=== PATIENT | male | born 1960 | race Caucasian/White ===

== ENCOUNTER 2020-09-11 14:03 | Outpatient (CLI) | payer OTHER, SELFPAY ==
--- NOTE | ~2020-09-11 | XR_ITS ---
EXAMINATION: XR wrist LT min 3V DATE: 09/11/2020 14:19 INDICATION: Osteoarthritis. TECHNIQUE: 4 views of left wrist were obtained. COMPARISON: None. FINDINGS: Bone alignment is normal. No fracture. Triquetrum is absent. There is moderate osteoarthrit is of radioscaphoid joint and scaphoid-trapezoid joint. IMPRESSION: 1. Polyarticular osteoarthritis. Reviewed, dictated and finalized at location A.
== END 2020-09-11 14:04 | disposition home or self-care (01) ==
LOC: ANHIMG 14:09
PROVIDERS: PCP Family Medicine; Visit Provider Plastic Surgery
DX: M19.032 Primary osteoarthritis, left wrist (principal)
CPT/HCPCS: 73110

== ENCOUNTER 2020-10-10 12:55 | Outpatient (CLI) | payer OTHER, SELFPAY ==
--- NOTE | ~2020-10-10 | XR_ITS ---
EXAMINATION: XR joint inject/asp add, XR joint inject/asp w image DATE: 10/10/2020 14:26 ) INDICATION: Osteoarthritis at the left carpus TECHNIQUE: A time-out was performed to verify the patient's name, date of , and procedure to cristina mora performed. The procedure including the risks, benefits, and alternatives was discussed with the kory ieyany. Risks discussed included bleeding and infection. The patient understood the risks and agreed to proceed. The skin overlying the bursal aspect of the left wrist and carpus joint was prepped and dr aped in usual sterile fashion. Anesthetic was administered with 1% lidocaine subcutaneously over both the radiocarpal and infiltrative facet articulations. Attention was first turned to the radiocarpal joint. A 22 G needle was advanced under fluoroscopic guidance into the radioscaphoid articulation of the left wrist joint. Injection of 0.2 mL of Omnipaque 240 confirmed intra-articular position of the needle. Subsequently, injectate consisting of 0.7 mm of a 40 mg/mL mixture of Kenalog for a total d ose of 28 mg Kenalog was injected. Washout of contrast was seen confirming intra-articular administra tion. Attention was then turned to the scaphoid trapezoid articulation. The trapezium has been previo usly resected. A 20 2G needle was advanced under fluoroscopic guidance into the joint space. Injectio n of 0.2 mm of Omnipaque 240 confirmed intra-articular position of the needle. An injectate consistin g of 0.7 mm of a 40 mg/mL mixture of Kenalog for a total dose of 28 mg Kenalog was injected. Washout of contrast was seen confirming intra-articular administration. The entry sites were cleaned and jennifer ssed. There were no immediate complications. Fluoroscopy exposure time was 0.2 minutes. The total nu mber of images was 4. FINDINGS: Fluoroscopic images demonstrate prior first carpal metacarpal suspension arthroplasty with resection of the trapezium. Subsequent images demonstrate a needle and contrast in the left wrist joint. Subseq uent images demonstrate needle and contrast in the scaphoid trapezoid articulation. There is communic ation of the joint space with the midcarpal joint with additional contrast accumulating at the ulnar side of the carpus at the triquetral hamate articulation. Patient's pain prior to procedure:5/10. Ramirez arguello's pain following the procedure: 0/10. IMPRESSION: 1. Successful injections of steroid with decrease in the patient's presenting pain into both the left wrist and scaphoid trapezoid articulations, the latter with communication with the midcarpal joint. Reviewed, dictated and finalized at location A. ERY DEPARTMENT MANAGER IMPRESSION: 1. Successful injections of steroid with decrease in the patient's presenting p ain into both the left wrist and scaphoid trapezoid articulations, the latter w ith communication with the midcarpal joint.
== END 2020-10-10 12:56 | disposition home or self-care (01) ==
LOC: ANHIMG 13:07
PROVIDERS: PCP Family Medicine; Visit Provider Plastic Surgery
DX: M19.032 Primary osteoarthritis, left wrist (principal)
CPT/HCPCS: 20605; 77002; J3301; Q9966

== ENCOUNTER 2023-10-13 08:57 | Outpatient (CLI) | payer OTHER, SELFPAY ==
[2023-10-13 17:40] LABS: Basophils Percent Auto 0.8 % (0.2-1.2); Eosinophils Percent Auto 0.6 % (0-4.4); Hematocrit 49.1 % (42.0-52.0); Hemoglobin 15.9 g/dL (14.0-18.0); Immature Granulocyte Absolute 0.02 K/mm3 (0.00-0.031); Immature Granulocyte Percent A 0.4 % (0-0.5); Lymphocytes Absolute Auto 0.91 K/mm3 (0.9-3.2); Lymphocytes Percent Auto 19.1 % (18.3-44.2); Mean Corpuscular HGB Conc 32.4 g/dl (32-36); Mean Corpuscular Hemoglobin 31.2 pg (26-34); Mean Corpuscular Volume 96.3 fl (80-100); Mean Platelet Volume 9.4 fl (7.4-10.4); Monocytes Absolute Auto 0.4 K/mm3 (0.1-0.6); Monocytes Percent Auto 7.6 % (2.6-8.5); Neutrophils Absolute Auto 3.4 K/mm3 (1.3-6.7); Neutrophils Percent Auto 71.5 % (45.5-73.1); Platelet Count Result 227 k/mm3 (150-375); Red Cell Distribution Width 12.2 % (11.5-14.5); White Blood Count 4.8 K/mm3 (4.5-10.0)
== END 2023-10-13 08:58 | disposition home or self-care (01) ==
LOC: ANHGOSHLAB 08:58
PROVIDERS: PCP Family Medicine; Visit Provider Nurse Practitioner Family
DX: R59.0 Localized enlarged lymph nodes (principal)
CPT/HCPCS: 36415; 85025

== ENCOUNTER → 2023-11-12 12:49 | Outpatient (CLI) | payer OTHER, SELFPAY ==
--- NOTE | ~2023-11-12 | US_ITS ---
EXAMINATION: US soft tissue head and neck DATE: 11/12/2023 13:03 INDICATION: Localized enlarged lymph nodes. TECHNIQUE: Multiple grayscale and Doppler ultrasound images of the head and neck were obtained. COMPARISON: None FINDINGS: In left neck, there is a 4.0 x 4.4 x 3.4 cm thick-walled cystic mass inferior to left parot id gland. IMPRESSION: 1. 4.4 cm thick-walled cystic mass in left neck. The differential diagnosis includes a joe metastas is from squamous cell carcinoma and benign and malignant parotid masses. Neck CT with contrast is rec ommended prior to ultrasound-guided core needle biopsy. Reviewed, dictated and finalized at location A. E SALES CONSULTANT IMPRESSION: 1. 4.4 cm thick-walled cystic mass in left neck. The differential diagnosis inc ludes a joe metastasis from squamous cell carcinoma and benign and malignant parotid masses. Neck CT with contrast is recommended prior to ultrasound-guided core needle biopsy.
== END ==
PROVIDERS: PCP Family Medicine; Visit Provider Nurse Practitioner Family
DX: R59.0 Localized enlarged lymph nodes (principal)
CPT/HCPCS: 76536

== ENCOUNTER → 2023-11-18 09:14 | Outpatient (CLI) | payer OTHER, SELFPAY ==
--- NOTE | ~2023-11-18 | CT_ITS ---
CT scan of the Neck Technique: 2.5 mm axial scans were obtained through the neck after intravenous administration of 75 c c Omnipaque 350. Coronal and sagittal reconstructions of the neck were obtained. Dose reduction techn ique was used on this scan by utilizing automated exposure control and iterative reconstruction techn ique. The dose-length product (DLP) was 498.47 mGy-cm. Clinical History: Lymphadenopathy Findings: There is a 3.7 x 3.6 cm predominantly cystic mass along the anteromedial margin of the left sternocla vicular mastoid muscle, with a thin internal septation and eccentric wall thickening along the medial aspect (axial image 51 for example). No other lymphadenopathy or abnormal mass lesion identified in the neck. Parapharyngeal spaces appear normal bilaterally. The parotid and submandibular glands appea r normal. The pharyngeal mucosal spaces appear normal. No soft tissue masses are seen in the neck. The thyroid gland appears normal. Images of the lung apices reveal no abnormalities. Impression: 3.7 x 3.6 cm complex cystic mass along the anteromedial margin of the left sternocleidal mastoid musc le, as detailed above. This is suspicious for necrotic or cystic neoplasm, though other cystic lesion s are not excluded. Surgical consultation advised. Reviewed, dictated and finalized at location M. OTION PRODUCER Impression: 3.7 x 3.6 cm complex cystic mass along the anteromedial margin of the left ster nocleidal mastoid muscle, as detailed above. This is suspicious for necrotic or cystic neoplasm, though other cystic lesions are not excluded. Surgical consul tation advised.
[2023-11-18 09:43] LABS: Estimated Glomerular Filt Rate > 60
== END ==
PROVIDERS: PCP Family Medicine; Visit Provider Family Medicine
DX: R59.0 Localized enlarged lymph nodes (principal)
CPT/HCPCS: 70491; Q9967

== ENCOUNTER 2023-12-02 09:25 | Outpatient (CLI) | payer OTHER, SELFPAY ==
--- NOTE | ~2023-12-02 | US_ITS ---
EXAMINATION: US biopsy lymph node DATE: 12/02/2023 10:34 INDICATION: Localized enlarged left cervical lymph node/mass. TECHNIQUE: The procedure including the risks and benefits was discussed with the patient. Risks discu ssed included bleeding and infection. The patient understood the risks and agreed to proceed. The sk in overlying the left neck was prepped and draped in usual sterile fashion. Anesthetic was administe red with 1% lidocaine subcutaneously. An 18 gauge core biopsy needle was advanced under continuous u ltrasound observation to the lesion of interest. 4 core biopsy specimens were obtained. The needle was removed and the entry site was cleaned and dressed. Post procedure ultrasound demonstrated no he morrhage. FINDINGS: Ultrasound images demonstrate a 3.2 x 2.5 x 1.8 cm hypoechoic mass at the region of concern . The mass currently appears more solid with on prior ultrasound dated 11/16/2023 to the lesion appea red predominantly anechoic and cystic. There is a small focus of vascular flow on color Doppler withi n the mass which was specifically targeted for the biopsy. IMPRESSION: 1. Successful Ultrasound-guided biopsy of a 3.2 x 2.5 x 1.8 cm left neck mass. Reviewed, dictated and finalized at location A. GER SIX SIGMA
== END 2023-12-02 09:26 | disposition home or self-care (01) ==
PROVIDERS: PCP Family Medicine; Visit Provider Family Medicine
DX: R59.0 Localized enlarged lymph nodes (principal)
CPT/HCPCS: 38505; 76942; 88305; 88342

== ENCOUNTER 2024-12-22 10:05 | Outpatient (CLI) | payer OTHER, SELFPAY ==
--- NOTE | 2024-12-22 12:00 | NEURO_ITS ---
Impression: # Complains of numbness of hands. Non-Diabetic. ? # Bilateral moderate Carpal Tunnel Syndrome. ? # Bilateral ulnar neuropathy across the elbows. ? # Abnormal needle/EMG exam. Nerve Conduction Studies Anti Sensory Summary Table ?Stim Site NR Peak (ms) P-T Amp (?V) Site1 Site2 Delta-P (ms) Dist (cm) Mata (m/s) Left Median Anti Sensory Run #2 (2-3nd Digit) Wrist ? 4.7 7.2 Wrist 2-3nd Digit 4.7 14.0 30 Wrist ? 5.8 32.5 Wrist 2-3nd Digit 4.7 14.0 30 Right Median Anti Sensory (2-3nd Digit) Wrist ? 8.1 12.7 Wrist 2-3nd Digit 8.1 14.0 17 Wrist ? 7.2 17.5 Wrist 2-3nd Digit 8.1 14.0 17 Left Radial Anti Sensory (Base 1st Digit) Wrist ? 2.6 12.8 Wrist Base 1st Digit 2.6 0.0 Right Radial Anti Sensory (Base 1st Digit) Wrist ? 2.1 5.8 Wrist Base 1st Digit 2.1 0.0 Left Ulnar Anti Sensory (5th Digit) Wrist ? 3.4 18.1 Wrist 5th Digit 3.4 14.0 41 Right Ulnar Anti Sensory (5th Digit) Wrist ? 3.3 14.0 Wrist 5th Digit 3.3 14.0 42 Motor Summary Table ?Stim Site NR Onset (ms) O-P Amp (mV) Site1 Site2 Delta-0 (ms) Dist (cm) Mata (m/s) Left Median Motor (Abd Poll Brev) Wrist ? 5.3 1.1 Elbow Wrist 6.6 33.0 50 Elbow ? 11.9 3.6 Right Median Motor (Abd Poll Brev) Wrist ? 4.8 2.5 Elbow Wrist 7.0 32.0 46 Elbow ? 11.8 4.9 Left Ulnar Motor (Abd Dig Minimi) Wrist ? 2.9 7.4 A Elbow Wrist 7.0 34.0 49 A Elbow ? 9.9 6.1 B Elbow Wrist 4.5 24.0 53 B Elbow ? 7.4 6.4 Right Ulnar Motor (Abd Dig Minimi) Wrist ? 2.4 5.6 A Elbow Wrist 7.4 32.0 43 A Elbow ? 9.8 4.1 B Elbow Wrist 5.2 24.0 46 B Elbow ? 7.6 4.3 F Wave Studies ?NR F-Lat (ms) L-R F-Lat (ms) Left Median (Mrkrs) (Abd Poll Brev) ? 29.71 1.17 Right Median (Mrkrs) (Abd Poll Brev) ? 28.54 1.17 Left Ulnar (Mrkrs) (Abd Dig Min) ? 29.78 1.73 Right Ulnar (Mrkrs) (Abd Dig Min) ? 28.05 1.73 EMG ?Side Muscle Nerve Root Ins Act Fibs Amp Dur Recrt Comment Right 1stDorInt Ulnar C8-T1 Nml Nml Decr >12ms +1 Right Ext Indicis Radial (Post Int) C7-8 Nml Nml Nml Nml Nml Right Ext Digitorum Radial (Post Int) C7-8 Nml Nml Nml Nml Nml Right BrachioRad Radial C5-6 Nml Nml Nml Nml Nml Right PronatorTeres Median C6-7 Nml Nml Nml Nml Nml Right Abd Poll Brev Median C8-T1 Nml Nml Decr >12ms +1 Right ABD Dig Min Ulnar C8-T1 Nml Nml Decr >12ms +1 Left 1stDorInt Ulnar C8-T1 Nml Nml Decr >12ms +1 Left Ext Indicis Radial (Post Int) C7-8 Nml Nml Nml Nml Nml Left Ext Digitorum Radial (Post Int) C7-8 Nml Nml Nml Nml Nml Left BrachioRad Radial C5-6 Nml Nml Nml Nml Nml Left PronatorTeres Median C6-7 Nml Nml Nml Nml Nml Left Abd Poll Brev Median C8-T1 Nml Nml Decr >12ms +1 Left ABD Dig Min Ulnar C8-T1 Nml Nml Decr >12ms +1 MTDD
--- OUTSIDE RECORDS SUMMARY | 2024-12-23 23:04 | XMS_ITS | Clinical Summary ---
Author Organization [facility] [employer] Address [address] [place] [address] Care Team Providers Care Field Auto Appraiser Name Role Phone Cesar Allan MD Primary Care Provider [phone] Source Comments [facility],non-owned Affiliates and Associated Physician Practices is amultiple site organization consisting of ambulatory clinics and hospital sitesin [place], [place], [place] and [place]. This disclosure is being madepursuant to the Care Everywhere program and may not contain all information available regarding this patient. Last updated 18.[facility] [employer] Allergies Active Allergy Reactions Criticality Noted Date Comments Midazolam Other Low 01/04/2016 Mental status changes, violence, thrashing Active Problems Problem Noted Date Diagnosed Date Primary osteoarthritis of right hand 02/06/2016 Primary osteoarthritis of left hand 02/06/2016 Personal history of other malignant neoplasm of skin 01/04/2016 Rash and other nonspecific skin eruption 016 Ulcerative colitis without complications 016 Essential (primary) hypertension 01/04/2016 Family History Medical History Relation Name Comments Arthritis - Osteo Mother Asthma Mother Hypertension Mother Relation Name Status Comments Mother Social History Tobacco Use Types Packs/Day Years Used Date Smoking Tobacco: Former Alcohol Use Standard Drinks/Week Comments No 0 (1 standard drink = 0.6 oz pur e alcohol) Sex and Gender Information Value Date Recorded Sex Assigned at Not on file Gender Identity Not on file Sexual Orientation Not on file Last Filed Vital Signs Vital Sign Reading Time Taken Comments Blood Pressure 130/80 02/05/2016 2:14 PM MEMORIAL MARKER DESIGNER Pulse 77 02/05/2016 2:14 PM MEMORIAL MARKER DESIGNER Temperature 36.2 ??C (97.2 ??F) 02/05/2016 2:14 PM CS T Respiratory Rate 18 02/05/2016 2:14 PM MEMORIAL MARKER DESIGNER Oxygen Saturation - - Inhaled Oxygen Concentration - - Weight 101.2 kg (223 lb) 02/05/2016 2:14 PM MEMORIAL MARKER DESIGNER Height 187.3 cm (6' 1.75 ) 01/04/2016 9:42 AM CS T Body Mass Index 28.83 01/04/2016 9:42 AM MEMORIAL MARKER DESIGNER Plan of Treatment Health Maintenance Due Date Last Done Comments COLOGUARD (AGES 45-75) - COL ON CA SCREENING 1959 COLON MONITORING 1959 COLONOSCOPY - COLON CA SCREENING 1959 CT COLONOGRAPHY - COLON CA SCREENING 1959 Colorectal Cancer Screening 1959 FIT - COLON CA SCREENING 1959 FLEX SIG - COLON CA SCREENING 1959 LIPID TESTING 1959 COVID-19 VACCINE (#1) 1964 HIV SCREENING 1974 DTAP/TDAP/TD VACCINES (1 - Tdap) 1978 PNEUMOCOCCAL VACCINE 50+ (1 of 2 - PCV) 1978 ZOSTER VACCINE (1 of 2) 1978 Respiratory Syncytial Virus (RSV) Vaccine Pt: or over 60 yrs (1 - Risk 60-74 years 1-dose series) 2019 AAA SCREENING 2024 INFLUENZA VACCINE (#1) 2024 DEPRESSION SCREENING 12/01/2024 HEPATITIS C SCREENING Completed 01/22/2016 HEPATITIS B VACCINE Aged Out No longe r eligible based on patient's age to complete this topic HIB VACCINE Aged Out No longer eligi ble based on patient's age to complete this topic HPV VACCINE Aged Out No longer eligi ble based on patient's age to complete this topic MENINGOCOCCAL (Group B) VACCINE Aged Out No longer eligible based on patient's age to complete this topic MENINGOCOCCAL VACCINE Aged Out No christina monique eligible based on patient's age to complete this topic Procedures Procedure Name Priority Date/Time Associated Diagnosis Comments HEPATITIS C ANTIBODY Routine 01/22/2016 8:15 AM MEMORIAL MARKER DESIGNER from Last 3 Months or Most Recently Relevant to Health Maintenance Results * HEPATITIS C ANTIBODY (01/22/2016 8:15 AM MEMORIAL MARKER DESIGNER) Hepatitis C Virus Antibody <0.1 0.0 - 0.9 s/co ratio [facility] ([place]) Comment: ?Negative: ? < 0.8 ? Indeterminate: 0.8 - 0.9 ?Positive: ? > 0.9 The CDC recommends that a positive HCV antibody result be followed up with a HCV Nucleic Acid Amplification test (218152). Blood specimen (specimen) BLOOD SPECIMEN / Unknown 01/22/2016 8:15 AM MEMORIAL MARKER DESIGNER 01/22/2016 12:45 PM MEMORIAL MARKER DESIGNER Narrative [facility] ([place]) - 01/25/2016 1:18 PM MEMORIAL MARKER DESIGNER Performed at: ??02 - [facility] [address] ??[id number] Hay Chopper: Tomazs Garland PhD, Phone: ??[phone] John Seaman MD LAB - CHEMISTRY RODRIGO KEYES [facility] LATESHA MORROW) from Last 3 Months or Most Recently Relevant to Health Maintenance Care Teams Field Auto Appraiser Relationship Specialty Start Date End Date Cesar Allan MD [address] [place] [address] PCP - General 02/05/16
--- OUTSIDE RECORDS SUMMARY | 2024-12-23 23:04 | XMS_ITS ---
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 Past Plans No past plan information found. Radiation Treatments * No radiation treatments are documented for this patient in [facility]. Treatments may have been administered in another system. Lifetime Dose Tracking * Chemical Lifetime Dose Automatic Entry Manual Entr y Fluoro Time 1.8 minutes 1.8 minutes 0 minutes Air kerma at the reference point (Ka,r) 19.6 mGy 1 9.6 mGy 0 mGy DLP 420 mGycm 420 mGycm 0 mGycm Resolved Problems Problem Noted Date Diagnosed Date Resolved Date Cancer with unknown primary site (CMS/HCC) 12/10/2023 01/06/2024
--- OUTSIDE RECORDS SUMMARY | 2024-12-23 23:04 | XMS_ITS | Referral Summary ---
Author Organization [facility] Main [facility] s Address [address] [place] [address] Care Team Providers Care Fork Truck Driver Name Role Phone Sergio Schrader MD Unavailable [phone] Satinder Romano MD Unavailable Deshawn Mandujano MD Unavailable Cesar Allan MD Primary Care Provider [phone] Encounters Date Type Department Care Team Description 11/03/2024 10:40 AM CUSTODIAN MANAGER Office Visit [facility] Department of Otolaryngology Head-Neck Division [address] [place] [address] Deshawn Mandujano MD Cancer of tonsil, palatine (HCC) (Primary Dx) 10/12/2024 Telephone [facility] - [facility] E[facility] [address] [place] [address] [place] [id number] Jody Lazcano MS from Last 3 Months Allergies Active Allergy Reactions Criticality Noted Date Comments Midazolam Other (See comments) Low Reaction: Violent Behavior, Morphine Unknown 12/10/2023 Medications oxyCODONE (ROXICODONE) 5 mg immediate release tabletIndicatio ns:Pain Take 1 tablet (5 mg total) by mouth every 4 (four) hours as needed for pain 16 tablet 4 Active ascorbic acid (vitamin C) 1,000 mg tablet Administer per tube 1 tablet (1,000 mg total) every morning 4 Active aspirin 81 mg chewable tabletIndicatio ns:prevention of thrombosis Administer per tube 1 tablet (81 mg total) every morning 4 Active folic acid 20 mg capsule Administer per tube 1 tablet every morning 4 Active potassium gluconate 595 mg (99 mg) tabletIndicatio ns:hypokalemia prevention Administer per tube 1 tablet (595 mg total) every morning 4 Active psyllium (METAMUCIL) powder Administer per tube 1 packet nightly 4 Active pyridoxine (VITAMIN B-6) 100 mg tablet Administer per tube 1 tablet (100 mg total) every morning 4 Active tadalafiL (CIALIS) 20 mg tablet Administer per tube 1 tablet (20 mg total) daily as needed for erectile dysfunction 4 Active traZODone (DESYREL) 100 mg tabletIndicatio ns:insomnia associated with depression Administer per tube 1 tablet (100 mg total) nightly 4 Active acetaminophen 500 mg capsule Administer per tube 1 capsule (500 mg total) as needed (pain) 4 Active cyclobenzaprine (FLEXERIL) 10 mg tablet Administer per tube 1 tablet (10 mg total) 3 (three) times a day as needed for muscle spasms 4 Active nebivoloL (BYSTOLIC) 10 mg tabletIndicatio ns:hypertension Administer per tube 1 tablet (10 mg total) nightly 4 Active sulfaSALAzine (AZULFIDINE) 500 mg tablet Administer per tube 0.5 tablets (250 mg total) 2 (two) times a day for 14 days 14 tablet 1 4 Active ibuprofen (ADVIL,MOTRIN) 400 mg tablet Administer per tube 1 tablet (400 mg total) every 6 (six) hours 4 Active chlorhexidine (PERIDEX) 0.12 % solution RINSE WITH 1/2 OZ AFTER BREAKFAST AND AT BEDTIME, DO NOT EAT/DRINK FOR 30 MINS AFTER, SPIT OUT [address] (NexIUM) 40 mg capsule Take by mouth daily 4 Active Active Problems Problem Noted Date Diagnosed Date 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, 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 Overview (01/14/2024): DIAGNOSIS: Left inferior tonsil cancer PROCEDURE PERFORMED: ([facility] 12/30/23) Transoral robotic assisted left radical tonsillectomy Left neck dissection Left neck major vessel ligation external carotid system: Lingual and facial arteries Pain of finger 07/25/2016 Resolved Problems Problem Noted Date Diagnosed Date Resolved Date Cancer with unknown primary site ([facility]) 12/10/2023 01/06/2024 Immunizations Name Administration Dates Next Due Influenza, Quadrivalent, Xuan l Culture-based MDCK, Preservative Free, Antibiotic Free, Intramuscular 09/24/2022 Influenza, Quadrivalent, Spl it, Intramuscular 09/23/2019 Influenza, Quadrivalent, Spl it, Preservative Free, Intramuscular 01/01/2024,08/09/2020,08/24/2018 Influenza, Trivalent, IM (MDV) 08/09/2021 Tdap 08/17/2023 ZOSTER Recombinant 08/28/2020,06/30/2020 Social History Tobacco Use Types Packs/Day Years Used Date Smoking Tobacco: Former Cigarettes Q uit: 1988 Passive Smoke Exposure: Past Smokeless Tobacco: Former Chew AUDIT-C Answer Date Recorded Q1: How often do you have a drink containing alc ohol? Never 12/30/2023 Q2: How many drinks containi ng alcohol do you have on a typical day when you are drinking? 1 or 2 12/30/2023 Q3: How often do you have six or more drinks on one occasion? Never 12/30/2023 Personal Safety Answer Date Recorded Have you ever been in or are you currently in a harmful physical or emotional relationship or is someone making you feel afraid or unsafe? Denies 12/30/2023 Sex and Gender Information Value Date Recorded Sex Assigned at Not on file Legal Sex Male 11:52 AM CUSTODIAN MANAGER Gender Identity Not on file Sexual Orientation Not on file Last Filed Vital Signs Vital Sign Reading Time Taken Comments Blood Pressure 144/77 01/01/2024 3:41 PM CUSTODIAN MANAGER Pulse 83 01/01/2024 3:41 PM CUSTODIAN MANAGER Temperature 36.6 ??C (97.9 ??F) 01/01/2024 3:41 PM CS T Respiratory Rate 17 01/01/2024 3:41 PM CUSTODIAN MANAGER Oxygen Saturation 99% 01/01/2024 3:41 PM CUSTODIAN MANAGER Inhaled Oxygen Concentration - - Weight 90.7 kg (200 lb) 11/03/2024 10:54 AM CUSTODIAN MANAGER Height 188 cm (6' 2 ) 04/14/2024 10:33 AM CDT Body Mass Index 25.68 04/14/2024 10:33 AM CDT Plan of Treatment Not on file Insurance Advance Directives For more information, please contact: [phone] * Full Code (Latest Code Status on File) Date Activated Date Inactivated Comments 12/30/2023 2:42 PM 01/01/2024 10:34 PM Care Teams Fork Truck Driver Relationship Specialty Start Date End Date Cesar Allan MD [address] [place] [address] [address] [place] [address] PCP - General Family Medicine 04/02/24 Sergio Schrader MD [address] [facility] [address] [facility], [facility] [address] [place] [address] Medical Oncologist/Insole And Outsole Splitter Medical Oncology 12/12/23 Satinder Romano MD [address] [facility] [facility] [address] [facility], [facility] [address] [place] [address] Radiation Oncologist Radiation Oncology 12/12/23 Deshawn Mandujano MD [address] OT[facility], [facility] [address] [place] [address] Consulting Physician Otolaryngology 12/12/23
--- OUTSIDE RECORDS SUMMARY | 2024-12-23 23:04 | XMS_ITS | Encounter Summary ---
Author Organization [facility] Address [address] [place] [address] Phone Care Team Providers Care Strap Machine Operator Name Role Phone Cate Loving NP Primary Care Provider [phone] Sergio Schrader MD Unavailable Satinder Romano MD Unavailable [phone] Deshawn Mandujano MD Unavailable [phone] Cesar Allan MD Primary Care Provider [phone] Encounter Details Date Type Department Care Team (Latest Contact Info) Description 12/22/2023 Orders Only [facility] Scanning, Provider Social History Tobacco Use Types Packs/Day Years Used Date Smoking Tobacco: Former Passive Smoke Exposure: Past Smokeless Tobacco: Former Chew AUDIT-C Answer Date Recorded Q1: How often do you have a drink containing alc ohol? Monthly or less 12/26/2023 Q2: How many drinks containi ng alcohol do you have on a typical day when you are drinking? 1 or 2 12/26/2023 Q3: How often do you have si x or more drinks on one occasion? Never 12/26/2023 Personal Safety Answer Date Recorded Getting School Help Needed Denies 12/26 Sex and Gender Information Value Date Recorded Sex Assigned at Not on file Legal Sex Male 11:52 AM [employer] Gender Identity Not on file Sexual Orientation Not on file documented as of this encounter Plan of Treatment Not on file documented as of this encounter Procedures Procedure Name Priority Date/Time Associated Diagnosis Comments SCAN - PATHOLOGY 12/22/2023 documented in this encounter Results * SCAN - PATHOLOGY (12/22/2023) us Provider Scanning Final Result documented in this encounter Visit Diagnoses Not on filedocumented in this encounter Care Teams Strap Machine Operator Relationship Specialty Start Date End Date Cate Loving, DATA MANAGEMENT CONSULTANT PCP - General Family Medicine 12/05/23 04/01/24 Cesar Allan MD [address] [place] [address] [id number] PCP - General Family Medicine 04/02/24 Sergio Schrader MD [address] [facility] [address] MEDICAL ONCOLOGY, [facility] [address] [place] [address] Medical Oncologist/Barrel Driller Medical Oncology 12/12/23 Satinder Romano MD [address] [facility] [address] MEDICAL ONCOLOGY, [facility] [address] [place] [address] Radiation Oncologist Radiation Oncology 12/12/23 Deshawn Mandujano MD [address] [facility] DEPT OTOLARYNGOLOGY, [address] [address] Consulting Physician Otolaryngology 12/12/23 documented as of this encounter
--- OUTSIDE RECORDS SUMMARY | 2024-12-23 23:04 | XMS_ITS | Patient Health Summary ---
Author Organization [facility] Address [address] [place] [address] Care Team Providers Care Integrated Circuits Inspector Name Role Phone Cesar Allan MD Primary Care Provider [phone] Note from [facility],non-owned Affiliates and Associated Physician Practices is amultiple site organization consisting of ambulatory clinics and hospital sitesin [place], [place], [place] and [place]. This disclosure is being madepursuant to the Care Everywhere program and may not contain all information available regarding this patient. Last updated 18.[facility] [employer] Allergies * Midazolam(Other) -Low Criticality Active Problems Problem Noted Date Diagnosed Date Primary osteoarthritis of right hand 02/06/2016 Primary osteoarthritis of left hand 02/06/2016 Personal history of other malignant neoplasm of skin 01/04/2016 Rash and other nonspecific skin eruption 016 Ulcerative colitis without complications 016 Essential (primary) hypertension 01/04/2016 Social History Tobacco Use Types Packs/Day Years [...] Comments Blood Pressure 130/80 02/05/2016 2:14 PM CINDER CRUSHER OPERATOR Pulse 77 02/05/2016 2:14 PM CINDER CRUSHER OPERATOR Temperature 36.2 ??C (97.2 ??F) 02/05/2016 2:14 PM CS T Respiratory Rate 18 02/05/2016 2:14 PM CINDER CRUSHER OPERATOR Oxygen Saturation - - Inhaled Oxygen Concentration - - Weight 101.2 kg (223 lb) 02/05/2016 2:14 PM CINDER CRUSHER OPERATOR Height 187.3 cm (6' 1.75 ) 01/04/2016 9:42 AM CS T Body Mass Index 28.83 01/04/2016 9:42 AM CINDER CRUSHER OPERATOR Procedures * URINALYSIS MICROSCOPIC ONLY REFLEXED(Performed 01/22/2016) * HLA TYPING B27(Performed 01/22/2016) * RHEUMATOID FACTOR BLOOD QUANTITATIVE(Performed 01/22/2016) * LUPUS ERYTHEMATOSUS PANEL(Performed 01/22/2016) * CYCLIC CITRULLINATED PEPTIDE(CCP) AB IGG(Performed 01/22/2016) * VITAMIN D 25-HYDROXY(Performed 01/22/2016) * URINALYSIS W/MICROSCOPIC REFLEX TO CULTURE(Performed 01/22/2016) * URIC ACID BLOOD(Performed 01/22/2016) * TSH HI LOW REFLEX FREE T4(Performed 01/22/2016) * ERYTHROCYTE SEDIMENTATION RATE(Performed 01/22/2016) * HEPATITIS C ANTIBODY(Performed 01/22/2016) * HEPATITIS B SURFACE ANTIGEN W RFLX CONFIRMATION(Performed 01/22/2016) * CK BLOOD(Performed 01/22/2016) * C-REACTIVE PROTEIN(Performed 01/22/2016) * COMPREHENSIVE METABOLIC PANEL(Performed 01/22/2016) * CBC W AUTO DIFFERENTIAL(Performed 01/22/2016) * BETA-2 GLYCOPROTEIN 1 ANTIBODY IGG/IGM/IGA PANEL(Performed 01/22/2016) * LUPUS ANTICOAGULANT PANEL(Performed 01/22/2016) * CARDIOLIPIN ANTIBODY IGM(Performed 01/22/2016) * CARDIOLIPIN ANTIBODY IGG(Performed 01/22/2016) * CARDIOLIPIN ANTIBODY IGA(Performed 01/22/2016) * CHROMATIN ANTIBODY(Performed 01/22/2016) * XR HAND LEFT 3VW OR MORE(Performed 01/04/2016) * XR HAND RIGHT 3VW OR MORE(Performed 01/04/2016) * XR ANKLE RIGHT 3VW OR MORE(Performed 01/04/2016) * XR ANKLE LEFT 3VW OR MORE(Performed 01/04/2016) * XR FOOT LEFT 3VW OR MORE(Performed 01/04/2016) * XR FOOT RIGHT 3VW OR MORE(Performed 01/04/2016) Results * URINALYSIS MICROSCOPIC ONLY REFLEXED (01/22/2016 8:15 AM CINDER CRUSHER OPERATOR) WBC, UA 0-5 0 - 5 /hpf [facility] (BEAKER) RBC UA 0-2 0 - 2 /hpf [facility] (BEAKER) Epithelial Cells (non renal) None seen 0 - 10 /hpf [facility] (BEAKER) Mucus UA Present Not Estab. [facility] (BEAKER) Bacteria UA None seen None seen/Few [facility] (BEAKER) 01/22/2016 8:15 AM CINDER CRUSHER OPERATOR 01/22/2016 12:45 PM CINDER CRUSHER OPERATOR Narrative [facility] (BEAKER) - 01/25/2016 1:18 PM CINDER CRUSHER OPERATOR Performed at: ??02 - [facility] [address] ??[id number] [place] Farmer: Tomasz Garland PhD, Phone: ??[phone] John Seaman MD LAB - URINALYSIS ORD ERABLES [facility] (BEAKER) * URINALYSIS W/MICROSCOPIC REFLEX TO CULTURE (01/22/2016 8:15 AM CINDER CRUSHER OPERATOR) Specific Reedley 1.023 1.005 - 1.030 [facility] (BEAKER) pH Urine 5.5 5.0 - 7.5 [facility] (BEAKER) Color UA Yellow Yellow [facility] (BEAKER) Appearance Clear Clear [facility] (BEAKER) Leukocyte Esterase Negative Negative [facility] (BEAKER) Protein UA Negative Negative/Tra ce [facility] (BEAKER) Glucose UA Negative Negative [facility] (BEAKER) Ketone UA Negative Negative [facility] (BEAKER) Occult Blood Negative Negative [facility] (BEAKER) Bilirubin Negative Negative [facility] (BEAKER) Urobilinogen Semi-Qn 0.2 0.2 - 1.0 mg/dL [facility] (BEAKER) Nitrite UA Negative Negative [facility] (BEAKER) Microscopic Examination [facility] (BEAKER) Comment:Microscopic follows if indicated. Microscopic Examination See below: [facility] (BEAKER) Comment:Microscopic was kee cated and was performed. Urinalysis Reflex [facility] (BEAKER) Comment:This specimen will n ot reflex to a Urine Culture. Urine specimen (specimen) 01/22/2016 8:15 AM CINDER CRUSHER OPERATOR 01/22/2016 12:45 PM CINDER CRUSHER OPERATOR Narrative [facility] (BEAKER) - 01/25/2016 1:18 PM CINDER CRUSHER OPERATOR Specimen Type->Urine Performed at: ??02 - [facility] [address] ??[id number] [place] Farmer: Tomasz Garland PhD, Phone: ??[phone] John Seaman MD LAB - URINALYSIS ORD ERABLES Performing Organization Address [facility] Co de Phone Number [facility] ([place]) * LUPUS ERYTHEMATOSUS PANEL (01/22/2016 8:15 AM CINDER CRUSHER OPERATOR) BEER RUNNER Antibody <0.2 0.0 - 0.9 AI [facility] (BEAKER) Gaines Antibody <0.2 0.0 - 0.9 AI [facility] (BEAKER) dsDNA Antibody <1 0 - 9 IU/mL [facility] (BEAKER) Comment: ? Negative ?<5 ? Equivocal ??5 - 9 ? Positive ?>9 NANNETTE Direct Negative Negative [facility] (BEAKER) 01/22/2016 8:15 AM CINDER CRUSHER OPERATOR 01/22/2016 12:45 PM CINDER CRUSHER OPERATOR Narrative [facility] (BEAKER) - 01/25/2016 1:18 PM CINDER CRUSHER OPERATOR Performed at: ??02 - [facility] [address] ??[id number] [place] Farmer: Tomasz Garland PhD, Phone: ??[phone] John Seaman MD LAB - SEROLOGY ORDER LADAN [facility] ([facility]) * LUPUS ANTICOAGULANT PANEL (01/22/2016 8:15 AM CINDER CRUSHER OPERATOR) Dilute Prothrombin Time (DPT) 37.1 0.0 - 55.0 sec [facility] dPT Confirm Ratio 0.97 0.00 - 1.20 Ratio [facility] ([facility]) Comment: Effective February 26, 2016 the reference interval ??for dPT Confirm Ratio will be changing to: ? 0.00 - 1.40 Thrombin Time 15.5 0.0 - 20.0 sec [facility] (BEAKER) PTT Lupus Anticoagulant 37.2 0.0 - 50.0 sec [facility] ([facility]) dRVVT Baseline 30.6 0.0 - 55.1 sec [facility] ([facility]) Interpretation Comment: [facility] Hilary [facility] ([facility]) Comment:No lupus anticoagula nt was detected. Blood specimen (specimen) BLOOD SPECIMEN / Unknown 01/22/2016 8:15 AM CINDER CRUSHER OPERATOR 01/22/2016 12:45 PM CINDER CRUSHER OPERATOR Narrative [facility] ([place]) - 01/25/2016 1:18 PM CINDER CRUSHER OPERATOR Performed at: ??01 - [facility] ??[id number] [place] Farmer: Kentrell Machuca MD, Phone: ??[phone] John Seaman MD LAB - HEMATOLOGY ORD ERABLES [facility] ([facility]) * TSH HI LOW REFLEX FREE T4 (01/22/2016 8:15 AM CINDER CRUSHER OPERATOR) TSH 1.740 0.450 - 4.500 uIU/mL [facility] ([facility]) 01/22/2016 8:15 AM CINDER CRUSHER OPERATOR 01/22/2016 12:45 PM CINDER CRUSHER OPERATOR Narrative [facility] ([place]) - 01/25/2016 1:18 PM CINDER CRUSHER OPERATOR Performed at: ??02 - [facility] ??[id number] [place] Farmer: Tomasz Garland PhD, Phone: ??[phone] John Seaman MD LAB - CHEMISTRY RODRIGO KEYES Performing Organization Address [facility] de Phone Number [facility] SAMMIE ([place]) * URIC ACID BLOOD (01/22/2016 8:15 AM CINDER CRUSHER OPERATOR) Pathologist [facility] Uric acid 5.0 3.7 - 8.6 mg/dL [facility] Comment:Therapeutic target f or gout patients: <6.0 Blood specimen (specimen) BLOOD SPECIMEN / Unknown 01/22/2016 8:15 AM CINDER CRUSHER OPERATOR 01/22/2016 12:45 PM CINDER CRUSHER OPERATOR Narrative [facility] ([place] - 01/25/2016 1:18 PM CINDER CRUSHER OPERATOR Performed at: ??02 - [facility] ??[id number] [place] Farmer: Tomasz Garland PhD, Phone: ??[phone] John Seaman MD LAB - CHEMISTRY RODRIGO KEYES Performing Organization Address [facility] de Phone Number [facility] LATESHA MORROW) * CARDIOLIPIN ANTIBODY IGA (01/22/2016 8:15 AM CINDER CRUSHER OPERATOR) Pathologist [facility] Anticardiolipin Antibody IgA Quantitative <9 0 - 11 APL U/mL [facility] ([place]) Comment: ?Negative: ?<12 ?Indeterminate: ? 12 - 20 ?Low-Med Positive: >20 - 80 ?High Positive: ? >80 Blood specimen (specimen) BLOOD SPECIMEN / Unknown 01/22/2016 8:15 AM CINDER CRUSHER OPERATOR 01/22/2016 12:45 PM CINDER CRUSHER OPERATOR Narrative Brien MORROW) - 01/25/2016 1:18 PM CINDER CRUSHER OPERATOR Performed at: ??02 - [facility] ??[id number] [place] Farmer: Tomasz Garland PhD, Phone: ??[phone] John Seaman MD LAB - SEROLOGY ORDER LADAN [facility] LATESHA MORROW) * CARDIOLIPIN ANTIBODY IGM (01/22/2016 8:15 AM CINDER CRUSHER OPERATOR) Anticardiolipin Antibody IgM Quantitative <9 0 - 12 MPL U/mL [facility] LATESHA MORROW) Comment: ?Negative: ?<13 ?Indeterminate: ? 13 - 20 ?Low-Med Positive: >20 - 80 ?High Positive: ? >80 Blood specimen (specimen) BLOOD SPECIMEN / Unknown 01/22/2016 8:15 AM CINDER CRUSHER OPERATOR 01/22/2016 12:45 PM CINDER CRUSHER OPERATOR Narrative Brien MORROW) - 01/25/2016 1:18 PM CINDER CRUSHER OPERATOR Performed at: ??02 - [facility] ??[id number] [place] Farmer: Tomasz Garland PhD, Phone: ??[phone] John Seaman MD LAB - SEROLOGY ORDER LADAN Performing Organization Address [facility] de Phone Number [facility] ([facility]) * CARDIOLIPIN ANTIBODY IGG (01/22/2016 8:15 AM CINDER CRUSHER OPERATOR) Anticardiolipin Antibody IgG Quantitative <9 0 - 14 GPL U/mL [facility] ([facility]) Comment: ?Negative: ?<15 ?Indeterminate: ? 15 - 20 ?Low-Med Positive: >20 - 80 ?High Positive: ? >80 Blood specimen (specimen) BLOOD SPECIMEN / Unknown 01/22/2016 8:15 AM CINDER CRUSHER OPERATOR 01/22/2016 12:45 PM CINDER CRUSHER OPERATOR Narrative [facility]) - 01/25/2016 1:18 PM CINDER CRUSHER OPERATOR Performed at: ??02 - [facility] ??[id number] [place] Farmer: Tomasz Garland PhD, Phone: ??[phone] John Seaman MD LAB - SEROLOGY ORDER LADAN Performing Organization Address [facility] de Phone Number [facility] * BETA-2 GLYCOPROTEIN 1 ANTIBODY IGG/IGM/IGA PANEL (01/22/2016 8:15 AM CINDER CRUSHER OPERATOR) Pathologist [facility] Beta-2 Glycoprotein 1 Antibody 1 IgG <9 0 - 20 GPI IgG units [facility] Comment: The reference interval reflects a 3SD or 99th percentile interval, which is thought to represent a potentially clinically significant result in accordance with the International Consensus Statement on the classification criteria for definitive antiphospholipid syndrome (APS). J Thromb Haem 2006;4:295-306. Beta-2 Glycoprotein 1 Antibody IgA <9 0 - 25 GPI IgA units [facility] ([facility]) Comment: The reference interval reflects a 3SD or 99th percentile interval, which is thought to represent a potentially clinically significant result in accordance with the International Consensus Statement on the classification criteria for definitive antiphospholipid syndrome (APS). J Thromb Haem 2006;4:295-306. Beta-2 Glycoprotein 1 Antibody IgM <9 0 - 32 GPI IgM units [facility] ([facility]) Comment: The reference interval reflects a 3SD or 99th percentile interval, which is thought to represent a potentially clinically significant result in accordance with the International Consensus Statement on the classification criteria for definitive antiphospholipid syndrome (APS). J Thromb Haem 2006;4:295-306. Serum 01/22/2016 8:15 AM CINDER CRUSHER OPERATOR 01/22/2016 12:45 PM CINDER CRUSHER OPERATOR Narrative [facility] ([facility]) - 01/25/2016 1:18 PM CINDER CRUSHER OPERATOR Performed at: ??01 - [facility] [address] ??[id number] [place] Farmer: Kentrell Machuca MD, Phone: ??[phone] John Seaman MD LAB - SEROLOGY ORDER LADAN Performing Organization Address [facility] Phone Number [facility] * RHEUMATOID FACTOR BLOOD QUANTITATIVE (01/22/2016 8:15 AM CINDER CRUSHER OPERATOR) RA latex Turbidimetry 9.8 0.0 - 13.9 IU/mL [facility] ([facility]) Blood specimen (specimen) BLOOD SPECIMEN / Unknown 01/22/2016 8:15 AM CINDER CRUSHER OPERATOR 01/22/2016 12:45 PM CINDER CRUSHER OPERATOR Narrative [facility] ([facility]) - 01/25/2016 1:18 PM CINDER CRUSHER OPERATOR Performed at: ??02 - [facility] [address] ??[id number] [place] Farmer: Tomasz Garland PhD, Phone: ??[phone] John Seaman MD LAB - CHEMISTRY RODRIGO KEYES [facility] * C-REACTIVE PROTEIN (01/22/2016 8:15 AM CINDER CRUSHER OPERATOR) C-Reactive Protein 0.4 0.0 - 4.9 mg/L [facility] ([facility] Blood specimen (specimen) BLOOD SPECIMEN / Unknown 01/22/2016 8:15 AM CINDER CRUSHER OPERATOR 01/22/2016 12:45 PM CINDER CRUSHER OPERATOR Narrative [facility] ([place]) - 01/25/2016 1:18 PM CINDER CRUSHER OPERATOR Performed at: ??02 - [facility] [address] ??[id number] [place] Farmer: Tomasz Garland PhD, Phone: ??[phone] John Seaman MD LAB - CHEMISTRY RODRIGO JIANKRISTINA Performing Organization Address [facility]/ZIP Co de Phone Number [facility]) * HLA TYPING B27 (01/22/2016 8:15 AM CINDER CRUSHER OPERATOR) HLA-B27 Negative [facility] ([facility]) Comment: HLA-B*27 Negative HLA allele interpretation for all loci based on IMGT/HLA database version 3.21 HLA Lab CLIA ID Number [id number] This test was performed using PCR (Polymerase Chain Reaction)/SSOP (Sequence Specific Oligonucleotide Probes) technique. ??SBT (Sequence Based Typing) and/or SSP (Sequence Specific Primers) may be used as supplemental methods when necessary. ??Please contact HLA Customer Service at if you have any questions. Director of HLA Laboratory Dr Bebeto Palacio, PhD Blood specimen (specimen) BLOOD SPECIMEN / Unknown 01/22/2016 8:15 AM CINDER CRUSHER OPERATOR 01/22/2016 12:45 PM CINDER CRUSHER OPERATOR Narrative [facility] ([place]) - 01/25/2016 1:18 PM CINDER CRUSHER OPERATOR Performed at: ??03 - [facility] [place] ??[address] [place], [place] ??[id number] [place] Farmer: Bebeto Palacio PhD, Phone: ??[phone] John Seaman MD LAB - CHEMISTRY RODRIGO KEYES Performing Organization Address [facility] Co de Phone Number [facility]) * VITAMIN D 25-HYDROXY (01/22/2016 8:15 AM CINDER CRUSHER OPERATOR) Vitamin D, 25 Hydroxy 41.5 30.0 - 100.0 ng/mL [facility] Comment: Vitamin D deficiency has been defined by the [employer] and an Endocrine Society practice guideline as a level of serum 25-OH vitamin D less than 20 ng/mL (1,2). The Endocrine Society went on to further define vitamin D insufficiency as a level between 21 and 29 ng/mL (2). 1. IOM ([employer]). 2010. Dietary reference ?? intakes for calcium and D. [place]: The ?? [employer]. 2. Bro MF, Sophia MCKEON, Mendoza MARTEL, et al. ?? Evaluation, treatment, and prevention of vitamin D ?? deficiency: an Endocrine Society clinical practice ?? guideline. JCEM. 2011 May; 96(7):1911-30. Blood specimen (specimen) BLOOD SPECIMEN / Unknown 01/22/2016 8:15 AM CINDER CRUSHER OPERATOR 01/22/2016 12:45 PM CINDER CRUSHER OPERATOR Narrative [facility] ([place]) - 01/25/2016 1:18 PM CINDER CRUSHER OPERATOR Performed at: ??02 - [facility], [place], [place] ??[id number] [place] Farmer: Tomasz Garland PhD, Phone: ??[phone] John Seaman MD LAB - CHEMISTRY RODRIGO KEYES Performing Organization Address [facility] Co de Phone Number [facility] * CYCLIC CITRUL PEPTIDE AB IGG (CCP) (01/22/2016 8:15 AM CINDER CRUSHER OPERATOR) Cyclic Citrullinated Peptide Antibody 6 0 - 19 units [facility] Comment: ?Negative ? <20 ?Weak positive ?20 - 39 ?Moderate positive ??40 - 59 ?Strong positive ?>59 Blood specimen (specimen) BLOOD SPECIMEN / Unknown 01/22/2016 8:15 AM CINDER CRUSHER OPERATOR 01/22/2016 12:45 PM CINDER CRUSHER OPERATOR Narrative [facility] ([place]) - 01/25/2016 1:18 PM CINDER CRUSHER OPERATOR Performed at: ??01 - [facility] ??[id number] [place] Farmer: Kentrell Machuca MD, Phone: ??[phone] John Seaman MD LAB - CHEMISTRY RODRIGO KEYES Performing Organization Address [facility] Co de Phone Number [facility] ([place]) * ERYTHROCYTE SEDIMENTATION RATE (01/22/2016 8:15 AM CINDER CRUSHER OPERATOR) Pathologist [facility] Erythrocyte Sedimentation Rate Westergren 2 0 - 30 mm/hr [facility] ([place]) Blood specimen (specimen) BLOOD SPECIMEN / Unknown 01/22/2016 8:15 AM CINDER CRUSHER OPERATOR 01/22/2016 12:45 PM CINDER CRUSHER OPERATOR Narrative [facility] ([place]) - 01/25/2016 1:18 PM CINDER CRUSHER OPERATOR Performed at: ??02 - [facility] ??[id number] [place] Farmer: Tomasz Garland PhD, Phone: ??[phone] Jonh Seaman MD LAB - HEMATOLOGY SHAHAB SOARES Performing Organization Address City/[facility]/ZIP Co de Phone Number [facility] ([place]) * CBC W AUTO DIFFERENTIAL (01/22/2016 8:15 AM CINDER CRUSHER OPERATOR) WBC 7.2 3.4 - 10.8 x10E3/uL [facility] (BEAKER) RBC 5.30 4.14 - 5.80 x10E6/uL [facility] (BEAKER) Hemoglobin 16.0 12.6 - 17.7 g/dL [facility] (BEAKER) Hematocrit 46.7 37.5 - 51.0 % [facility] (BEAKER) MCV 88 79 - 97 fL [facility] (BEAKER) MCH 30.2 26.6 - 33.0 pg [facility] (BEAKER) MCHC 34.3 31.5 - 35.7 g/dL [facility] (BEAKER) RDW-CV 13.4 12.3 - 15.4 % [facility] (BEAKER) Platelet 253 150 - 379 x10E3/uL [facility] (BEAKER) Neutrophils % 84 % [facility] ([facility]AK[facility]) Lymphocytes % 11 % [facility] (BEAK[facility]) Monocytes % 4 % [facility] ([facility]AK[facility]) Eosinophils % 1 % [facility] (BEAKER) Basophil % 0 % [facility] (BEAKER) Neutrophils Absolute 6.0 1.4 - 7.0 x10E3/uL [facility] (BEAKER) Lymphocyte Absolute Manual 0.8 0.7 - 3.1 x10E3/uL [facility] (BEAKER) Monocytes Absolute 0.3 0.1 - 0.9 x10E3/uL [facility] (BEAKER) Eosinophils Absolute Manual 0.0 0.0 - 0.4 x10E3/uL [facility] (BEAKER) Basophil Absolute Manual 0.0 0.0 - 0.2 x10E3/uL [facility] (BEAKER) Immature Granulocytes % 0 % [facility] (BEAKER) Immature Granulocytes absolute 0.0 0.0 - 0.1 x10E3/uL [facility] (BEAKER) Blood specimen (specimen) BLOOD SPECIMEN / Unknown 01/22/2016 8:15 AM CINDER CRUSHER OPERATOR 01/22/2016 12:45 PM CINDER CRUSHER OPERATOR Narrative [facility] (BEAK[place]) - 01/25/2016 1:18 PM CINDER CRUSHER OPERATOR Performed at: ??02 - [facility] [address] ??[id number] [place] Farmer: Tomasz Garland PhD, Phone: ??[phone] John Seaman MD LAB - HEMATOLOGY ORD [facility] Organization Address City/State/ZIP Co de Phone Number [facility] ([place]) * COMPREHENSIVE METABOLIC PANEL (01/22/2016 8:15 AM CINDER CRUSHER OPERATOR) Glucose 88 65 - 99 mg/dL [facility] (BEAKER) BUN 18 6 - 24 mg/dL [facility] (BEAKER) Creatinine 1.07 0.76 - 1.27 mg/dL [facility] (BEAKER) eGFR non- 77 >59 mL/min/1.7 3 [facility] (BEAKER) eGFR 89 >59 mL/min/1.7 3 [facility] (BEAKER) BUN/Creatinine Ratio 17 9 - 20 [facility] (BEAKER) Sodium 141 134 - 144 mmol/L [facility] (BEAKER) Potassium 4.7 3.5 - 5.2 mmol/L [facility] (BEAKER) Chloride 101 97 - 108 mmol/L [facility] (BEAKER) CO2 26 18 - 29 mmol/L [facility] (BEAKER) Calcium 9.9 8.7 - 10.2 mg/dL [facility] (BEAKER) Protein Total 6.6 6.0 - 8.5 g/dL [facility] (BEAKER) Albumin 4.6 3.5 - 5.5 g/dL [facility] (BEAKER) Globulin Total 2.0 1.5 - 4.5 g/dL [facility] (BEAKER) Albumin/Globulin Ratio 2.3 1.1 - 2.5 [facility] (BEAKER) Bilirubin Total 0.4 0.0 - 1.2 mg/dL [facility] ([facility]) Alkaline Phosphatase 91 39 - 117 IU/L [facility] ([facility]) AST 20 0 - 40 IU/L [facility] ([facility]) ALT 26 0 - 44 IU/L [facility] ([facility]) Blood specimen (specimen) BLOOD SPECIMEN / Unknown 01/22/2016 8:15 AM CINDER CRUSHER OPERATOR 01/22/2016 12:45 PM CINDER CRUSHER OPERATOR Narrative [facility] ([place]) - 01/25/2016 1:18 PM CINDER CRUSHER OPERATOR Performed at: ??02 - [facility] ??[id number] [place]: Tomasz Garland PhD, Phone: ??[phone] John Seaman MD LAB - CHEMISTRY RODRIGO KEYES [facility] ([place]) * HEPATITIS B SURFACE ANTIGEN W RFLX CONFIRMATION (01/22/2016 8:15 AM CINDER CRUSHER OPERATOR) Hepatitis B Virus Surface Antigen Screen Negative Negative [facility] Blood specimen (specimen) BLOOD SPECIMEN / Unknown 01/22/2016 8:15 AM CINDER CRUSHER OPERATOR 01/22/2016 12:45 PM CINDER CRUSHER OPERATOR Narrative [facility] ([place]) - 01/25/2016 1:18 PM CINDER CRUSHER OPERATOR Performed at: ??02 - [address] ??[id number] [place]: Tomasz Garland PhD, Phone: ??[phone] John Seaman MD LAB - CHEMISTRY RODRIGO KEYES Performing Organization Address City/[facility]/ZIP Co de Phone Number [facility] ([place]) * CK BLOOD (01/22/2016 8:15 AM CINDER CRUSHER OPERATOR) CK Total 76 24 - 204 U/L [facility] Blood specimen (specimen) BLOOD SPECIMEN / Unknown 01/22/2016 8:15 AM CINDER CRUSHER OPERATOR 01/22/2016 12:45 PM CINDER CRUSHER OPERATOR Narrative [facility] ([place]) - 01/25/2016 1:18 PM CINDER CRUSHER OPERATOR Performed at: ??02 - [address] ??[id number] [place]: Tomasz Garland PhD, Phone: ??[phone] John Seaman MD LAB - CHEMISTRY RODRIGO KEYES Performing Organization Address [facility] Co de Phone Number [facility] ([place]) * HEPATITIS C ANTIBODY (01/22/2016 8:15 AM CINDER CRUSHER OPERATOR) Hepatitis C Virus Antibody <0.1 0.0 - 0.9 s/co ratio [facility] ([place]) Comment: ?Negative: ? < 0.8 ? Indeterminate: 0.8 - 0.9 ?Positive: ? > 0.9 The CDC recommends that a positive HCV antibody result be followed up with a HCV Nucleic Acid Amplification test (400163). Blood specimen (specimen) BLOOD SPECIMEN / Unknown 01/22/2016 8:15 AM CINDER CRUSHER OPERATOR 01/22/2016 12:45 PM CINDER CRUSHER OPERATOR Narrative [facility] ([place] - 01/25/2016 1:18 PM CINDER CRUSHER OPERATOR Performed at: ??02 - [facility] [address] ??[id number] [place]: Tomasz Garland PhD, Phone: ??[phone] John Seaman MD LAB - CHEMISTRY RODRIGO KEYES [facility] ([place]) * CHROMATIN ANTIBODY (01/22/2016 8:14 AM CINDER CRUSHER OPERATOR) Antichromatin Antibody IgG <0.2 0.0 - 0.9 AI [facility] ([place]) Blood specimen (specimen) BLOOD SPECIMEN / Unknown 01/22/2016 8:14 AM CINDER CRUSHER OPERATOR 01/22/2016 12:45 PM CINDER CRUSHER OPERATOR Narrative [facility] ([place]) - 01/23/2016 1:22 PM CINDER CRUSHER OPERATOR Performed at: ??01 - [facility] [address], [place], [place] ??[id number] [place]: Tomasz Garland PhD, Phone: ??[phone] John Seaman MD LAB - SEROLOGY ORDER LADAN [facility]) * XR FOOT RIGHT 3VW OR MORE (01/04/2016 11:59 AM CINDER CRUSHER OPERATOR) Anatomical Region Laterality Modality Ankle / Foot Other Impressions 01/04/2016 12:42 PM CINDER CRUSHER OPERATOR Impression: 1. Right hand demonstrates mild to moderate osteoarthritis. There is surgical change at the third distal interphalangeal joint, which is flexed on all the images, most likely due to prior extensor tendon injury and repair. 2. The left hand is splinted. Mild to moderate osteoarthritis is present. The patient is status post left trapeziectomy, with associated proximal migration of the first metacarpal. 3. Right ankle radiographs demonstrate posttraumatic and probable postsurgical changes of the distal tibia and fibula, with bony fusion of the distal tibiofibular syndesmosis. A plantar calcaneal spur is present. There is otherwise no significant arthritis. 4. Left ankle radiographs demonstrate chronic posttraumatic changes, with a 5 mm cystic appearing osteochondral lesion in the lateral aspect of the talar dome. Calcaneal spurring is noted. The joint spaces are normal. 5. Right foot radiographs demonstrate mild first metatarsophalangeal osteoarthritis. 6. Left foot radiographs demonstrate minimal first metatarsophalangeal degenerative change. This report was electronically signed by JAIME GARCIA MD ??on 01/04/2016 12:42 PM . Narrative 01/04/2016 12:42 PM CINDER CRUSHER OPERATOR Exam: 1. XR HAND LEFT 3+ VW, 2. XR HAND RIGHT 3+ VW, 3. XR ANKLE RIGHT 3+ VW, 4. XR ANKLE LEFT 3+ VW, 5. XR FOOT RIGHT 3+ VW, 6. XR FOOT LEFT 3+ VW History: ??Please evaluate for Joint pains. Comparison: None available. Findings: Right hand: No acute fracture or dislocation is seen. There is deformity of the third distal interphalangeal joint, which is flexed on all the images. A surgical suture anchor is present in this region along the dorsal aspect of the base of the third distal phalanx, likely reflecting prior extensor tendon injury and repair. Mild arthritis is present at this joint. 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 Subchondral cysts are seen at the fifth distal interphalangeal joint. Osteophytes are noted at the first interphalangeal joint. There is mild nonspecific degenerative change in the wrist, which may represent early osteoarthritis. Otherwise, the joint spaces are maintained. No erosions are seen. Bone density is normal. The soft tissues are unremarkable. Left hand: A splint is present obscuring bone detail. No acute fracture or dislocation is seen. There is mild to moderate osteoarthritis, greatest at the second and third distal interphalangeal joints, and to a lesser extent at the first interphalangeal joint. The trapezium is absent. As a result, the first metacarpal base has migrated proximally. No erosions are seen. Bone density is normal. Mild soft tissue swelling is present in the fingers. A small carpal boss is noted. Right ankle: There is posttraumatic change of the distal tibia and fibula, with bony fusion between the distal tibia and fibula. There are linear areas of sclerosis in the distal fibula which probably represent prior surgical hardware which has been removed. The ankle mortise is intact. There is mild spurring of the medial and lateral malleoli. A moderate plantar calcaneal spur is present. The joint spaces are normal. No erosions are seen. Bone density is normal. The soft tissues are unremarkable. Left ankle: No acute fracture or dislocation is seen. There is a 1 cm lucency within the distal fibula. There is bony irregularity of the fibular tip. There is spurring along the anterior aspect of the distal tibia, the distal tibial shaft is mildly bowed with a 1 cm area of sclerosis. These findings probably reflect prior trauma. A 5 mm lucency in the lateral aspect of the talar dome is consistent with a cystic osteochondral lesion. The ankle mortise is intact. The joint spaces are normal. There is a moderate plantar calcaneal spur. A 6 mm chronic ossicle is present along the posterior calcaneus in the region of the distal Achilles tendon. Bone density is normal. No erosions are seen. The soft tissues are unremarkable. Right foot: No acute fracture or dislocation is seen. Mild osteoarthritis is noted at the first metatarsophalangeal joint. Otherwise the joint spaces are normal. No erosions are seen. Bone density is normal. Small spur is present at the fifth metatarsal head. The soft tissues are unremarkable. Left foot: No acute fracture or dislocation is seen. There is minimal degenerative change at the first metatarsophalangeal joint. No erosions are seen. The joint spaces are otherwise normal. Bone density is normal. The soft tissues are unremarkable. Procedure Note Jaime Garcia MD - 02/28/2018 Exam: 1. XR HAND LEFT 3+ VW, 2. XR HAND RIGHT 3+ VW, 3. XR ANKLE RIGHT 3+ VW, 4. XR ANKLE LEFT 3+ VW, 5. XR FOOT RIGHT 3+ VW, 6. XR FOOT LEFT 3+ VW History: Please evaluate for Joint pains. Comparison: None available. Findings: Right hand: No acute fracture or dislocation is seen. There is deformity of the thirddistal interphalangeal joint, which is flexed on all the images. Asurgical suture anchor is present in this region along the dorsal aspectof the base of the third distal phalanx, likely reflecting prior extensor tendon injury and repair. Mild arthritisis present at this joint. There is also mild osteoarthritis at the secondand fourth distal interphalangeal joints. Subchondral cysts are seen atthe fifth distal interphalangeal joint. Osteophytes are noted at the first interphalangeal joint. There ismild nonspecific degenerative change in the wrist, which may representearly osteoarthritis. Otherwise, the joint spaces are maintained. Noerosions are seen. Bone density is normal. The soft tissues are unremarkable. Left hand: A splint is present obscuring bone detail. No acute fracture ordislocation is seen. There is mild to moderate osteoarthritis, greatest atthe second and third distal interphalangeal joints, and to a lesser extentat the first interphalangeal joint. The trapezium is absent. As a result, the first metacarpal base has migratedproximally. No erosions are seen. Bone density is normal. Mild soft tissueswelling is present in the fingers. A small carpal boss is noted. Right ankle: There is posttraumatic change of the distal tibia and fibula, with bonyfusion between the distal tibia and fibula. There are linear areas ofsclerosis in the distal fibula which probably represent prior surgicalhardware which has been removed. The ankle mortise is intact. There is mild spurring of the medial and lateralmalleoli. A moderate plantar calcaneal spur is present. The joint spacesare normal. No erosions are seen. Bone density is normal. The soft tissuesare unremarkable. Left ankle: No acute fracture or dislocation is seen. There is a 1 cm lucency withinthe distal fibula. There is bony irregularity of the fibular tip. There isspurring along the anterior aspect of the distal tibia, the distal tibialshaft is mildly bowed with a 1 cm area of sclerosis. These findings probably reflect prior trauma. A 5 mmlucency in the lateral aspect of the talar dome is consistent with acystic osteochondral lesion. The ankle mortise is intact. The joint spacesare normal. There is a moderate plantar calcaneal spur. A 6 mm chronic ossicle is present along theposterior calcaneus in the region of the distal Achilles tendon. Bonedensity is normal. No erosions are seen. The soft tissues areunremarkable. Right foot: No acute fracture or dislocation is seen. Mild osteoarthritis is noted atthe first metatarsophalangeal joint. Otherwise the joint spaces arenormal. No erosions are seen. Bone density is normal. Small spur ispresent at the fifth metatarsal head. The soft tissues are unremarkable. Left foot: No acute fracture or dislocation is seen. There is minimal degenerativechange at the first metatarsophalangeal joint. No erosions are seen. Thejoint spaces are otherwise normal. Bone density is normal. The softtissues are unremarkable. IMPRESSION Impression: 1. Right hand demonstrates mild to moderate osteoarthritis. There issurgical change at the third distal interphalangeal joint, which is flexedon all the images, most likely due to prior extensor tendon injury andrepair. 2. The left hand is splinted. Mild to moderate osteoarthritis is present.The patient is status post left trapeziectomy, with associated proximalmigration of the first metacarpal. 3. Right ankle radiographs demonstrate posttraumatic and probablepostsurgical changes of the distal tibia and fibula, with bony fusion ofthe distal tibiofibular syndesmosis. A plantar calcaneal spur is present.There is otherwise no significant arthritis. 4. Left ankle radiographs demonstrate chronic posttraumatic changes, witha 5 mm cystic appearing osteochondral lesion in the lateral aspect of thetalar dome. Calcaneal spurring is noted. The joint spaces are normal. 5. Right foot radiographs demonstrate mild first metatarsophalangealosteoarthritis. 6. Left foot radiographs demonstrate minimal first metatarsophalangealdegenerative change. This report was electronically signed by JAIME GARCIA MD on 01/04/201612:42 PM . John Seaman MD DIAGNOSTIC IMAGING O RDERABLES * XR FOOT LEFT 3VW OR MORE (01/04/2016 11:59 AM CINDER CRUSHER OPERATOR) Anatomical Region Laterality Modality Ankle / Foot Other Impressions 01/04/2016 12:42 PM CINDER CRUSHER OPERATOR Impression: 1. Right hand demonstrates mild to moderate osteoarthritis. There is surgical change at the third distal interphalangeal joint, which is flexed on all the images, most likely due to prior extensor tendon injury and repair. 2. The left hand is splinted. Mild to moderate osteoarthritis is present. The patient is status post left trapeziectomy, with associated proximal migration of the first metacarpal. 3. Right ankle radiographs demonstrate posttraumatic and probable postsurgical changes of the distal tibia and fibula, with bony fusion of the distal tibiofibular syndesmosis. A plantar calcaneal spur is present. There is otherwise no significant arthritis. 4. Left ankle radiographs demonstrate chronic posttraumatic changes, with a 5 mm cystic appearing osteochondral lesion in the lateral aspect of the talar dome. Calcaneal spurring is noted. The joint spaces are normal. 5. Right foot radiographs demonstrate mild first metatarsophalangeal osteoarthritis. 6. Left foot radiographs demonstrate minimal first metatarsophalangeal degenerative change. This report was electronically signed by JAIME GARCIA MD ??on 01/04/2016 12:42 PM . Narrative 01/04/2016 12:42 PM CINDER CRUSHER OPERATOR Exam: 1. XR HAND LEFT 3+ VW, 2. XR HAND RIGHT 3+ VW, 3. XR ANKLE RIGHT 3+ VW, 4. XR ANKLE LEFT 3+ VW, 5. XR FOOT RIGHT 3+ VW, 6. XR FOOT LEFT 3+ VW History: ??Please evaluate for Joint pains. Comparison: None available. Findings: Right hand: No acute fracture or dislocation is seen. There is deformity of the third distal interphalangeal joint, which is flexed on all the images. A surgical suture anchor is present in this region along the dorsal aspect of the base of the third distal phalanx, likely reflecting prior extensor tendon injury and repair. Mild arthritis is present at this joint. 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 Subchondral cysts are seen at the fifth distal interphalangeal joint. Osteophytes are noted at the first interphalangeal joint. There is mild nonspecific degenerative change in the wrist, which may represent early osteoarthritis. Otherwise, the joint spaces are maintained. No erosions are seen. Bone density is normal. The soft tissues are unremarkable. Left hand: A splint is present obscuring bone detail. No acute fracture or dislocation is seen. There is mild to moderate osteoarthritis, greatest at the second and third distal interphalangeal joints, and to a lesser extent at the first interphalangeal joint. The trapezium is absent. As a result, the first metacarpal base has migrated proximally. No erosions are seen. Bone density is normal. Mild soft tissue swelling is present in the fingers. A small carpal boss is noted. Right ankle: There is posttraumatic change of the distal tibia and fibula, with bony fusion between the distal tibia and fibula. There are linear areas of sclerosis in the distal fibula which probably represent prior surgical hardware which has been removed. The ankle mortise is intact. There is mild spurring of the medial and lateral malleoli. A moderate plantar calcaneal spur is present. The joint spaces are normal. No erosions are seen. Bone density is normal. The soft tissues are unremarkable. Left ankle: No acute fracture or dislocation is seen. There is a 1 cm lucency within the distal fibula. There is bony irregularity of the fibular tip. There is spurring along the anterior aspect of the distal tibia, the distal tibial shaft is mildly bowed with a 1 cm area of sclerosis. These findings probably reflect prior trauma. A 5 mm lucency in the lateral aspect of the talar dome is consistent with a cystic osteochondral lesion. The ankle mortise is intact. The joint spaces are normal. There is a moderate plantar calcaneal spur. A 6 mm chronic ossicle is present along the posterior calcaneus in the region of the distal Achilles tendon. Bone density is normal. No erosions are seen. The soft tissues are unremarkable. Right foot: No acute fracture or dislocation is seen. Mild osteoarthritis is noted at the first metatarsophalangeal joint. Otherwise the joint spaces are normal. No erosions are seen. Bone density is normal. Small spur is present at the fifth metatarsal head. The soft tissues are unremarkable. Left foot: No acute fracture or dislocation is seen. There is minimal degenerative change at the first metatarsophalangeal joint. No erosions are seen. The joint spaces are otherwise normal. Bone density is normal. The soft tissues are unremarkable. Procedure Note Jaime Garcia MD - 02/28/2018 Exam: 1. XR HAND LEFT 3+ VW, 2. XR HAND RIGHT 3+ VW, 3. XR ANKLE RIGHT 3+ VW, 4. XR ANKLE LEFT 3+ VW, 5. XR FOOT RIGHT 3+ VW, 6. XR FOOT LEFT 3+ VW History: Please evaluate for Joint pains. Comparison: None available. Findings: Right hand: No acute fracture or dislocation is seen. There is deformity of the thirddistal interphalangeal joint, which is flexed on all the images. Asurgical suture anchor is present in this region along the dorsal aspectof the base of the third distal phalanx, likely reflecting prior extensor tendon injury and repair. Mild arthritisis present at this joint. There is also mild osteoarthritis at the secondand fourth distal interphalangeal joints. Subchondral cysts are seen atthe fifth distal interphalangeal joint. Osteophytes are noted at the first interphalangeal joint. There ismild nonspecific degenerative change in the wrist, which may representearly osteoarthritis. Otherwise, the joint spaces are maintained. Noerosions are seen. Bone density is normal. The soft tissues are unremarkable. Left hand: A splint is present obscuring bone detail. No acute fracture ordislocation is seen. There is mild to moderate osteoarthritis, greatest atthe second and third distal interphalangeal joints, and to a lesser extentat the first interphalangeal joint. The trapezium is absent. As a result, the first metacarpal base has migratedproximally. No erosions are seen. Bone density is normal. Mild soft tissueswelling is present in the fingers. A small carpal boss is noted. Right ankle: There is posttraumatic change of the distal tibia and fibula, with bonyfusion between the distal tibia and fibula. There are linear areas ofsclerosis in the distal fibula which probably represent prior surgicalhardware which has been removed. The ankle mortise is intact. There is mild spurring of the medial and lateralmalleoli. A moderate plantar calcaneal spur is present. The joint spacesare normal. No erosions are seen. Bone density is normal. The soft tissuesare unremarkable. Left ankle: No acute fracture or dislocation is seen. There is a 1 cm lucency withinthe distal fibula. There is bony irregularity of the fibular tip. There isspurring along the anterior aspect of the distal tibia, the distal tibialshaft is mildly bowed with a 1 cm area of sclerosis. These findings probably reflect prior trauma. A 5 mmlucency in the lateral aspect of the talar dome is consistent with acystic osteochondral lesion. The ankle mortise is intact. The joint spacesare normal. There is a moderate plantar calcaneal spur. A 6 mm chronic ossicle is present along theposterior calcaneus in the region of the distal Achilles tendon. Bonedensity is normal. No erosions are seen. The soft tissues areunremarkable. Right foot: No acute fracture or dislocation is seen. Mild osteoarthritis is noted atthe first metatarsophalangeal joint. Otherwise the joint spaces arenormal. No erosions are seen. Bone density is normal. Small spur ispresent at the fifth metatarsal head. The soft tissues are unremarkable. Left foot: No acute fracture or dislocation is seen. There is minimal degenerativechange at the first metatarsophalangeal joint. No erosions are seen. Thejoint spaces are otherwise normal. Bone density is normal. The softtissues are unremarkable. IMPRESSION Impression: 1. Right hand demonstrates mild to moderate osteoarthritis. There issurgical change at the third distal interphalangeal joint, which is flexedon all the images, most likely due to prior extensor tendon injury andrepair. 2. The left hand is splinted. Mild to moderate osteoarthritis is present.The patient is status post left trapeziectomy, with associated proximalmigration of the first metacarpal. 3. Right ankle radiographs demonstrate posttraumatic and probablepostsurgical changes of the distal tibia and fibula, with bony fusion ofthe distal tibiofibular syndesmosis. A plantar calcaneal spur is present.There is otherwise no significant arthritis. 4. Left ankle radiographs demonstrate chronic posttraumatic changes, witha 5 mm cystic appearing osteochondral lesion in the lateral aspect of thetalar dome. Calcaneal spurring is noted. The joint spaces are normal. 5. Right foot radiographs demonstrate mild first metatarsophalangealosteoarthritis. 6. Left foot radiographs demonstrate minimal first metatarsophalangealdegenerative change. This report was electronically signed by JAIME GARCIA MD on 01/04/201612:42 PM . John Seaman MD DIAGNOSTIC IMAGING O RDERABLES * XR ANKLE RIGHT 3VW OR MORE (01/04/2016 11:59 AM CINDER CRUSHER OPERATOR) Anatomical Region Laterality Modality Lower Extremity Other Impressions 01/04/2016 12:42 PM CINDER CRUSHER OPERATOR Impression: 1. Right hand demonstrates mild to moderate osteoarthritis. There is surgical change at the third distal interphalangeal joint, which is flexed on all the images, most likely due to prior extensor tendon injury and repair. 2. The left hand is splinted. Mild to moderate osteoarthritis is present. The patient is status post left trapeziectomy, with associated proximal migration of the first metacarpal. 3. Right ankle radiographs demonstrate posttraumatic and probable postsurgical changes of the distal tibia and fibula, with bony fusion of the distal tibiofibular syndesmosis. A plantar calcaneal spur is present. There is otherwise no significant arthritis. 4. Left ankle radiographs demonstrate chronic posttraumatic changes, with a 5 mm cystic appearing osteochondral lesion in the lateral aspect of the talar dome. Calcaneal spurring is noted. The joint spaces are normal. 5. Right foot radiographs demonstrate mild first metatarsophalangeal osteoarthritis. 6. Left foot radiographs demonstrate minimal first metatarsophalangeal degenerative change. This report was electronically signed by JAIME GARCIA MD ??on 01/04/2016 12:42 PM . Narrative 01/04/2016 12:42 PM CINDER CRUSHER OPERATOR Exam: 1. XR HAND LEFT 3+ VW, 2. XR HAND RIGHT 3+ VW, 3. XR ANKLE RIGHT 3+ VW, 4. XR ANKLE LEFT 3+ VW, 5. XR FOOT RIGHT 3+ VW, 6. XR FOOT LEFT 3+ VW History: ??Please evaluate for Joint pains. Comparison: None available. Findings: Right hand: No acute fracture or dislocation is seen. There is deformity of the third distal interphalangeal joint, which is flexed on all the images. A surgical suture anchor is present in this region along the dorsal aspect of the base of the third distal phalanx, likely reflecting prior extensor tendon injury and repair. Mild arthritis is present at this joint. 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 Subchondral cysts are seen at the fifth distal interphalangeal joint. Osteophytes are noted at the first interphalangeal joint. There is mild nonspecific degenerative change in the wrist, which may represent early osteoarthritis. Otherwise, the joint spaces are maintained. No erosions are seen. Bone density is normal. The soft tissues are unremarkable. Left hand: A splint is present obscuring bone detail. No acute fracture or dislocation is seen. There is mild to moderate osteoarthritis, greatest at the second and third distal interphalangeal joints, and to a lesser extent at the first interphalangeal joint. The trapezium is absent. As a result, the first metacarpal base has migrated proximally. No erosions are seen. Bone density is normal. Mild soft tissue swelling is present in the fingers. A small carpal boss is noted. Right ankle: There is posttraumatic change of the distal tibia and fibula, with bony fusion between the distal tibia and fibula. There are linear areas of sclerosis in the distal fibula which probably represent prior surgical hardware which has been removed. The ankle mortise is intact. There is mild spurring of the medial and lateral malleoli. A moderate plantar calcaneal spur is present. The joint spaces are normal. No erosions are seen. Bone density is normal. The soft tissues are unremarkable. Left ankle: No acute fracture or dislocation is seen. There is a 1 cm lucency within the distal fibula. There is bony irregularity of the fibular tip. There is spurring along the anterior aspect of the distal tibia, the distal tibial shaft is mildly bowed with a 1 cm area of sclerosis. These findings probably reflect prior trauma. A 5 mm lucency in the lateral aspect of the talar dome is consistent with a cystic osteochondral lesion. The ankle mortise is intact. The joint spaces are normal. There is a moderate plantar calcaneal spur. A 6 mm chronic ossicle is present along the posterior calcaneus in the region of the distal Achilles tendon. Bone density is normal. No erosions are seen. The soft tissues are unremarkable. Right foot: No acute fracture or dislocation is seen. Mild osteoarthritis is noted at the first metatarsophalangeal joint. Otherwise the joint spaces are normal. No erosions are seen. Bone density is normal. Small spur is present at the fifth metatarsal head. The soft tissues are unremarkable. Left foot: No acute fracture or dislocation is seen. There is minimal degenerative change at the first metatarsophalangeal joint. No erosions are seen. The joint spaces are otherwise normal. Bone density is normal. The soft tissues are unremarkable. Procedure Note Jaime Garcia MD - 02/28/2018 Exam: 1. XR HAND LEFT 3+ VW, 2. XR HAND RIGHT 3+ VW, 3. XR ANKLE RIGHT 3+ VW, 4. XR ANKLE LEFT 3+ VW, 5. XR FOOT RIGHT 3+ VW, 6. XR FOOT LEFT 3+ VW History: Please evaluate for Joint pains. Comparison: None available. Findings: Right hand: No acute fracture or dislocation is seen. There is deformity of the thirddistal interphalangeal joint, which is flexed on all the images. Asurgical suture anchor is present in this region along the dorsal aspectof the base of the third distal phalanx, likely reflecting prior extensor tendon injury and repair. Mild arthritisis present at this joint. There is also mild osteoarthritis at the secondand fourth distal interphalangeal joints. Subchondral cysts are seen atthe fifth distal interphalangeal joint. Osteophytes are noted at the first interphalangeal joint. There ismild nonspecific degenerative change in the wrist, which may representearly osteoarthritis. Otherwise, the joint spaces are maintained. Noerosions are seen. Bone density is normal. The soft tissues are unremarkable. Left hand: A splint is present obscuring bone detail. No acute fracture ordislocation is seen. There is mild to moderate osteoarthritis, greatest atthe second and third distal interphalangeal joints, and to a lesser extentat the first interphalangeal joint. The trapezium is absent. As a result, the first metacarpal base has migratedproximally. No erosions are seen. Bone density is normal. Mild soft tissueswelling is present in the fingers. A small carpal boss is noted. Right ankle: There is posttraumatic change of the distal tibia and fibula, with bonyfusion between the distal tibia and fibula. There are linear areas ofsclerosis in the distal fibula which probably represent prior surgicalhardware which has been removed. The ankle mortise is intact. There is mild spurring of the medial and lateralmalleoli. A moderate plantar calcaneal spur is present. The joint spacesare normal. No erosions are seen. Bone density is normal. The soft tissuesare unremarkable. Left ankle: No acute fracture or dislocation is seen. There is a 1 cm lucency withinthe distal fibula. There is bony irregularity of the fibular tip. There isspurring along the anterior aspect of the distal tibia, the distal tibialshaft is mildly bowed with a 1 cm area of sclerosis. These findings probably reflect prior trauma. A 5 mmlucency in the lateral aspect of the talar dome is consistent with acystic osteochondral lesion. The ankle mortise is intact. The joint spacesare normal. There is a moderate plantar calcaneal spur. A 6 mm chronic ossicle is present along theposterior calcaneus in the region of the distal Achilles tendon. Bonedensity is normal. No erosions are seen. The soft tissues areunremarkable. Right foot: No acute fracture or dislocation is seen. Mild osteoarthritis is noted atthe first metatarsophalangeal joint. Otherwise the joint spaces arenormal. No erosions are seen. Bone density is normal. Small spur ispresent at the fifth metatarsal head. The soft tissues are unremarkable. Left foot: No acute fracture or dislocation is seen. There is minimal degenerativechange at the first metatarsophalangeal joint. No erosions are seen. Thejoint spaces are otherwise normal. Bone density is normal. The softtissues are unremarkable. IMPRESSION Impression: 1. Right hand demonstrates mild to moderate osteoarthritis. There issurgical change at the third distal interphalangeal joint, which is flexedon all the images, most likely due to prior extensor tendon injury andrepair. 2. The left hand is splinted. Mild to moderate osteoarthritis is present.The patient is status post left trapeziectomy, with associated proximalmigration of the first metacarpal. 3. Right ankle radiographs demonstrate posttraumatic and probablepostsurgical changes of the distal tibia and fibula, with bony fusion ofthe distal tibiofibular syndesmosis. A plantar calcaneal spur is present.There is otherwise no significant arthritis. 4. Left ankle radiographs demonstrate chronic posttraumatic changes, witha 5 mm cystic appearing osteochondral lesion in the lateral aspect of thetalar dome. Calcaneal spurring is noted. The joint spaces are normal. 5. Right foot radiographs demonstrate mild first metatarsophalangealosteoarthritis. 6. Left foot radiographs demonstrate minimal first metatarsophalangealdegenerative change. This report was electronically signed by JAIME GARCIA MD on 01/04/201612:42 PM . John Seaman MD DIAGNOSTIC IMAGING O RDERABLES * XR ANKLE LEFT 3VW OR MORE (01/04/2016 11:59 AM CINDER CRUSHER OPERATOR) Anatomical Region Laterality Modality Lower Extremity Other Impressions 01/04/2016 12:42 PM CINDER CRUSHER OPERATOR Impression: 1. Right hand demonstrates mild to moderate osteoarthritis. There is surgical change at the third distal interphalangeal joint, which is flexed on all the images, most likely due to prior extensor tendon injury and repair. 2. The left hand is splinted. Mild to moderate osteoarthritis is present. The patient is status post left trapeziectomy, with associated proximal migration of the first metacarpal. 3. Right ankle radiographs demonstrate posttraumatic and probable postsurgical changes of the distal tibia and fibula, with bony fusion of the distal tibiofibular syndesmosis. A plantar calcaneal spur is present. There is otherwise no significant arthritis. 4. Left ankle radiographs demonstrate chronic posttraumatic changes, with a 5 mm cystic appearing osteochondral lesion in the lateral aspect of the talar dome. Calcaneal spurring is noted. The joint spaces are normal. 5. Right foot radiographs demonstrate mild first metatarsophalangeal osteoarthritis. 6. Left foot radiographs demonstrate minimal first metatarsophalangeal degenerative change. This report was electronically signed by JAIME GARCIA MD ??on 01/04/2016 12:42 PM . Narrative 01/04/2016 12:42 PM CINDER CRUSHER OPERATOR Exam: 1. XR HAND LEFT 3+ VW, 2. XR HAND RIGHT 3+ VW, 3. XR ANKLE RIGHT 3+ VW, 4. XR ANKLE LEFT 3+ VW, 5. XR FOOT RIGHT 3+ VW, 6. XR FOOT LEFT 3+ VW History: ??Please evaluate for Joint pains. Comparison: None available. Findings: Right hand: No acute fracture or dislocation is seen. There is deformity of the third distal interphalangeal joint, which is flexed on all the images. A surgical suture anchor is present in this region along the dorsal aspect of the base of the third distal phalanx, likely reflecting prior extensor tendon injury and repair. Mild arthritis is present at this joint. 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 Subchondral cysts are seen at the fifth distal interphalangeal joint. Osteophytes are noted at the first interphalangeal joint. There is mild nonspecific degenerative change in the wrist, which may represent early osteoarthritis. Otherwise, the joint spaces are maintained. No erosions are seen. Bone density is normal. The soft tissues are unremarkable. Left hand: A splint is present obscuring bone detail. No acute fracture or dislocation is seen. There is mild to moderate osteoarthritis, greatest at the second and third distal interphalangeal joints, and to a lesser extent at the first interphalangeal joint. The trapezium is absent. As a result, the first metacarpal base has migrated proximally. No erosions are seen. Bone density is normal. Mild soft tissue swelling is present in the fingers. A small carpal boss is noted. Right ankle: There is posttraumatic change of the distal tibia and fibula, with bony fusion between the distal tibia and fibula. There are linear areas of sclerosis in the distal fibula which probably represent prior surgical hardware which has been removed. The ankle mortise is intact. There is mild spurring of the medial and lateral malleoli. A moderate plantar calcaneal spur is present. The joint spaces are normal. No erosions are seen. Bone density is normal. The soft tissues are unremarkable. Left ankle: No acute fracture or dislocation is seen. There is a 1 cm lucency within the distal fibula. There is bony irregularity of the fibular tip. There is spurring along the anterior aspect of the distal tibia, the distal tibial shaft is mildly bowed with a 1 cm area of sclerosis. These findings probably reflect prior trauma. A 5 mm lucency in the lateral aspect of the talar dome is consistent with a cystic osteochondral lesion. The ankle mortise is intact. The joint spaces are normal. There is a moderate plantar calcaneal spur. A 6 mm chronic ossicle is present along the posterior calcaneus in the region of the distal Achilles tendon. Bone density is normal. No erosions are seen. The soft tissues are unremarkable. Right foot: No acute fracture or dislocation is seen. Mild osteoarthritis is noted at the first metatarsophalangeal joint. Otherwise the joint spaces are normal. No erosions are seen. Bone density is normal. Small spur is present at the fifth metatarsal head. The soft tissues are unremarkable. Left foot: No acute fracture or dislocation is seen. There is minimal degenerative change at the first metatarsophalangeal joint. No erosions are seen. The joint spaces are otherwise normal. Bone density is normal. The soft tissues are unremarkable. Procedure Note Jaime Garcia MD - 02/28/2018 Exam: 1. XR HAND LEFT 3+ VW, 2. XR HAND RIGHT 3+ VW, 3. XR ANKLE RIGHT 3+ VW, 4. XR ANKLE LEFT 3+ VW, 5. XR FOOT RIGHT 3+ VW, 6. XR FOOT LEFT 3+ VW History: Please evaluate for Joint pains. Comparison: None available. Findings: Right hand: No acute fracture or dislocation is seen. There is deformity of the thirddistal interphalangeal joint, which is flexed on all the images. Asurgical suture anchor is present in this region along the dorsal aspectof the base of the third distal phalanx, likely reflecting prior extensor tendon injury and repair. Mild arthritisis present at this joint. There is also mild osteoarthritis at the secondand fourth distal interphalangeal joints. Subchondral cysts are seen atthe fifth distal interphalangeal joint. Osteophytes are noted at the first interphalangeal joint. There ismild nonspecific degenerative change in the wrist, which may representearly osteoarthritis. Otherwise, the joint spaces are maintained. Noerosions are seen. Bone density is normal. The soft tissues are unremarkable. Left hand: A splint is present obscuring bone detail. No acute fracture ordislocation is seen. There is mild to moderate osteoarthritis, greatest atthe second and third distal interphalangeal joints, and to a lesser extentat the first interphalangeal joint. The trapezium is absent. As a result, the first metacarpal base has migratedproximally. No erosions are seen. Bone density is normal. Mild soft tissueswelling is present in the fingers. A small carpal boss is noted. Right ankle: There is posttraumatic change of the distal tibia and fibula, with bonyfusion between the distal tibia and fibula. There are linear areas ofsclerosis in the distal fibula which probably represent prior surgicalhardware which has been removed. The ankle mortise is intact. There is mild spurring of the medial and lateralmalleoli. A moderate plantar calcaneal spur is present. The joint spacesare normal. No erosions are seen. Bone density is normal. The soft tissuesare unremarkable. Left ankle: No acute fracture or dislocation is seen. There is a 1 cm lucency withinthe distal fibula. There is bony irregularity of the fibular tip. There isspurring along the anterior aspect of the distal tibia, the distal tibialshaft is mildly bowed with a 1 cm area of sclerosis. These findings probably reflect prior trauma. A 5 mmlucency in the lateral aspect of the talar dome is consistent with acystic osteochondral lesion. The ankle mortise is intact. The joint spacesare normal. There is a moderate plantar calcaneal spur. A 6 mm chronic ossicle is present along theposterior calcaneus in the region of the distal Achilles tendon. Bonedensity is normal. No erosions are seen. The soft tissues areunremarkable. Right foot: No acute fracture or dislocation is seen. Mild osteoarthritis is noted atthe first metatarsophalangeal joint. Otherwise the joint spaces arenormal. No erosions are seen. Bone density is normal. Small spur ispresent at the fifth metatarsal head. The soft tissues are unremarkable. Left foot: No acute fracture or dislocation is seen. There is minimal degenerativechange at the first metatarsophalangeal joint. No erosions are seen. Thejoint spaces are otherwise normal. Bone density is normal. The softtissues are unremarkable. IMPRESSION Impression: 1. Right hand demonstrates mild to moderate osteoarthritis. There issurgical change at the third distal interphalangeal joint, which is flexedon all the images, most likely due to prior extensor tendon injury andrepair. 2. The left hand is splinted. Mild to moderate osteoarthritis is present.The patient is status post left trapeziectomy, with associated proximalmigration of the first metacarpal. 3. Right ankle radiographs demonstrate posttraumatic and probablepostsurgical changes of the distal tibia and fibula, with bony fusion ofthe distal tibiofibular syndesmosis. A plantar calcaneal spur is present.There is otherwise no significant arthritis. 4. Left ankle radiographs demonstrate chronic posttraumatic changes, witha 5 mm cystic appearing osteochondral lesion in the lateral aspect of thetalar dome. Calcaneal spurring is noted. The joint spaces are normal. 5. Right foot radiographs demonstrate mild first metatarsophalangealosteoarthritis. 6. Left foot radiographs demonstrate minimal first metatarsophalangealdegenerative change. This report was electronically signed by JAIME GARCIA MD on 01/04/201612:42 PM . John Seaman MD DIAGNOSTIC IMAGING O RDERABLES * XR HAND RIGHT 3VW OR MORE (01/04/2016 11:59 AM CINDER CRUSHER OPERATOR) Anatomical Region Laterality Modality Wrist / Hand Other Impressions 01/04/2016 12:42 PM CINDER CRUSHER OPERATOR Impression: 1. Right hand demonstrates mild to moderate osteoarthritis. There is surgical change at the third distal interphalangeal joint, which is flexed on all the images, most likely due to prior extensor tendon injury and repair. 2. The left hand is splinted. Mild to moderate osteoarthritis is present. The patient is status post left trapeziectomy, with associated proximal migration of the first metacarpal. 3. Right ankle radiographs demonstrate posttraumatic and probable postsurgical changes of the distal tibia and fibula, with bony fusion of the distal tibiofibular syndesmosis. A plantar calcaneal spur is present. There is otherwise no significant arthritis. 4. Left ankle radiographs demonstrate chronic posttraumatic changes, with a 5 mm cystic appearing osteochondral lesion in the lateral aspect of the talar dome. Calcaneal spurring is noted. The joint spaces are normal. 5. Right foot radiographs demonstrate mild first metatarsophalangeal osteoarthritis. 6. Left foot radiographs demonstrate minimal first metatarsophalangeal degenerative change. This report was electronically signed by JAIME GARCIA MD ??on 01/04/2016 12:42 PM . Narrative 01/04/2016 12:42 PM CINDER CRUSHER OPERATOR Exam: 1. XR HAND LEFT 3+ VW, 2. XR HAND RIGHT 3+ VW, 3. XR ANKLE RIGHT 3+ VW, 4. XR ANKLE LEFT 3+ VW, 5. XR FOOT RIGHT 3+ VW, 6. XR FOOT LEFT 3+ VW History: ??Please evaluate for Joint pains. Comparison: None available. Findings: Right hand: No acute fracture or dislocation is seen. There is deformity of the third distal interphalangeal joint, which is flexed on all the images. A surgical suture anchor is present in this region along the dorsal aspect of the base of the third distal phalanx, likely reflecting prior extensor tendon injury and repair. Mild arthritis is present at this joint. 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 Subchondral cysts are seen at the fifth distal interphalangeal joint. Osteophytes are noted at the first interphalangeal joint. There is mild nonspecific degenerative change in the wrist, which may represent early osteoarthritis. Otherwise, the joint spaces are maintained. No erosions are seen. Bone density is normal. The soft tissues are unremarkable. Left hand: A splint is present obscuring bone detail. No acute fracture or dislocation is seen. There is mild to moderate osteoarthritis, greatest at the second and third distal interphalangeal joints, and to a lesser extent at the first interphalangeal joint. The trapezium is absent. As a result, the first metacarpal base has migrated proximally. No erosions are seen. Bone density is normal. Mild soft tissue swelling is present in the fingers. A small carpal boss is noted. Right ankle: There is posttraumatic change of the distal tibia and fibula, with bony fusion between the distal tibia and fibula. There are linear areas of sclerosis in the distal fibula which probably represent prior surgical hardware which has been removed. The ankle mortise is intact. There is mild spurring of the medial and lateral malleoli. A moderate plantar calcaneal spur is present. The joint spaces are normal. No erosions are seen. Bone density is normal. The soft tissues are unremarkable. Left ankle: No acute fracture or dislocation is seen. There is a 1 cm lucency within the distal fibula. There is bony irregularity of the fibular tip. There is spurring along the anterior aspect of the distal tibia, the distal tibial shaft is mildly bowed with a 1 cm area of sclerosis. These findings probably reflect prior trauma. A 5 mm lucency in the lateral aspect of the talar dome is consistent with a cystic osteochondral lesion. The ankle mortise is intact. The joint spaces are normal. There is a moderate plantar calcaneal spur. A 6 mm chronic ossicle is present along the posterior calcaneus in the region of the distal Achilles tendon. Bone density is normal. No erosions are seen. The soft tissues are unremarkable. Right foot: No acute fracture or dislocation is seen. Mild osteoarthritis is noted at the first metatarsophalangeal joint. Otherwise the joint spaces are normal. No erosions are seen. Bone density is normal. Small spur is present at the fifth metatarsal head. The soft tissues are unremarkable. Left foot: No acute fracture or dislocation is seen. There is minimal degenerative change at the first metatarsophalangeal joint. No erosions are seen. The joint spaces are otherwise normal. Bone density is normal. The soft tissues are unremarkable. Procedure Note Jaime Garcia MD - 02/28/2018 Exam: 1. XR HAND LEFT 3+ VW, 2. XR HAND RIGHT 3+ VW, 3. XR ANKLE RIGHT 3+ VW, 4. XR ANKLE LEFT 3+ VW, 5. XR FOOT RIGHT 3+ VW, 6. XR FOOT LEFT 3+ VW History: Please evaluate for Joint pains. Comparison: None available. Findings: Right hand: No acute fracture or dislocation is seen. There is deformity of the thirddistal interphalangeal joint, which is flexed on all the images. Asurgical suture anchor is present in this region along the dorsal aspectof the base of the third distal phalanx, likely reflecting prior extensor tendon injury and repair. Mild arthritisis present at this joint. There is also mild osteoarthritis at the secondand fourth distal interphalangeal joints. Subchondral cysts are seen atthe fifth distal interphalangeal joint. Osteophytes are noted at the first interphalangeal joint. There ismild nonspecific degenerative change in the wrist, which may representearly osteoarthritis. Otherwise, the joint spaces are maintained. Noerosions are seen. Bone density is normal. The soft tissues are unremarkable. Left hand: A splint is present obscuring bone detail. No acute fracture ordislocation is seen. There is mild to moderate osteoarthritis, greatest atthe second and third distal interphalangeal joints, and to a lesser extentat the first interphalangeal joint. The trapezium is absent. As a result, the first metacarpal base has migratedproximally. No erosions are seen. Bone density is normal. Mild soft tissueswelling is present in the fingers. A small carpal boss is noted. Right ankle: There is posttraumatic change of the distal tibia and fibula, with bonyfusion between the distal tibia and fibula. There are linear areas ofsclerosis in the distal fibula which probably represent prior surgicalhardware which has been removed. The ankle mortise is intact. There is mild spurring of the medial and lateralmalleoli. A moderate plantar calcaneal spur is present. The joint spacesare normal. No erosions are seen. Bone density is normal. The soft tissuesare unremarkable. Left ankle: No acute fracture or dislocation is seen. There is a 1 cm lucency withinthe distal fibula. There is bony irregularity of the fibular tip. There isspurring along the anterior aspect of the distal tibia, the distal tibialshaft is mildly bowed with a 1 cm area of sclerosis. These findings probably reflect prior trauma. A 5 mmlucency in the lateral aspect of the talar dome is consistent with acystic osteochondral lesion. The ankle mortise is intact. The joint spacesare normal. There is a moderate plantar calcaneal spur. A 6 mm chronic ossicle is present along theposterior calcaneus in the region of the distal Achilles tendon. Bonedensity is normal. No erosions are seen. The soft tissues areunremarkable. Right foot: No acute fracture or dislocation is seen. Mild osteoarthritis is noted atthe first metatarsophalangeal joint. Otherwise the joint spaces arenormal. No erosions are seen. Bone density is normal. Small spur ispresent at the fifth metatarsal head. The soft tissues are unremarkable. Left foot: No acute fracture or dislocation is seen. There is minimal degenerativechange at the first metatarsophalangeal joint. No erosions are seen. Thejoint spaces are otherwise normal. Bone density is normal. The softtissues are unremarkable. IMPRESSION Impression: 1. Right hand demonstrates mild to moderate osteoarthritis. There issurgical change at the third distal interphalangeal joint, which is flexedon all the images, most likely due to prior extensor tendon injury andrepair. 2. The left hand is splinted. Mild to moderate osteoarthritis is present.The patient is status post left trapeziectomy, with associated proximalmigration of the first metacarpal. 3. Right ankle radiographs demonstrate posttraumatic and probablepostsurgical changes of the distal tibia and fibula, with bony fusion ofthe distal tibiofibular syndesmosis. A plantar calcaneal spur is present.There is otherwise no significant arthritis. 4. Left ankle radiographs demonstrate chronic posttraumatic changes, witha 5 mm cystic appearing osteochondral lesion in the lateral aspect of thetalar dome. Calcaneal spurring is noted. The joint spaces are normal. 5. Right foot radiographs demonstrate mild first metatarsophalangealosteoarthritis. 6. Left foot radiographs demonstrate minimal first metatarsophalangealdegenerative change. This report was electronically signed by JAIME GARCIA MD on 01/04/201612:42 PM . John Seaman MD DIAGNOSTIC IMAGING O RDERABLES * XR HAND LEFT 3VW OR MORE (01/04/2016 11:59 AM CINDER CRUSHER OPERATOR) Anatomical Region Laterality Modality Wrist / Hand Other Impressions 01/04/2016 12:42 PM CINDER CRUSHER OPERATOR Impression: 1. Right hand demonstrates mild to moderate osteoarthritis. There is surgical change at the third distal interphalangeal joint, which is flexed on all the images, most likely due to prior extensor tendon injury and repair. 2. The left hand is splinted. Mild to moderate osteoarthritis is present. The patient is status post left trapeziectomy, with associated proximal migration of the first metacarpal. 3. Right ankle radiographs demonstrate posttraumatic and probable postsurgical changes of the distal tibia and fibula, with bony fusion of the distal tibiofibular syndesmosis. A plantar calcaneal spur is present. There is otherwise no significant arthritis. 4. Left ankle radiographs demonstrate chronic posttraumatic changes, with a 5 mm cystic appearing osteochondral lesion in the lateral aspect of the talar dome. Calcaneal spurring is noted. The joint spaces are normal. 5. Right foot radiographs demonstrate mild first metatarsophalangeal osteoarthritis. 6. Left foot radiographs demonstrate minimal first metatarsophalangeal degenerative change. This report was electronically signed by JAIME GARCIA MD ??on 01/04/2016 12:42 PM . Narrative 01/04/2016 12:42 PM CINDER CRUSHER OPERATOR Exam: 1. XR HAND LEFT 3+ VW, 2. XR HAND RIGHT 3+ VW, 3. XR ANKLE RIGHT 3+ VW, 4. XR ANKLE LEFT 3+ VW, 5. XR FOOT RIGHT 3+ VW, 6. XR FOOT LEFT 3+ VW History: ??Please evaluate for Joint pains. Comparison: None available. Findings: Right hand: No acute fracture or dislocation is seen. There is deformity of the third distal interphalangeal joint, which is flexed on all the images. A surgical suture anchor is present in this region along the dorsal aspect of the base of the third distal phalanx, likely reflecting prior extensor tendon injury and repair. Mild arthritis is present at this joint. 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 Subchondral cysts are seen at the fifth distal interphalangeal joint. Osteophytes are noted at the first interphalangeal joint. There is mild nonspecific degenerative change in the wrist, which may represent early osteoarthritis. Otherwise, the joint spaces are maintained. No erosions are seen. Bone density is normal. The soft tissues are unremarkable. Left hand: A splint is present obscuring bone detail. No acute fracture or dislocation is seen. There is mild to moderate osteoarthritis, greatest at the second and third distal interphalangeal joints, and to a lesser extent at the first interphalangeal joint. The trapezium is absent. As a result, the first metacarpal base has migrated proximally. No erosions are seen. Bone density is normal. Mild soft tissue swelling is present in the fingers. A small carpal boss is noted. Right ankle: There is posttraumatic change of the distal tibia and fibula, with bony fusion between the distal tibia and fibula. There are linear areas of sclerosis in the distal fibula which probably represent prior surgical hardware which has been removed. The ankle mortise is intact. There is mild spurring of the medial and lateral malleoli. A moderate plantar calcaneal spur is present. The joint spaces are normal. No erosions are seen. Bone density is normal. The soft tissues are unremarkable. Left ankle: No acute fracture or dislocation is seen. There is a 1 cm lucency within the distal fibula. There is bony irregularity of the fibular tip. There is spurring along the anterior aspect of the distal tibia, the distal tibial shaft is mildly bowed with a 1 cm area of sclerosis. These findings probably reflect prior trauma. A 5 mm lucency in the lateral aspect of the talar dome is consistent with a cystic osteochondral lesion. The ankle mortise is intact. The joint spaces are normal. There is a moderate plantar calcaneal spur. A 6 mm chronic ossicle is present along the posterior calcaneus in the region of the distal Achilles tendon. Bone density is normal. No erosions are seen. The soft tissues are unremarkable. Right foot: No acute fracture or dislocation is seen. Mild osteoarthritis is noted at the first metatarsophalangeal joint. Otherwise the joint spaces are normal. No erosions are seen. Bone density is normal. Small spur is present at the fifth metatarsal head. The soft tissues are unremarkable. Left foot: No acute fracture or dislocation is seen. There is minimal degenerative change at the first metatarsophalangeal joint. No erosions are seen. The joint spaces are otherwise normal. Bone density is normal. The soft tissues are unremarkable. Procedure Note Jaime Garcia MD - 02/28/2018 Exam: 1. XR HAND LEFT 3+ VW, 2. XR HAND RIGHT 3+ VW, 3. XR ANKLE RIGHT 3+ VW, 4. XR ANKLE LEFT 3+ VW, 5. XR FOOT RIGHT 3+ VW, 6. XR FOOT LEFT 3+ VW History: Please evaluate for Joint pains. Comparison: None available. Findings: Right hand: No acute fracture or dislocation is seen. There is deformity of the thirddistal interphalangeal joint, which is flexed on all the images. Asurgical suture anchor is present in this region along the dorsal aspectof the base of the third distal phalanx, likely reflecting prior extensor tendon injury and repair. Mild arthritisis present at this joint. There is also mild osteoarthritis at the secondand fourth distal interphalangeal joints. Subchondral cysts are seen atthe fifth distal interphalangeal joint. Osteophytes are noted at the first interphalangeal joint. There ismild nonspecific degenerative change in the wrist, which may representearly osteoarthritis. Otherwise, the joint spaces are maintained. Noerosions are seen. Bone density is normal. The soft tissues are unremarkable. Left hand: A splint is present obscuring bone detail. No acute fracture ordislocation is seen. There is mild to moderate osteoarthritis, greatest atthe second and third distal interphalangeal joints, and to a lesser extentat the first interphalangeal joint. The trapezium is absent. As a result, the first metacarpal base has migratedproximally. No erosions are seen. Bone density is normal. Mild soft tissueswelling is present in the fingers. A small carpal boss is noted. Right ankle: There is posttraumatic change of the distal tibia and fibula, with bonyfusion between the distal tibia and fibula. There are linear areas ofsclerosis in the distal fibula which probably represent prior surgicalhardware which has been removed. The ankle mortise is intact. There is mild spurring of the medial and lateralmalleoli. A moderate plantar calcaneal spur is present. The joint spacesare normal. No erosions are seen. Bone density is normal. The soft tissuesare unremarkable. Left ankle: No acute fracture or dislocation is seen. There is a 1 cm lucency withinthe distal fibula. There is bony irregularity of the fibular tip. There isspurring along the anterior aspect of the distal tibia, the distal tibialshaft is mildly bowed with a 1 cm area of sclerosis. These findings probably reflect prior trauma. A 5 mmlucency in the lateral aspect of the talar dome is consistent with acystic osteochondral lesion. The ankle mortise is intact. The joint spacesare normal. There is a moderate plantar calcaneal spur. A 6 mm chronic ossicle is present along theposterior calcaneus in the region of the distal Achilles tendon. Bonedensity is normal. No erosions are seen. The soft tissues areunremarkable. Right foot: No acute fracture or dislocation is seen. Mild osteoarthritis is noted atthe first metatarsophalangeal joint. Otherwise the joint spaces arenormal. No erosions are seen. Bone density is normal. Small spur ispresent at the fifth metatarsal head. The soft tissues are unremarkable. Left foot: No acute fracture or dislocation is seen. There is minimal degenerativechange at the first metatarsophalangeal joint. No erosions are seen. Thejoint spaces are otherwise normal. Bone density is normal. The softtissues are unremarkable. IMPRESSION Impression: 1. Right hand demonstrates mild to moderate osteoarthritis. There issurgical change at the third distal interphalangeal joint, which is flexedon all the images, most likely due to prior extensor tendon injury andrepair. 2. The left hand is splinted. Mild to moderate osteoarthritis is present.The patient is status post left trapeziectomy, with associated proximalmigration of the first metacarpal. 3. Right ankle radiographs demonstrate posttraumatic and probablepostsurgical changes of the distal tibia and fibula, with bony fusion ofthe distal tibiofibular syndesmosis. A plantar calcaneal spur is present.There is otherwise no significant arthritis. 4. Left ankle radiographs demonstrate chronic posttraumatic changes, witha 5 mm cystic appearing osteochondral lesion in the lateral aspect of thetalar dome. Calcaneal spurring is noted. The joint spaces are normal. 5. Right foot radiographs demonstrate mild first metatarsophalangealosteoarthritis. 6. Left foot radiographs demonstrate minimal first metatarsophalangealdegenerative change. This report was electronically signed by JAIME GARCIA MD on 01/04/201612:42 PM . John Seaman MD [facility] Care Teams Integrated Circuits Inspector Relationship Specialty Start Date End Date Cesar Allan MD [address] [place] [id number] PCP - General 02/05/16
--- OUTSIDE RECORDS SUMMARY | 2024-12-23 23:04 | XMS_ITS | Referral Summary ---
Author Organization [facility] Address [address] [place] [address] Care Team Providers Care Escalation Engineer Name Role Phone Cesar Allan MD Primary Care Provider [phone] Source Comments [facility],non-owned Affiliates and Associated Physician Practices is amultiple site organization consisting of ambulatory clinics and hospital sitesin [place], [place], [place] and [place]. This disclosure is being madepursuant to the Care Everywhere program and may not contain all information available regarding this patient. Last updated 18.[facility] Ins[employer] Pages Allergies Active Allergy Reactions Criticality Noted Date [...] Comments Blood Pressure 130/80 02/05/2016 2:14 PM SPRINKLING SYSTEM INSTALLER Pulse 77 02/05/2016 2:14 PM SPRINKLING SYSTEM INSTALLER Temperature 36.2 ??C (97.2 ??F) 02/05/2016 2:14 PM CS T Respiratory Rate 18 02/05/2016 2:14 PM SPRINKLING SYSTEM INSTALLER Oxygen Saturation - - Inhaled Oxygen Concentration - - Weight 101.2 kg (223 lb) 02/05/2016 2:14 PM SPRINKLING SYSTEM INSTALLER Height 187.3 cm (6' 1.75 ) 01/04/2016 9:42 AM CS T Body Mass Index 28.83 01/04/2016 9:42 AM SPRINKLING SYSTEM INSTALLER Plan of Treatment Not on file Procedures Procedure Name Priority Date/Time Associated Diagnosis Comments HEPATITIS C ANTIBODY Routine 01/22/2016 8:15 AM SPRINKLING SYSTEM INSTALLER from Last 3 Months or Most Recently Relevant to Health Maintenance Results * HEPATITIS C ANTIBODY (01/22/2016 8:15 AM SPRINKLING SYSTEM INSTALLER) Hepatitis C Virus Antibody <0.1 0.0 - 0.9 s/co ratio [facility]) Comment: ?Negative: ? < 0.8 ? Indeterminate: 0.8 - 0.9 ?Positive: ? > 0.9 The CDC recommends that a positive HCV antibody result be followed up with a HCV Nucleic Acid Amplification test (260806). Blood specimen (specimen) BLOOD SPECIMEN / Unknown 01/22/2016 8:15 AM SPRINKLING SYSTEM INSTALLER 01/22/2016 12:45 PM SPRINKLING SYSTEM INSTALLER Narrative [facility]) - 01/25/2016 1:18 PM SPRINKLING SYSTEM INSTALLER Performed at: ??02 - [address] ??[id number] Traffic Recorder: Tomasz Garland PhD, Phone: ??[phone] John Seaman MD LAB - CHEMISTRY RODRIGO KEYES [facility] LATESHA MORROW) from Last 3 Months or Most Recently Relevant to Health Maintenance Care Teams Escalation Engineer Relationship Specialty Start Date End Date Cesar Allan MD [address] [place] [address] PCP - General 02/05/16
--- OUTSIDE RECORDS SUMMARY | 2024-12-23 23:04 | XMS_ITS | Clinical Summary ---
Author Organization [facility] Address [address] [place] [address] Care Team Providers Care Ship Surveyor Name Role Phone Sergio Schrader MD Unavailable [phone] Satinder Romano MD Unavailable Deshawn Mandujano MD Unavailable [phone] Cesar Allan MD Primary Care Provider [phone] Allergies Active Allergy Reactions Criticality Noted Date [...] with unknown primary site (CMS/HCC) 12/10/2023 01/06/2024 Encounters Date Type Department Care Team Description 11/03/2024 10:40 AM DEVELOPMENT MGR Office Visit [facility] Department of Otolaryngology Head-Neck Division [address] [facility] [address] [place] [address] Deshawn Mandujano MD Cancer of tonsil, palatine (HCC) (Primary Dx) 10/12/[address] [facility] Advanced Medicine ([facility]) - [facility] ENT [address] [facility] Advanced [facility] 11th [place] [address] [place] [address] Jody Lazcano MS from Last 3 Months Immunizations Name Administration Dates Next Due Influenza, Quadrivalent, Xuan l Culture-based MDCK, Preservative Free, Antibiotic Free, Intramuscular 09/24/2022 Influenza, Quadrivalent, Spl it, Intramuscular 09/23/2019 Influenza, Quadrivalent, Spl it, Preservative Free, Intramuscular 01/01/2024,08/09/2020,08/24/2018 Influenza, Trivalent, IM (MDV) 08/09/2021 Tdap 08/17/2023 ZOSTER Recombinant 08/28/2020,06/30/2020 Surgical History Surgery Date Site/Laterality Comments CT APPENDECTOMY Appendectomy - (Added by TW Conv) CT ARTHRP KNE CONDYLE&PLATU MEDIAL&LAT COMPARTMENTS Total Knee Replacement Left - (Added by TW Conv) SHOULDER SURGERY Shoulder Surgery - (Added by TW Conv) ANKLE SURGERY Ankle Surgery - (Added by TW Conv) LUMBAR SPINE SURGERY COLONOSCOPY Medical History Medical History Date Comments Personal history of other di seases of the circulatory system History of hypertension - (A dded by TW Conv) Family History Medical History Relation Name Comments Bladder Cancer Father Cancer Father Family history of malignant neoplasm - (Added by TW Conv) Arthritis Mother Family history of arthritis - (Added by TW Conv) Hypertension Mother Family history of hypertension - (Added by TW Conv) Seizures Mother Breast cancer Paternal Grandmother Relation Name Status Comments Father Mother Paternal Grandmother Social History Tobacco Use Types Packs/Day Years [...] on file Legal Sex Male 11:52 AM DEVELOPMENT MGR Gender Identity Not on file Sexual Orientation Not on file Obstetrics History Last Filed Vital Signs Vital Sign Reading Time Taken Comments Blood Pressure 144/77 01/01/2024 3:41 PM DEVELOPMENT MGR Pulse 83 01/01/2024 3:41 PM DEVELOPMENT MGR Temperature 36.6 ??C (97.9 ??F) 01/01/2024 3:41 PM CS T Respiratory Rate 17 01/01/2024 3:41 PM DEVELOPMENT MGR Oxygen Saturation 99% 01/01/2024 3:41 PM DEVELOPMENT MGR Inhaled Oxygen Concentration - - Weight 90.7 kg (200 lb) 11/03/2024 10:54 AM DEVELOPMENT MGR Height 188 cm (6' 2 ) 04/14/2024 10:33 AM CDT Body Mass Index 25.68 04/14/2024 10:33 AM CDT Plan of Treatment Health Maintenance Due Date Last Done Comments Colon Cancer Screening-Colonoscopy 1959 Depression Screening 1959 Hepatitis C Screening 1959 Prostate Cancer Screening-PSA 1959 Pneumococcal vaccine 65+ (1 of 2 - PCV) 1965 Hepatitis B Screening 1977 Abdominal Aortic Aneurysm (A AA) Screen 2024 Well Visit 65+ 2024 Covid-19 Vaccine ( - 2023-2 5 season) 2024 09/24/2022, 04/12/2022, 09/14/2021, Additional history exists Influenza Vaccine (#1) 2024 , 09/24/2022, 08/09/2021, Additional history exists Fall Risk Assessment 01/01/2025 01/01/2024 DTaP/Tdap/Td Vaccine (2 - Td or Tdap) 08/17/2033 08/17/2023 Zoster Vaccine Completed 08/28/2020, 06/30/2020 Insurance [facility] ADVANTAGE CHOICE PPO Member Subscriber Plan / Payer (Ef fective 2024-Present) Name:Miguel Kwok Relation to Subscriber:Self Name:Miguel Kwok Payer ID:[id number] (NAIC) Type:MEDICARE RISK OTHER Address: [address] [place], [place] [id number] [facility] ADVANTAGE CHOICE PPO Member Subscriber Plan / Payer (Ef fective 2024-Present) Name:Miguel Kwok Relation to Subscriber:Self Name:Miguel Kwok Payer ID:[id number] (NAIC) Type:MEDICARE RISK OTHER Address: [address] [place] [id number] Advance Directives For more information, please contact: [phone] * Full Code (Latest Code Status on File) Date Activated Date Inactivated Comments 12/30/2023 2:42 PM 01/01/2024 10:34 PM Care Teams Ship Surveyor Relationship Specialty Start Date End Date Cesar Allan MD [address] [place] [address] DR CARL [address] [place] [address] PCP - General Family Medicine 04/02/24 Sergio Schrader MD [address] [facility], [address] [place] [address] Medical Oncologist/Instructional Designer Medical Oncology 12/12/23 Satinder Romano MD [address] [facility], [facility] [address] [place] [address] Radiation Oncologist Radiation Oncology 12/12/23 Deshawn Mandujano MD [address] [facility], [facility] [address] [place] [address] Consulting Physician Otolaryngology 12/12/23
--- OUTSIDE RECORDS SUMMARY | 2024-12-23 23:04 | XMS_ITS | Clinical Summary ---
Author Organization [facility] Address [address] [place] [address]. [place] [address] [place] [address] Care Team Providers Care Data Communications Technician Name Role Phone Cesar Allan MD Primary Care Provider [phone] Allergies No known active allergies Medications nebivolol (BYSTOLIC) 10 MG tablet 07/23/2023 Active tadalafil (CIALIS) 20 MG tablet 07/06/2023 Active traZODone (DESYREL) 100 MG tablet 07/23/2023 Active sulfaSALAzine (AZULFIDINE) 500 MG tablet 08/12/2023 Active cyclobenzaprine (FLEXERIL) 10 MG tablet Take 1 tablet (10 mg total) by mouth 3 (three) times daily. 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 Gender Identity Not on file Sexual Orientation Not on file Last Filed Vital Signs Vital Sign Reading Time Taken Comments Blood Pressure 140/66 08/17/2023 5:48 PM CDT Pulse 70 08/17/2023 5:48 PM CDT Temperature 36.7 ??C (98 ??F) 08/17/2023 5:48 PM CDT Respiratory Rate 20 08/17/2023 5:48 PM CDT Oxygen Saturation 99% 08/17/2023 5:48 PM CDT Inhaled Oxygen Concentration - - Weight 90.7 kg (200 lb) 08/17/2023 4:28 PM CDT Height 188 cm (6' 2 ) 08/17/2023 4:28 PM CDT Body Mass Index 25.68 08/17/2023 4:28 PM CDT Plan of Treatment Health Maintenance Due Date Last Done Comments Colorectal Cancer Screening Colonoscopy (10 Years) 1959 Hepatitis C 1977 Pneumococcal Vaccine: 65+ Years (1 of 1 - PCV) 2024 COVID-19 Vaccine ( - 2023- season) 2024 09/24/2022, 04/12/2022, 09/14/2021, Additional history exists Influenza Adult (#1) 2024 09/24/2022, 08/09/2021, 08/09/2020, Additional history exists DTaP, Tdap and Td Vaccines (2 - Td or Tdap) 08/17/2033 08/17/2023 RSV Immunization or 60+ Years (1 - 1-dose 75+ series) 2034 Zoster Vaccines Completed 08/28/2020, 06/30/2020 Meningococcal Vaccine Aged Out No christina monique eligible based on patient's age to complete this topic Pneumococcal Vaccine: Pediatrics (0 to 5 Years) and At-Risk Patients (6 to 64 Years) Aged Out No longer eligible based on patient's age to complete this topic RSV Immunizations Under 20 Months Aged Out No longer eligible based on patient's age to complete this topic Insurance [facility] Care Teams Data Communications Technician Relationship Specialty Start Date End Date Cesar Allan MD [facility] [address] CARL [address] [place] [id number] PCP - General FAMILY PRACTICE 08/17/23
== END 2024-12-22 10:06 | disposition home or self-care (01) ==
PROVIDERS: PCP Family Medicine; Visit Provider Physician Assistant Surgical
DX: G56.03 Carpal tunnel syndrome, bilateral upper limbs (principal)
CPT/HCPCS: 95886; 95911

== ENCOUNTER 2025-02-02 07:46 | Outpatient (CLI) | payer OTHER, SELFPAY ==
--- NOTE | 2025-02-02 07:50 | ECG_ITS ---
Test Date: 2025-02-02 08:11:00 Measurements Intervals [place] Rate: 70 P: 32 MN: 147 QRS: 11 QRSD: 89 T: 11 QT: 393 QTc: 426 Interpretive Statements SINUS RHYTHM No previous ECG available for comparison Electronically Signed On 02-02-2025 15:46:33 TISSUE RECOVERY TECHNICIAN by Erika Ortez M.D.
--- OUTSIDE RECORDS SUMMARY | 2025-02-02 07:53 | XMS_ITS | Referral Summary ---
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 Gender Identity Not on file Sexual Orientation Not on file Last Filed Vital Signs Vital Sign Reading Time Taken Comments Blood Pressure 144/77 01/01/2024 3:41 PM PINKING SEWING MACHINE OPERATOR Pulse 83 01/01/2024 3:41 PM PINKING SEWING MACHINE OPERATOR Temperature 36.6 C (97.9 F) 01/01/2024 3:41 PM PINKING SEWING MACHINE OPERATOR Respiratory Rate 17 01/01/2024 3:41 PM PINKING SEWING MACHINE OPERATOR Oxygen Saturation 99% 01/01/2024 3:41 PM PINKING SEWING MACHINE OPERATOR Inhaled Oxygen Concentration - - Weight 90.7 kg (200 lb) 11/03/2024 10:54 AM PINKING SEWING MACHINE OPERATOR Height 188 cm (6' 2 ) 04/14/2024 10:33 AM CDT Body Mass Index 25.68 04/14/2024 10:33 AM CDT Plan of Treatment Not on file Insurance [employer] PPO Member Subscriber Plan / Payer (Ef fective 2024-Present) Name:Miguel Kwok Relation to Subscriber:Self Name:Miguel Kwok Payer ID:[id number] (NAIC) Type:MEDICARE RISK OTHER Address: [address] [id number] [facility] ADVANTAGE CHOICE PPO Advance Directives For more information, please contact: [phone] * Full Code (Latest Code Status on File) Date Activated Date Inactivated Comments 12/30/2023 2:42 PM 01/01/2024 10:34 PM Care Teams Rigger Relationship Specialty Start Date End Date Cesar Allan MD [address] [place] [id number] PCP - General Family Medicine 04/02/24 Sergio Schrader MD [address] DIV IM MEDICAL ONCOLOGY, [facility] [address] [place] [address] Medical Oncologist/Liquid Yeast Supervisor Medical Oncology 12/12/23 Satinder Romano MD [address] DIV IM MEDICAL ONCOLOGY, [facility] [address] [place] [address] Radiation Oncologist Radiation Oncology 12/12/23 Deshawn Mandujano MD [address] DE[address] OTOLARYNGOLOGY, [facility] [address] [place] [address] Consulting Physician Otolaryngology 12/12/23
--- OUTSIDE RECORDS SUMMARY | 2025-02-02 07:53 | XMS_ITS | Clinical Summary ---
Author Organization [facility] Address [address] [place] [address] Care Team Providers Care Paper Core Machine Operator Name Role Phone Sergio Schrader MD Unavailable [phone] Satinder Romano MD Unavailable Deshawn Mandujano MD Unavailable Cesar Allan MD Primary Care Provider [phone] Allergies Active Allergy Reactions Criticality Noted Date [...] 08/28/2020,06/30/2020 Surgical History Surgery Date Site/Laterality Comments [place] APPENDECTOMY Appendectomy - (Added by Conv) [place] ARTHRP KNE CONDYLE&PLATU MEDIAL&LAT COMPARTMENTS Total Knee Replacement Left - (Added by Conv) SHOULDER SURGERY Shoulder Surgery - (Added by Conv) ANKLE SURGERY Ankle Surgery - (Added by Conv) LUMBAR SPINE SURGERY COLONOSCOPY Medical History Medical History Date Comments Personal history of other di seases of the circulatory system History of hypertension - (A dded by Conv) Family History Medical History Relation Name Comments Bladder Cancer Father Cancer Father Family history of malignant neoplasm - (Added by Conv) Arthritis Mother Family history of arthritis - (Added by Conv) Hypertension Mother Family history of hypertension - (Added by Conv) Seizures Mother Breast cancer Paternal Grandmother [...] on file 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 Gender Identity Not on file Sexual Orientation Not on file Obstetrics History Last Filed Vital Signs Vital Sign Reading Time Taken Comments Blood Pressure 144/77 01/01/2024 3:41 PM AGRICULTURAL LOAN OFFICER Pulse 83 01/01/2024 3:41 PM AGRICULTURAL LOAN OFFICER Temperature 36.6 C (97.9 F) 01/01/2024 3:41 PM AGRICULTURAL LOAN OFFICER Respiratory Rate 17 01/01/2024 3:41 PM AGRICULTURAL LOAN OFFICER Oxygen Saturation 99% 01/01/2024 3:41 PM AGRICULTURAL LOAN OFFICER Inhaled Oxygen Concentration - - Weight 90.7 kg (200 lb) 11/03/2024 10:54 AM AGRICULTURAL LOAN OFFICER Height 188 cm (6' 2 ) 04/14/2024 10:33 AM CDT Body Mass Index 25.68 04/14/2024 10:33 AM CDT Plan of Treatment Health Maintenance Due Date Last Done Comments Colon Cancer Screening-Colonoscopy 1959 Depression Screening 1959 Hepatitis C Screening 1959 Prostate Cancer Screening-PSA 1959 Hepatitis B Screening 1977 Pneumococcal vaccine 65+ (1 of 2 - PCV) 1978 Abdominal Aortic Aneurysm (A AA) Screen 2024 Well Visit 65+ 2024 Covid-19 Vaccine (2023-2 5 season) 2024 09/24/2022, 04/12/2022, 09/14/2021, Additional history exists Influenza Vaccine (#1) 2024 , 09/24/2022, 08/09/2021, Additional history exists Fall Risk Assessment 01/01/2025 01/01/2024 DTaP/Tdap/Td Vaccine (2 - Td or Tdap) 08/17/2033 08/17/2023 Zoster Vaccine Completed 08/28/2020, 06/30/2020 Insurance [employer] PPO [employer] P[employer] Advance Directives For more information, please contact: [phone] * Full Code (Latest Code Status on File) Date Activated Date Inactivated Comments 12/30/2023 2:42 PM 01/01/2024 10:34 PM Care Teams Paper Core Machine Operator Relationship Specialty Start Date End Date Cesar Allan MD [address] [place] [id number] PCP - General Family Medicine 04/02/24 Sergio Schrader MD [address] [facility] DIV MEDICAL ONCOLOGY, [facility] [address] [place] [address] Medical Oncologist/Occupational Therapy Aide Medical Oncology 12/12/23 Satinder Romano MD [address] [facility] DIV MEDICAL ONCOLOGY, [facility] [address], [address] [place] [address] Radiation Oncologist Radiation Oncology 12/12/23 Deshawn Mandujano MD [address] [facility] DEPT OTOLARYNGOLOGY, [facility] [address] [place] [address] Consulting Physician Otolaryngology 12/12/23
--- OUTSIDE RECORDS SUMMARY | 2025-02-02 07:53 | XMS_ITS | Encounter Summary ---
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 Gender Identity Not on file Sexual Orientation [...] on filedocumented in this encounter Care Teams Excel Vba Developer Relationship Specialty Start Date End Date Cate Loving, OBSERVER HELPER PCP - General Family Medicine 12/05/23 04/01/24 Cesar Allan MD [address] [place] [id number] PCP - General Family Medicine 04/02/24 Sergio Schrader MD [address] [facility] [address] DIV MEDICAL ONCOLOGY, [facility] [address] [place] [address] Medical Oncologist/Blast Furnace Helper Medical Oncology 12/12/23 Satinder Romano MD [address] [facility] DIV MEDICAL ONCOLOGY, [facility] [address], [address] [place] [address] Radiation Oncologist Radiation Oncology 12/12/23 Deshawn Mandujano MD [address] [facility] DEPT OTOLARYNGOLOGY, [address] [address] Consulting Physician Otolaryngology 12/12/23 documented as of this encounter
--- OUTSIDE RECORDS SUMMARY | 2025-02-02 07:53 | XMS_ITS ---
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 Past Treatment and Therapy Plans No past plan information found. Lifetime Dose Tracking * Chemical Lifetime Dose [...]
--- OUTSIDE RECORDS SUMMARY | 2025-02-02 07:53 | XMS_ITS | Referral Summary ---
Author Organization [facility] Address [address] [place] [address] Care Team Providers Care Language Instructor Name Role Phone Cesar Allan MD Primary Care Provider [phone] [facility],non-owned Affiliates and Associated Physician Practices is amultiple site organization consisting of ambulatory clinics and hospital sitesin [place], [place], [place] and [place]. This disclosure is being madepursuant to the Care Everywhere program and may not contain all information available regarding this patient. Last updated 18.[facility] [employer] Allergies Active Allergy Reactions Criticality Noted Date [...] Comments Blood Pressure 130/80 02/05/2016 2:14 PM BUSINESS ACCOUNT LEADER Pulse 77 02/05/2016 2:14 PM BUSINESS ACCOUNT LEADER Temperature 36.2 C (97.2 F) 02/05/2016 2:14 PM BUSINESS ACCOUNT LEADER Respiratory Rate 18 02/05/2016 2:14 PM BUSINESS ACCOUNT LEADER Oxygen Saturation - - Inhaled Oxygen Concentration - - Weight 101.2 kg (223 lb) 02/05/2016 2:14 PM BUSINESS ACCOUNT LEADER Height 187.3 cm (6' 1.75 ) 01/04/2016 9:42 AM CS T Body Mass Index 28.83 01/04/2016 9:42 AM BUSINESS ACCOUNT LEADER Plan of Treatment Not on file Procedures Procedure Name Priority Date/Time Associated Diagnosis Comments HEPATITIS C ANTIBODY Routine 01/22/2016 8:15 AM BUSINESS ACCOUNT LEADER from Last 3 Months or Most Recently Relevant to Health Maintenance Results * HEPATITIS C ANTIBODY (01/22/2016 8:15 AM BUSINESS ACCOUNT LEADER) Hepatitis C Virus Antibody <0.1 0.0 - 0.9 s/co ratio [facility] ([place]) Comment: Negative: < 0.8 Indeterminate: 0.8 - 0.9 Positive: > 0.9 The CDC recommends that a positive HCV antibody result be followed up with a HCV Nucleic Acid Amplification test (672265). Blood specimen (specimen) BLOOD SPECIMEN / Unknown 01/22/2016 8:15 AM BUSINESS ACCOUNT LEADER 01/22/2016 12:45 PM BUSINESS ACCOUNT LEADER Narrative [facility] ([place]) - 01/25/2016 1:18 PM BUSINESS ACCOUNT LEADER Performed at: [facility] [id number] Area Director: Tomasz Garland PhD, Phone: [phone] John Seaman MD LAB - CHEMISTRY RODRIGO KEYES Performing Organization Address City/State/[facility] Co de Phone Number [facility] C[place]) from Last 3 Months or Most Recently Relevant to Health Maintenance Care Teams Language Instructor Relationship Specialty Start Date End Date Cesar Allan MD [address] [place] [phone] PCP - General 02/05/16
--- OUTSIDE RECORDS SUMMARY | 2025-02-02 07:53 | XMS_ITS | Clinical Summary ---
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 Gender Identity Not on file Sexual Orientation Not on file Last Filed Vital Signs Vital Sign Reading Time Taken Comments Blood Pressure 140/66 08/17/2023 5:48 PM CDT Pulse 70 08/17/2023 5:48 PM CDT Temperature 36.7 C (98 F) 08/17/2023 5:48 PM CDT Respiratory Rate 20 [...] - PCV) 2024 COVID-19 Vaccine ( - season) 2024 09/24/2022, 04/12/2022, 09/14/2021, Additional history exists Influenza Adult (#1) 2024 09/24/2022, 08/09/2021, 08/09/2020, Additional history exists DTaP, Tdap and Td Vaccines (2 - Td or Tdap) 08/17/2033 08/17/2023 RSV Immunization or 60+ Years (1 - 1-dose 75+ series) 2034 Zoster Vaccines Completed 08/28/2020, 06/30/2020 Meningococcal B Vaccine Aged Out No l onger eligible based on patient's age to complete this topic Meningococcal Vaccine Aged Out No christina monique eligible based on patient's age to complete this topic Pneumococcal Vaccine: Pediatrics (0 to 5 Years) and At-Risk Patients (6 to 64 Years) Aged Out No longer eligible based on patient's age to complete this topic RSV Immunizations Under 20 Months Aged Out No longer eligible based on patient's age to complete this topic Insurance [facility] Care Teams Income Tax Auditor Relationship Specialty Start Date End Date Cesar Allan MD [address] [place] [address] DR CARL [address] [place] [id number] PCP - General FAMILY PRACTICE 08/17/23
--- OUTSIDE RECORDS SUMMARY | 2025-02-02 07:53 | XMS_ITS | Patient Health Summary ---
Author Organization [facility] Address [address] [place] [address] Care Team Providers Care Rope Tow Operator Name Role Phone Cesar Allan MD Primary Care Provider [phone] Note from [facility],non-owned Affiliates and Associated Physician Practices is amultiple site organization consisting of ambulatory clinics and hospital sitesin [place], [place] and [place]. This disclosure is being madepursuant to the Care Everywhere program and may not contain all information available regarding this patient. Last updated 18.[facility] Meet You Allergies * Midazolam(Other) -Low Criticality Active Problems [...] Comments Blood Pressure 130/80 02/05/2016 2:14 PM DINING SERVICE SUPERVISOR Pulse 77 02/05/2016 2:14 PM DINING SERVICE SUPERVISOR Temperature 36.2 C (97.2 F) 02/05/2016 2:14 PM DINING SERVICE SUPERVISOR Respiratory Rate 18 02/05/2016 2:14 PM DINING SERVICE SUPERVISOR Oxygen Saturation - - Inhaled Oxygen Concentration - - Weight 101.2 kg (223 lb) 02/05/2016 2:14 PM DINING SERVICE SUPERVISOR Height 187.3 cm (6' 1.75 ) 01/04/2016 9:42 AM CS T Body Mass Index 28.83 01/04/2016 9:42 AM DINING SERVICE SUPERVISOR Procedures * URINALYSIS MICROSCOPIC ONLY REFLEXED(Performed 01/22/2016) [...] URINALYSIS MICROSCOPIC ONLY REFLEXED (01/22/2016 8:15 AM DINING SERVICE SUPERVISOR) WBC, UA 0-5 0 - 5 /hpf [facility] (BEAKER) RBC UA 0-2 0 - 2 /hpf [facility] (BEAKER) Epithelial Cells (non renal) None seen 0 - 10 /hpf [facility] (BEAKER) Mucus UA Present Not Estab. [facility] (BEAKER) Bacteria UA None seen None seen/Few [facility] (BEAKER) 01/22/2016 8:15 AM DINING SERVICE SUPERVISOR 01/22/2016 12:45 PM DINING SERVICE SUPERVISOR Narrative [facility] (BEAKER) - 01/25/2016 1:18 PM DINING SERVICE SUPERVISOR Performed at: [address] [place] [address] [id number] Pro Shop Attendant: Tomasz Garland PhD, Phone: [phone] John Seaman MD LAB - URINALYSIS ORD ERABLES [facility] (BEAKER) * URINALYSIS W/MICROSCOPIC REFLEX TO CULTURE (01/22/2016 8:15 AM DINING SERVICE SUPERVISOR) Specific [place] 1.023 1.005 - 1.030 [facility] (BEAKER) [...] Negative [facility] (BEAKER) Microscopic Examination [facility] (BEAKER) Comment:Microscopic follows if indicated. Microscopic Examination See below: [facility] (BEAKER) Comment:Microscopic was kee cated and was performed. Urinalysis Reflex [facility] (BEAKER) Comment:This specimen will n ot reflex to a Urine Culture. Urine specimen (specimen) 01/22/2016 8:15 AM DINING SERVICE SUPERVISOR 01/22/2016 12:45 PM DINING SERVICE SUPERVISOR Narrative [facility] ([facility]) - 01/25/2016 1:18 PM DINING SERVICE SUPERVISOR Specimen Type->Urine Performed at: [address] [place] [address] [id number] Pro Shop Attendant: Tomasz Garland PhD, Phone: [phone] John Seaman MD LAB - URINALYSIS ORD ERABLES Performing Organization Address [facility] de Phone Number [facility]) * LUPUS ERYTHEMATOSUS PANEL (01/22/2016 8:15 AM DINING SERVICE SUPERVISOR) [facility] MED ADMIN Antibody <0.2 0.0 - 0.9 AI [facility]) [place] Antibody <0.2 0.0 - 0.9 AI [facility]) dsDNA Antibody <1 0 - 9 IU/mL [facility]) Comment: Negative <5 Equivocal 5 - 9 Positive >9 NANNETTE Direct Negative Negative [facility] ([facility]) 01/22/2016 8:15 AM DINING SERVICE SUPERVISOR 01/22/2016 12:45 PM DINING SERVICE SUPERVISOR Narrative [facility] ([facility]) - 01/25/2016 1:18 PM DINING SERVICE SUPERVISOR Performed at: [address] [place] [address] [id number] Pro Shop Attendant: Tomasz Garland PhD, Phone: [phone] John Seaman MD LAB - SEROLOGY ORDER LADAN Performing Organization Address [facility] de Phone Number [facility]) * LUPUS ANTICOAGULANT PANEL (01/22/2016 8:15 AM DINING SERVICE SUPERVISOR) Pathologist [facility] Dilute Prothrombin Time (DPT) 37.1 0.0 - 55.0 sec [facility] ([facility]) dPT Confirm Ratio 0.97 0.00 - 1.20 Ratio [facility] ([facility]) Comment: Effective February 26, 2016 the reference interval for dPT Confirm Ratio will be changing to: 0.00 - 1.40 Thrombin Time 15.5 0.0 - 20.0 sec [facility] (BEAKER) PTT Lupus Anticoagulant 37.2 0.0 - 50.0 sec [facility] (BEAKER) dRVVT Baseline 30.6 0.0 - 55.1 sec [facility] (BEAKER) Interpretation Comment: [facility] (BEAKER) Comment:No lupus anticoagula nt was detected. Blood specimen (specimen) BLOOD SPECIMEN / Unknown 01/22/2016 8:15 AM DINING SERVICE SUPERVISOR 01/22/2016 12:45 PM DINING SERVICE SUPERVISOR Narrative [facility] (BEAKER) - 01/25/2016 1:18 PM DINING SERVICE SUPERVISOR Performed at: - [address] [id number] Pro Shop Attendant: Kentrell Machuca MD, Phone: [phone] John Seaman MD LAB - HEMATOLOGY ORD ERABLES [facility] ([facility]) * TSH HI LOW REFLEX FREE T4 (01/22/2016 8:15 AM DINING SERVICE SUPERVISOR) TSH 1.740 0.450 - 4.500 uIU/mL [facility] ([facility]) 01/22/2016 8:15 AM DINING SERVICE SUPERVISOR 01/22/2016 12:45 PM DINING SERVICE SUPERVISOR Narrative [facility] (BEAKER) - 01/25/2016 1:18 PM DINING SERVICE SUPERVISOR Performed at: [address] [id number] Pro Shop Attendant: Tomasz Garland PhD, Phone: [phone] John Seaman MD LAB - CHEMISTRY RODRIGO KEYES [facility] ([facility]) * URIC ACID BLOOD (01/22/2016 8:15 AM DINING SERVICE SUPERVISOR) Uric acid 5.0 3.7 - 8.6 mg/dL [facility] ([facility]) Comment:Therapeutic target f or gout patients: <6.0 Blood specimen (specimen) BLOOD SPECIMEN / Unknown 01/22/2016 8:15 AM DINING SERVICE SUPERVISOR 01/22/2016 12:45 PM DINING SERVICE SUPERVISOR Narrative [facility] ([facility]) - 01/25/2016 1:18 PM DINING SERVICE SUPERVISOR Performed at: [address] [place] [address] [id number] Pro Shop Attendant: Tomasz Garland PhD, Phone: [phone] John Seaman MD LAB - CHEMISTRY ORDE RABKRISTINA Performing Organization Address [facility] Co de Phone Number [facility] ([facility]) * CARDIOLIPIN ANTIBODY IGA (01/22/2016 8:15 AM DINING SERVICE SUPERVISOR) Anticardiolipin Antibody IgA Quantitative <9 0 - 11 APL U/mL [facility] ([facility]) Comment: Negative: <12 Indeterminate: 12 - 20 Low-Med Positive: >20 - 80 High Positive: >80 Blood specimen (specimen) BLOOD SPECIMEN / Unknown 01/22/2016 8:15 AM DINING SERVICE SUPERVISOR 01/22/2016 12:45 PM DINING SERVICE SUPERVISOR Narrative [facility] ([facility]) - 01/25/2016 1:18 PM DINING SERVICE SUPERVISOR Performed at: [address] [place] [address] [id number] Pro Shop Attendant: Tomasz Garland PhD, Phone: [phone] John Seaman MD LAB - SEROLOGY ORDER LADAN Performing Organization Address [facility] Co de Phone Number [facility] ([facility]) * CARDIOLIPIN ANTIBODY IGM (01/22/2016 8:15 AM DINING SERVICE SUPERVISOR) Anticardiolipin Antibody IgM Quantitative <9 0 - 12 MPL U/mL [facility] ([facility]) Comment: Negative: <13 Indeterminate: 13 - 20 Low-Med Positive: >20 - 80 High Positive: >80 Blood specimen (specimen) BLOOD SPECIMEN / Unknown 01/22/2016 8:15 AM DINING SERVICE SUPERVISOR 01/22/2016 12:45 PM DINING SERVICE SUPERVISOR Narrative [facility] ([facility]) - 01/25/2016 1:18 PM DINING SERVICE SUPERVISOR Performed at: [address] [place] [address], [place] [id number] Pro Shop Attendant: Tomasz Garland PhD, Phone: [phone] John Seaman MD LAB - SEROLOGY ORDER LADAN Performing Organization Address [facility] Co de Phone Number [facility] ([facility]) * CARDIOLIPIN ANTIBODY IGG (01/22/2016 8:15 AM DINING SERVICE SUPERVISOR) Pathologist [facility] Anticardiolipin Antibody IgG Quantitative <9 0 - 14 GPL U/mL [facility]) Comment: Negative: <15 Indeterminate: 15 - 20 Low-Med Positive: >20 - 80 High Positive: >80 Blood specimen (specimen) BLOOD SPECIMEN / Unknown 01/22/2016 8:15 AM DINING SERVICE SUPERVISOR 01/22/2016 12:45 PM DINING SERVICE SUPERVISOR Narrative [facility] ([facility]) - 01/25/2016 1:18 PM DINING SERVICE SUPERVISOR Performed at: [address] [place] [address] [id number] Pro Shop Attendant: Tomasz Garland PhD, Phone: [phone] John Seaman MD LAB - SEROLOGY ORDER LADAN Performing Organization Address [facility] Co de Phone Number [facility] ([facility]) * BETA-2 GLYCOPROTEIN 1 ANTIBODY IGG/IGM/IGA PANEL (01/22/2016 8:15 AM DINING SERVICE SUPERVISOR) [facility] Beta-2 Glycoprotein 1 Antibody 1 IgG <9 0 - 20 GPI IgG units [facility] ([facility]) Comment: The reference interval reflects a 3SD or 99th percentile interval, which is thought to represent a potentially clinically significant result in accordance with the International Consensus Statement on the classification criteria for definitive antiphospholipid syndrome (APS). J Thromb Haem 2006;4:295-306. Beta-2 Glycoprotein 1 Antibody IgA <9 0 - 25 GPI IgA units [facility] ([facility]) Comment: The reference interval reflects a 3SD or 99th percentile interval, which is thought to represent a potentially clinically significant result in accordance with the International Consensus Statement on the classification criteria for definitive antiphospholipid syndrome (APS). J Thromb Haem 2006;4:295-306. Beta-2 Glycoprotein 1 Antibody IgM <9 0 - 32 GPI IgM units [facility] ([facility]) Comment: The reference interval reflects a 3SD or 99th percentile interval, which is thought to represent a potentially clinically significant result in accordance with the International Consensus Statement on the classification criteria for definitive antiphospholipid syndrome (APS). J Thromb Haem 2006;4:295-306. Serum 01/22/2016 8:15 AM DINING SERVICE SUPERVISOR 01/22/2016 12:45 PM DINING SERVICE SUPERVISOR Narrative [facility] ([facility]) - 01/25/2016 1:18 PM DINING SERVICE SUPERVISOR Performed at: - [address] [id number] Pro Shop Attendant: Kentrell Machuca MD, Phone: [phone] John Seaman MD LAB - SEROLOGY ORDER LADAN Performing Organization Address [facility] Co de Phone Number [facility] ([facility]) * RHEUMATOID FACTOR BLOOD QUANTITATIVE (01/22/2016 8:15 AM DINING SERVICE SUPERVISOR) RA latex Turbidimetry 9.8 0.0 - 13.9 IU/mL [facility] ([facility]) Blood specimen (specimen) BLOOD SPECIMEN / Unknown 01/22/2016 8:15 AM DINING SERVICE SUPERVISOR 01/22/2016 12:45 PM DINING SERVICE SUPERVISOR Narrative [facility]) - 01/25/2016 1:18 PM DINING SERVICE SUPERVISOR Performed at: [address] [id number] Pro Shop Attendant: Tomasz Garland PhD, Phone: [phone] John Seaman MD LAB - CHEMISTRY ORDE STEPHY Performing Organization Address City/[facility]/ZIP Co de Phone Number [facility] ([facility]) * C-REACTIVE PROTEIN (01/22/2016 8:15 AM DINING SERVICE SUPERVISOR) C-Reactive Protein 0.4 0.0 - 4.9 mg/L [facility] ([employer]) Blood specimen (specimen) BLOOD SPECIMEN / Unknown 01/22/2016 8:15 AM DINING SERVICE SUPERVISOR 01/22/2016 12:45 PM DINING SERVICE SUPERVISOR Narrative [facility] ([place]) - 01/25/2016 1:18 PM DINING SERVICE SUPERVISOR Performed at: [address] [id number] Pro Shop Attendant: Tomasz Garland PhD, Phone: [phone] John Seaman MD LAB - CHEMISTRY RODRIGO KEYES Performing Organization Address [facility]/ZIP Co de Phone Number [facility]) * HLA TYPING B27 (01/22/2016 8:15 AM DINING SERVICE SUPERVISOR) HLA-B27 Negative [facility]) Comment: HLA-B*27 Negative HLA allele interpretation for all loci based on IMGT/HLA database version 3.21 HLA Lab CLIA ID Number [id number] This test was performed using PCR (Polymerase Chain Reaction)/SSOP (Sequence Specific Oligonucleotide Probes) technique. SBT (Sequence Based Typing) and/or SSP (Sequence Specific Primers) may be used as supplemental methods when necessary. Please contact HLA Customer Service at if you have any questions. Director of HLA Laboratory Dr Bebeto Palacio, PhD Blood specimen (specimen) BLOOD SPECIMEN / Unknown 01/22/2016 8:15 AM DINING SERVICE SUPERVISOR 01/22/2016 12:45 PM DINING SERVICE SUPERVISOR Narrative [facility] ([place]) - 01/25/2016 1:18 PM DINING SERVICE SUPERVISOR Performed at: [address] [place] [address] [id number] Pro Shop Attendant: Bebeto Palacio PhD, Phone: [phone] John Seaman MD LAB - CHEMISTRY RODRIGO KEYES Performing Organization Address [facility]/ZIP Co de Phone Number [facility] ([place]) * VITAMIN D 25-HYDROXY (01/22/2016 8:15 AM DINING SERVICE SUPERVISOR) Vitamin D, 25 Hydroxy 41.5 30.0 - 100.0 ng/mL [facility] ([facility]) Comment: Vitamin D deficiency has been defined by the [place] of Medicine and an Endocrine Society practice guideline as a level of serum 25-OH vitamin D less than 20 ng/mL (1,2). The Endocrine Society went on to further define vitamin D insufficiency as a level between 21 and 29 ng/mL (2). 1. IOM ([place] of Medicine). 2010. Dietary reference intakes for calcium and D. [place]: The National Academies Press. 2. Bro MF, Sophia MCKEON, Mendoza MARTEL, et al. Evaluation, treatment, and prevention of vitamin D deficiency: an Endocrine Society clinical practice guideline. JCEM. 2010; 96(7):1911-30. Blood specimen (specimen) BLOOD SPECIMEN / Unknown 01/22/2016 8:15 AM DINING SERVICE SUPERVISOR 01/22/2016 12:45 PM DINING SERVICE SUPERVISOR Narrative [facility]) - 01/25/2016 1:18 PM DINING SERVICE SUPERVISOR Performed at: [address] [id number] Pro Shop Attendant: Tomasz Garland PhD, Phone: [phone] John Seaman MD LAB - CHEMISTRY RODRIGO KEYES Performing Organization Address [facility] Co de Phone Number [facility] ([facility]) * CYCLIC CITRUL PEPTIDE AB IGG (CCP) (01/22/2016 8:15 AM DINING SERVICE SUPERVISOR) Cyclic Citrullinated Peptide Antibody 6 0 - 19 units [facility] ([facility]) Comment: Negative <20 Weak positive 20 - 39 Moderate positive 40 - 59 Strong positive >59 Blood specimen (specimen) BLOOD SPECIMEN / Unknown 01/22/2016 8:15 AM DINING SERVICE SUPERVISOR 01/22/2016 12:45 PM DINING SERVICE SUPERVISOR Narrative [facility] ([facility]) - 01/25/2016 1:18 PM DINING SERVICE SUPERVISOR Performed at: [address] [id number] Pro Shop Attendant: Kentrell Machuca MD, Phone: [phone] John Seaman MD LAB - CHEMISTRY RODRIGO KEYES Performing Organization Address [facility] Co de Phone Number [facility]) * ERYTHROCYTE SEDIMENTATION RATE (01/22/2016 8:15 AM DINING SERVICE SUPERVISOR) Erythrocyte Sedimentation Rate Westergren 2 0 - 30 mm/hr [facility] (BEAKER) Blood specimen (specimen) BLOOD SPECIMEN / Unknown 01/22/2016 8:15 AM DINING SERVICE SUPERVISOR 01/22/2016 12:45 PM DINING SERVICE SUPERVISOR Narrative [facility] (BEAKER) - 01/25/2016 1:18 PM DINING SERVICE SUPERVISOR Performed at: [address] [place] [address] [id number] Pro Shop Attendant: Tomasz Garland PhD, Phone: [phone] John Seaman MD LAB - HEMATOLOGY ORD ERABLES [facility] (BEAKER) * CBC W AUTO DIFFERENTIAL (01/22/2016 8:15 AM DINING SERVICE SUPERVISOR) WBC 7.2 3.4 - 10.8 x10E3/uL [facility] [...] Monocytes Absolute 0.3 0.1 - 0.9 x10E3/uL [facility] (BEAKER) Eosinophils Absolute Manual 0.0 0.0 - 0.4 x10E3/uL [facility] (BEAKER) Basophil Absolute Manual 0.0 0.0 - 0.2 x10E3/uL [facility] (BEAKER) Immature Granulocytes % 0 % [facility] (BEAKER) Immature Granulocytes absolute 0.0 0.0 - 0.1 x10E3/uL [facility] (BEAKER) Blood specimen (specimen) BLOOD SPECIMEN / Unknown 01/22/2016 8:15 AM DINING SERVICE SUPERVISOR 01/22/2016 12:45 PM DINING SERVICE SUPERVISOR Narrative [facility] (BEAKER) - 01/25/2016 1:18 PM DINING SERVICE SUPERVISOR Performed at: [address] [place] [address] [id number] Pro Shop Attendant: Tomasz Garland PhD, Phone: [phone] John Seaman MD LAB - HEMATOLOGY ORD ERABLES [facility] ([facility]) * COMPREHENSIVE METABOLIC PANEL (01/22/2016 8:15 AM DINING SERVICE SUPERVISOR) Pathologist [facility] Glucose 88 65 - 99 mg/dL [facility] (BEAKER) BUN 18 6 - 24 mg/dL [facility] ([facility]) Creatinine 1.07 0.76 - 1.27 mg/dL [facility] (BEAKER) eGFR non- 77 >59 mL/min/1.7 3 [facility] (BEAKER) eGFR 89 >59 mL/min/1.7 3 [facility] (BEAKER) BUN/Creatinine Ratio 17 9 - 20 [facility] (BEAKER) Sodium 141 134 - 144 mmol/L [facility] (BEAKER) Potassium 4.7 3.5 - 5.2 mmol/L [facility] (BEAKER) Chloride 101 97 - 108 mmol/L [facility] (BEAKER) CO2 26 18 - 29 mmol/L [facility] (BEAKER) Calcium 9.9 8.7 - 10.2 mg/dL [facility] (BEAKER) Protein Total 6.6 6.0 - 8.5 g/dL [facility] (BEAKER) Albumin 4.6 3.5 - 5.5 g/dL [facility] (BEAKER) Globulin Total 2.0 1.5 - 4.5 g/dL [facility] (BEAKER) Albumin/Globulin Ratio 2.3 1.1 - 2.5 [facility] (BEAKER) Bilirubin Total 0.4 0.0 - 1.2 mg/dL [facility] (BEAKER) Alkaline Phosphatase 91 39 - 117 IU/L [facility] (BEAKER) AST 20 0 - 40 IU/L [facility] (BEAKER) ALT 26 0 - 44 IU/L [facility] (BEAKER) Blood specimen (specimen) BLOOD SPECIMEN / Unknown 01/22/2016 8:15 AM DINING SERVICE SUPERVISOR 01/22/2016 12:45 PM DINING SERVICE SUPERVISOR Narrative [facility] (BEAKER) - 01/25/2016 1:18 PM DINING SERVICE SUPERVISOR Performed at: [address] [place] [address] [id number] Pro Shop Attendant: Tomasz Garland PhD, Phone: [phone] John Seaman MD LAB - CHEMISTRY RODRIGO KEYES [facility] ([facility]) * HEPATITIS B SURFACE ANTIGEN W RFLX CONFIRMATION (01/22/2016 8:15 AM DINING SERVICE SUPERVISOR) Hepatitis B Virus Surface Antigen Screen Negative Negative [facility] (BEAKER) Blood specimen (specimen) BLOOD SPECIMEN / Unknown 01/22/2016 8:15 AM DINING SERVICE SUPERVISOR 01/22/2016 12:45 PM DINING SERVICE SUPERVISOR Narrative [facility] (BEAKER) - 01/25/2016 1:18 PM DINING SERVICE SUPERVISOR Performed at: [address] [place] [address] [id number] Pro Shop Attendant: Tomasz Garland PhD, Phone: [phone] John Seaman MD LAB - CHEMISTRY RODRIGO KEYES Performing Organization Address City/[facility]/ZIP Co de Phone Number [facility] ([facility]) * CK BLOOD (01/22/2016 8:15 AM DINING SERVICE SUPERVISOR) Pathologist [facility] CK Total 76 24 - 204 U/L [facility]) Blood specimen (specimen) BLOOD SPECIMEN / Unknown 01/22/2016 8:15 AM DINING SERVICE SUPERVISOR 01/22/2016 12:45 PM DINING SERVICE SUPERVISOR Narrative [facility] ([facility]) - 01/25/2016 1:18 PM DINING SERVICE SUPERVISOR Performed at: [address] [id number] Pro Shop Attendant: Tomasz Garland PhD, Phone: [phone] John Seaman MD LAB - CHEMISTRY RODRIGO KEYES Performing Organization Address [facility] Co de Phone Number [facility] ([facility]) * HEPATITIS C ANTIBODY (01/22/2016 8:15 AM DINING SERVICE SUPERVISOR) [facility] Hepatitis C Virus Antibody <0.1 0.0 - 0.9 s/co ratio [facility]) Comment: Negative: < 0.8 Indeterminate: 0.8 - 0.9 Positive: > 0.9 The CDC recommends that a positive HCV antibody result be followed up with a HCV Nucleic Acid Amplification test (830690). Blood specimen (specimen) BLOOD SPECIMEN / Unknown 01/22/2016 8:15 AM DINING SERVICE SUPERVISOR 01/22/2016 12:45 PM DINING SERVICE SUPERVISOR Narrative [facility] ([facility]) - 01/25/2016 1:18 PM DINING SERVICE SUPERVISOR Performed at: [address] [id number] Pro Shop Attendant: Tomasz Garland PhD, Phone: [phone] John Seaman MD LAB - CHEMISTRY RODRIGO KEYES Performing Organization Address City/[facility] Co de Phone Number [facility]) * CHROMATIN ANTIBODY (01/22/2016 8:14 AM DINING SERVICE SUPERVISOR) [facility] Antichromatin Antibody IgG <0.2 0.0 - 0.9 AI [facility] ([place]) Blood specimen (specimen) BLOOD SPECIMEN / Unknown 01/22/2016 8:14 AM DINING SERVICE SUPERVISOR 01/22/2016 12:45 PM DINING SERVICE SUPERVISOR Narrative [facility] LATESHA MORROW) - 01/23/2016 1:22 PM DINING SERVICE SUPERVISOR Performed at: - [address] [id number] Pro Shop Attendant: Tomasz Garland PhD, Phone: [phone] John Seaman MD LAB - SEROLOGY ORDER LADAN [facility] [place]) * XR FOOT RIGHT 3VW OR MORE (01/04/2016 11:59 AM DINING SERVICE SUPERVISOR) Anatomical Region Laterality Modality Ankle / Foot Other Impressions 01/04/2016 12:42 PM DINING SERVICE SUPERVISOR Impression: 1. Right hand demonstrates mild to [...] electronically signed by JAIME GARCIA MD on 01/04/2016 12:42 PM . Narrative 01/04/2016 12:42 PM DINING SERVICE SUPERVISOR Exam: 1. XR HAND LEFT 3+ VW, [...] LEFT 3VW OR MORE (01/04/2016 11:59 AM DINING SERVICE SUPERVISOR) Anatomical Region Laterality Modality Ankle / Foot Other Impressions 01/04/2016 12:42 PM DINING SERVICE SUPERVISOR Impression: 1. Right hand demonstrates mild to [...] electronically signed by JAIME GARCIA MD on 01/04/2016 12:42 PM . Narrative 01/04/2016 12:42 PM DINING SERVICE SUPERVISOR Exam: 1. XR HAND LEFT 3+ VW, [...] likely due to prior extensor tendon injury brokoeir. 2. The left hand is splinted. Mild [...] RIGHT 3VW OR MORE (01/04/2016 11:59 AM DINING SERVICE SUPERVISOR) Anatomical Region Laterality Modality Lower Extremity Other Impressions 01/04/2016 12:42 PM DINING SERVICE SUPERVISOR Impression: 1. Right hand demonstrates mild to [...] electronically signed by JAIME GARCIA MD on 01/04/2016 12:42 PM . Narrative 01/04/2016 12:42 PM DINING SERVICE SUPERVISOR Exam: 1. XR HAND LEFT 3+ VW, [...] LEFT 3VW OR MORE (01/04/2016 11:59 AM DINING SERVICE SUPERVISOR) Anatomical Region Laterality Modality Lower Extremity Other Impressions 01/04/2016 12:42 PM DINING SERVICE SUPERVISOR Impression: 1. Right hand demonstrates mild to [...] electronically signed by JAIME GARCIA MD on 01/04/2016 12:42 PM . Narrative 01/04/2016 12:42 PM DINING SERVICE SUPERVISOR Exam: 1. XR HAND LEFT 3+ VW, [...] RIGHT 3VW OR MORE (01/04/2016 11:59 AM DINING SERVICE SUPERVISOR) Anatomical Region Laterality Modality Wrist / Hand Other Impressions 01/04/2016 12:42 PM DINING SERVICE SUPERVISOR Impression: 1. Right hand demonstrates mild to [...] electronically signed by JAIME GARCIA MD on 01/04/2016 12:42 PM . Narrative 01/04/2016 12:42 PM DINING SERVICE SUPERVISOR Exam: 1. XR HAND LEFT 3+ VW, [...] LEFT 3VW OR MORE (01/04/2016 11:59 AM DINING SERVICE SUPERVISOR) Anatomical Region Laterality Modality Wrist / Hand Other Impressions 01/04/2016 12:42 PM DINING SERVICE SUPERVISOR Impression: 1. Right hand demonstrates mild to [...] electronically signed by JAIME GARCIA MD on 01/04/2016 12:42 PM . Narrative 01/04/2016 12:42 PM DINING SERVICE SUPERVISOR Exam: 1. XR HAND LEFT 3+ VW, [...] . John Seaman MD DIAGNOSTIC IMAGING O [facility] Care Teams Rope Tow Operator Relationship Specialty Start Date End Date Cesar Allan MD [facility] [place] [address] PCP - General 02/05/16
--- OUTSIDE RECORDS SUMMARY | 2025-02-02 07:53 | XMS_ITS | Clinical Summary ---
Author Organization [facility] [employer] Address [address] [place] [address] Care Team Providers Care Commercial Food Instructor Name Role Phone Cesar Allan MD Primary Care Provider [phone]- [phone] Source Comments [facility],non-owned Affiliates and Associated Physician Practices is amultiple site organization consisting of ambulatory clinics and hospital sitesin [place], [place], [place] and [place]. This disclosure is being madepursuant to the Care Everywhere program and may not contain all information available regarding this patient. Last updated 18.[facility] [place] Allergies Active Allergy Reactions Criticality Noted Date [...] Comments Blood Pressure 130/80 02/05/2016 2:14 PM MAMMA LOGIST Pulse 77 02/05/2016 2:14 PM MAMMA LOGIST Temperature 36.2 C (97.2 F) 02/05/2016 2:14 PM MAMMA LOGIST Respiratory Rate 18 02/05/2016 2:14 PM MAMMA LOGIST Oxygen Saturation - - Inhaled Oxygen Concentration - - Weight 101.2 kg (223 lb) 02/05/2016 2:14 PM MAMMA LOGIST Height 187.3 cm (6' 1.75 ) 01/04/2016 9:42 AM CS T Body Mass Index 28.83 01/04/2016 9:42 AM MAMMA LOGIST Plan of Treatment Health Maintenance Due Date Last Done Comments COLOGUARD (AGES 45-75) - COL ON CA SCREENING 1959 COLON MONITORING 1959 COLONOSCOPY - COLON CA SCREENING 1959 CT COLONOGRAPHY - COLON CA SCREENING 1959 Colorectal Cancer Screening 1959 FIT - COLON CA SCREENING 1959 FLEX SIG - COLON CA SCREENING 1959 LIPID TESTING 1959 HIV SCREENING 1974 DTAP/TDAP/TD VACCINES (1 - Tdap) 1978 PNEUMOCOCCAL VACCINE 50+ (1 of 1 - PCV) 2009 ZOSTER VACCINE (1 of 2) 2009 AAA SCREENING 2024 COVID-19 VACCINE (1 - 2023-2 5 season) 2024 INFLUENZA VACCINE (#1) 2024 DEPRESSION SCREENING 12/01/2024 Respiratory Syncytial Virus (RSV) Vaccine Pt: or over 60 yrs (1 - 1-dose 75+ series) 2034 HEPATITIS C SCREENING Completed 01/22/2016 HEPATITIS B [...] HEPATITIS C ANTIBODY Routine 01/22/2016 8:15 AM MAMMA LOGIST from Last 3 Months or Most Recently Relevant to Health Maintenance Results * HEPATITIS C ANTIBODY (01/22/2016 8:15 AM MAMMA LOGIST) Hepatitis C Virus Antibody <0.1 0.0 - 0.9 s/co ratio [facility] ([place]) Comment: Negative: < 0.8 Indeterminate: 0.8 - 0.9 Positive: > 0.9 The CDC recommends that a positive HCV antibody result be followed up with a HCV Nucleic Acid Amplification test (881039). Blood specimen (specimen) BLOOD SPECIMEN / Unknown 01/22/2016 8:15 AM MAMMA LOGIST 01/22/2016 12:45 PM MAMMA LOGIST Narrative [facility] ([place]) - 01/25/2016 1:18 PM MAMMA LOGIST Performed at: - [facility] [address] [id number] Strike On Machine Operator: Tomasz Garland PhD, Phone: [phone] John Seaman MD LAB - CHEMISTRY RODRIGO KEYES [facility] [place]) from Last 3 Months or Most Recently Relevant to Health Maintenance Care Teams Commercial Food Instructor Relationship Specialty Start Date End Date Cesar Allan MD [facility] [place] [address] PCP - General 02/05/16
== END 2025-02-02 07:47 | disposition home or self-care (01) ==
LOC: ANHSURGERY 07:49
PROVIDERS: PCP Family Medicine; Visit Provider Orthopaedic Surgery
DX: I10 Essential (primary) hypertension (principal); Z01.818 Encounter for other preprocedural examination
CPT/HCPCS: 93005

== ENCOUNTER 2025-02-10 00:29 | Day surgery (SDC) | payer OTHER, SELFPAY ==
--- NOTE | 2025-01-21 12:37 | PC.NURSE ---
Report to the Outpatient Waiting Room, entrance under the green pavilion located off [facility], at time _9:30 AM on date _02/10/25 . Planned Procedure Time: _11 :30 AM .? Time changes happen often and if your time is changed the preop area will call you the afternoon before. - You and your visitor will be asked to self-screen and do not enter if you have any COVID symptoms. Please call surgeon if you need to reschedule. - A mask is optional within the hospital at this time. Patients may have clear liquids (water, carbonated beverages, clear teas, apple juice) until 3 hours prior to surgery ( 8:30 AM) with a maximum of 20 ounces. - No food from midnight until time of surgery and no smoking, or chewing tobacco (or any form of nicotine). No chewing gum, candy or mints. Take only the following medications with a SIP of water on the morning of surgery: __HYDROCODONE IF NEEDED FOR PAIN DO NOT STOP ANY OF YOUR OTHER PRESCRIPTION MEDICATIONS PRIOR TO SURGERY EXCEPT THE FOLLOWING Hold all vitamins and supplements for 3 days per anesthesiologist. LAST DOSE 02/06/25 Medications to discontinue per physician ASPIRIN 7 DAYS _PER DR HOFFMAN Date to take last dose____02/02/25 Please no make-up, nail slovenian, hairspray, perfume, deodorant, or body powder the day of surgery.? No jewelry (including any body piercings) or valuables the day of surgery, leave them at home.? Please take a shower or bath the night before, or the morning of, surgery with an antibacterial soap.? Wear comfortable, loose fitting clothing.? Children are encouraged to wear pajamas. - Jewelry must be removed prior to entering the operating room.? Rings and piercings that are not removed may be cut off. - The hospital will not accept responsibility for valuables.? - Please leave all valuables, including medications, at home the day of surgery. If you are going home after surgery, a licensed dray driver must drive you home.? - NO public transportation without another adult if you receive anesthesia. - We recommend that an adult stay with you for 24 hours following discharge. - We also recommend that you do not drive, make important decision, drink alcoholic beverages, or take any drugs that were not prescribed by your health care provider for at least 24 hours after your discharge time. For Pediatric surgeries, we recommend two adults accompany the child home. Follow any additional instructions given to you from your surgeon. Telephone instructions given to _PATIENT and asked if any additional questions and then verbalized understanding. Patient advised to call surgeon office or pre surgery nurse liaison [phone] if any additional questions.
[2025-01-21 12:57] VITALS: BMI 25.7
--- NOTE | 2025-02-09 11:57 | PM.IMHP ---
H&P: HPI History of Present Illness Date/Time: 02/09/25 11:57 Chief Complaint: Right carpal tunnel syndrome Narrative: 64-year-old male who presents today for a right carpal tunnel release. He has been having symptoms of numbness tingling in both hands since the late last year. Numbness typically is in the thumb index and long finger. Patient states that he wakes up almost every night with his hands asleep. The time it takes to improve from the numbness has progressively gotten longer. He also gets numbness during the day particularly with driving a vehicle. Patient has an EMG nerve conduction velocity test done in December this year which showed moderate bilateral carpal tunnel syndrome. It also showed bilateral ulnar neuropathy across the elbow was. Patient is complaining of no symptoms in the small fingers in both hands. At this point patient feels that his symptoms are getting worse and at this point is right hand is more symptomatic than the left. He would like to proceed with carpal tunnel release at this point. Review of Systems Review of Systems: All systems reviewed & are unremarkable except as noted in HPI and below PMFSH Past Medical History Medical History Primary tonsillar squamous cell carcinoma Granuloma annulare Dehydration Surgical History Surgical History History of neck dissection Family History Family History Other Hypertension Social History Social History (Updated 12/27/24 @ 13:05 by Dede Meier CMA) Smoking packs per day: 2 Smoking cigarettes per day: 40.0 Years smoked: 25 Smoking pack-years: 50.00 Smoking status: Former smoker Tobacco type: cigarettes Smoking end date: 12/01/89 Alcohol intake: current Substance use: current Substance use type: marijuana Other substance usage details: SMOKES 4-5 X DAY Last use: 01/21/25 Do You Feel Safe in your Home?: Yes Lack of Transportation: No Lack of Food: Never True Current Housing: I Have Housing Concerned About Future Housing: No Difficulty Paying Gas/Electric Bills: No Difficulty Paying for Meds: No Currently Unemployed: No Education: High School Diploma/GED Difficulty w/ Childcare or Family Care: No Living arrangements: with family Spiritual care concerns: No Meds Home Medications and Allergies Home Medications ?Medication ?Instructions ?Recorded ?Confirmed ?Type fluorouracil 5 % topical cream 1 applic topical BID 4 weeks #40 07/30/23 01/21/25 Rx (Efudex) grams tadalafil 20 mg tablet See Rx Instructions .Route 09/05/23 01/21/25 Rx .COMPLEX #27 tabs trazodone 100 mg tablet See Rx Instructions .Route 08/18/24 01/21/25 Rx .COMPLEX #90 tabs cyclobenzaprine 10 mg tablet See Rx Instructions .Route 11/19/24 01/21/25 Rx .COMPLEX #270 tabs esomeprazole magnesium 40 mg 40 mg PO DAILY #90 caps 12/02/24 01/21/25 Rx capsule,delayed release (Nexium) hydrocodone 10 mg-acetaminophen 0.5 tablet PO Q6H PRN pain #30 tabs 12/15/24 01/21/25 Rx 325 mg tablet ascorbic acid (vitamin C) 1,000 mg 1 g PO DAILY 01/21/25 01/21/25 History tablet (C-1000) aspirin 81 mg tablet,delayed 81 mg PO DAILY 01/21/25 01/21/25 History release (Adult Low Dose Aspirin) potassium 99 mg tablet 99 mg PO DAILY 01/21/25 01/21/25 History pyridoxine (vitamin B6) 500 mg 500 mg PO DAILY 01/21/25 01/21/25 History tablet nebivolol 10 mg tablet 10 mg PO HS #90 tabs 02/01/25 Rx sulfasalazine 500 mg tablet See Rx Instructions .Route 02/01/25 Rx .COMPLEX #270 tabs Allergies Allergy/AdvReac Type Severity Reaction Status Date / Time MARTINEZ Inhibitors Allergy Unknown cough Verified 01/21/25 12:36 midazolam Allergy Unknown COMBATIVE Verified 01/21/25 12:36 morphine Allergy Unknown Nausea and Verified 01/21/25 12:36 Vomiting MODERATE SEDATION Allergy Severe COMBATIVE, Uncoded 01/21/25 12:36 MEDICATIONS-?EGD FIGHTING STAFF, BIT EGD INSTRUMENTS Exam Narrative: 64-year-old male alert pleasant. He has minimal atrophy of the thenar eminence in the right hand. Normal interosseous strength. He has a positive Tinel's over the median nerve which causes him immediate tingling in the long fingers. Negative Tinel's over the cubital tunnel. 2+ radial pulse. Full range of motion of the wrist and fingers. Two-point discrimination is 6/greater than 8, greater than 8/greater than 8. As long finger has a crush injury, 5/5 in the ring fingers 5/5 in the 5th finger. Resp: Auscultation: clear to auscultation bilaterally Assessment and Plan Assessment and plan (1) Carpal tunnel syndrome, bilateral: Code(s): G56.03 - Carpal tunnel syndrome, bilateral upper limbs Status: Acute Plan 64-year-old male who has moderate carpal tunnel syndrome in both hands the right being a little more symptomatic than the left at this point. He has been dealing with symptoms for more than 6 months and he feels that they are progressively worsening. He has a positive EMG as well as elevated 2 point discrimination in the right hand. Carpal tunnel release was offered and patient would like to proceed with that. Surgical procedures well as the risks and complications were discussed in detail and all questions were answered we will proceed. Patient will avoid any aspirin ibuprofen products 1 week prior to surgery. He will see his primary care doctor for pre-surgical clearance
[2025-02-10] VITALS (9 sets, daily range): BP systolic 116–142; BP diastolic 67–81; PULSE 55–86; RESP 10–16; TEMP 36.4–36.7; O2SAT 96–100
--- OUTSIDE RECORDS SUMMARY | 2025-02-10 00:32 | XMS_ITS | Referral Summary ---
Author Organization [facility] Address [address] [address] Care Team Providers Care Supervisor Weaving Name Role Phone Cesar Allan MD Primary Care Provider [phone] Source Comments [facility],non-owned Affiliates and Associated Physician Practices is amultiple site organization consisting of ambulatory clinics and hospital sitesin [place], [place], [place] and [place]. This disclosure is being madepursuant to the Care Everywhere program and may not contain all information available regarding this patient. Last updated 18.[facility] [employer] Allergies Active Allergy Reactions Criticality Noted Date [...] Comments Blood Pressure 130/80 02/05/2016 2:14 PM ICER HAND Pulse 77 02/05/2016 2:14 PM ICER HAND Temperature 36.2 C (97.2 F) 02/05/2016 2:14 PM ICER HAND Respiratory Rate 18 02/05/2016 2:14 PM ICER HAND Oxygen Saturation - - Inhaled Oxygen Concentration - - Weight 101.2 kg (223 lb) 02/05/2016 2:14 PM ICER HAND Height 187.3 cm (6' 1.75 ) 01/04/2016 9:42 AM CS T Body Mass Index 28.83 01/04/2016 9:42 AM ICER HAND Plan of Treatment Not on file Procedures Procedure Name Priority Date/Time Associated Diagnosis Comments HEPATITIS C ANTIBODY Routine 01/22/2016 8:15 AM ICER HAND from Last 3 Months or Most Recently Relevant to Health Maintenance Results * HEPATITIS C ANTIBODY (01/22/2016 8:15 AM ICER HAND) Hepatitis C Virus Antibody <0.1 0.0 - 0.9 s/co ratio [facility] ([place]) Comment: Negative: < 0.8 Indeterminate: 0.8 - 0.9 Positive: > 0.9 The CDC recommends that a positive HCV antibody result be followed up with a HCV Nucleic Acid Amplification test (083502). Blood specimen (specimen) BLOOD SPECIMEN / Unknown 01/22/2016 8:15 AM ICER HAND 01/22/2016 12:45 PM ICER HAND Narrative [facility] ([place]) - 01/25/2016 1:18 PM ICER HAND Performed at: [facility] [id number] Machine Carton Marker: Tomasz Garland PhD, Phone: [phone] John Seaman MD LAB - CHEMISTRY RODRIGO KEYES Performing Organization Address City/State/[facility] Co de Phone Number [facility] [place]) from Last 3 Months or Most Recently Relevant to Health Maintenance Care Teams Supervisor Weaving Relationship Specialty Start Date End Date Cesar Allan MD [address] [place] [id number] PCP - General 02/05/16
--- OUTSIDE RECORDS SUMMARY | 2025-02-10 00:32 | XMS_ITS | Clinical Summary ---
Author Organization [facility] [employer] Address [address] [place] [address] Care Team Providers Care Esthetic Dermatologist Name Role Phone Cesar Allan MD Primary Care Provider [phone] Source Comments [facility],non-owned Affiliates and Associated Physician Practices is amultiple site organization consisting of ambulatory clinics and hospital sitesin [place], [place], [place] and [place]. This disclosure is being madepursuant to the Care Everywhere program and may not contain all information available regarding this patient. Last updated 18.[facility] [employer] Allergies Active Allergy Reactions Criticality Noted Date [...] Comments Blood Pressure 130/80 02/05/2016 2:14 PM INSURANCE CLAIMS ASSISTANT Pulse 77 02/05/2016 2:14 PM INSURANCE CLAIMS ASSISTANT Temperature 36.2 C (97.2 F) 02/05/2016 2:14 PM INSURANCE CLAIMS ASSISTANT Respiratory Rate 18 02/05/2016 2:14 PM INSURANCE CLAIMS ASSISTANT Oxygen Saturation - - Inhaled Oxygen Concentration - - Weight 101.2 kg (223 lb) 02/05/2016 2:14 PM INSURANCE CLAIMS ASSISTANT Height 187.3 cm (6' 1.75 ) 01/04/2016 9:42 AM CS T Body Mass Index 28.83 01/04/2016 9:42 AM INSURANCE CLAIMS ASSISTANT Plan of Treatment Health Maintenance Due Date [...] to complete this topic MENINGOCOCCAL (Group B) VACC INE SHARED DECISION-MAKING Aged Out No longer eligibl e based on patient's age to complete this topic MENINGOCOCCAL GROUPS A/C/Y/W VACCINE Aged Out No longer eligible b ased on patient's age to complete this topic Procedures Procedure Name Priority Date/Time Associated Diagnosis Comments HEPATITIS C ANTIBODY Routine 01/22/2016 8:15 AM INSURANCE CLAIMS ASSISTANT from Last 3 Months or Most Recently Relevant to Health Maintenance Results * HEPATITIS C ANTIBODY (01/22/2016 8:15 AM INSURANCE CLAIMS ASSISTANT) Hepatitis C Virus Antibody <0.1 0.0 - 0.9 s/co ratio [facility] ([place]) Comment: Negative: < 0.8 Indeterminate: 0.8 - 0.9 Positive: > 0.9 The CDC recommends that a positive HCV antibody result be followed up with a HCV Nucleic Acid Amplification test (354480). Blood specimen (specimen) BLOOD SPECIMEN / Unknown 01/22/2016 8:15 AM INSURANCE CLAIMS ASSISTANT 01/22/2016 12:45 PM INSURANCE CLAIMS ASSISTANT Narrative [facility] ([place]) - 01/25/2016 1:18 PM INSURANCE CLAIMS ASSISTANT Performed at: - [facility] [id number] Fast Food Shift Lead: Tomasz Garland PhD, Phone: [phone] John Seaman MD LAB - CHEMISTRY RODRIGO KEYES [facility] [place]) from Last 3 Months or Most Recently Relevant to Health Maintenance Care Teams Esthetic Dermatologist Relationship Specialty Start Date End Date Cesar Allan MD [address] [place] [phone] PCP - General 02/05/16
--- OUTSIDE RECORDS SUMMARY | 2025-02-10 00:32 | XMS_ITS | Encounter Summary ---
Author Organization 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 DIV MEDICAL ONCOLOGY, [facility] [address] [place] [address] Medical Oncologist/Rib Puller Medical Oncology 12/12/23 Satinder Romano MD [address] [facility] DIV MEDICAL ONCOLOGY, [facility] [address] [place] [address] Radiation Oncologist Radiation Oncology 12/12/23 Deshawn Mandujano MD [address] [facility] DEPT OTOLARYNGOLOGY, [address] [address] Consulting Physician Otolaryngology 12/12/23 documented as of this encounter
--- OUTSIDE RECORDS SUMMARY | 2025-02-10 00:32 | XMS_ITS | Encounter Summary ---
Author Organization [facility] Address [address] [place] [address] Phone Care Team Providers Care Electric Meter Tester Helper Name Role Phone Sergio Schrader MD Unavailable [phone] Satinder Romano MD Unavailable [phone] Deshawn Mandujano MD Unavailable [phone] Cesar Allan MD Primary Care Provider [phone] Reason for Visit * Consultation (Routine) - Authorized Specialty Diagnoses / Procedures Referred By Citlali t Referred To Contact Otolaryngology Diagnoses Cancer of tonsil, palatine (HCC) Cesar Allan MD [facility] [address] [address] Phone: tel: fax: [facility] (All Locations) Referral ID Status Reason Start Date Expiration Date Visits Requested Visits Authorized [id number] Authorized Specialty Services Required 4 11/18/2025 12 12 Encounter Details Date Type Department Care Team (Latest Contact Info) Description 02/09/2025 10:00 AM CDT Office Visit [facility] Department of Otolaryngology Head-Neck Division [facility] Floor [address] [place] [address] Deshawn Mandujano MD [address] [place] [address] Cancer of tonsil, palatine (HCC) (Primary Dx) Social History Tobacco Use Types Packs/Day Years [...] on file 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 Gender Identity Not on file Sexual Orientation Not on file documented as of this encounter Last Filed Vital Signs Vital Sign Reading Time Taken Comments Blood Pressure - - Pulse - - Temperature - - Respiratory Rate - - Oxygen Saturation - - Inhaled Oxygen Concentration - - Weight 88.2 kg (194 lb 6.4 oz) 02/09/2025 9:42 A M CDT Height 185.6 cm (6' 1.07 ) 02/09/2025 9:42 AM CD T Body Mass Index 25.6 02/09/2025 9:42 AM CDT documented in this encounter Progress Notes * Deshawn Mandujano MD - 02/09/2025 10:00 AM CDT [facility] Department of Otolaryngology - Head & Neck Surgery Consultation Report 02/09/2025 Deshawn Mandujano MD RN: Dede Lyle Consultation Requested By: Cesar Allan MD Primary Care Provider: Cesar Allan MD Patient Name: Miguel Kwok Date of : 1960 Chief Complaint: 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 male who returns for surveillance. He has been doing very well, tolerating a regular diet. He denies pain or neck masses. He is not smoking. He does havesome tenderness in the left oropharynx that he staets is unchanged since healing from surgery. PHYSICAL EXAM: Constitutional: Vitals Ht 185.6 cm (6' 1.07 ) Wt 88.2 kg (194 lb 6.4 oz) BMI 25.60 kg/m?? Well appearing. The oral cavity is clear with moist mucosa and no lesions. There is scar in the left tonsillar fossa without tethering of the tongue. This feels unchanged. The contralateral tonsillarfossa and bilateral tongue bases are soft. Neck is soft and flat with a well healed left neck incision. 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 male with hx of left inferior tonsil cancer now s/p robotic assisted radical tonsillectomy and left neck dissection 12/30/2023 without adjuvant treatment. He is doing well with no evidence of disease today. He will return to clinic for follow up in 4 months for lefty hilario. Thank you for allowing me to participate in the care of . Should you have any questions or concerns, please do not hesitate to contact my office. Warm regards, Deshawn Mandujano M.D. Bad Work Gatherer Head & Neck Surgical Oncology and Microvascular Reconstruction Department of Otolaryngology - Head & Neck Surgery [facility] documented in this encounter Plan of Treatment Not on file documented as of this encounter Visit Diagnoses Diagnosis Cancer of tonsil, palatine (HCC)- Primary Malignant neoplasm of tonsil documented in this encounter Historical Medications * This list may reflect changes made after this encounter. HYDROcodone-aceta minophen (NORCO) 10-325 mg per tablet Take 1 tablet by mouth as needed 12/15/2024 added in this encounter Care Teams Electric Meter Tester Helper Relationship Specialty Start Date End Date Cesar Allan MD [address] [place] [address] [address] [place] [address] PCP - General Family Medicine 04/02/24 Sergio Schrader MD [address] [facility], [facility] [address] [place] [address] Medical Oncologist/Clinical Research Monitor Medical Oncology 12/12/23 Satinder Romano MD [address] [facility], [facility] [address], [address] [place] [address] Radiation Oncologist Radiation Oncology 12/12/23 Deshawn Mandujano MD [address] [facility] DEPT OTOLARYNGOLOGY, [facility] [address] [place] [address] Consulting Physician Otolaryngology 12/12/23 documented as of this encounter
--- OUTSIDE RECORDS SUMMARY | 2025-02-10 00:32 | XMS_ITS | Clinical Summary ---
Author Organization [facility] Address [address] [place] [address] Care Team Providers Care Solo Musician Name Role Phone Sergio Schrader MD Unavailable [phone] Satinder Romano MD Unavailable Deshawn Mandujano MD Unavailable Cesar Allan MD Primary Care Provider [phone] Allergies Active Allergy Reactions Criticality Noted Date [...] capsule Take by mouth daily 4 Active HYDROcodone-dylan taminophen (NORCO) 10-325 mg per tablet Take 1 tablet by mouth as needed 5 Active Active Problems Problem Noted Date Diagnosed [...] Cancer with unknown primary site 12/10/2023 01/06/2024 Encounters Date Type Department Care Team Description 02/09/2025 10:00 AM CDT Office Visit [facility] Department of Otolaryngology Head-Neck Division [address] [place] [address] Deshawn Mandujano MD Cancer of tonsil, palatine (HCC) (Primary Dx) from Last 3 Months Immunizations Immunization Administration Dates Next Due Influenza, Quadrivalent, Xuan l Culture-based MDCK, Preservative Free, Antibiotic Free, Intramuscular 09/24/2022 Influenza, Quadrivalent, Spl it, Intramuscular 09/23/2019 Influenza, Quadrivalent, Spl it, Preservative Free, Intramuscular 01/01/2024,08/09/2020,08/24/2018 Influenza, Trivalent, IM (MDV) 08/09/2021 Tdap 08/17/2023 ZOSTER Recombinant 08/28/2020,06/30/2020 Surgical History Surgery Date Site/Laterality Comments NE APPENDECTOMY Appendectomy - (Added by TW Conv) NE ARTHRP KNE CONDYLE&PLATU MEDIAL&LAT COMPARTMENTS Total Knee [...] on file 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 Gender Identity Not on file Sexual Orientation Not on file Obstetrics History Last Filed Vital Signs Vital Sign Reading Time Taken Comments Blood Pressure 144/77 01/01/2024 3:41 PM SAW TAILER Pulse 83 01/01/2024 3:41 PM SAW TAILER Temperature 36.6 C (97.9 F) 01/01/2024 3:41 PM SAW TAILER Respiratory Rate 17 01/01/2024 3:41 PM SAW TAILER Oxygen Saturation 99% 01/01/2024 3:41 PM SAW TAILER Inhaled Oxygen Concentration - - Weight 88.2 kg (194 lb 6.4 oz) 02/09/2025 9:42 A M CDT Height 185.6 cm (6' 1.07 ) 02/09/2025 9:42 AM CD T Body Mass Index 25.6 02/09/2025 9:42 AM CDT Plan of Treatment Health Maintenance [...] 08/17/2023 Zoster Vaccine Completed 08/28/2020, 06/30/2020 Insurance [facility] ADVANTAGE CHOICE PPO [facility] ADVANTAGE CHOICE PPO Advance Directives For more information, please contact: [phone] * Full Code (Latest Code Status on File) Date Activated Date Inactivated Comments 12/30/2023 2:42 PM 01/01/2024 10:34 PM Care Teams Solo Musician Relationship Specialty Start Date End Date Cesar Allan MD [address] [place] [address] [facility] [address] [place] [address] PCP - General Family Medicine 04/02/24 Sergio Schrader MD [address] [facility] MED[facility], [facility] [address] [place] [address] Medical Oncologist/Digital Data Analyst Medical Oncology 12/12/23 Satinder Romano MD [address] [facility], [place] [address] [place] [address] Radiation Oncologist Radiation Oncology 12/12/23 Deshawn Mandujano MD [address] [facility] DEPT OTOLARYNGOLOGY, [place] [address] [place] [address] Consulting Physician Otolaryngology 12/12/23
--- OUTSIDE RECORDS SUMMARY | 2025-02-10 00:32 | XMS_ITS | Referral Summary ---
Author Organization [facility] Address [address] [place] [address] Care Team Providers Care Child Guidance Counselor Name Role Phone Sergio Schrader MD Unavailable [phone] Satinder Romano MD Unavailable Deshawn Mandujano MD Unavailable [phone] Cesar Allan MD Primary Care Provider [phone] Encounters Date Type Department Care Team Description 02/09/2025 10:00 AM CDT Office Visit [facility] Department of Otolaryngology Head-Neck Division [facility] Floor [address] [place] [address] Deshawn Mandujano MD Cancer of tonsil, palatine (HCC) (Primary Dx) from Last 3 Months Allergies Active Allergy [...] on file Legal Sex Male 11:52 AM TAXATION ACCOUNTANT Gender Identity Not on file Sexual Orientation Not on file Last Filed Vital Signs Vital Sign Reading Time Taken Comments Blood Pressure 144/77 01/01/2024 3:41 PM TAXATION ACCOUNTANT Pulse 83 01/01/2024 3:41 PM TAXATION ACCOUNTANT Temperature 36.6 C (97.9 F) 01/01/2024 3:41 PM TAXATION ACCOUNTANT Respiratory Rate 17 01/01/2024 3:41 PM TAXATION ACCOUNTANT Oxygen Saturation 99% 01/01/2024 3:41 PM TAXATION ACCOUNTANT Inhaled Oxygen Concentration - - Weight 88.2 kg (194 lb 6.4 oz) 02/09/2025 9:42 A M CDT Height 185.6 cm (6' 1.07 ) 02/09/2025 9:42 AM CD T Body Mass Index 25.6 02/09/2025 9:42 AM CDT Plan of Treatment Not on file Insurance [employer] ADVANTAGE CHOICE PPO [facility] ADVANTAGE CHOICE PPO Advance Directives For more information, please contact: [phone] * Full Code (Latest Code Status on File) Date Activated Date Inactivated Comments 12/30/2023 2:42 PM 01/01/2024 10:34 PM Care Teams Child Guidance Counselor Relationship Specialty Start Date End Date Cesar Allan MD [address] [place] [address] [place] [address] PCP - General Family Medicine 04/02/24 Sergio Schrader MD [address] [facility], [facility] [address] [place] [address] Medical Oncologist/Bunch Trimmer Mold Medical Oncology 12/12/23 Satinder Romano MD [address] [facility], [facility] [address] [place] [address] Radiation Oncologist Radiation Oncology 12/12/23 Deshawn Mandujano MD [address] [facility] DEPT OTOLARYNGOLOGY, [facility] [address] [place] [address] Consulting Physician Otolaryngology 12/12/23
--- OUTSIDE RECORDS SUMMARY | 2025-02-10 00:32 | XMS_ITS | Patient Health Summary ---
Author Organization [facility] Address [address] [place] [address] Care Team Providers Care Gear Tester Name Role Phone Cesar Allan MD Primary Care Provider [phone] Note from [facility],non-owned Affiliates and Associated Physician Practices is amultiple site organization consisting of ambulatory clinics and hospital sitesin [place], [place], [place] and [place]. This disclosure is being madepursuant to the Care Everywhere program and may not contain all information available regarding this patient. Last updated 18.[facility] [employer] Allergies * Midazolam(Other) -Low Criticality Active Problems [...] Comments Blood Pressure 130/80 02/05/2016 2:14 PM CLINICAL TECHNICIAN Pulse 77 02/05/2016 2:14 PM CLINICAL TECHNICIAN Temperature 36.2 C (97.2 F) 02/05/2016 2:14 PM CLINICAL TECHNICIAN Respiratory Rate 18 02/05/2016 2:14 PM CLINICAL TECHNICIAN Oxygen Saturation - - Inhaled Oxygen Concentration - - Weight 101.2 kg (223 lb) 02/05/2016 2:14 PM CLINICAL TECHNICIAN Height 187.3 cm (6' 1.75 ) 01/04/2016 9:42 AM CS T Body Mass Index 28.83 01/04/2016 9:42 AM CLINICAL TECHNICIAN Procedures * URINALYSIS MICROSCOPIC ONLY REFLEXED(Performed 01/22/2016) [...] URINALYSIS MICROSCOPIC ONLY REFLEXED (01/22/2016 8:15 AM CLINICAL TECHNICIAN) WBC, UA 0-5 0 - 5 /hpf [facility] (BEAKER) RBC UA 0-2 0 - 2 /hpf [facility] (BEAKER) Epithelial Cells (non renal) None seen 0 - 10 /hpf [facility] (BEAKER) Mucus UA Present Not Estab. [facility] (BEAKER) Bacteria UA None seen None seen/Few [facility] (BEAKER) 01/22/2016 8:15 AM CLINICAL TECHNICIAN 01/22/2016 12:45 PM CLINICAL TECHNICIAN Narrative [facility] (BEAKER) - 01/25/2016 1:18 PM CLINICAL TECHNICIAN Performed at: [address] [place] [address] [id number] Nail Welter: Tomasz Garland PhD, Phone: [phone] John Seaman MD LAB - URINALYSIS ORD ERABLES [facility] (BEAKER) * URINALYSIS W/MICROSCOPIC REFLEX TO CULTURE (01/22/2016 8:15 AM CLINICAL TECHNICIAN) Specific Cameron 1.023 1.005 - 1.030 [facility] (BEAKER) [...] Negative [facility] (BEAKER) Microscopic Examination [facility] (BEAKER) Comment:Microscopic follows if indicated. Microscopic Examination See below: [facility] (BEAKER) Comment:Microscopic was kee cated and was performed. Urinalysis Reflex [facility] (BEAKER) Comment:This specimen will n ot reflex to a Urine Culture. Urine specimen (specimen) 01/22/2016 8:15 AM CLINICAL TECHNICIAN 01/22/2016 12:45 PM CLINICAL TECHNICIAN Narrative [facility] ([facility]) - 01/25/2016 1:18 PM CLINICAL TECHNICIAN Specimen Type->Urine Performed at: [address] [place] [address] [id number] Nail Welter: Tomasz Garland PhD, Phone: [phone] John Seaman MD LAB - URINALYSIS ORD ERABLES Performing Organization Address [facility] de Phone Number [facility]) * LUPUS ERYTHEMATOSUS PANEL (01/22/2016 8:15 AM CLINICAL TECHNICIAN) [facility] FLEXOGRAPHIC PRESS OPERATOR Antibody <0.2 0.0 - 0.9 AI [facility]) Gaines Antibody <0.2 0.0 - 0.9 AI [facility]) dsDNA Antibody <1 0 - 9 IU/mL [facility]) Comment: Negative <5 Equivocal 5 - 9 Positive >9 NANNETTE Direct Negative Negative [facility] ([facility]) 01/22/2016 8:15 AM CLINICAL TECHNICIAN 01/22/2016 12:45 PM CLINICAL TECHNICIAN Narrative [facility] ([facility]) - 01/25/2016 1:18 PM CLINICAL TECHNICIAN Performed at: [address] [place] [address] [id number] Nail Welter: Tomasz Garland PhD, Phone: [phone] John Seaman MD LAB - SEROLOGY ORDER LADAN Performing Organization Address [facility] de Phone Number [facility]) * LUPUS ANTICOAGULANT PANEL (01/22/2016 8:15 AM CLINICAL TECHNICIAN) Pathologist [facility] Dilute Prothrombin Time (DPT) 37.1 0.0 - 55.0 sec [facility] ([facility]) dPT Confirm Ratio 0.97 0.00 - 1.20 Ratio [facility] ([facility]) Comment: Effective February 26, 2016 the reference interval for dPT Confirm Ratio will be changing to: 0.00 - 1.40 Thrombin Time 15.5 0.0 - 20.0 sec [facility] (BEAKER) PTT Lupus Anticoagulant 37.2 0.0 - 50.0 sec [facility] (BEAKER) dRVVT Baseline 30.6 0.0 - 55.1 sec [facility] (BEAKER) Interpretation Comment: [facility] (BEAKER) Comment:No lupus anticoagula nt was detected. Blood specimen (specimen) BLOOD SPECIMEN / Unknown 01/22/2016 8:15 AM CLINICAL TECHNICIAN 01/22/2016 12:45 PM CLINICAL TECHNICIAN Narrative [facility] (BEAKER) - 01/25/2016 1:18 PM CLINICAL TECHNICIAN Performed at: - [address] [id number] Nail Welter: Kentrell Machuca MD, Phone: [phone] John Seaman MD LAB - HEMATOLOGY ORD ERABLES [facility] ([facility]) * TSH HI LOW REFLEX FREE T4 (01/22/2016 8:15 AM CLINICAL TECHNICIAN) TSH 1.740 0.450 - 4.500 uIU/mL [facility] ([facility]) 01/22/2016 8:15 AM CLINICAL TECHNICIAN 01/22/2016 12:45 PM CLINICAL TECHNICIAN Narrative [facility] (BEAKER) - 01/25/2016 1:18 PM CLINICAL TECHNICIAN Performed at: [address] [id number] Nail Welter: Tomasz Garland PhD, Phone: [phone] John Seaman MD LAB - CHEMISTRY RODRIGO KEYES [facility] ([facility]) * URIC ACID BLOOD (01/22/2016 8:15 AM CLINICAL TECHNICIAN) Uric acid 5.0 3.7 - 8.6 mg/dL [facility] Comment:Therapeutic target f or gout patients: <6.0 Blood specimen (specimen) BLOOD SPECIMEN / Unknown 01/22/2016 8:15 AM CLINICAL TECHNICIAN 01/22/2016 12:45 PM CLINICAL TECHNICIAN Narrative [facility] ([facility] - 01/25/2016 1:18 PM CLINICAL TECHNICIAN Performed at: [address] [place] [address] [id number] Nail Welter: Tomasz Garland PhD, Phone: [phone] John Seaman MD LAB - CHEMISTRY ORDE RABKRISTINA Performing Organization Address [facility] Co de Phone Number [facility] ([facility]) * CARDIOLIPIN ANTIBODY IGA (01/22/2016 8:15 AM CLINICAL TECHNICIAN) Anticardiolipin Antibody IgA Quantitative <9 0 - 11 APL U/mL [facility] ([facility]) Comment: Negative: <12 Indeterminate: 12 - 20 Low-Med Positive: >20 - 80 High Positive: >80 Blood specimen (specimen) BLOOD SPECIMEN / Unknown 01/22/2016 8:15 AM CLINICAL TECHNICIAN 01/22/2016 12:45 PM CLINICAL TECHNICIAN Narrative [facility] ([facility] - 01/25/2016 1:18 PM CLINICAL TECHNICIAN Performed at: [address] [place] [address] [id number] Nail Welter: Tomasz Garland PhD, Phone: [phone] John Seaman MD LAB - SEROLOGY ORDER LADAN Performing Organization Address [facility] Co de Phone Number [facility] ([facility]) * CARDIOLIPIN ANTIBODY IGM (01/22/2016 8:15 AM CLINICAL TECHNICIAN) Anticardiolipin Antibody IgM Quantitative <9 0 - 12 MPL U/mL [facility] ([facility]) Comment: Negative: <13 Indeterminate: 13 - 20 Low-Med Positive: >20 - 80 High Positive: >80 Blood specimen (specimen) BLOOD SPECIMEN / Unknown 01/22/2016 8:15 AM CLINICAL TECHNICIAN 01/22/2016 12:45 PM CLINICAL TECHNICIAN Narrative [facility] ([facility]) - 01/25/2016 1:18 PM CLINICAL TECHNICIAN Performed at: [address] [place] [address], [place] [id number] Nail Welter: Tomasz Garland PhD, Phone: [phone] John Seaman MD LAB - SEROLOGY ORDER LADAN Performing Organization Address [facility] Co de Phone Number [facility] ([facility]) * CARDIOLIPIN ANTIBODY IGG (01/22/2016 8:15 AM CLINICAL TECHNICIAN) Pathologist [facility] Anticardiolipin Antibody IgG Quantitative <9 0 - 14 GPL U/mL [facility]) Comment: Negative: <15 Indeterminate: 15 - 20 Low-Med Positive: >20 - 80 High Positive: >80 Blood specimen (specimen) BLOOD SPECIMEN / Unknown 01/22/2016 8:15 AM CLINICAL TECHNICIAN 01/22/2016 12:45 PM CLINICAL TECHNICIAN Narrative [facility] ([facility]) - 01/25/2016 1:18 PM CLINICAL TECHNICIAN Performed at: [address] [place] [address] [id number] Nail Welter: Tomasz Garland PhD, Phone: [phone] John Seaman MD LAB - SEROLOGY ORDER LADAN Performing Organization Address [facility] Co de Phone Number [facility] ([facility]) * BETA-2 GLYCOPROTEIN 1 ANTIBODY IGG/IGM/IGA PANEL (01/22/2016 8:15 AM CLINICAL TECHNICIAN) [facility] Beta-2 Glycoprotein 1 Antibody 1 IgG <9 0 - 20 GPI IgG units [facility] ([facility]) Comment: The reference interval reflects a 3SD or 99th percentile interval, which is thought to represent a potentially clinically significant result in accordance with the International Consensus Statement on the classification criteria for definitive antiphospholipid syndrome (APS). J Thromb Haem 2006;4:295-306. Beta-2 Glycoprotein 1 Antibody IgA <9 0 - 25 GPI IgA units [facility] ([facility]) Comment: The reference interval reflects a 3SD or 99th percentile interval, which is thought to represent a potentially clinically significant result in accordance with the International Consensus Statement on the classification criteria for definitive antiphospholipid syndrome (APS). J Thromb Haem 2006;4:295-306. Beta-2 Glycoprotein 1 Antibody IgM <9 0 - 32 GPI IgM units [facility] ([facility]) Comment: The reference interval reflects a 3SD or 99th percentile interval, which is thought to represent a potentially clinically significant result in accordance with the International Consensus Statement on the classification criteria for definitive antiphospholipid syndrome (APS). J Thromb Haem 2006;4:295-306. Serum 01/22/2016 8:15 AM CLINICAL TECHNICIAN 01/22/2016 12:45 PM CLINICAL TECHNICIAN Narrative [facility] ([facility]) - 01/25/2016 1:18 PM CLINICAL TECHNICIAN Performed at: - [address] [id number] Nail Welter: Kentrell Machuca MD, Phone: [phone] John Seaman MD LAB - SEROLOGY ORDER LADAN Performing Organization Address [facility] Co de Phone Number [facility] ([facility]) * RHEUMATOID FACTOR BLOOD QUANTITATIVE (01/22/2016 8:15 AM CLINICAL TECHNICIAN) RA latex Turbidimetry 9.8 0.0 - 13.9 IU/mL [facility] ([facility]) Blood specimen (specimen) BLOOD SPECIMEN / Unknown 01/22/2016 8:15 AM CLINICAL TECHNICIAN 01/22/2016 12:45 PM CLINICAL TECHNICIAN Narrative [facility] ([facility]) - 01/25/2016 1:18 PM CLINICAL TECHNICIAN Performed at: [address] [id number] Nail Welter: Tomasz Garland PhD, Phone: [phone] John Seaman MD LAB - CHEMISTRY ORDE STEPHY Performing Organization Address City/[facility]/ZIP Co de Phone Number [facility] ([facility]) * C-REACTIVE PROTEIN (01/22/2016 8:15 AM CLINICAL TECHNICIAN) C-Reactive Protein 0.4 0.0 - 4.9 mg/L [facility] ([place]) Blood specimen (specimen) BLOOD SPECIMEN / Unknown 01/22/2016 8:15 AM CLINICAL TECHNICIAN 01/22/2016 12:45 PM CLINICAL TECHNICIAN Narrative [facility] ([place]) - 01/25/2016 1:18 PM CLINICAL TECHNICIAN Performed at: [address] [id number] Nail Welter: Tomasz Garland PhD, Phone: [phone] John Seaman MD LAB - CHEMISTRY RODRIGO KEYES Performing Organization Address [facility]/ZIP Co de Phone Number [facility]) * HLA TYPING B27 (01/22/2016 8:15 AM CLINICAL TECHNICIAN) HLA-B27 Negative [facility] ([facility]) Comment: HLA-B*27 Negative HLA allele interpretation for all loci based on IMGT/HLA database version 3.21 HLA Lab CLIA ID Number [id number] This test was performed using PCR (Polymerase Chain Reaction)/SSOP (Sequence Specific Oligonucleotide Probes) technique. SBT (Sequence Based Typing) and/or SSP (Sequence Specific Primers) may be used as supplemental methods when necessary. Please contact HLA Customer Service at if you have any questions. Director of HLA Laboratory Dr Bebeto Palacio, PhD Blood specimen (specimen) BLOOD SPECIMEN / Unknown 01/22/2016 8:15 AM CLINICAL TECHNICIAN 01/22/2016 12:45 PM CLINICAL TECHNICIAN Narrative [facility] ([place]) - 01/25/2016 1:18 PM CLINICAL TECHNICIAN Performed at: [address] [place] [address] [id number] Nail Welter: Bebeto Palacio PhD, Phone: [phone] John Seaman MD LAB - CHEMISTRY RODRIGO KEYES Performing Organization Address [facility]/ZIP Co de Phone Number [facility] ([place]) * VITAMIN D 25-HYDROXY (01/22/2016 8:15 AM CLINICAL TECHNICIAN) Vitamin D, 25 Hydroxy 41.5 30.0 - 100.0 ng/mL [facility] ([facility] Comment: Vitamin D deficiency has been defined by the [place] of [employer] and an Endocrine Society practice guideline as a level of serum 25-OH vitamin D less than 20 ng/mL (1,2). The Endocrine Society went on to further define vitamin D insufficiency as a level between 21 and 29 ng/mL (2). 1. IOM ([place] of [employer]). 2010. Dietary reference intakes for calcium and D. [place]: The National Academies Press. 2. Bro MF, Sophia MCKEON, Mendoza MARTEL, et al. Evaluation, treatment, and prevention of vitamin D deficiency: an Endocrine Society clinical practice guideline. JCEM. 2010; 96(7):1911-30. Blood specimen (specimen) BLOOD SPECIMEN / Unknown 01/22/2016 8:15 AM CLINICAL TECHNICIAN 01/22/2016 12:45 PM CLINICAL TECHNICIAN Narrative [facility] - 01/25/2016 1:18 PM CLINICAL TECHNICIAN Performed at: [address] [id number] Nail Welter: Tomasz Garland PhD, Phone: [phone] John Seaman MD LAB - CHEMISTRY RODRIGO KEYES Performing Organization Address [facility] Co de Phone Number [facility] ([facility]) * CYCLIC CITRUL PEPTIDE AB IGG (CCP) (01/22/2016 8:15 AM CLINICAL TECHNICIAN) Cyclic Citrullinated Peptide Antibody 6 0 - 19 units [facility] ([facility]) Comment: Negative <20 Weak positive 20 - 39 Moderate positive 40 - 59 Strong positive >59 Blood specimen (specimen) BLOOD SPECIMEN / Unknown 01/22/2016 8:15 AM CLINICAL TECHNICIAN 01/22/2016 12:45 PM CLINICAL TECHNICIAN Narrative [facility] ([facility]) - 01/25/2016 1:18 PM CLINICAL TECHNICIAN Performed at: [address] [id number] Nail Welter: Kentrell Machuca MD, Phone: [phone] John Seaman MD LAB - CHEMISTRY RODRIGO KEYES Performing Organization Address [facility] Co de Phone Number [facility] * ERYTHROCYTE SEDIMENTATION RATE (01/22/2016 8:15 AM CLINICAL TECHNICIAN) Erythrocyte Sedimentation Rate Westergren 2 0 - 30 mm/hr [facility] (BEAKER) Blood specimen (specimen) BLOOD SPECIMEN / Unknown 01/22/2016 8:15 AM CLINICAL TECHNICIAN 01/22/2016 12:45 PM CLINICAL TECHNICIAN Narrative [facility] (BEAKER) - 01/25/2016 1:18 PM CLINICAL TECHNICIAN Performed at: [address] [place] [address] [id number] Nail Welter: Tomasz Garland PhD, Phone: [phone] John Seaman MD LAB - HEMATOLOGY ORD ERABLES [facility] (BEAKER) * CBC W AUTO DIFFERENTIAL (01/22/2016 8:15 AM CLINICAL TECHNICIAN) WBC 7.2 3.4 - 10.8 x10E3/uL [facility] [...] Monocytes Absolute 0.3 0.1 - 0.9 x10E3/uL [facility] (BEAKER) Eosinophils Absolute Manual 0.0 0.0 - 0.4 x10E3/uL [facility] (BEAKER) Basophil Absolute Manual 0.0 0.0 - 0.2 x10E3/uL [facility] (BEAKER) Immature Granulocytes % 0 % [facility] (BEAKER) Immature Granulocytes absolute 0.0 0.0 - 0.1 x10E3/uL [facility] (BEAKER) Blood specimen (specimen) BLOOD SPECIMEN / Unknown 01/22/2016 8:15 AM CLINICAL TECHNICIAN 01/22/2016 12:45 PM CLINICAL TECHNICIAN Narrative [facility] (BEAKER) - 01/25/2016 1:18 PM CLINICAL TECHNICIAN Performed at: [address] [place] [address] [id number] Nail Welter: Tomasz Garland PhD, Phone: [phone] John Seaman MD LAB - HEMATOLOGY ORD ERABLES [facility] ([facility] * COMPREHENSIVE METABOLIC PANEL (01/22/2016 8:15 AM CLINICAL TECHNICIAN) Pathologist [facility] Glucose 88 65 - 99 mg/dL [facility] (BEAKER) BUN 18 6 - 24 mg/dL [facility] (BEAKER) Creatinine 1.07 0.76 - 1.27 mg/dL [facility] (BEAKER) eGFR non- 77 >59 mL/min/1.7 3 [facility] (BEAKER) eGFR 89 >59 mL/min/1.7 3 [facility] (BEAKER) BUN/Creatinine Ratio 17 9 - 20 [facility] (BEAKER) Sodium 141 134 - 144 mmol/L [facility] (BEAKER) Potassium 4.7 3.5 - 5.2 mmol/L [facility] (BEAKER) Chloride 101 97 - 108 mmol/L [facility] (BEAKER) CO2 26 18 - 29 mmol/L [facility] (BEAKER) Calcium 9.9 8.7 - 10.2 mg/dL [facility] (BEAKER) Protein Total 6.6 6.0 - 8.5 g/dL [facility] (BEAKER) Albumin 4.6 3.5 - 5.5 g/dL [facility] (BEAKER) Globulin Total 2.0 1.5 - 4.5 g/dL [facility] (BEAKER) Albumin/Globulin Ratio 2.3 1.1 - 2.5 [facility] (BEAKER) Bilirubin Total 0.4 0.0 - 1.2 mg/dL [facility] (BEAKER) Alkaline Phosphatase 91 39 - 117 IU/L [facility] (BEAKER) AST 20 0 - 40 IU/L [facility] (BEAKER) ALT 26 0 - 44 IU/L [facility] (BEAKER) Blood specimen (specimen) BLOOD SPECIMEN / Unknown 01/22/2016 8:15 AM CLINICAL TECHNICIAN 01/22/2016 12:45 PM CLINICAL TECHNICIAN Narrative [facility] (BEAKER) - 01/25/2016 1:18 PM CLINICAL TECHNICIAN Performed at: [address] [place] [address] [id number] Nail Welter: Tomasz Garland PhD, Phone: [phone] John Seaman MD LAB - CHEMISTRY RODRIGO KEYES [facility] ([facility]) * HEPATITIS B SURFACE ANTIGEN W RFLX CONFIRMATION (01/22/2016 8:15 AM CLINICAL TECHNICIAN) Hepatitis B Virus Surface Antigen Screen Negative Negative [facility] (BEAKER) Blood specimen (specimen) BLOOD SPECIMEN / Unknown 01/22/2016 8:15 AM CLINICAL TECHNICIAN 01/22/2016 12:45 PM CLINICAL TECHNICIAN Narrative [facility] (BEAKER) - 01/25/2016 1:18 PM CLINICAL TECHNICIAN Performed at: [address] [place] [address] [id number] Nail Welter: Tomasz Garland PhD, Phone: [phone] John Seaman MD LAB - CHEMISTRY RODRIGO KEYES Performing Organization Address City/[facility]/ZIP Co de Phone Number [facility] ([facility]) * CK BLOOD (01/22/2016 8:15 AM CLINICAL TECHNICIAN) Pathologist [facility] CK Total 76 24 - 204 U/L [facility]) Blood specimen (specimen) BLOOD SPECIMEN / Unknown 01/22/2016 8:15 AM CLINICAL TECHNICIAN 01/22/2016 12:45 PM CLINICAL TECHNICIAN Narrative [facility] ([facility]) - 01/25/2016 1:18 PM CLINICAL TECHNICIAN Performed at: [address] [id number] Nail Welter: Tomasz Garland PhD, Phone: [phone] John Seaman MD LAB - CHEMISTRY RODRIGO KEYES Performing Organization Address [facility] Co de Phone Number [facility] ([facility]) * HEPATITIS C ANTIBODY (01/22/2016 8:15 AM CLINICAL TECHNICIAN) [facility] Hepatitis C Virus Antibody <0.1 0.0 - 0.9 s/co ratio [facility]) Comment: Negative: < 0.8 Indeterminate: 0.8 - 0.9 Positive: > 0.9 The CDC recommends that a positive HCV antibody result be followed up with a HCV Nucleic Acid Amplification test (339780). Blood specimen (specimen) BLOOD SPECIMEN / Unknown 01/22/2016 8:15 AM CLINICAL TECHNICIAN 01/22/2016 12:45 PM CLINICAL TECHNICIAN Narrative [facility] ([facility]) - 01/25/2016 1:18 PM CLINICAL TECHNICIAN Performed at: [address] [id number] Nail Welter: Tomasz Garland PhD, Phone: [phone] John Seaman MD LAB - CHEMISTRY RODRIGO KEYES Performing Organization Address City/[facility] Co de Phone Number [facility]) * CHROMATIN ANTIBODY (01/22/2016 8:14 AM CLINICAL TECHNICIAN) [facility] Antichromatin Antibody IgG <0.2 0.0 - 0.9 AI [facility] ([place]) Blood specimen (specimen) BLOOD SPECIMEN / Unknown 01/22/2016 8:14 AM CLINICAL TECHNICIAN 01/22/2016 12:45 PM CLINICAL TECHNICIAN Narrative [facility] LATESHA MORROW) - 01/23/2016 1:22 PM CLINICAL TECHNICIAN Performed at: - [address] [id number] Nail Welter: Tomasz Garland PhD, Phone: [phone] John Seaman MD LAB - SEROLOGY ORDER LADAN [facility] CRIST[place]) * XR FOOT RIGHT 3VW OR MORE (01/04/2016 11:59 AM CLINICAL TECHNICIAN) Anatomical Region Laterality Modality Ankle / Foot Other Impressions 01/04/2016 12:42 PM CLINICAL TECHNICIAN Impression: 1. Right hand demonstrates mild to [...] 12:42 PM . Narrative 01/04/2016 12:42 PM CLINICAL TECHNICIAN Exam: 1. XR HAND LEFT 3+ VW, [...] LEFT 3VW OR MORE (01/04/2016 11:59 AM CLINICAL TECHNICIAN) Anatomical Region Laterality Modality Ankle / Foot Other Impressions 01/04/2016 12:42 PM CLINICAL TECHNICIAN Impression: 1. Right hand demonstrates mild to [...] 12:42 PM . Narrative 01/04/2016 12:42 PM CLINICAL TECHNICIAN Exam: 1. XR HAND LEFT 3+ VW, [...] likely due to prior extensor tendon injury brookeir. 2. The left hand is splinted. Mild [...] RIGHT 3VW OR MORE (01/04/2016 11:59 AM CLINICAL TECHNICIAN) Anatomical Region Laterality Modality Lower Extremity Other Impressions 01/04/2016 12:42 PM CLINICAL TECHNICIAN Impression: 1. Right hand demonstrates mild to [...] 12:42 PM . Narrative 01/04/2016 12:42 PM CLINICAL TECHNICIAN Exam: 1. XR HAND LEFT 3+ VW, [...] LEFT 3VW OR MORE (01/04/2016 11:59 AM CLINICAL TECHNICIAN) Anatomical Region Laterality Modality Lower Extremity Other Impressions 01/04/2016 12:42 PM CLINICAL TECHNICIAN Impression: 1. Right hand demonstrates mild to [...] 12:42 PM . Narrative 01/04/2016 12:42 PM CLINICAL TECHNICIAN Exam: 1. XR HAND LEFT 3+ VW, [...] RIGHT 3VW OR MORE (01/04/2016 11:59 AM CLINICAL TECHNICIAN) Anatomical Region Laterality Modality Wrist / Hand Other Impressions 01/04/2016 12:42 PM CLINICAL TECHNICIAN Impression: 1. Right hand demonstrates mild to [...] 12:42 PM . Narrative 01/04/2016 12:42 PM CLINICAL TECHNICIAN Exam: 1. XR HAND LEFT 3+ VW, [...] LEFT 3VW OR MORE (01/04/2016 11:59 AM CLINICAL TECHNICIAN) Anatomical Region Laterality Modality Wrist / Hand Other Impressions 01/04/2016 12:42 PM CLINICAL TECHNICIAN Impression: 1. Right hand demonstrates mild to [...] 12:42 PM . Narrative 01/04/2016 12:42 PM CLINICAL TECHNICIAN Exam: 1. XR HAND LEFT 3+ VW, [...] . John Seaman MD DIAGNOSTIC IMAGING O [facility] Care Teams Gear Tester Relationship Specialty Start Date End Date Cesar Allan MD [facility] [place] [address] PCP - General 02/05/16
--- OUTSIDE RECORDS SUMMARY | 2025-02-10 00:32 | XMS_ITS ---
Author Organization [facility] Main [facility] s Address [address] [place] [address] Care Team Providers Care Sail Finisher Machine Name Role Phone Sergio Schrader MD Unavailable [phone] Satinder Romano MD Unavailable Deshawn Mandujano MD Unavailable Cesar Allan MD Primary Care Provider [phone] Active Problems Problem Noted Date Diagnosed Date [...]
--- OUTSIDE RECORDS SUMMARY | 2025-02-10 00:32 | XMS_ITS | Clinical Summary ---
Author Organization [facility] Address [address] [place] [address] Care Team Providers Care Ballistics Expert Name Role Phone Cesar Allan MD Primary Care Provider [phone]- [phone] Allergies No known active allergies Medications nebivolol [...] on file Legal Sex Male 9:57 PM VP PRODUCT Gender Identity Not on file Sexual Orientation [...] patient's age to complete this topic Insurance [facility] Care Teams Ballistics Expert Relationship Specialty Start Date End Date Cesar Allan MD [address] [place] [address] DR CARL [address] [place] [address] PCP - General FAMILY PRACTICE 08/17/23
--- NOTE | 2025-02-10 10:05 | WPDANESEPPF ---
Anes - Initial Pre Proc Eval Procedure: Operation Date: 02/10/25 11:30 Proposed Procedures p Right Carpal Tunnel Release - Brooks Shaffer MD Date/Time: 02/10/25 10:05 Surgeon: Brooks Shaffer MD Pre Op Diagnosis: Right Carpal Tunnel syndrome Patient Data Age: 64 Gender: M Height: 1.88 m Weight: 90.75 kg Allergies Allergy/AdvReac Type Severity Reaction Status Date / Time MARTINEZ Inhibitors Allergy Unknown cough Verified 01/21/25 12:36 midazolam Allergy Unknown COMBATIVE Verified 01/21/25 12:36 morphine Allergy Unknown Nausea and Verified 01/21/25 12:36 Vomiting MODERATE SEDATION Allergy Severe COMBATIVE, Uncoded 01/21/25 12:36 MEDICATIONS-?EGD FIGHTING STAFF, BIT EGD INSTRUMENTS Home Medications ?Medication ?Instructions ?Recorded ?Confirmed ?Type fluorouracil 5 % topical cream 1 applic topical BID 4 weeks #40 07/30/23 01/21/25 Rx (Efudex) grams tadalafil 20 mg tablet See Rx Instructions .Route 09/05/23 01/21/25 Rx .COMPLEX #27 tabs trazodone 100 mg tablet See Rx Instructions .Route 08/18/24 01/21/25 Rx .COMPLEX #90 tabs cyclobenzaprine 10 mg tablet See Rx Instructions .Route 11/19/24 01/21/25 Rx .COMPLEX #270 tabs esomeprazole magnesium 40 mg 40 mg PO DAILY #90 caps 12/02/24 01/21/25 Rx capsule,delayed release (Nexium) hydrocodone 10 mg-acetaminophen 0.5 tablet PO Q6H PRN pain #30 tabs 12/15/24 01/21/25 Rx 325 mg tablet ascorbic acid (vitamin C) 1,000 mg 1 g PO DAILY 01/21/25 01/21/25 History tablet (C-1000) aspirin 81 mg tablet,delayed 81 mg PO DAILY 01/21/25 01/21/25 History release (Adult Low Dose Aspirin) potassium 99 mg tablet 99 mg PO DAILY 01/21/25 01/21/25 History pyridoxine (vitamin B6) 500 mg 500 mg PO DAILY 01/21/25 01/21/25 History tablet nebivolol 10 mg tablet 10 mg PO HS #90 tabs 02/01/25 Rx sulfasalazine 500 mg tablet See Rx Instructions .Route 02/01/25 Rx .COMPLEX #270 tabs Patient hx anesthesia problems: none Family hx anesthesia problems: none Results Review: All pre-operative results and documents have been reviewed as part of the pre-operative evaluation. [facility] Past Medical History Medical History Primary tonsillar squamous cell carcinoma Granuloma annulare Dehydration Surgical History Surgical History History of neck dissection Family History Family History Other Hypertension Social History Social History Smoking packs per day: 2 Smoking cigarettes per day: 40.0 Years smoked: 25 Smoking pack-years: 50.00 Smoking status: Former smoker Tobacco type: cigarettes Smoking end date: 12/01/89 Alcohol intake: current Substance use: current Substance use type: marijuana Other substance usage details: SMOKES 4-5 X DAY Last use: 01/21/25 Do You Feel Safe in your Home?: Yes Lack of Transportation: No Lack of Food: Never True Current Housing: I Have Housing Concerned About Future Housing: No Difficulty Paying Gas/Electric Bills: No Difficulty Paying for Meds: No Currently Unemployed: No Education: High School Diploma/GED Difficulty w/ Childcare or Family Care: No Living arrangements: with family Spiritual care concerns: No Anes - Eval Final PreProcedure Day of Procedure 02/10/25 10:05 Patient weight: overweight Heart: regular rate and rhythm Lungs: clear to auscultation Airway: Mallampati scale class II Neurological: alert and oriented Last oral intake: >/= 8 hours ASA classification: III Emergent: no Anesthetic plan: proceed Anesthesia type and monitoring: general GIVS and standard monitoring Results Review: All pre-operative results and documents have been reviewed as part of the pre-operative evaluation. Informed Consent: The patient's anesthetic plan and its attendant risks and benefits were discussed with the patient/family/POA. Questions were solicited and answers provided to the satisfaction of the patient/family/POA.
--- NOTE | 2025-02-10 10:54 | WPDHPUPDATE1 ---
History and Physical Update Update Date/Time: 02/10/25 10:54 History and Physical has been reviewed, including an updated exam of the patient. There are NO changes in the patient's condition. Risks, benefits, and alternatives have been discussed and questions answered. Patient agrees to proceed with procedure.
[2025-02-10] MEDS: KETOROLAC 15 MG/ML VIAL (*BKC) IV PUSH (11:03)
[2025-02-10] MEDS: ACETAMINOPHEN 500 MG TABLET 1000 MG PO (11:03)
[2025-02-10] MEDS: LACTATED RINGERS 1,000 ML 30 ML IV CONT (11:03)
[2025-02-10] MEDS: ceFAZolin 2 GM/D5W 50 ML 2 GM/50 ML BAG IVPB (11:35)
[2025-02-10] MEDS: LIDO 1%/EPINEPHRINE 1:100,000 50 ML VIAL INFILTRATE (12:10)
--- NOTE | 2025-02-10 13:25 | P.OP_ITS ---
Procedure Note - Detailed Date of Procedure 02/10/25 Pre-op Diagnosis Right Carpal Tunnel syndrome Post-op Diagnosis Same Procedure Performed Right carpal tunnel release Surgeon Brooks Shaffer MD Direct Response Consultant Karen Anesthesia General Description of Procedure Patient was brought to the operating room and general anesthesia was administered and the right arm prepped draped usual fashion. He received 2 g of Ancef preoperatively. Limb was exsanguinated and tourniquet elevated to 3250 mmHg. A 2.5 cm longitudinal incision was made the base of the palm in line with the 4th ray radial border. Local anesthesia had been a manager competitive intelligence with total 4 cc of 1% lidocaine with epinephrine. Dissection was carried down through the superficial palmar fascia to the transverse carpal ligament which was longitudinally incised. Complete release was achieved distally. Proximally the subcutaneous fat was elevated off the distal volar forearm fascia and a Leeper elevator pass underneath the fascia the from the underlying nerve. The fascia was then split for a distance of 3 cm proximal to the flexor crease of the wrist completing the decompression. Tourniquet was released. Nerve appeared unremarkable no masses in the canal. Wound was irrigated with normal saline and after hemostasis, skin closed with 4-0 nylon suture in a soft bulky dressing applied the patient was transferred postop recovery room in good condition no known complications. [facility] Billing Surgery - Charge Forward: Surgery Billing (Right carpal tunnel release)
== END 2025-02-10 14:05 | disposition home or self-care (01) ==
PROVIDERS: PCP Family Medicine; Visit Provider Orthopaedic Surgery
PROC: (CPT 64721; principal; 2025-02-10 11:30)
DX: G56.01 Carpal tunnel syndrome, right upper limb (principal); L92.0 Granuloma annulare; F12.90 Cannabis use, unspecified, uncomplicated; Z79.891 Long term (current) use of opiate analgesic; Z79.82 Long term (current) use of aspirin; Z98.890 Other specified postprocedural states; Z98.1 Arthrodesis status; Z87.891 Personal history of nicotine dependence; Z85.818 Personal history of malignant neoplasm of other sites of lip, oral cavity, and pharynx
CPT/HCPCS: 64721; A9270; J0690; J1100; J1885; J2004; J2250; J2405; J2704; J3010; J7120

== ENCOUNTER 2025-03-02 09:09 | Outpatient (RCR) | payer OTHER, SELFPAY ==
--- OUTSIDE RECORDS SUMMARY | 2025-02-27 12:29 | XMS_ITS | Clinical Summary ---
Author Organization [facility] [employer] Address [address] [place] [address] Care Team Providers Care French Binding Folder Name Role Phone Cesar Allan MD Primary Care Provider [phone] Source Comments [facility],non-owned Affiliates and Associated Physician Practices is amultiple site organization consisting of ambulatory clinics and hospital sitesin [place], [place], [place] and [place]. This disclosure is being madepursuant to the Care Everywhere program and may not contain all information available regarding this patient. Last updated 18.[facility] [employer] Allergies Active Allergy Reactions Criticality Noted Date [...] Comments Blood Pressure 130/80 02/05/2016 2:14 PM CONTACT LENS TECHNICIAN Pulse 77 02/05/2016 2:14 PM CONTACT LENS TECHNICIAN Temperature 36.2 C (97.2 F) 02/05/2016 2:14 PM CONTACT LENS TECHNICIAN Respiratory Rate 18 02/05/2016 2:14 PM CONTACT LENS TECHNICIAN Oxygen Saturation - - Inhaled Oxygen Concentration - - Weight 101.2 kg (223 lb) 02/05/2016 2:14 PM CONTACT LENS TECHNICIAN Height 187.3 cm (6' 1.75 ) 01/04/2016 9:42 AM CS T Body Mass Index 28.83 01/04/2016 9:42 AM CONTACT LENS TECHNICIAN Plan of Treatment Health Maintenance Due Date [...] HEPATITIS C ANTIBODY Routine 01/22/2016 8:15 AM CONTACT LENS TECHNICIAN from Last 3 Months or Most Recently Relevant to Health Maintenance Results * HEPATITIS C ANTIBODY (01/22/2016 8:15 AM CONTACT LENS TECHNICIAN) Hepatitis C Virus Antibody <0.1 0.0 - 0.9 s/co ratio [facility] ([place]) Comment: Negative: < 0.8 Indeterminate: 0.8 - 0.9 Positive: > 0.9 The CDC recommends that a positive HCV antibody result be followed up with a HCV Nucleic Acid Amplification test (199208). Blood specimen (specimen) BLOOD SPECIMEN / Unknown 01/22/2016 8:15 AM CONTACT LENS TECHNICIAN 01/22/2016 12:45 PM CONTACT LENS TECHNICIAN Narrative [facility] ([place] - 01/25/2016 1:18 PM CONTACT LENS TECHNICIAN Performed at: - [facility] [id number] General Medical Practitioner: Tomasz Garland PhD, Phone: [phone] John Seaman MD LAB - CHEMISTRY RODRIGO KEYES [facility] from Last 3 Months or Most Recently Relevant to Health Maintenance Care Teams French Binding Folder Relationship Specialty Start Date End Date Cesar Allan MD [address] [place] [address] PCP - General 02/05/16
--- OUTSIDE RECORDS SUMMARY | 2025-02-27 12:29 | XMS_ITS ---
Author Organization [facility] Main [facility] s Address [address] [place] [address] Care Team Providers Care Business Machine Operator Name Role Phone Sergio Schrader MD Unavailable [phone] Satinder Romano MD Unavailable Deshawn Mandujano MD Unavailable Cesar Allan MD Primary Care Provider [phone] Active Problems Problem Noted Date Diagnosed Date [...]
--- OUTSIDE RECORDS SUMMARY | 2025-02-27 12:29 | XMS_ITS | Clinical Summary ---
Author Organization [facility] Address [address] [place] [address] Care Team Providers Care Local Company Intermodal Truck Driver Name Role Phone Sergio Schrader MD Unavailable [phone] Satinder Romano MD Unavailable Deshawn Mandujano MD Unavailable Cesar Allan MD Primary Care Provider [phone] Allergies Active Allergy Reactions Criticality Noted Date [...] Description 02/09/2025 10:00 AM CDT Office Visit [facility] Department of Otolaryngology Head-Neck Division [address] [place] [address] Deshawn Mandujano MD Cancer of tonsil, palatine (HCC) (Primary Dx) from Last 3 Months Immunizations Immunization Administration Dates Next Due Influenza, Quadrivalent, Xuan l Culture-based MDCK, Preservative Free, Antibiotic Free, Intramuscular 09/24/2022 Influenza, Quadrivalent, Spl it, Intramuscular 09/23/2019 Influenza, Quadrivalent, Spl it, Preservative Free, Intramuscular 01/01/2024,08/09/2020,08/24/2018 Influenza, Trivalent, IM (MDV) 08/09/2021 Tdap 08/17/2023 ZOSTER Recombinant 08/28/2020,06/30/2020 Surgical History Surgery Date Site/Laterality Comments ND APPENDECTOMY Appendectomy - (Added by TW Conv) ND ARTHRP KNE CONDYLE&PLATU MEDIAL&LAT COMPARTMENTS Total Knee [...] on file 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 Gender Identity Not on file Sexual Orientation Not on file Obstetrics History Last Filed Vital Signs Vital Sign Reading Time Taken Comments Blood Pressure 144/77 01/01/2024 3:41 PM NIBBLER OPERATOR Pulse 83 01/01/2024 3:41 PM NIBBLER OPERATOR Temperature 36.6 C (97.9 F) 01/01/2024 3:41 PM NIBBLER OPERATOR Respiratory Rate 17 01/01/2024 3:41 PM NIBBLER OPERATOR Oxygen Saturation 99% 01/01/2024 3:41 PM NIBBLER OPERATOR Inhaled Oxygen Concentration - - Weight 88.2 [...] 08/17/2023 Zoster Vaccine Completed 08/28/2020, 06/30/2020 Insurance [facility] ADVANTAGE CHOICE PPO [facility] ADVANTAGE CHOICE PPO Advance Directives For more information, please contact: [phone] * Full Code (Latest Code Status on File) Date Activated Date Inactivated Comments 12/30/2023 2:42 PM 01/01/2024 10:34 PM Care Teams Local Company Intermodal Truck Driver Relationship Specialty Start Date End Date Cesar Allan MD [address] [place] [address] [facility] [address] [place] [address] PCP - General Family Medicine 04/02/24 Sergio Schrader MD [address] [facility] MEDICAL ONCOLOGY, [facility] [address]A, [address] [place] [address] Medical Oncologist/Demurrage Worker Medical Oncology 12/12/23 Satinder Romano MD [address] [facility] IM MEDICAL ONCOLOGY, [place] [address] [place] [address] Radiation Oncologist Radiation Oncology 12/12/23 Deshawn Mandujano MD [address] [facility] DEPT OTOLARYNGOLOGY, [place] [address] [place] [address] Consulting Physician Otolaryngology 12/12/23
--- OUTSIDE RECORDS SUMMARY | 2025-02-27 12:29 | XMS_ITS | Clinical Summary ---
Author Organization 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
--- OUTSIDE RECORDS SUMMARY | 2025-02-27 12:29 | XMS_ITS | Encounter Summary ---
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 Gender Identity Not on file Sexual [...] on filedocumented in this encounter Care Teams Track Inspector Relationship Specialty Start Date End Date Cate Loving, TERMINAL SUPERINTENDENT PCP - General Family Medicine 12/05/23 04/01/24 Cesar Allan MD [address] [place] [id number] PCP - General Family Medicine 04/02/24 Sergio Schrader MD [address] [facility] [address] DIV MEDICAL ONCOLOGY, [facility] [address]A, [address] [place] [address] Medical Oncologist/Aircraft Maintenance Manager Medical Oncology 12/12/23 Satinder Romano MD [address] [facility] DIV MEDICAL ONCOLOGY, [facility] 7A, [address]B, [address] [place] [address] Radiation Oncologist Radiation Oncology 12/12/23 Deshawn Mandujano MD [address] [facility] DEPT OTOLARYNGOLOGY, [address] [address] Consulting Physician Otolaryngology 12/12/23 documented as of this encounter
--- OUTSIDE RECORDS SUMMARY | 2025-02-27 12:29 | XMS_ITS | Referral Summary ---
Author Organization [facility] s Address [address] [place] [address] Care Team Providers Care Vending Machine Operator Name Role Phone Sergio Schrader MD Unavailable Satinder Romano MD Unavailable Deshawn Mandujano MD Unavailable Cesar Allan MD Primary Care Provider [phone] Encounters Date Type Department Care Team Description 02/09/2025 10:00 AM CDT Office Visit [facility] Department of Otolaryngology Head-Neck Division [facility] Floor [address] [place] [address] Deshawn Mandujano MD Cancer of [...] on file Legal Sex Male 11:52 AM INFRASTRUCTURE TECHNICIAN Gender Identity Not on file Sexual Orientation Not on file Last Filed Vital Signs Vital Sign Reading Time Taken Comments Blood Pressure 144/77 01/01/2024 3:41 PM INFRASTRUCTURE TECHNICIAN Pulse 83 01/01/2024 3:41 PM INFRASTRUCTURE TECHNICIAN Temperature 36.6 C (97.9 F) 01/01/2024 3:41 PM INFRASTRUCTURE TECHNICIAN Respiratory Rate 17 01/01/2024 3:41 PM INFRASTRUCTURE TECHNICIAN Oxygen Saturation 99% 01/01/2024 3:41 PM INFRASTRUCTURE TECHNICIAN Inhaled Oxygen Concentration - - Weight 88.2 kg (194 lb 6.4 oz) 02/09/2025 9:42 A M CDT Height 185.6 cm (6' 1.07 ) 02/09/2025 9:42 AM CD T Body Mass Index 25.6 02/09/2025 9:42 AM CDT Plan of Treatment Not on file Insurance [employer] ADVANTAGE CHOICE PPO [facility] ADVANTAGE CHOICE PPO Advance Directives For more information, please contact: [phone] * Full Code (Latest Code Status on File) Date Activated Date Inactivated Comments 12/30/2023 2:42 PM 01/01/2024 10:34 PM Care Teams Vending Machine Operator Relationship Specialty Start Date End Date Cesar Allan MD [address] [place] [address] [place] [address] PCP - General Family Medicine 04/02/24 Sergio Schrader MD [address] [facility] MEDICAL ONCOLOGY, [facility] [address]A, [address] [place] [address] Medical Oncologist/Auto Damage Insurance Appraiser Medical Oncology 12/12/23 Satinder Romano MD [address] [facility] MEDICAL ONCOLOGY, [facility] [address]A, [address] [place] [address] Radiation Oncologist Radiation Oncology 12/12/23 Deshawn Mandujano MD [address] [facility] DEPT OTOLARYNGOLOGY, [facility] [address] [place] [address] Consulting Physician Otolaryngology 12/12/23
--- NOTE | ~2025-03-02 | MR_ITS ---
EXAMINATION: MR shoulder LT wo con DATE: 02/27/2025 13:49 INDICATION: Strain of muscle and tendon of the rotator cuff. TECHNIQUE: Magnetic resonance imaging (MRI) of the left shoulder was performed without intravenous co ntrast. COMPARISON: None. FINDINGS: Motion artifact is noted. Note that sagittal oblique images were not performed. Note that a ll sequences used fat saturation. Coracoacromial arch: The acromion undersurface is flat in morphology (type I). There is severe acromioclavicular joint ost eoarthritis including inferiorly directed osteophytes. There is severe subacromial/subdeltoid bursiti s. Rotator cuff: There is a full-thickness tear of supraspinatus and infraspinatus tendons measuring greater than 4 cm anterior to posterior by 4.3 cm proximal to distal. Teres minor tendon is normal. There is a full-th ickness tear of subscapularis tendon. The rotator cuff muscle bellies are not well evaluated given th e lack of sagittal oblique images and non-fat saturation images. Biceps tendon and glenoid labrum: Biceps tendon is in bicipital groove. There is a complete tear of biceps tendon. There is degenerativ e tearing of the glenoid labrum. Fluid: There is a large glenohumeral joint effusion. Bones/cartilage: There is shallow partial-thickness cartilage loss of glenoid and humeral head. IMPRESSION: 1. Massive full-thickness rotator cuff tear. 2. Complete tear of biceps tendon. 3. Mild glenohumeral joint chondrosis. 4. Severe acromioclavicular joint osteoarthritis. 5. Large glenohumeral joint effusion and severe subacromial/subdeltoid bursitis. Reviewed, dictated and finalized at location A. IMPRESSION: 1. Massive full-thickness rotator cuff tear. 2. Complete tear of biceps tendon. 3. Mild glenohumeral joint chondrosis. 4. Severe acromioclavicular joint osteoarthritis. 5. Large glenohumeral joint effusion and severe subacromial/subdeltoid bursitis .
--- NOTE | ~2025-03-02 | MR_ITS ---
EXAMINATION: Additional imaging MR DATE: 03/02/2025 14:47 INDICATION: Strain of muscle and tendon. Additional imaging for completion of prior left shoulder MRI . TECHNIQUE: MRI of the left shoulder was performed without intravenous contrast. Sequences included sa gittal T1-weighted FSE, sagittal T2-weighted FS FSE, axial T1-weighted FS FSE and axial PD-weighted F S FSE. COMPARISON: None. FINDINGS: Again seen is a large full-thickness rotator cuff tear involving the entire supraspinatus and infrasp inatus tendons and the cephalad three fourths of the lesser tuberosity attachment of the subscapulari s tendon. The bursal side of the tendon remains intact and contiguous with the transverse humeral lig ament. The teres minor tendon remains normal. There is only mild fatty atrophy of the infraspinatus m uscle belly which suggests the majority of the rotator cuff tear is relatively recent. The long head biceps tendon is torn and retracted below level of the intertubercular groove. There is a moderate-sized left humeral joint effusion which extends through the full-thickness rotator cuff t ear into the subacromial/subdeltoid bursa likely also communicates with a small effusion at the acrom ioclavicular joint where there is severe osteoarthritis. There is mild posterior subluxation of the humeral head with respect to the glenoid. There is mild gl enohumeral osteoarthritis with mild partial-thickness cartilage loss with smooth chondral surface pre dominantly along the superior posterior superior aspect of the glenoid and at the inferomedial and an terosuperior aspects of the humeral head. There is diffuse mild degenerative tearing along the margin s of the glenoid labrum. There are hypertrophic and cystic changes along the lesser and greater tuber osities which likely sequela of chronic rotator cuff disease. No fracture or pathologic marrow replac ing process. IMPRESSION: 1. Massive full-thickness rotator cuff tear involving the entire supraspinatus, infraspinatus and cep halad three fourths of the lesser tuberosity attachment of the subscapularis tendon. 2. Full-thickness tear and distal retraction of the long head biceps tendon from its glenoid anchor. 3. Mild glenohumeral osteoarthritis with mild diffuse labral degeneration and with large joint effusi on. 4. Severe acromioclavicular osteoarthritis. Reviewed, dictated and finalized at location A. IMPRESSION: 1. Massive full-thickness rotator cuff tear involving the entire supraspinatus, infraspinatus and cephalad three fourths of the lesser tuberosity attachment o f the subscapularis tendon. 2. Full-thickness tear and distal retraction of the long head biceps tendon fro m its glenoid anchor. 3. Mild glenohumeral osteoarthritis with mild diffuse labral degeneration and w ith large joint effusion. 4. Severe acromioclavicular osteoarthritis.
--- OUTSIDE RECORDS SUMMARY | 2025-03-02 16:32 | XMS_ITS | Referral Summary ---
Author Organization [facility] s Address [address] [place] [address] Care Team Providers Care Sales Donor Recruitment Representative Name Role Phone Sergio Schrader MD Unavailable [phone] Satinder Romano MD Unavailable Deshawn Mandujano MD Unavailable Cesar Allan MD Primary Care Provider [phone] Encounters Date Type Department Care Team Description 02/09/2025 10:00 AM CDT Office Visit [facility] Department of Otolaryngology Head-Neck Division [facility] Floor [address] [place] [address] Deshawn Mandujano MD Cancer of [...] on file Legal Sex Male 11:52 AM 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 Gender Identity Not on file Sexual Orientation Not on file Last Filed Vital Signs Vital Sign Reading Time Taken Comments Blood Pressure 144/77 01/01/2024 3:41 PM SILK TRIMMER Pulse 83 01/01/2024 3:41 PM SILK TRIMMER Temperature 36.6 C (97.9 F) 01/01/2024 3:41 PM SILK TRIMMER Respiratory Rate 17 01/01/2024 3:41 PM SILK TRIMMER Oxygen Saturation 99% 01/01/2024 3:41 PM SILK TRIMMER Inhaled Oxygen Concentration - - Weight 88.2 kg (194 lb 6.4 oz) 02/09/2025 9:42 A M CDT Height 185.6 cm (6' 1.07 ) 02/09/2025 9:42 AM CD T Body Mass Index 25.6 02/09/2025 9:42 AM CDT Plan of Treatment Not on file Insurance [employer] ADVANTAGE CHOICE PPO [facility] ADVANTAGE CHOICE PPO Advance Directives For more information, please contact: [phone] * Full Code (Latest Code Status on File) Date Activated Date Inactivated Comments 12/30/2023 2:42 PM 01/01/2024 10:34 PM Care Teams Sales Donor Recruitment Representative Relationship Specialty Start Date End Date Cesar Allan MD [address] [place] [address] [place] [address] PCP - General Family Medicine 04/02/24 Sergio Schrader MD [address] [facility] MEDICAL ONCOLOGY, [facility] 7A, [address] [place] [address] Medical Oncologist/Fisheries Specialist Medical Oncology 12/12/23 Satinder Romano MD [address] [facility] MEDICAL ONCOLOGY, [facility] 7A, [address], [address] [place] [address] Radiation Oncologist Radiation Oncology 12/12/23 Deshawn Mandujano MD [address] [facility] DEPT OTOLARYNGOLOGY, [facility] [address] [place] [address] Consulting Physician Otolaryngology 12/12/23
--- OUTSIDE RECORDS SUMMARY | 2025-03-02 16:32 | XMS_ITS | Clinical Summary ---
Author Organization [facility] Address [address] [place] [address] Care Team Providers Care Agricultural Agent Name Role Phone Sergio Schrader MD Unavailable [phone] Satinder Romano MD Unavailable Deshawn Mandujano MD Unavailable Cesar Allan MD Primary Care Provider [phone] Allergies Active Allergy Reactions Criticality Noted Date [...] Description 02/09/2025 10:00 AM CDT Office Visit [facility] Department of Otolaryngology Head-Neck Division [address] [place] [phone] Deshawn Mandujano MD Cancer of tonsil, palatine (HCC) (Primary Dx) from Last 3 Months Immunizations Immunization Administration Dates Next Due Influenza, Quadrivalent, Xuan l Culture-based MDCK, Preservative Free, Antibiotic Free, Intramuscular 09/24/2022 Influenza, Quadrivalent, Spl it, Intramuscular 09/23/2019 Influenza, Quadrivalent, Spl it, Preservative Free, Intramuscular 01/01/2024,08/09/2020,08/24/2018 Influenza, Trivalent, IM (MDV) 08/09/2021 Tdap 08/17/2023 ZOSTER Recombinant 08/28/2020,06/30/2020 Surgical History Surgery Date Site/Laterality Comments RI APPENDECTOMY Appendectomy - (Added by TW Conv) RI ARTHRP KNE CONDYLE&PLATU MEDIAL&LAT COMPARTMENTS Total Knee [...] on file Legal Sex Male 11:52 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 Gender Identity Not on file Sexual Orientation Not on file Obstetrics History Last Filed Vital Signs Vital Sign Reading Time Taken Comments Blood Pressure 144/77 01/01/2024 3:41 PM DRY CHAIN OFFBEARER Pulse 83 01/01/2024 3:41 PM DRY CHAIN OFFBEARER Temperature 36.6 C (97.9 F) 01/01/2024 3:41 PM DRY CHAIN OFFBEARER Respiratory Rate 17 01/01/2024 3:41 PM DRY CHAIN OFFBEARER Oxygen Saturation 99% 01/01/2024 3:41 PM DRY CHAIN OFFBEARER Inhaled Oxygen Concentration - - Weight 88.2 [...] 2024 09/24/2022, 04/12/2022, 09/14/2021, Additional history exists Fall Risk Assessment 01/01/2025 01/01/2024 Influenza Vaccine (Season Ended) 2025 01/01/2024, 09/24/2022, 08/09/2021, Additional history exists DTaP/Tdap/Td Vaccine (2 - Td or Tdap) 08/17/2033 08/17/2023 Zoster Vaccine Completed 08/28/2020, 06/30/2020 Insurance [facility] ADVANTAGE CHOICE PPO [facility] ADVANTAGE CHOICE PPO Advance Directives For more information, please contact: [phone] * Full Code (Latest Code Status on File) Date Activated Date Inactivated Comments 12/30/2023 2:42 PM 01/01/2024 10:34 PM Care Teams Agricultural Agent Relationship Specialty Start Date End Date Cesar Allan MD [address] [place] [address] [facility] [address] [place] [address] PCP - General Family Medicine 04/02/24 Sergio Schrader MD [address] [facility] MEDICAL ONCOLOGY, [facility] [address]A, [address] [place] [address] Medical Oncologist/Ammunition Assembly I Laborer Medical Oncology 12/12/23 Satinder Romano MD [address] [facility] IM MEDICAL ONCOLOGY, [place] [address] [place] [address] Radiation Oncologist Radiation Oncology 12/12/23 Deshawn Mandujano MD [address] [facility] DEPT OTOLARYNGOLOGY, [place] [address] [place] [address] Consulting Physician Otolaryngology 12/12/23
--- OUTSIDE RECORDS SUMMARY | 2025-03-02 16:32 | XMS_ITS ---
Author Organization [facility] Main [facility] s Address [address] [place] [address] Care Team Providers Care Oncology Rep Specialist Name Role Phone Sergio Schrader MD Unavailable [phone] Satinder Romano MD Unavailable Deshawn Mandujano MD Unavailable Cesar Allan MD Primary Care Provider [phone] Active Problems Problem Noted Date Diagnosed Date [...]
--- OUTSIDE RECORDS SUMMARY | 2025-03-02 16:32 | XMS_ITS | Clinical Summary ---
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 Care Teams Switch Cleaner Relationship Specialty Start Date End Date Cesar Allan MD [address] [place] [address] DR CARL [address] [place] [id number] PCP - General FAMILY PRACTICE 08/17/23
--- OUTSIDE RECORDS SUMMARY | 2025-03-02 16:32 | XMS_ITS | Encounter Summary ---
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 Gender Identity Not on file Sexual Orientation [...] on filedocumented in this encounter Care Teams Cafeteria Food Server Relationship Specialty Start Date End Date Cate Loving, PRICING ANALYST PCP - General Family Medicine 12/05/23 04/01/24 Cesar Allan MD [address] [place] [id number] PCP - General Family Medicine 04/02/24 Sergio Schrader MD [address] [facility] [address] DIV MEDICAL ONCOLOGY, [facility] 7A, 7B, [address] [place] [address] Medical Oncologist/Forming Yardage Control Operator Medical Oncology 12/12/23 Satinder Romano MD [address] [facility] DIV MEDICAL ONCOLOGY, [facility] 7A, 7B, [address] [place] [address] Radiation Oncologist Radiation Oncology 12/12/23 Deshawn Mandujano MD [address] [facility] DEPT OTOLARYNGOLOGY, [address] [address] Consulting Physician Otolaryngology 12/12/23 documented as of this encounter
--- OUTSIDE RECORDS SUMMARY | 2025-03-02 16:32 | XMS_ITS | Clinical Summary ---
Author Organization [facility] Address [address] [place] [address] Care Team Providers Care Testing Director Name Role Phone Cesar Allan MD Primary Care Provider [phone] Source Comments [facility],non-owned Affiliates and Associated Physician Practices is amultiple site organization consisting of ambulatory clinics and hospital sitesin [place], [place], [place] and [place]. This disclosure is being madepursuant to the Care Everywhere program and may not contain all information available regarding this patient. Last updated 18.[facility] Allergies Active Allergy Reactions Criticality Noted Date [...] Comments Blood Pressure 130/80 02/05/2016 2:14 PM CHIEF COMPLIANCE OFFICER Pulse 77 02/05/2016 2:14 PM CHIEF COMPLIANCE OFFICER Temperature 36.2 C (97.2 F) 02/05/2016 2:14 PM CHIEF COMPLIANCE OFFICER Respiratory Rate 18 02/05/2016 2:14 PM CHIEF COMPLIANCE OFFICER Oxygen Saturation - - Inhaled Oxygen Concentration - - Weight 101.2 kg (223 lb) 02/05/2016 2:14 PM CHIEF COMPLIANCE OFFICER Height 187.3 cm (6' 1.75 ) 01/04/2016 9:42 AM CS T Body Mass Index 28.83 01/04/2016 9:42 AM CHIEF COMPLIANCE OFFICER Plan of Treatment Health Maintenance Due Date [...] HEPATITIS C ANTIBODY Routine 01/22/2016 8:15 AM CHIEF COMPLIANCE OFFICER from Last 3 Months or Most Recently Relevant to Health Maintenance Results * HEPATITIS C ANTIBODY (01/22/2016 8:15 AM CHIEF COMPLIANCE OFFICER) Hepatitis C Virus Antibody <0.1 0.0 - 0.9 s/co ratio [facility] ([place]) Comment: Negative: < 0.8 Indeterminate: 0.8 - 0.9 Positive: > 0.9 The CDC recommends that a positive HCV antibody result be followed up with a HCV Nucleic Acid Amplification test (918725). Blood specimen (specimen) BLOOD SPECIMEN / Unknown 01/22/2016 8:15 AM CHIEF COMPLIANCE OFFICER 01/22/2016 12:45 PM CHIEF COMPLIANCE OFFICER Narrative [facility] ([place]) - 01/25/2016 1:18 PM CHIEF COMPLIANCE OFFICER Performed at: - [facility] [id number] Retail Gift Card Merchandising: Tomasz Garland PhD, Phone: [phone] John Seaman MD LAB - CHEMISTRY RODRIGO KEYES [facility]) from Last 3 Months or Most Recently Relevant to Health Maintenance Care Teams Testing Director Relationship Specialty Start Date End Date Cesar Allan MD [address] [place] [phone] PCP - General 02/05/16
== END 2025-03-02 09:10 | disposition home or self-care (01) ==
LOC: ANHIMG 09:09
PROVIDERS: PCP Family Medicine; Visit Provider Orthopaedic Surgery
DX: S46.012A Strain of muscle(s) and tendon(s) of the rotator cuff of left shoulder, initial encounter (principal); X58.XXXA Exposure to other specified factors, initial encounter; M19.012 Primary osteoarthritis, left shoulder; M25.412 Effusion, left shoulder
CPT/HCPCS: 73221

== ENCOUNTER 2025-05-05 10:42 | Observation (INO) | payer OTHER, SELFPAY ==
[2025-05-05] VITALS (11 sets, daily range): BP systolic 138–159; BP diastolic 79–101; PULSE 63–80; RESP 16–20; TEMP 36.5–36.9; O2SAT 96–100; BMI 24.9
--- NOTE | ~2025-05-05 | XR_ITS ---
EXAMINATION: XR chest 2V 05/05/2025 11:57 INDICATION: Chest pain PROCEDURE: 2 view chest COMPARISON: 01/12/2018 FINDINGS: The lungs are clear. The cardiomediastinal silhouette is within normal limits. There are no pleural effusions. There is no pneumothorax suspected. IMPRESSION: 1: NO ACUTE CARDIOPULMONARY DISEASE. Reviewed, dictated and finalized at location A.
--- NOTE | 2025-05-05 10:43 | ECG_ITS ---
Test Date: 2025-05-05 10:52:23 Measurements Intervals [place] Rate: 67 P: 29 SD: 144 QRS: 8 QRSD: 89 T: -9 QT: 394 QTc: 418 Interpretive Statements SINUS RHYTHM DELAYED PRECORDIAL R/S TRANSITION CONSIDER INFERIOR INFARCT, AGE INDETERMINATE BASELINE ARTIFACT- I, III, AVR, AVL, AVF, V1-V3 ABNORMAL ECG Compared to ECG 02/02/2025 08:11:00 No significant changes Electronically Signed On 05-05-2025 11:09:07 CDT by Ramón Lynch D.O.
[2025-05-05 11:16] LABS: Basophils Percent Auto 0.7 % (0.2-1.2); Eosinophils Percent Auto 0.7 % (0-4.4); Hematocrit 49.4 % (42.0-52.0); Hemoglobin 16.3 g/dL (14.0-18.0); Immature Granulocyte Absolute 0.02 K/mm3 (0.00-0.031); Immature Granulocyte Percent A 0.5 % (0-0.5); Lymphocytes Absolute Auto 0.97 K/mm3 (0.9-3.2); Lymphocytes Percent Auto 23.5 % (18.3-44.2); Mean Corpuscular Hemoglobin 31.5 pg (26-34); Mean Corpuscular Volume 95.4 fl (80-100); Mean Platelet Volume 8.7 fl (7.4-10.4); Monocytes Absolute Auto 0.3 K/mm3 (0.1-0.6); Monocytes Percent Auto 6.8 % (2.6-8.5); Neutrophils Absolute Auto 2.8 K/mm3 (1.3-6.7); Neutrophils Percent Auto 67.8 % (45.5-73.1); Platelet Count Result 206 k/mm3 (150-375); Red Blood Count 5.18 M/mm3 (4.6-6.20); Red Cell Distribution Width 12.2 % (11.5-14.5); White Blood Count 4.1 K/mm3 (4.5-10.0)
[2025-05-05] MEDS: ASPIRIN 81 MG CHEWABLE TABLET 324 MG PO (11:23)
[2025-05-05 11:24] LABS: Prothrombin Time 13.3 Seconds (11.1-14.7)
[2025-05-05 11:25] LABS: Partial Thromboplastin Time 29.9 Seconds (22.3-36.8)
[2025-05-05 11:36] LABS: Alanine Aminotransferase 26 U/L (6-50); Albumin Level 4.5 g/dL (3.5-5.1); Alkaline Phosphatase 78 U/L (38-126); Anion Gap 6 mmol/L (4-12); Aspartate Amino Transferase 35 U/L (17-59); Bilirubin,Total 0.5 mg/dL (0.2-1.3); Blood Urea Nitrogen 21 mg/dL (9-20); Calcium 9.6 mg/dL (8.4-10.2); Carbon Dioxide 28 mmol/L (22-30); Chloride 105 mmol/L (98-107); Estimated CRCL calculation 84 ml/min; Estimated Glomerular Filt Rate > 60; Glucose 139 mg/dL (65-110); Lipase 245 U/L (23-300); Potassium 4.3 mmol/L (3.4-5.0); Sodium 139 mmol/L (137-145); Total Protein 7.1 g/dL (6.3-8.2); Troponin I < 0.012 ng/mL (0.000-0.034)
--- OUTSIDE RECORDS SUMMARY | 2025-05-05 11:42 | XMS_ITS | Encounter Summary ---
Author Organization 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 Gender Identity Not on file Sexual Orientation [...] on filedocumented in this encounter Care Teams Sustainability Director Relationship Specialty Start Date End Date Cate Loving, CLINICAL RESEARCH ASSISTANT PCP - General Family Medicine 12/05/23 04/01/24 Cesar Allan MD [address] [place] [phone] PCP - General Family Medicine 04/02/24 Sergio Schrader MD [address] [facility] [address] DIV MEDICAL ONCOLOGY, [facility] [address]A, [address]B, [address] [place] [address] Medical Oncologist/Split And Drum Room Supervisor Medical Oncology 12/12/23 Satinder Romano MD [address] [facility] DIV MEDICAL ONCOLOGY, [facility] 7A, [address]B, [address] [place] [address] Radiation Oncologist Radiation Oncology 12/12/23 Deshawn Mandujano MD [address] [facility] DEPT OTOLARYNGOLOGY, [address] [address] Consulting Physician Otolaryngology 12/12/23 documented as of this encounter
--- OUTSIDE RECORDS SUMMARY | 2025-05-05 11:42 | XMS_ITS | Clinical Summary ---
Author Organization [facility] Address [address] [place] [address] Care Team Providers Care Slip Cover Cutter Name Role Phone Cesar Allan MD Primary Care Provider [phone] Source Comments [facility],non-owned Affiliates and Associated Physician Practices is amultiple site organization consisting of ambulatory clinics and hospital sitesin [place], [place], [place] and [place]. This disclosure is being madepursuant to the Care Everywhere program and may not contain all information available regarding this patient. Last updated 18.[facility] Allergies Active Allergy Reactions Criticality Noted Date [...] at Not on file Legal Sex Male 6:02 PM OIL TANKER CAPTAIN Gender Identity Not on file Sexual Orientation Not on file Last Filed Vital Signs Vital Sign Reading Time Taken Comments Blood Pressure 130/80 02/05/2016 2:14 PM OIL TANKER CAPTAIN Pulse 77 02/05/2016 2:14 PM OIL TANKER CAPTAIN Temperature 36.2 C (97.2 F) 02/05/2016 2:14 PM OIL TANKER CAPTAIN Respiratory Rate 18 02/05/2016 2:14 PM OIL TANKER CAPTAIN Oxygen Saturation - - Inhaled Oxygen Concentration - - Weight 101.2 kg (223 lb) 02/05/2016 2:14 PM OIL TANKER CAPTAIN Height 187.3 cm (6' 1.75) 01/04/2016 9:42 AM CS T Body Mass Index 28.83 01/04/2016 9:42 AM OIL TANKER CAPTAIN Plan of Treatment Health Maintenance Due Date [...] VACCINE (1 - 2023-2 5 season) 2024 DEPRESSION SCREENING 12/01/2024 INFLUENZA VACCINE (Season Ended) 2025 Respiratory Syncytial Virus (RSV) Vaccine Pt: or [...] HEPATITIS C ANTIBODY Routine 01/22/2016 8:15 AM OIL TANKER CAPTAIN from Last 3 Months or Most Recently Relevant to Health Maintenance Results * HEPATITIS C ANTIBODY (01/22/2016 8:15 AM OIL TANKER CAPTAIN) Hepatitis C Virus Antibody <0.1 0.0 - 0.9 s/co ratio [facility] ([facility]) Comment: Negative: < 0.8 Indeterminate: 0.8 - 0.9 Positive: > 0.9 The CDC recommends that a positive HCV antibody result be followed up with a HCV Nucleic Acid Amplification test (307412). Blood specimen (specimen) BLOOD SPECIMEN / Unknown 01/22/2016 8:15 AM OIL TANKER CAPTAIN 01/22/2016 12:45 PM OIL TANKER CAPTAIN Narrative [facility] ([facility]) - 01/25/2016 1:18 PM OIL TANKER CAPTAIN Performed at: 02 - [facility] [address] [place], [place] [id number] Casing Inspector: Tomasz Garland PhD, Phone: [phone] John Seaman MD LAB - CHEMISTRY ORDERABLES Edite d Result - Final Performing Organization Address City/State/[facility] Co de Phone Number [facility]) [address] [place] [address]RUST from Last 3 Months or Most Recently Relevant to Health Maintenance Insurance SELF PAY NO INSURANCE Member Subscriber Plan / Payer (Ef fective for All Dates) Name:Josefina Fregoso Member ID:Not on file Relation to Subscriber:Not on file Name:JOSEFINA FREGOSO Subscriber ID:Not on file Address: [address] [phone] Payer ID:Not on file Group ID:Not on file Type:Self Pay Address: [facility] Address: [facility] [address] [place] [address] Care Teams Slip Cover Cutter Relationship Specialty Start Date End Date Cesar Allan MD [address] [place] [phone] PCP - General 02/05/16
--- OUTSIDE RECORDS SUMMARY | 2025-05-05 11:42 | XMS_ITS | Clinical Summary ---
Author Organization [facility] Address [address] [place] [address] Care Team Providers Care Remote Encoding Center Manager Name Role Phone Sergio Schrader MD Unavailable [phone] Satinder Romano MD Unavailable Deshawn Mandujano MD Unavailable [phone] Cesar Allan MD Primary Care Provider [phone] Allergies Active Allergy Reactions Criticality Noted Date [...] Encounters Date Type Department Care Team Description 04/05/2025 12:58 PM CDT - 04/05/2025 11:59 PM CDT Hospital Encounter [facility] Rad[facility] the [facility] [address] [place] [address] Left shoulder pain, unspecified chronicity Discharge Disposition: Discharge to home or self care 04/05/2025 12:45 PM CDT Office Visit [facility] Orthopaedic Surgery [address] [place] [address] 2nd Floor [address] [place] [address] John Paul Roldan MD Left shoulder pain, unspecified chronicity (Primary Dx); Complete tear of left rotator cuff, unspecified whether traumatic 04/01/2025 5:12 PM CDT - 04/01/2025 11:59 PM CDT Hospital Encounter [facility] [address] [place] [address] Discharge Disposition: Discharge to home or self care 04/01/2025 5:11 PM CDT - 04/01/2025 11:59 PM CDT Hospital Encounter [facility] [address] [place] [address] Discharge Disposition: Discharge to home or self care 02/09/2025 10:00 AM CDT Office Visit [facility] Department of Otolaryngology Head-Neck Division [address] [facility] [address] [place] [address] Deshawn Mandujano MD Cancer of tonsil, palatine (HCC) (Primary Dx) from Last 3 Months Immunizations Immunization Administration Dates Next Due Influenza, Quadrivalent, Xuan l Culture-based MDCK, Preservative Free, Antibiotic Free, Intramuscular 09/24/2022 Influenza, Quadrivalent, Spl it, Intramuscular 09/23/2019 Influenza, Quadrivalent, Spl it, Preservative Free, Intramuscular 01/01/2024,08/09/2020,08/24/2018 Influenza, Trivalent, IM (MDV) 08/09/2021 Tdap 08/17/2023 ZOSTER Recombinant 08/28/2020,06/30/2020 Surgical History Surgery Date Site/Laterality Comments [place] APPENDECTOMY Appendectomy - (Added by Conv) NV ARTHRP KNE CONDYLE&PLATU MEDIAL&LAT COMPARTMENTS Total Knee [...] on file Legal Sex Male 11:52 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 Gender Identity Not on file Sexual Orientation Not on file Obstetrics History Last Filed Vital Signs Vital Sign Reading Time Taken Comments Blood Pressure 144/77 01/01/2024 3:41 PM EXERCISE 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 Pulse 83 01/01/2024 3:41 PM EXERCISE 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 Temperature 36.6 C (97.9 F) 01/01/2024 3:41 PM EXERCISE 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 Respiratory Rate 17 01/01/2024 3:41 PM EXERCISE 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 Oxygen Saturation 99% 01/01/2024 3:41 PM EXERCISE 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 Inhaled Oxygen Concentration - - Weight 88.2 kg (194 lb 6.4 oz) 02/09/2025 9:42 A M CDT Height 185.6 cm (6' 1.07) 02/09/2025 9:42 AM CD T Body Mass [...] 08/17/2033 08/17/2023 Zoster Vaccine Completed 08/28/2020, 06/30/2020 Procedures Procedure Name Priority Date/Time Associated Diagnosis Comments XR SHOULDER LEFT 2 OR MORE VIEWS Schedule Routine, Read Routine (OP Routine) 04/05/2025 1:04 PM CDT Left shoulder pain, unspecified chronicity K MR OUTSIDE REFERENCE Routine 04/01/2025 5:12 PM CDT MARIUSZ MR OUTSIDE REFERENCE Routine 04/01/2025 5:11 PM CDT from Last 3 Months Results * XR Shoulder Left 2+ View (04/05/2025 1:04 PM CDT) Anatomical Region Laterality Modality Upper Extremities, Shoulder Left Comp uted Radiography 04/05/2025 2:02 PM CDT Impressions 04/05/2025 2:35 PM CDT Moderate acromioclavicular and glenohumeral joint osteoarthritis. Dictated by: Petr Tang MD The radiology attending physician has personally reviewed this study, and had reviewed and/or edited this written report and agrees with it. Electronically signed by: Ben Torres D.O. Narrative 04/05/2025 2:35 PM CDT EXAMINATION: XR SHOULDER LEFT 2 OR MORE VIEWS HISTORY: Left shoulder pain FINDINGS: 4 radiographs left shoulder are submitted for interpretation with no prior comparison available. Alignment is normal. There is moderate acromioclavicular and mild glenohumeral joint osteoarthritis. There is no evidence of fracture. Mild cystic change of the humeral head greater tuberosity. Procedure Note Ben Torres, - 04/05/2025 EXAMINATION: XR SHOULDER LEFT 2 OR MORE VIEWS HISTORY: Left shoulder pain FINDINGS: 4 radiographs left shoulder are submitted for interpretation with no prior comparison available. Alignment is normal. There is moderate acromioclavicular and mild glenohumeral joint osteoarthritis. There is no evidence of fracture. Mild cystic change of the humeral head greater tuberosity. IMPRESSION: Moderate acromioclavicular and glenohumeral joint osteoarthritis. Dictated by: Petr Tang MD The radiology attending physician has personally reviewed this study, and had reviewed and/or edited this written report and agrees with it. Electronically signed by: Ben Torres D.O. John Paul Roldan MD IM XR PROCEDURES Final Re sult * MSK MR Outside Reference (04/01/2025 5:12 PM CDT) Impressions [facility] - 04/01/2025 5:12 PM CDT These images are for Reference purposes only and have not been reviewed by [facility] Radiology. There will be no report generated by a [facility] Radiologist. Narrative [facility] - 04/01/2025 5:12 PM CDT EXAMINATION: Images For Reference Purposes Only John Paul Roldan MD [facility] MRI PROCEDURES Final R esult [facility] * MSK MR Outside Reference (04/01/2025 5:11 PM CDT) Impressions [facility] - 04/01/2025 5:11 PM CDT These images are for Reference purposes only and have not been reviewed by [facility] Radiology. There will be no report generated by a [facility] Radiologist. Narrative [facility]ACMery[facility] - 04/01/2025 5:11 PM CDT EXAMINATION: Images For Reference Purposes Only us John Paul Roldan MD IMG MRI PROCEDURES Final R esult [facility] from Last 3 Months Insurance [employer] CHOICE PPO [employer] ADVANTAGE CHOICE PPO Member Subscriber Plan / Payer (Ef fective 2024-Present) Name:Miguel Kwok Relation to Subscriber:Self Name:Sundar Miguelclyde Velasco Payer ID:[id number] (NAIC) Type:MEDICARE RISK OTHER Address: [place] [id number] Advance Directives For more information, please contact: [phone] * Full Code (Latest Code Status on File) Date Activated Date Inactivated Comments 12/30/2023 2:42 PM 01/01/2024 10:34 PM Care Teams Remote Encoding Center Manager Relationship Specialty Start Date End Date Cesar Allan MD [facility] [address] [place] [address] PCP - General Family Medicine 04/02/24 Sergio Schrader MD [address] [facility] DIV MEDICAL ONCOLOGY, [facility] [address], [address] [place] [address] Medical Oncologist/Supervisor Metal Hanging Medical Oncology 12/12/23 Satinder Romano MD [address] [facility] MEDICAL ONCOLOGY, [facility] [address], [address], [address] [place] [address] Radiation Oncologist Radiation Oncology 12/12/23 Deshawn Mandujano MD [address] [facility] DEPT OTOLARYNGOLOGY, [facility] [address] [place] [address] Consulting Physician Otolaryngology 12/12/23
--- OUTSIDE RECORDS SUMMARY | 2025-05-05 11:42 | XMS_ITS | Referral Summary ---
Author Organization [facility] Address [address] [place] [address] Care Team Providers Care Administrative And Program Specialist Name Role Phone Sergio Schrader MD Unavailable [phone] Satinder Romano MD Unavailable Deshawn Mandujano MD Unavailable Cesar Allan MD Primary Care Provider [phone] Encounters Date Type Department Care Team Description 04/05/2025 12:58 PM CDT - 04/05/2025 11:59 PM CDT Hospital Encounter [facility] Radiology at the Orthopedic Center [address] [place] [address] [phone] Left shoulder pain, unspecified chronicity Discharge Disposition: Discharge to home or self care 04/05/2025 12:45 PM CDT Office Visit [facility] Orthopaedic Surgery [address] [place] [address] 2nd Floor [address] [place] [phone] John Paul Roldan MD Left shoulder pain, unspecified chronicity (Primary Dx); Complete tear of left rotator cuff, unspecified whether traumatic 04/01/2025 5:12 PM CDT - 04/01/2025 11:59 PM CDT Hospital Encounter [facility]iology [facility] [address] [place] [address] Discharge Disposition: Discharge to home or self care 04/01/2025 5:11 PM CDT - 04/01/2025 11:59 PM CDT Hospital Encounter [facility] Radiology [facility] [address] [place] [address] Discharge Disposition: Discharge to home or self care 02/09/2025 10:00 AM CDT Office Visit [facility] Department of Otolaryngology Head-Neck Division [address] [facility] Floor [address] [place] [phone] Deshawn Mandujano MD Cancer of tonsil, palatine [...] on file Legal Sex Male 11:52 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 Gender Identity Not on file Sexual Orientation Not on file Last Filed Vital Signs Vital Sign Reading Time Taken Comments Blood Pressure 144/77 01/01/2024 3:41 PM 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 Pulse 83 01/01/2024 3:41 PM 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 Temperature 36.6 C (97.9 F) 01/01/2024 3:41 PM 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 Respiratory Rate 17 01/01/2024 3:41 PM 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 Oxygen Saturation 99% 01/01/2024 3:41 PM 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 Inhaled Oxygen Concentration - - Weight 88.2 kg (194 lb 6.4 oz) 02/09/2025 9:42 A M CDT Height 185.6 cm (6' 1.07) 02/09/2025 9:42 AM CD T Body Mass Index 25.6 02/09/2025 9:42 AM CDT Plan of Treatment Not on file Procedures Procedure Name Priority Date/Time Associated Diagnosis Comments XR SHOULDER LEFT 2 OR MORE VIEWS Schedule Routine, Read Routine (OP Routine) 04/05/2025 1:04 PM CDT Left shoulder pain, unspecified chronicity MSK MR OUTSIDE REFERENCE Routine 04/01/2025 5:12 PM CDT MSK MR OUTSIDE REFERENCE Routine 04/01/2025 5:11 PM [...] humeral head greater tuberosity. Procedure Note Ben Torres DO - 04/05/2025 EXAMINATION: XR SHOULDER LEFT 2 [...] it. Electronically signed by: Ben Torres D.O. us John Paul Roldan MD IMG XR PROCEDURES Final Re sult * MSK MR Outside Reference (04/01/2025 5:12 PM CDT) Impressions [facility] - 04/01/2025 5:12 PM CDT These images are for Reference purposes only and have not been reviewed by [facility] Radiology. There will be no report generated by a [facility] Radiologist. Narrative RAD_PACS[facility] - 04/01/2025 5:12 PM CDT EXAMINATION: Images For Reference Purposes Only John Paul Roldan MD IMG MRI PROCEDURES Final R esult Performing Organization Address [facility] de Phone Number [facility] * MSK MR Outside Reference (04/01/2025 5:11 PM CDT) Impressions [facility] - 04/01/2025 5:11 PM CDT These images are for Reference purposes only and have not been reviewed by [facility] Radiology. There will be no report generated by a [facility] Radiologist. Narrative [facility] - 04/01/2025 5:11 PM CDT EXAMINATION: Images For Reference Purposes Only John Paul Roldan MD IMG MRI PROCEDURES Final R landenult Performing Organization Address [facility] de Phone Number [facility] from Last 3 Months Insurance [employer] PPO Adv[employer] CHOICE PPO Advance Directives For more information, please contact: [phone] * Full Code (Latest Code Status on File) Date Activated Date Inactivated Comments 12/30/2023 2:42 PM 01/01/2024 10:34 PM Care Teams Administrative And Program Specialist Relationship Specialty Start Date End Date Cesar Allan MD [address] [place] [address] PCP - General Family Medicine 04/02/24 Sergio Schrader MD [address] [facility] DIV MEDICAL ONCOLOGY, [facility] [address]A, [address], [address] [place] [address] Medical Oncologist/Story Analyst Medical Oncology 12/12/23 Satinder Romano MD [address] [facility] DIV MEDICAL ONCOLOGY, [facility] [address]A, [address], [address] [place] [address] Radiation Oncologist Radiation Oncology 12/12/23 Deshawn Mandujano MD [address] [facility] DEPT OTOLARYNGOLOGY, [address] [address] Consulting Physician Otolaryngology 12/12/23
--- OUTSIDE RECORDS SUMMARY | 2025-05-05 11:42 | XMS_ITS ---
Author Organization [facility] Main [facility] s Address [address] [place] [address] Care Team Providers Care Boiler Fireman Name Role Phone Sergio Schrader MD Unavailable [phone] Satinder Romano MD Unavailable Deshawn Mandujano MD Unavailable Cesar Allan MD Primary Care Provider [phone] Active Problems Problem Noted Date Diagnosed Date [...]
--- NOTE | 2025-05-05 12:05 | ED.GENADULT ---
HPI - General Adult General Chief complaint: Chest Pain Stated complaint: CP Time Seen by Provider: 05/05/25 10:58 History of Present Illness HPI narrative: Patient is a 64-year-old male who presents ER with chest pain. The last 2 times he has mowed his lawn he has had exertional crushing chest pain. It then it alleviates itself when he stops. He then had sudden onset chest pain similar to his exertional chest pain last night while sleeping. Associated with sweats and shortness of breath. No chest pain at this time. No history of heart disease. Related Data Home Medications ?Medication ?Instructions ?Recorded ?Confirmed ?Last Taken ?Type ascorbic acid (vitamin C) 1,000 mg 1 g PO DAILY 01/21/25 05/05/25 05/05/25 History tablet (C-1000) aspirin 81 mg tablet,delayed 81 mg PO DAILY 01/21/25 05/05/25 05/05/25 History release (Adult Low Dose Aspirin) potassium 99 mg tablet 99 mg PO DAILY 01/21/25 05/05/25 05/05/25 History pyridoxine (vitamin B6) 500 mg 500 mg PO DAILY 01/21/25 05/05/25 05/05/25 History tablet chlorhexidine gluconate 0.12 % 1 applic mucous membrane Q6H PRN 02/17/25 05/05/25 Unknown History mouthwash mouth pain cyclobenzaprine 10 mg tablet 10 mg PO TID PRN muscle spasm 05/05/25 05/05/25 05/05/25 History fluorouracil 5 % topical cream 1 applic topical BID PRN basal cell 05/05/25 05/05/25 Unknown History (Efudex) tadalafil 20 mg tablet 20 mg PO DAILY PRN sexual activity 05/05/25 05/05/25 Unknown History Allergies Allergy/AdvReac Type Severity Reaction Status Date / Time cephalexin Allergy Mild Vomiting Verified 05/05/25 11:08 MARTINEZ Inhibitors Allergy Unknown cough Verified 05/05/25 11:08 midazolam Allergy Unknown COMBATIVE Verified 05/05/25 11:08 morphine Allergy Unknown Nausea and Verified 05/05/25 11:08 Vomiting MODERATE SEDATION Allergy Severe COMBATIVE, Uncoded 05/05/25 11:08 MEDICATIONS-?EGD FIGHTING STAFF, BIT EGD INSTRUMENTS Review of Systems Review of Systems: All systems reviewed & are unremarkable except as noted in HPI and below Constitutional: Constitutional: Reports no additional constitutional complaints ENT: Reports system reviewed and no additional complaints, except as documented Cardiovascular: Cardiovascular: Reports no additional cardiovascular complaints Respiratory: Respiratory: Reports no additional respiratory complaints Musculoskeletal: Musculoskeletal: Reports no additional musculoskeletal complaints [facility] Past Medical History Medical History Primary tonsillar squamous cell carcinoma Granuloma annulare Dehydration Surgical History Surgical History History of carpal tunnel surgery of right wrist History of neck dissection Family History Family History (Updated 05/05/25 @ 14:30 by Erika Davidson RN) Mother Seizure Father Head and neck cancer Social History Social History Smoking packs per day: 2 Smoking cigarettes per day: 40.0 Years smoked: 15 Smoking pack-years: 30.00 Smoking status: Former smoker Tobacco type: cigarettes Smoking end date: 12/01/89 Alcohol intake: never Substance use: current Substance use type: marijuana Other substance usage details: SMOKES 4-5 X DAY Last use: 01/21/25 Do You Feel Safe in your Home?: Yes Lack of Transportation: No Lack of Food: Never True Current Housing: I Have Housing Concerned About Future Housing: No Difficulty Paying Gas/Electric Bills: No Difficulty Paying for Meds: No Currently Unemployed: No Education: High School Diploma/GED Difficulty w/ Childcare or Family Care: No Living arrangements: with family Spiritual care concerns: No Exam Narrative: GENERAL: Well-appearing, well-nourished, and in no acute distress. HEAD: Normocephalic, atraumatic. ENT: Mucous membranes moist. CHEST: Clear to auscultation. No respiratory distress. HEART: Regular rate and rhythm. Normal peripheral pulses. ABDOMEN: Soft, nontender, nondistended. EXTREMITIES: Normal range of motion. No edema. SKIN: Warm, dry, no rash. NEURO: Alert and oriented x3. PSYCH: Normal mood and affect. Course Course Emergency Course: Concerning story for unstable angina. First troponin negative. Admit to hospitalist service. Vital Signs Vital signs: Vital Signs Temperature 98.4 F 05/05/25 11:04 Pulse Rate 68 05/05/25 11:04 Respiratory Rate 16 05/05/25 11:04 Blood Pressure 152/84 H 05/05/25 11:04 Pulse Oximetry 98 05/05/25 11:04 Temperature 97.7 F 05/05/25 16:00 Pulse Rate 67 05/05/25 16:00 Respiratory Rate 20 05/05/25 16:00 Blood Pressure 142/85 H 05/05/25 16:00 Pulse Oximetry 96 05/05/25 16:00 Oxygen Delivery Room Air 05/05/25 16:00 Medical Decision Making Vital Signs Vital Signs: Vital Signs Temperature 98.4 F 05/05/25 11:04 Pulse Rate 68 05/05/25 11:04 Respiratory Rate 16 05/05/25 11:04 Blood Pressure 152/84 H 05/05/25 11:04 Pulse Oximetry 98 05/05/25 11:04 Temperature 97.7 F 05/05/25 16:00 Pulse Rate 67 05/05/25 16:00 Respiratory Rate 20 05/05/25 16:00 Blood Pressure 142/85 H 05/05/25 16:00 Pulse Oximetry 96 05/05/25 16:00 Oxygen Delivery Room Air 05/05/25 16:00 Lab Data 05/05/25 10:58 05/05/25 10:58 Labs: Lab Results 05/05/25 Range/Units 10:58 WBC 4.1 L (4.5-10.0) K/mm3 RBC 5.18 (4.6-6.20) M/mm3 Hgb 16.3 (14.0-18.0) g/dL Hct 49.4 (42.0-52.0) % MCV 95.4 (80-100) fl MCH 31.5 (26-34) pg MCHC 33.0 (32-36) g/dl RDW 12.2 (11.5-14.5) % Plt Count 206 (150-375) k/mm3 MPV 8.7 (7.4-10.4) fl Immature Gran % (Auto) 0.5 (0-0.5) % Neut % (Auto) 67.8 (45.5-73.1) % Lymph % (Auto) 23.5 (18.3-44.2) % Porter % (Auto) 6.8 (2.6-8.5) % Eos % (Auto) 0.7 (0-4.4) % Baso % (Auto) 0.7 (0.2-1.2) % Lymph # (Auto) 0.97 (0.9-3.2) K/mm3 Porter # (Auto) 0.3 (0.1-0.6) K/mm3 Eos # (Auto) 0.0 (0-0.3) K/mm3 Baso # (Auto) 0.0 (0.0-0.1) K/mm3 Abs Immat Gran (auto) 0.02 (0.00-0.031) K/mm3 Absolute Neuts (auto) 2.8 (1.3-6.7) K/mm3 Absolute Nucleated RBC 0.000 (0.0-0.012) K/mm3 Nucleated RBC % 0.0 (0.0-0.2) % PT 13.3 (11.1-14.7) Seconds INR 1.0 APTT 29.9 (22.3-36.8) Seconds Sodium 139 (137-145) mmol/L Potassium 4.3 (3.4-5.0) mmol/L Chloride 105 (98-107) mmol/L Carbon Dioxide 28 (22-30) mmol/L Anion Gap 6 (4-12) mmol/L BUN 21 H (9-20) mg/dL Creatinine 0.89 (0.7-1.3) mg/dL Estim Creat Clear Calc 84 ml/min Estimated GFR > 60 (59 - ) Glucose 139 H (65-110) mg/dL Calcium 9.6 (8.4-10.2) mg/dL Total Bilirubin 0.5 (0.2-1.3) mg/dL AST 35 (17-59) U/L ALT 26 (6-50) U/L Alkaline Phosphatase 78 (38-126) U/L Troponin I < 0.012 (0.000-0.034) ng/mL Total Protein 7.1 (6.3-8.2) g/dL Albumin 4.5 (3.5-5.1) g/dL Lipase 245 (23-300) U/L Imaging Data Radiologist's impression: ITS Impressions Chest X-Ray 05/05/25 12:00 IMPRESSION: 1: NO ACUTE CARDIOPULMONARY DISEASE. ECG Data EKG #1: ECG completion date: 05/05/25 ECG completion time: 10:52 EKG Interpretation: normal rate (67), sinus rhythm, non-specific ST changes, normal QRS, normal QT and NL axis Discharge Plan Discharge Clinical Impression: Unstable angina Patient Disposition: Still a Patient Condition: Stable
--- OUTSIDE RECORDS SUMMARY | 2025-05-05 12:37 | XMS_ITS | Clinical Summary ---
Author Organization [facility] [employer] Address [address] [place] [address] Care Team Providers Care Quality Lab Assoc Name Role Phone Cesar Allan MD Primary Care Provider [phone] Source Comments [facility],non-owned Affiliates and Associated Physician Practices is amultiple site organization consisting of ambulatory clinics and hospital sitesin [place], [place], [place] and [place]. This disclosure is being madepursuant to the Care Everywhere program and may not contain all information available regarding this patient. Last updated 18.[facility] [employer] Allergies Active Allergy Reactions Criticality Noted Date [...] on file Legal Sex Male 6:02 PM INVENTORY TECHNICIAN Gender Identity Not on file Sexual Orientation Not on file Last Filed Vital Signs Vital Sign Reading Time Taken Comments Blood Pressure 130/80 02/05/2016 2:14 PM INVENTORY TECHNICIAN Pulse 77 02/05/2016 2:14 PM INVENTORY TECHNICIAN Temperature 36.2 C (97.2 F) 02/05/2016 2:14 PM INVENTORY TECHNICIAN Respiratory Rate 18 02/05/2016 2:14 PM INVENTORY TECHNICIAN Oxygen Saturation - - Inhaled Oxygen Concentration - - Weight 101.2 kg (223 lb) 02/05/2016 2:14 PM INVENTORY TECHNICIAN Height 187.3 cm (6' 1.75) 01/04/2016 9:42 AM CS T Body Mass Index 28.83 01/04/2016 9:42 AM INVENTORY TECHNICIAN Plan of Treatment Health Maintenance Due [...] HEPATITIS C ANTIBODY Routine 01/22/2016 8:15 AM INVENTORY TECHNICIAN from Last 3 Months or Most Recently Relevant to Health Maintenance Results * HEPATITIS C ANTIBODY (01/22/2016 8:15 AM INVENTORY TECHNICIAN) Hepatitis C Virus Antibody <0.1 0.0 - 0.9 s/co ratio [facility] ([facility]) Comment: Negative: < 0.8 Indeterminate: 0.8 - 0.9 Positive: > 0.9 The CDC recommends that a positive HCV antibody result be followed up with a HCV Nucleic Acid Amplification test (708225). Blood specimen (specimen) BLOOD SPECIMEN / Unknown 01/22/2016 8:15 AM INVENTORY TECHNICIAN 01/22/2016 12:45 PM INVENTORY TECHNICIAN Narrative [facility] ([facility]) - 01/25/2016 1:18 PM INVENTORY TECHNICIAN Performed at: 02 - [facility] [address] [place], [place] [id number] Phototypesetter Operator: Tomasz Garland PhD, Phone: [phone] John Seaman MD LAB - CHEMISTRY ORDERABLES Edite d Result - Final Performing Organization Address City/State/[facility] Co de Phone Number [facility]) [address] [place] [address] from Last 3 Months or Most Recently Relevant to Health Maintenance Insurance SELF PAY NO INSURANCE Member Subscriber Plan / Payer (Ef fective for All Dates) Name:Josefina Fregoso Member ID:Not on file Relation to Subscriber:Not on file Name:JOSEFINA FREGOSO Subscriber ID:Not on file Address: [address] [place] [id number] Payer ID:Not on file Group ID:Not on file Type:Self Pay Address: [facility] Care Teams Quality Lab Assoc Relationship Specialty Start Date End Date Cesar Allan MD [address] [place] [phone] PCP - General 02/05/16
--- OUTSIDE RECORDS SUMMARY | 2025-05-05 12:37 | XMS_ITS ---
Author Organization [facility] Main [facility] s Address [address] [place] [address] Care Team Providers Care Business Process Analyst Name Role Phone Sergio Schrader MD Unavailable [phone] Satinder Romano MD Unavailable Deshawn Mandujano MD Unavailable Cesar Allan MD Primary Care Provider [phone] Active Problems Problem Noted Date Diagnosed Date [...]
--- OUTSIDE RECORDS SUMMARY | 2025-05-05 12:37 | XMS_ITS | Clinical Summary ---
Author Organization [facility] Address [address] [place] [address] Care Team Providers Care [employer] Industrial [employer] Teacher Name Role Phone Sergio Schrader MD Unavailable [phone] Satinder Romano MD Unavailable Deshawn Mandujano MD Unavailable Cesar Allan MD Primary Care Provider [phone] Allergies Active Allergy Reactions Criticality Noted Date [...] - 04/05/2025 11:59 PM CDT Hospital Encounter [facility] [address] [place] [address] Left shoulder pain, unspecified chronicity Discharge Disposition: Discharge to home or self care 04/05/2025 12:45 PM CDT Office Visit [facility] Orthopaedic Surgery [address] [place] [address] 2nd [address] [place] [address] John Paul Roldan MD Left shoulder pain, unspecified chronicity (Primary Dx); Complete tear of left rotator cuff, unspecified whether traumatic 04/01/2025 5:12 PM CDT - 04/01/2025 11:59 PM CDT Hospital Encounter [facility] [address] [place] [address] Discharge Disposition: Discharge to home or self care 04/01/2025 5:11 PM CDT - 04/01/2025 11:59 PM CDT Hospital Encounter [facility] [address] [place] [address] Discharge Disposition: Discharge to home or self care 02/09/2025 10:00 AM CDT Office Visit [facility] Department of Otolaryngology Head-Neck Division [address] [facility] [address] [place] [address] Deshawn Mandujano MD Cancer of tonsil, palatine (HCC) (Primary Dx) from Last 3 Months Immunizations Immunization Administration Dates Next Due Influenza, Quadrivalent, Xuan l Culture-based MDCK, Preservative Free, Antibiotic Free, Intramuscular 09/24/2022 Influenza, Quadrivalent, Spl it, Intramuscular 09/23/2019 Influenza, Quadrivalent, Spl it, Preservative Free, Intramuscular 01/01/2024,08/09/2020,08/24/2018 Influenza, Trivalent, IM (MDV) 08/09/2021 Tdap 08/17/2023 ZOSTER Recombinant 08/28/2020,06/30/2020 Surgical History Surgery Date Site/Laterality Comments [place] APPENDECTOMY Appendectomy - (Added by Conv) [place] ARTHRP KNE CONDYLE&PLATU MEDIAL&LAT COMPARTMENTS Total Knee [...] on file Legal Sex Male 11:52 AM 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 There will be no report generated by a [facility] Radiologist. Narrative [facility] - 04/01/2025 5:12 PM CDT EXAMINATION: Images For Reference Purposes Only John Paul Roldan MD [place] MRI PROCEDURES Final R esult [facility] * MSK MR Outside Reference (04/01/2025 5:11 PM CDT) Impressions [facility]Theo[facility] - 04/01/2025 5:11 PM CDT These images are for Reference purposes only and have not been reviewed by [facility]. There will be no report generated by a [facility] Radiologist. Narrative RAD_PACeMry_[facility] - 04/01/2025 5:11 PM CDT EXAMINATION: Images For Reference Purposes Only us John Paul Roldan MD IMG MRI PROCEDURES Final R esult [facility] from Last 3 Months Insurance [employer] CHOICE PPO [employer] ADVANTAGE CHOICE PPO Member Subscriber Plan / Payer (Ef fective 2024-Present) Name:Miguel Kwok Relation to Subscriber:Self Name:Sundar Miguelclyde Velasco Payer ID:[id number] (NAIC) Type:MEDICARE RISK OTHER Address: [place] [id number] Advance Directives For more information, please contact: [phone] * Full Code (Latest Code Status on File) Date Activated Date Inactivated Comments 12/30/2023 2:42 PM 01/01/2024 10:34 PM Care Teams [employer] Industrial [employer] Teacher Relationship Specialty Start Date End Date Cesar Allan MD [facility] [address] [place] [address] PCP - General Family Medicine 04/02/24 Sergio Schrader MD [address] [facility] DIV MEDICAL ONCOLOGY, [facility] [address]A, [address], [address] [place] [address] Medical Oncologist/Licensed Insurance Sales Agent Medical Oncology 12/12/23 Satinder Romano MD [address] [facility] MEDICAL ONCOLOGY, [facility] [address]A, [address], [address] [place] [address] Radiation Oncologist Radiation Oncology 12/12/23 Deshawn Mandujano MD [address] [facility] DEPT OTOLARYNGOLOGY, [facility] [address] [place] [address] Consulting Physician Otolaryngology 12/12/23
--- OUTSIDE RECORDS SUMMARY | 2025-05-05 12:37 | XMS_ITS | Referral Summary ---
Author Organization [facility] Address [address] [place] [address] Care Team Providers Care Spanish Speaking Babysitter Name Role Phone Sergio Schrader MD Unavailable [phone] Satinder Romano MD Unavailable Deshawn Mandujano MD Unavailable Cesar Allan MD Primary Care Provider [phone] Encounters Date Type Department Care Team Description 04/05/2025 12:58 PM CDT - 04/05/2025 11:59 PM CDT Hospital Encounter [facility] the [facility] [address] [place] [address] [phone] Left shoulder pain, unspecified chronicity Discharge Disposition: Discharge to home or self care 04/05/2025 12:45 PM CDT Office Visit [facility] Orthopaedic Surgery [address] [place] [address] 2nd Floor [address] [place] [phone] John Paul Roldan MD Left shoulder pain, unspecified chronicity (Primary Dx); Complete tear of left rotator cuff, unspecified whether traumatic 04/01/2025 5:12 PM CDT - 04/01/2025 11:59 PM CDT Hospital Encounter [facility] [address] [place] [address] Discharge Disposition: Discharge to home or self care 04/01/2025 5:11 PM CDT - 04/01/2025 11:59 PM CDT Hospital Encounter [facility] [address] [place] [address] Discharge Disposition: Discharge to home or self care 02/09/2025 10:00 AM CDT Office Visit [facility] Department of Otolaryngology Head-Neck Division [address] [facility] Floor [address] [place] [phone] Deshawn Mandujano MD Cancer of tonsil, palatine [...] on file Legal Sex Male 11:52 AM GOSPEL SINGER Gender Identity Not on file Sexual Orientation Not on file Last Filed Vital Signs Vital Sign Reading Time Taken Comments Blood Pressure 144/77 01/01/2024 3:41 PM GOSPEL SINGER Pulse 83 01/01/2024 3:41 PM GOSPEL SINGER Temperature 36.6 C (97.9 F) 01/01/2024 3:41 PM GOSPEL SINGER Respiratory Rate 17 01/01/2024 3:41 PM GOSPEL SINGER Oxygen Saturation 99% 01/01/2024 3:41 PM GOSPEL SINGER Inhaled Oxygen Concentration - - Weight 88.2 [...] only and have not been reviewed by [facility] Radiology. There will be no report generated by a [facility] Radiologist. Narrative RAD_PACS_[facility] - 04/01/2025 5:12 PM CDT EXAMINATION: Images For Reference Purposes Only John Paul Roldan MD IMG MRI PROCEDURES Final R esult Performing Organization Address [facility] de Phone Number [facility] * MSK MR Outside Reference (04/01/2025 5:11 PM CDT) Impressions [facility] - 04/01/2025 5:11 PM CDT These images are for Reference purposes only and have not been reviewed by [facility] Radiology. There will be no report generated by a [facility] Radiologist. Narrative [facility] - 04/01/2025 5:11 PM CDT EXAMINATION: Images For Reference Purposes Only John Paul Roldan MD IMG MRI PROCEDURES Final R landenult Performing Organization Address [facility] de Phone Number [facility] from Last 3 Months Insurance [employer] PPO [employer] CHOICE PPO Advance Directives For more information, please contact: [phone] * Full Code (Latest Code Status on File) Date Activated Date Inactivated Comments 12/30/2023 2:42 PM 01/01/2024 10:34 PM Care Teams Spanish Speaking Babysitter Relationship Specialty Start Date End Date Cesar Allan MD [address] [place] [id number] PCP - General Family Medicine 04/02/24 Sergio Schrader MD [address] [facility] DIV MEDICAL ONCOLOGY, [facility] [address]A, [address] [place] [address] Medical Oncologist/Powder Coat Painter Medical Oncology 12/12/23 Satinder Romano MD [address] [facility] DIV MEDICAL ONCOLOGY, [facility] [address]A, [address], [address] [place] [address] Radiation Oncologist Radiation Oncology 12/12/23 Deshawn Mandujano MD [address] [facility] DEPT OTOLARYNGOLOGY, [address] [address] Consulting Physician Otolaryngology 12/12/23
--- OUTSIDE RECORDS SUMMARY | 2025-05-05 12:37 | XMS_ITS | Encounter Summary ---
Author Organization [facility] Address [address] [place] [address] Phone Care Team Providers Care Light Armored Vehicle Officer Name Role Phone Cate Loving NP Primary Care Provider [phone] Sergio Schrader MD Unavailable [phone] Satinder Romano MD Unavailable [phone] Deshawn Mandujano MD Unavailable [phone] Cesar Allan MD Primary Care Provider [phone] Encounter Details Date Type Department Care Team [...] on file Legal Sex Male 11:52 AM SUPERINTENDENT STATIONS Gender Identity Not on file Sexual Orientation [...] on filedocumented in this encounter Care Teams Light Armored Vehicle Officer Relationship Specialty Start Date End Date Cate Loving, WORK MEASUREMENT ENGINEER PCP - General Family Medicine 12/05/23 04/01/24 Cesar Allan MD [address] [place] [address] [phone] PCP - General Family Medicine 04/02/24 Sergio Schrader MD [address] [facility] DIV MEDICAL ONCOLOGY, [facility] 7A, [address]B, [address] [place] [address] Medical Oncologist/Print Inspector Medical Oncology 12/12/23 Satinder Romano MD [address] [facility] DIV MEDICAL ONCOLOGY, [facility] [address]A, [address], [address] [place] [address] Radiation Oncologist Radiation Oncology 12/12/23 Deshawn Mandujano MD [address] [facility] DEPT OTOLARYNGOLOGY, [address] [address] Consulting Physician Otolaryngology 12/12/23 documented as of this encounter
--- NOTE | 2025-05-05 13:13 | P.HP_ITS ---
H&P: HPI History of Present Illness Date/Time: 05/05/25 13:13 Chief Complaint: Chest pain Narrative: 64-year-old male with history of chronic pain, primary tonsillar squamous cell carcinoma and basal cell presents the hospital with chest pain. Patient states that he knows last week he had trouble mowing his lawn he complained of what he thought was a pectoral muscle spasm from pushing the lawnmower. He states that he took some ibuprofen and a muscle relaxer antibiotic now layer the pain was gone and did not think much of it. However this week be liriano states that he had to have help mowing his lawn. Patient states he woke up in the middle of the night, states it felt like a gorilla at was grabbing his left pectoral muscle and was diaphoretic. Patient was able to go back to sleep at that time. The day the patient told his significant other about the chest pain and encouraged him to go to the hospital. Denies nausea or vomiting. Blood work in the ED shows leukopenia at 4.1, BUN of 21, glucose of 139, 1st troponin negative, chest x-ray shows no acute pulmonary process. EKG shows sinus rhythm with delayed precordial transition consider inferior AL which was not seen previously on EKG 2 months ago. Review of Systems Review of Systems: 12 systems were reviewed and are negativ e except for as per HPI. [facility] Past Medical History Medical History Primary tonsillar squamous cell carcinoma Granuloma annulare Dehydration Surgical History Surgical History History of carpal tunnel surgery of right wrist History of neck dissection Family History Family History (Updated 05/05/25 @ 14:30 by Erika Davidson RN) Mother Seizure Father Head and neck cancer Social History Social History Smoking packs per day: 2 Smoking cigarettes per day: 40.0 Years smoked: 15 Smoking pack-years: 30.00 Smoking status: Former smoker Tobacco type: cigarettes Smoking end date: 12/01/89 Alcohol intake: never Substance use: current Substance use type: marijuana Other substance usage details: SMOKES 4-5 X DAY Last use: 01/21/25 Do You Feel Safe in your Home?: Yes Lack of Transportation: No Lack of Food: Never True Current Housing: I Have Housing Concerned About Future Housing: No Difficulty Paying Gas/Electric Bills: No Difficulty Paying for Meds: No Currently Unemployed: No Education: High School Diploma/GED Difficulty w/ Childcare or Family Care: No Living arrangements: with family Spiritual care concerns: No Meds Home Medications and Allergies Home Medications ?Medication ?Instructions ?Recorded ?Confirmed ?Type hydrocodone 10 mg-acetaminophen 0.5 tablet PO Q6H PRN pain #30 tabs 12/15/24 05/05/25 Rx 325 mg tablet ascorbic acid (vitamin C) 1,000 mg 1 g PO DAILY 01/21/25 05/05/25 History tablet (C-1000) aspirin 81 mg tablet,delayed 81 mg PO DAILY 01/21/25 05/05/25 History release (Adult Low Dose Aspirin) potassium 99 mg tablet 99 mg PO DAILY 01/21/25 05/05/25 History pyridoxine (vitamin B6) 500 mg 500 mg PO DAILY 01/21/25 05/05/25 History tablet nebivolol 10 mg tablet 10 mg PO HS #90 tabs 02/01/25 05/05/25 Rx sulfasalazine 500 mg tablet See Rx Instructions .Route 02/01/25 05/05/25 Rx .COMPLEX #270 tabs ondansetron 4 mg disintegrating 4 mg PO Q6H PRN nausea and 02/13/25 05/05/25 Rx tablet vomiting #20 tabs chlorhexidine gluconate 0.12 % 1 applic mucous membrane Q6H PRN 02/17/25 05/05/25 History mouthwash mouth pain esomeprazole magnesium 40 mg 40 mg PO DAILY #90 caps 04/29/25 05/05/25 Rx capsule,delayed release (Nexium) trazodone 100 mg tablet See Rx Instructions .Route 04/29/25 05/05/25 Rx .COMPLEX #90 tabs cyclobenzaprine 10 mg tablet 10 mg PO TID PRN muscle spasm 05/05/25 05/05/25 History fluorouracil 5 % topical cream 1 applic topical BID PRN basal cell 05/05/25 05/05/25 History (Efudex) tadalafil 20 mg tablet 20 mg PO DAILY PRN sexual activity 05/05/25 05/05/25 History Allergies Allergy/AdvReac Type Severity Reaction Status Date / Time cephalexin Allergy Mild Vomiting Verified 05/05/25 11:08 MARTINEZ Inhibitors Allergy Unknown cough Verified 05/05/25 11:08 midazolam Allergy Unknown COMBATIVE Verified 05/05/25 11:08 morphine Allergy Unknown Nausea and Verified 05/05/25 11:08 Vomiting MODERATE SEDATION Allergy Severe COMBATIVE, Uncoded 05/05/25 11:08 MEDICATIONS-?EGD FIGHTING STAFF, BIT EGD INSTRUMENTS Vital Signs Vital Signs - 24 hr 05/05/25 11:04 05/05/25 11:07 05/05/25 11:15 Temperature 98.4 F Pulse Rate 68 72 Respiratory Rate 16 Blood Pressure 152/84 H Pulse Oximetry 98 Oxygen Delivery Room Air 05/05/25 11:29 Temperature 97.8 F Pulse Rate 72 Respiratory Rate 16 Blood Pressure 159/101 H Pulse Oximetry 98 Oxygen Delivery Exam Narrative: General: well appearing, appears stated age. HEENT: normocephalic, atraumatic. Mucous membranes moist. EOMI, PERRLA, bilatera l sclera anicteric, no conjunctival injection. Neck supple without JVD, lymphadenopathy, or bruit. Respiratory: clear to ascultation bilaterally. No rales/rhonic/wheezes. Cardiovascular: Regular rate and rhythm, normal S1-S2 upon ascultation. No murmurs, rubs, or clicks. PMI is nondisplaced, capillary refill less than 3 second. Abdomen: Soft, round, no pulsatile masses, nondistended and nontender. No rebound, no guarding. No CVA tenderness, no hepatosplenomegaly. Bowel sounds present to all four quadrants. No high pitch or tinkling sounds, resonant to percussion. Extremities: No cyanosis, clubbing, or edema present. Pulses are palpable 2/2. Active ROM to all four extremities. Neuro: Alert and orientated x 4. PERRLA. Cranial nerves 2-12 intact without focal deficit. Skin: Warm, dry, and intact, without rash, erythema, or lesion. Psych: pleasant, cooperative, normal speech, normal affect, no hallucinations, no dysarthia H&P: Results Labs Labs: Short CBC 05/05/25 Range/Units 10:58 WBC 4.1 L (4.5-10.0) K/mm3 Hgb 16.3 (14.0-18.0) g/dL Hct 49.4 (42.0-52.0) % Plt Count 206 (150-375) k/mm3 BMP 05/05/25 10:58 Sodium 139 Potassium 4.3 Chloride 105 Carbon Dioxide 28 BUN 21 H Creatinine 0.89 Glucose 139 H Calcium 9.6 Cardiac Enzymes 05/05/25 Range/Units 10:58 Troponin I < 0.012 (0.000-0.034) ng/mL Liver Function 05/05/25 Range/Units 10:58 Total Bilirubin 0.5 (0.2-1.3) mg/dL AST 35 (17-59) U/L ALT 26 (6-50) U/L Alkaline Phosphatase 78 (38-126) U/L Albumin 4.5 (3.5-5.1) g/dL Assessment and Plan Assessment and plan (1) Chest pain: Code(s): R07.9 - Chest pain, unspecified Status: Acute Assessment and Plan: Cardiology consulted Trend troponins EKG p.r.n. Nitro p.r.n. Echocardiogram Stress test pending Echocardiogram pending (2) Essential (primary) hypertension: Code(s): I10 - Essential (primary) hypertension Status: Acute Assessment and Plan: High blood pressure without diagnosis of hypertension Continue to monitor (3) Chronic pain: Code(s): G89.29 - Other chronic pain Status: Acute Assessment and Plan: Restart home pain meds and Flexeril (4) Ulcerative colitis: Code(s): K51.90 - Ulcerative colitis, unspecified, without complications Status: Acute Assessment and Plan: Continue home sulfasalazine Quality VTE Prophylaxis VTE prophylaxis: mechanical ordered Hospitalist MIPS Advance Care Plan I have confirmed that the patient's Advanced Care Plan is present, code status is documented, or surrogate decision maker is listed in patient medical record.: Yes Medication Reconciliation I have utilized all available resources to obtain, update and review the patients current medications (includes all prescriptions, OTC, herbals, cannabis, and nutritional supplements).: Yes
--- NOTE | 2025-05-05 14:18 | ADMGEN ---
This patient, Miguel Kwok, was admitted to IMU Room 205-02. Patient/family oriented to hospital policies and general routines including ID bracelet, bed and alarms, visiting hours, pain management, procedures, bathroom and other care routines, personal items, smoking policy, room service/diet, and visiting hours. Information on how to activate the Rapid Response Team has been discussed. Patient/Family are encouraged to report perceived risks to care and to ask questions if they do not understand what they are told or what they should do. Report received from JAKE Mccullough @ [phone]
[2025-05-05 15:15] LABS: Cholesterol 238 mg/dL (0-200); HDL Direct 41 mg/dL; LDL Cholesterol Direct 145 mg/dL; Triglycerides 124 mg/dL (<150)
--- NOTE | 2025-05-05 16:21 | ECG_ITS ---
Test Date: 2025-05-05 16:31:36 Measurements Intervals [place] Rate: 62 P: 60 WV: 147 QRS: 12 QRSD: 88 T: -12 QT: 399 QTc: 407 Interpretive Statements SINUS RHYTHM ANTERIOR INFARCT, AGE INDETERMINATE CONSIDER INFERIOR INFARCT, AGE INDETERMINATE BASELINE ARTIFACT- I, III, AVL, V5 ABNORMAL ECG Compared to ECG 05/05/2025 10:52:23 NO SIGNIFICANT CHANGE Electronically Signed On 05-05-2025 16:38:56 CDT by Ramón Lynch D.O.
[2025-05-05 16:43] LABS: Troponin I < 0.012 ng/mL (0.000-0.034)
[2025-05-05 18:08] LABS: Troponin I < 0.012 ng/mL (0.000-0.034)
[2025-05-05] MEDS: NEBIVOLOL HCL 5 MG TABLET 10 MG PO (20:19)
[2025-05-05] MEDS: traZODone HCL 50 MG TABLET 100 MG BY MOUTH (20:19)
[2025-05-05] MEDS: CYCLOBENZAPRINE HCL 10 MG TABLET PO (20:19)
[2025-05-05] MEDS: sulfaSALAzine 500 MG TABLET BY MOUTH (21:02)
[2025-05-06] VITALS (12 sets, daily range): BP systolic 99–159; BP diastolic 63–80; PULSE 62–78; RESP 16–20; TEMP 36.5–36.8; O2SAT 96–100
--- NOTE | 2025-05-06 | EST_ITS ---
Patient Info Name: Miguel Kwok Age: 64 years : 1960 Gender: Male Ht: 74 in Wt: 205 lbs BSA: 2.21 m2 HR: 72 bpm BP: 141 / 77 mmHg Exam Date: 05/06/2025 12:51 AM Patient Status: O Admit Date: 05/05/2025 Exam Type: CA stress test treadmill A treadmill exercise stress test was performed. Staff Referring Physician: Girish Ruiz MD Attending Provider: Chey Garcia MD Exercise Technologist: Eliza Whiteside Exercise Physician: Ramón Lynch DO Summary 1. 1. Abnormal Zac exercise stress test for ischemic ST changes by ECG criteria. 2. 2. Reduced functional capacity, achieving 7 METs of workload. 3. 3. Baseline hypertension. 4. 4. Appropriate HR response to exercise. 5. 5. Appropriate HR recovery at 1 minute post exercise. 6. 6. No imaging with stress testing. 7. 7. Patient informed of the above results. Protocol: Zac Stress ECG Details Stage: REST Duration (min): 0 min : 48 sec Speed (mph): 0.0 Grade (%): 0 HR (bpm): 67 SBP (mmHg): 141 DBP (mmHg): 77 METS: --- Stage: REST Duration (min): 4 min : 42 sec Speed (mph): 0.0 Grade (%): 0 HR (bpm): 84 SBP (mmHg): 141 DBP (mmHg): 77 METS: --- Stage: STAGE 1 Duration (min): 1 min : 0 sec Speed (mph): 1.7 Grade (%): 10 HR (bpm): 104 SBP (mmHg): 141 DBP (mmHg): 77 METS: --- Stage: STAGE 1 Duration (min): 2 min : 0 sec Speed (mph): 1.7 Grade (%): 10 HR (bpm): 115 SBP (mmHg): 141 DBP (mmHg): 77 METS: --- Stage: STAGE 1 Duration (min): 3 min : 0 sec Speed (mph): 1.7 Grade (%): 10 HR (bpm): 116 SBP (mmHg): 199 DBP (mmHg): 90 METS: --- Stage: STAGE 2 Duration (min): 1 min : 0 sec Speed (mph): 2.5 Grade (%): 12 HR (bpm): 126 SBP (mmHg): 199 DBP (mmHg): 90 METS: --- Stage: STAGE 2 Duration (min): 2 min : 0 sec Speed (mph): 2.5 Grade (%): 12 HR (bpm): 135 SBP (mmHg): 191 DBP (mmHg): 85 METS: --- Stage: STAGE 2 Duration (min): 2 min : 0 sec Speed (mph): 2.5 Grade (%): 12 HR (bpm): 136 SBP (mmHg): 191 DBP (mmHg): 85 METS: --- Stage: RECOVERY Duration (min): 0 min : 59 sec Speed (mph): 0.0 Grade (%): 0 HR (bpm): 109 SBP (mmHg): 191 DBP (mmHg): 85 METS: --- Stage: RECOVERY Duration (min): 1 min : 59 sec Speed (mph): 0.0 Grade (%): 0 HR (bpm): 88 SBP (mmHg): 191 DBP (mmHg): 85 METS: --- Stage: RECOVERY Duration (min): 2 min : 59 sec Speed (mph): 0.0 Grade (%): 0 HR (bpm): 86 SBP (mmHg): 166 DBP (mmHg): 80 METS: --- Stage: RECOVERY Duration (min): 3 min : 12 sec Speed (mph): 0.0 Grade (%): 0 HR (bpm): 90 SBP (mmHg): 166 DBP (mmHg): 80 METS: --- Rest HR: 84 bpm Peak HR: 135 bpm Rest Sys BP: 141 mmHg Peak Sys BP: 199 mmHg Max Pred HR: 155 bpm % Max Pred HR: 87 % Target HR: 132 bpm Max RPP: 26,865 bpm*mmHg Stephen Score: -3 Termination Reason: Completed protocol Cardiac Symptoms: Shortness of breath Max ST Seg Deviation: -1.50 mm Total Time: 5 min : 0 sec Rest Taylor BP: 77 mmHg Peak Taylor BP: 90 mmHg Angina Score: None Total METS: 7.1 Resting ECG Sinus rhythm. Stress ECG [address] depression in inferior leads with exercise. Arrhythmias None. Report Signatures
[2025-05-06 04:54] LABS: Basophils Percent Auto 0.4 % (0.2-1.2); Eosinophils Percent Auto 0.8 % (0-4.4); Hematocrit 49.2 % (42.0-52.0); Hemoglobin 16.3 g/dL (14.0-18.0); Immature Granulocyte Absolute 0.02 K/mm3 (0.00-0.031); Immature Granulocyte Percent A 0.4 % (0-0.5); Lymphocytes Absolute Auto 1.14 K/mm3 (0.9-3.2); Lymphocytes Percent Auto 21.8 % (18.3-44.2); Mean Corpuscular HGB Conc 33.1 g/dl (32-36); Mean Corpuscular Hemoglobin 31.3 pg (26-34); Mean Corpuscular Volume 94.6 fl (80-100); Mean Platelet Volume 8.8 fl (7.4-10.4); Monocytes Absolute Auto 0.4 K/mm3 (0.1-0.6); Monocytes Percent Auto 7.5 % (2.6-8.5); Neutrophils Absolute Auto 3.6 K/mm3 (1.3-6.7); Neutrophils Percent Auto 69.1 % (45.5-73.1); Platelet Count Result 206 k/mm3 (150-375); Red Cell Distribution Width 12.1 % (11.5-14.5); White Blood Count 5.2 K/mm3 (4.5-10.0)
[2025-05-06 05:20] LABS: Carbon Dioxide 24 mmol/L (22-30)
[2025-05-06 05:21] LABS: Anion Gap 7 mmol/L (4-12); Blood Urea Nitrogen 15 mg/dL (9-20); Calcium 9.5 mg/dL (8.4-10.2); Chloride 107 mmol/L (98-107); Estimated CRCL calculation 85 ml/min; Estimated Glomerular Filt Rate > 60; Glucose 98 mg/dL (65-110); Sodium 138 mmol/L (137-145)
--- NOTE | 2025-05-06 09:02 | P.PNIM_ITS ---
Progress Note: A&P Assessment and Plan (1) Chest pain: Code(s): R07.9 - Chest pain, unspecified Status: Acute Assessment and Plan: Cardiology consulted Trend troponins EKG p.r.n. Nitro p.r.n. Echocardiogram Stress test pending Echocardiogram pending (2) Essential (primary) hypertension: Code(s): I10 - Essential (primary) hypertension Status: Acute Assessment and Plan: High blood pressure without diagnosis of hypertension Continue to monitor (3) Chronic pain: Code(s): G89.29 - Other chronic pain Status: Acute Assessment and Plan: Restart home pain meds and Flexeril (4) Ulcerative colitis: Code(s): K51.90 - Ulcerative colitis, unspecified, without complications Status: Acute Assessment and Plan: Continue home sulfasalazine Subjective Date/time seen: 05/06/25 09:02 Interval history: Interval history:64-year-old male with history of chronic pain, primary tonsillar squamous cell carcinoma and basal cell presents the hospital with chest pain. Cardiology evaluated the patient. Patient underwent stress test which was abnormal. Advised to avoid stress nurse activity and follow-up in the Cardiology within a week. Possible discharge today after the echocardiogram results. Review of Systems Review of Systems: 12 systems were reviewed and are negativ e except for as per HPI. Exam Narrative: General: well appearing, appears stated age. HEENT: normocephalic, atraumatic. Mucous membranes moist. EOMI, PERRLA, bilateral sclera anicteric, no conjunctival injection. Neck supple without JVD, lymphadenopathy, or bruit. Respiratory: clear to ascultation bilaterally. No rales/rhonic/wheezes. Cardiovascular: Regular rate and rhythm, normal S1-S2 upon ascultation. No murmurs, rubs, or clicks. PMI is nondisplaced, capillary refill less than 3 second. Abdomen: Soft, round, no pulsatile masses, nondistended and nontender. No rebound, no guarding. No CVA tenderness, no hepatosplenomegaly. Bowel sounds present to all four quadrants. No high pitch or tinkling sounds, resonant to percussion. Extremities: No cyanosis, clubbing, or edema present. Pulses are palpable 2/2. Active ROM to all four extremities. Neuro: Alert and orientated x 4. PERRLA. Cranial nerves 2-12 intact without focal deficit. Skin: Warm, dry, and intact, without rash, erythema, or lesion. Psych: pleasant, cooperative, normal speech, normal affect, no hallucinations, no dysarthia Objective Data Vital Signs Vital Signs: Vital Signs - 24 hr 05/05/25 11:04 05/05/25 11:07 05/05/25 11:15 Temperature 98.4 F Pulse Rate 68 72 Respiratory Rate 16 Blood Pressure 152/84 H Pulse Oximetry 98 Oxygen Delivery Room Air 05/05/25 11:29 05/05/25 14:04 05/05/25 14:14 Temperature 97.8 F 97.8 F Pulse Rate 72 68 Respiratory Rate 16 20 Blood Pressure 159/101 H 151/80 H Pulse Oximetry 98 100 Oxygen Delivery Room Air 05/05/25 14:14 05/05/25 16:00 05/05/25 16:00 Temperature 97.7 F Pulse Rate 64 69 Respiratory Rate 20 Blood Pressure 142/85 H Pulse Oximetry 96 Oxygen Delivery Room Air 05/05/25 16:00 05/05/25 18:00 05/05/25 19:56 Temperature 97.8 F Pulse Rate 67 80 64 Respiratory Rate 18 Blood Pressure 138/79 Pulse Oximetry 97 Oxygen Delivery 05/05/25 20:00 05/05/25 20:00 05/05/25 22:00 Temperature Pulse Rate 65 63 Respiratory Rate Blood Pressure Pulse Oximetry Oxygen Delivery Room Air 05/05/25 23:30 05/05/25 23:42 05/06/25 00:00 Temperature 97.8 F Pulse Rate 70 65 Respiratory Rate 16 Blood Pressure 140/88 Pulse Oximetry 97 Oxygen Delivery Room Air 05/06/25 02:00 05/06/25 04:00 05/06/25 04:00 Temperature 98 F Pulse Rate 62 67 Respiratory Rate 16 Blood Pressure 134/80 Pulse Oximetry 99 Oxygen Delivery Room Air 05/06/25 04:00 05/06/25 06:00 05/06/25 07:43 Temperature Pulse Rate 69 67 Respiratory Rate Blood Pressure Pulse Oximetry 98 Oxygen Delivery Room Air 05/06/25 07:45 05/06/25 08:07 Temperature 97.7 F Pulse Rate 73 Respiratory Rate 20 Blood Pressure 159/80 H Pulse Oximetry 98 100 Oxygen Delivery Room Air Intake/Output Intake/Output: Intake & Output 05/03/25 05/04/25 05/05/25 05/06/25 23:59 23:59 23:59 23:59 Intake Total 540 600 Output Total 500 Balance 40 600 Meds/Results Medications: Active Medications Generic Name Dose Route Start Last Admin Trade Name Freq PRN Reason Stop Dose Admin Acetaminophen 650 mg 05/05/25 13:07 Acetaminophen 325 Mg Tablet PO Q4H PRN Mild Pain (1-3) or Fever Acetaminophen 650 mg 05/05/25 13:07 Acetaminophen 650 Mg Suppository RECTAL Q6H PRN Mild Pain (1-3) or Fever Hydrocodone Bitart/Acetaminophen 0.5 tab 05/05/25 15:31 Hydrocodone/Acetaminophen (*Crx) 10-325 Mg Tablet PO Q6H PRN pain 4-6 Aspirin 81 mg 05/06/25 09:00 Aspirin 81 Mg Enteric Tablet PO DAILY ARCHIE Cyclobenzaprine HCl 10 mg 05/05/25 15:31 05/05/25 20:19 Cyclobenzaprine Hcl 10 Mg Tablet PO 10 mg TID PRN Administration muscle spasm Fentanyl Citrate 50 mcg 05/05/25 13:07 Fentanyl Citrate Inj (*Crx) 100 Mcg/2 Ml Vial IV PUSH Q2H PRN Pain Rated 7-10 Nebivolol 10 mg 05/05/25 21:00 05/05/25 20:19 Nebivolol Hcl 5 Mg Tablet PO 10 mg HS ARCHIE Administration Nitroglycerin 0.4 mg 05/05/25 15:14 Nitroglycerin Sl 0.4 Mg Tablet SUBLINGUAL Q5MIN PRN Chest Pain Ondansetron HCl 4 mg 05/05/25 13:07 Ondansetron Inj 4 Mg/2 Ml Vial IV PUSH Q4H PRN Nausea Pantoprazole Sodium 40 mg 05/06/25 09:00 Pantoprazole 40 Mg Tablet PO QAM ARCHIE Perflutren Lipid Microsphere 0 ml 05/05/25 15:14 Perflutren Lipid Microspheres 1.5 Ml Vial Diluted To 10 Ml Total Volume IV PUSH 05/08/25 15:14 ONCE PRN adequate visualization Protocol Sulfasalazine 500 mg 05/05/25 21:00 05/05/25 21:02 Sulfasalazine 500 Mg Tablet BY MOUTH 500 mg TIDWM ARCHIE Administration Trazodone HCl 100 mg 05/05/25 21:00 05/05/25 20:19 Trazodone Hcl 50 Mg Tablet BY MOUTH 100 mg HS ARCHIE Administration Radiology Results: ITS Impressions Chest X-Ray 05/05/25 12:00 IMPRESSION: 1: NO ACUTE CARDIOPULMONARY DISEASE. Labs Labs: Laboratory Results - last 24 hr 05/05/25 05/05/25 05/05/25 10:58 14:33 17:33 WBC 4.1 L RBC 5.18 Hgb 16.3 Hct 49.4 MCV 95.4 MCH 31.5 MCHC 33.0 RDW 12.2 Plt Count 206 MPV 8.7 Immature Gran % (Auto) 0.5 Neut % (Auto) 67.8 Lymph % (Auto) 23.5 [place] % (Auto) 6.8 Eos % (Auto) 0.7 Baso % (Auto) 0.7 Lymph # (Auto) 0.97 [place] # (Auto) 0.3 Eos # (Auto) 0.0 Baso # (Auto) 0.0 Abs Immat Gran (auto) 0.02 Absolute Neuts (auto) 2.8 Absolute Nucleated RBC 0.000 Nucleated RBC % 0.0 PT 13.3 INR 1.0 APTT 29.9 Sodium 139 Potassium 4.3 Chloride 105 Carbon Dioxide 28 Anion Gap 6 BUN 21 H Creatinine 0.89 Estim Creat Clear Calc 84 Estimated GFR > 60 Glucose 139 H Calcium 9.6 Total Bilirubin 0.5 AST 35 ALT 26 Alkaline Phosphatase 78 Troponin I < 0.012 < 0.012 < 0.012 Total Protein 7.1 Albumin 4.5 Triglycerides 124 Cholesterol 238 H LDL Cholesterol Direct 145 HDL Direct 41 Lipase 245 05/06/25 04:21 WBC 5.2 RBC 5.20 Hgb 16.3 Hct 49.2 MCV 94.6 MCH 31.3 MCHC 33.1 RDW 12.1 Plt Count 206 MPV 8.8 Immature Gran % (Auto) 0.4 Neut % (Auto) 69.1 Lymph % (Auto) 21.8 [place] % (Auto) 7.5 Eos % (Auto) 0.8 Baso % (Auto) 0.4 Lymph # (Auto) 1.14 [place] # (Auto) 0.4 Eos # (Auto) 0.0 Baso # (Auto) 0.0 Abs Immat Gran (auto) 0.02 Absolute Neuts (auto) 3.6 Absolute Nucleated RBC 0.000 Nucleated RBC % 0.0 PT INR APTT Sodium 138 Potassium 4.0 Chloride 107 Carbon Dioxide 24 Anion Gap 7 BUN 15 D Creatinine 0.87 Estim Creat Clear Calc 85 Estimated GFR > 60 Glucose 98 Calcium 9.5 Total Bilirubin AST ALT Alkaline Phosphatase Troponin I Total Protein Albumin Triglycerides Cholesterol LDL Cholesterol Direct HDL Direct Lipase Quality VTE Prophylaxis VTE prophylaxis: mechanical ordered Hospitalist MIPS Advance Care Plan I have confirmed that the patient's Advanced Care Plan is present, code status is documented, or surrogate decision maker is listed in patient medical record.: Yes Medication Reconciliation I have utilized all available resources to obtain, update and review the patients current medications (includes all prescriptions, OTC, herbals, cannabis, and nutritional supplements).: Yes
--- NOTE | 2025-05-06 09:32 | P.CONCA_ITS ---
Assessment and Plan Assessment and plan (1) Chest pain: Code(s): R07.9 - Chest pain, unspecified Status: Acute Assessment and Plan: He was r/o for ND by serial troponin and EKG. Had stress test this morning that was abnormal. Obtain echo. Start aspirin 81 mg daily, Atorvastatin 40 mg daily and Imdur 30 mg daily. Advise to avoid strenuous activity until he sees me in 1 week. After echo, march d/c home from cardiology standpoint and f/u with me in 1 week. (2) Essential (primary) hypertension: Code(s): I10 - Essential (primary) hypertension Status: Acute Assessment and Plan: Stable. (3) Dyslipidemia: Code(s): E78.5 - Hyperlipidemia, unspecified Status: Acute Assessment and Plan: Start Atorvastatin. History of Present Illness History of Present Illness Consult date/time: 05/06/25 09:32 Reason For Visit: Unstable Angina Narrative: 65 yr old man presented to ER with chest pain. He has a history of dyslipidemia, hypertension, ulcerative colitis. at bedside. States he had chest pain with mowing his lawn a couple of times and it woke him up from sleep once. Currently at rest he is without chest pain. Denies orthopnea, PND, edema, dizziness, palptitations. Review of Systems 2 Review of Systems: All systems reviewed & are unremarkable except as noted in HPI and below Constitutional: Constitutional: Reports as per HPI, Denies chills and Denies fever(s) Cardiovascular: Cardiovascular: Reports as per HPI, Reports chest pain and Denies irregular heart rhythm Respiratory: Respiratory: Reports as per HPI and Denies dyspnea Gastrointestinal: Gastrointestinal: Reports as per HPI and Denies abdominal pain Genitourinary: Genitourinary: Reports as per HPI and Denies dysuria Musculoskeletal: Musculoskeletal: Reports as per HPI Neurologic: Reports as per HPI, Denies dizziness and Denies syncope [facility] Past Medical History Medical History Primary tonsillar squamous cell carcinoma Granuloma annulare Dehydration Surgical History Surgical History History of carpal tunnel surgery of right wrist History of neck dissection Family History Family History (Updated 05/05/25 @ 14:30 by Erika Davidson RN) Mother Seizure Father Head and neck cancer Social History Social History Smoking packs per day: 2 Smoking cigarettes per day: 40.0 Years smoked: 15 Smoking pack-years: 30.00 Smoking status: Former smoker Tobacco type: cigarettes Smoking end date: 12/01/89 Alcohol intake: never Substance use: current Substance use type: marijuana Other substance usage details: SMOKES 4-5 X DAY Last use: 01/21/25 Do You Feel Safe in your Home?: Yes Lack of Transportation: No Lack of Food: Never True Current Housing: I Have Housing Concerned About Future Housing: No Difficulty Paying Gas/Electric Bills: No Difficulty Paying for Meds: No Currently Unemployed: No Education: High School Diploma/GED Difficulty w/ Childcare or Family Care: No Living arrangements: with family Spiritual care concerns: No Meds Home Medications and Allergies Home Medications ?Medication ?Instructions ?Recorded ?Confirmed ?Type hydrocodone 10 mg-acetaminophen 0.5 tablet PO Q6H PRN pain #30 tabs 12/15/24 05/05/25 Rx 325 mg tablet ascorbic acid (vitamin C) 1,000 mg 1 g PO DAILY 01/21/25 05/05/25 History tablet (C-1000) aspirin 81 mg tablet,delayed 81 mg PO DAILY 01/21/25 05/05/25 History release (Adult Low Dose Aspirin) potassium 99 mg tablet 99 mg PO DAILY 01/21/25 05/05/25 History pyridoxine (vitamin B6) 500 mg 500 mg PO DAILY 01/21/25 05/05/25 History tablet nebivolol 10 mg tablet 10 mg PO HS #90 tabs 02/01/25 05/05/25 Rx sulfasalazine 500 mg tablet See Rx Instructions .Route 02/01/25 05/05/25 Rx .COMPLEX #270 tabs ondansetron 4 mg disintegrating 4 mg PO Q6H PRN nausea and 02/13/25 05/05/25 Rx tablet vomiting #20 tabs chlorhexidine gluconate 0.12 % 1 applic mucous membrane Q6H PRN 02/17/25 05/05/25 History mouthwash mouth pain esomeprazole magnesium 40 mg 40 mg PO DAILY #90 caps 04/29/25 05/05/25 Rx capsule,delayed release (Nexium) trazodone 100 mg tablet See Rx Instructions .Route 04/29/25 05/05/25 Rx .COMPLEX #90 tabs cyclobenzaprine 10 mg tablet 10 mg PO TID PRN muscle spasm 05/05/25 05/05/25 History fluorouracil 5 % topical cream 1 applic topical BID PRN basal cell 05/05/25 05/05/25 History (Efudex) tadalafil 20 mg tablet 20 mg PO DAILY PRN sexual activity 05/05/25 05/05/25 History Allergies Allergy/AdvReac Type Severity Reaction Status Date / Time cephalexin Allergy Mild Vomiting Verified 05/05/25 11:08 MARTINEZ Inhibitors Allergy Unknown cough Verified 05/05/25 11:08 midazolam Allergy Unknown COMBATIVE Verified 05/05/25 11:08 morphine Allergy Unknown Nausea and Verified 05/05/25 11:08 Vomiting MODERATE SEDATION Allergy Severe COMBATIVE, Uncoded 05/05/25 11:08 MEDICATIONS-?EGD FIGHTING STAFF, BIT EGD INSTRUMENTS Vital Signs Vital Signs - 24 hr 05/05/25 11:04 05/05/25 11:07 05/05/25 11:15 Temperature 98.4 F Pulse Rate 68 72 Respiratory Rate 16 Blood Pressure 152/84 H Pulse Oximetry 98 Oxygen Delivery Room Air 05/05/25 11:29 05/05/25 14:04 05/05/25 14:14 Temperature 97.8 F 97.8 F Pulse Rate 72 68 Respiratory Rate 16 20 Blood Pressure 159/101 H 151/80 H Pulse Oximetry 98 100 Oxygen Delivery Room Air 05/05/25 14:14 05/05/25 16:00 05/05/25 16:00 Temperature 97.7 F Pulse Rate 64 69 Respiratory Rate 20 Blood Pressure 142/85 H Pulse Oximetry 96 Oxygen Delivery Room Air 05/05/25 16:00 05/05/25 18:00 05/05/25 19:56 Temperature 97.8 F Pulse Rate 67 80 64 Respiratory Rate 18 Blood Pressure 138/79 Pulse Oximetry 97 Oxygen Delivery 05/05/25 20:00 05/05/25 20:00 05/05/25 22:00 Temperature Pulse Rate 65 63 Respiratory Rate Blood Pressure Pulse Oximetry Oxygen Delivery Room Air 05/05/25 23:30 05/05/25 23:42 05/06/25 00:00 Temperature 97.8 F Pulse Rate 70 65 Respiratory Rate 16 Blood Pressure 140/88 Pulse Oximetry 97 Oxygen Delivery Room Air 05/06/25 02:00 05/06/25 04:00 05/06/25 04:00 Temperature 98 F Pulse Rate 62 67 Respiratory Rate 16 Blood Pressure 134/80 Pulse Oximetry 99 Oxygen Delivery Room Air 05/06/25 04:00 05/06/25 06:00 05/06/25 07:43 Temperature Pulse Rate 69 67 Respiratory Rate Blood Pressure Pulse Oximetry 98 Oxygen Delivery Room Air 05/06/25 07:45 05/06/25 08:07 Temperature 97.7 F Pulse Rate 73 Respiratory Rate 20 Blood Pressure 159/80 H Pulse Oximetry 98 100 Oxygen Delivery Room Air Exam 2 Const: General: cooperative, healthy appearing and comfortable Resp: Auscultation: clear to auscultation bilaterally, no crackles, no rales, no rhonchi and no wheezes Cardio: Rate: regular rate Rhythm: regular rhythm Heart sounds: no murmurs Peripheral pulses: dorsalis pedis present GI: GI Palp: No abdominal tenderness and Yes Soft to palpation Neuro: General: oriented to person, oriented to place and oriented to time Extrem: Right lower extremity: no edema Left lower extremity: no edema Results Labs and Meds 05/06/25 04:21 05/06/25 04:21 Lab results: Cardiac Enzymes 05/05/25 05/05/25 05/05/25 Range/Units 10:58 14:33 17:33 AST 35 (17-59) U/L Troponin I < 0.012 < 0.012 < 0.012 (0.000-0.034) ng/mL Coagulation 05/05/25 Range/Units 10:58 PT 13.3 (11.1-14.7) Seconds APTT 29.9 (22.3-36.8) Seconds Lipids 05/05/25 Range/Units 14:33 Triglycerides 124 (<150) mg/dL Cholesterol 238 H (0-200) mg/dL CBC 05/05/25 05/06/25 Range/Units 10:58 04:21 WBC 4.1 L 5.2 (4.5-10.0) K/mm3 RBC 5.18 5.20 (4.6-6.20) M/mm3 Hgb 16.3 16.3 (14.0-18.0) g/dL Hct 49.4 49.2 (42.0-52.0) % Plt Count 206 206 (150-375) k/mm3 Lymph # (Auto) 0.97 1.14 (0.9-3.2) K/mm3 [place] # (Auto) 0.3 0.4 (0.1-0.6) K/mm3 Eos # (Auto) 0.0 0.0 (0-0.3) K/mm3 Baso # (Auto) 0.0 0.0 (0.0-0.1) K/mm3 Comprehensive Metabolic Panel 05/05/25 05/06/25 Range/Units 10:58 04:21 Sodium 139 138 (137-145) mmol/L Potassium 4.3 4.0 (3.4-5.0) mmol/L Chloride 105 107 (98-107) mmol/L Carbon Dioxide 28 24 (22-30) mmol/L BUN 21 H 15 D (9-20) mg/dL Creatinine 0.89 0.87 (0.7-1.3) mg/dL Glucose 139 H 98 (65-110) mg/dL Calcium 9.6 9.5 (8.4-10.2) mg/dL AST 35 (17-59) U/L ALT 26 (6-50) U/L Alkaline Phosphatase 78 (38-126) U/L Total Protein 7.1 (6.3-8.2) g/dL Albumin 4.5 (3.5-5.1) g/dL Intake and Output 05/05/25 05/06/25 05/06/25 23:59 07:59 15:59 Intake Total 540 600 Output Total 500 Balance 40 600 Intake: Oral 540 600 Output: Urine 500 Other: # Unmeasured Voids 5 Patient Weight 05/06/25 23:59 Weight 88 kg
[2025-05-06] MEDS: sulfaSALAzine 500 MG TABLET BY MOUTH (09:35)
[2025-05-06] MEDS: ASPIRIN 81 MG ENTERIC TABLET PO (09:35)
[2025-05-06] MEDS: PANTOPRAZOLE 40 MG TABLET PO (09:36)
[2025-05-06] MEDS: ATORVASTATIN 40 MG TABLET PO (09:36)
[2025-05-06] MEDS: ISOSORBIDE MONONITRATE 30 MG TAB.ER.24H PO (09:36)
--- NOTE | 2025-05-06 14:08 | P.DS_ITS ---
DS: Admitting Diagnosis Discharge Date 05/06/2025 Admitting Diagnosis Chest pain DS: Discharge Diagnosis Discharge Diagnosis (1) Chest pain: Code(s): R07.9 - Chest pain, unspecified Status: Acute Assessment and Plan: Cardiology consulted Trend troponins EKG p.r.n. Nitro p.r.n. Echocardiogram reviewed Stress test abnormal Cardiology advised to follow up within a week and no strenous activity (2) Essential (primary) hypertension: Code(s): I10 - Essential (primary) hypertension Status: Acute Assessment and Plan: High blood pressure without diagnosis of hypertension Continue to monitor (3) Chronic pain: Code(s): G89.29 - Other chronic pain Status: Acute Assessment and Plan: Restart home pain meds and Flexeril (4) Ulcerative colitis: Code(s): K51.90 - Ulcerative colitis, unspecified, without complications Status: Acute Assessment and Plan: Continue home sulfasalazine DS: Summary Hospital Course Hospital Course: 64-year-old male with history of chronic pain, primary tonsillar squamous cell carcinoma and basal cell presents the hospital with chest pain. Patient states that he knows last week he had trouble mowing his lawn he complained of what he thought was a pectoral muscle spasm from pushing the lawnmower. He states that he took some ibuprofen and a muscle relaxer antibiotic now layer the pain was gone and did not think much of it. However this week be liriano states that he had to have help mowing his lawn. Patient states he woke up in the middle of the night, states it felt like a gorilla at was grabbing his left pectoral muscle and was diaphoretic. Patient was able to go back to sleep at that time. The next day the patient told his significant other about the chest pain and encouraged him to go to the hospital. Denies nausea or vomiting. Blood work in the ED shows leukopenia at 4.1, BUN of 21, glucose of 139, 1st troponin negative, chest x-ray shows no acute pulmonary process. EKG shows sinus rhythm with delayed precordial transition consider inferior PR which was not seen previously on EKG 2 months ago. Interval history:64-year-old male with history of chronic pain, primary tonsillar squamous cell carcinoma and basal cell presents the hospital with chest pain. Cardiology evaluated the patient. Patient underwent stress test which was abnormal. Advised to avoid stressnous activity and follow-up in the Cardiology within a week. Reviewed ECHO. Advised patient to return to ED if chest pain or shortness of breath or palpitation or diaphoresis. Advised to hav e low threshold for chest pain to return to ED. On the day of discharge, the patient was seen and examined. Vital signs were stable. Physical exam were stable and labs were reviewed at length. Discharge instructions, medications, and follow-up appointments were discussed with the patient at length and all day questions were answered. ER warnings were given. Status at Discharge Cognitive/behavioral status at discharge: Stable Time Spent with Patient Time attestation: Total time spent providing and/or coordinating discharge services:45 minutes Exam Narrative: General: well appearing, appears stated age. HEENT: normocephalic, atraumatic. Mucous membranes moist. EOMI, PERRLA, bilateral sclera anicteric, no conjunctival injection. Neck supple without JVD, lymphadenopathy, or bruit. Respiratory: clear to ascultation bilaterally. No rales/rhonic/wheezes. Cardiovascular: Regular rate and rhythm, normal S1-S2 upon ascultation. No murmurs, rubs, or clicks. PMI is nondisplaced, capillary refill less than 3 second. Abdomen: Soft, round, no pulsatile masses, nondistended and nontender. No rebound, no guarding. No CVA tenderness, no hepatosplenomegaly. Bowel sounds present to all four quadrants. No high pitch or tinkling sounds, resonant to percussion. Extremities: No cyanosis, clubbing, or edema present. Pulses are palpable 2/2. Active ROM to all four extremities. Neuro: Alert and orientated x 4. PERRLA. Cranial nerves 2-12 intact without focal deficit. Skin: Warm, dry, and intact, without rash, erythema, or lesion. Psych: pleasant, cooperative, normal speech, normal affect, no hallucinations, no dysarthia DS: Data Data Completed and Pending Labs on day of discharge: Labs from last 24 hours 05/06/25 05/05/25 05/05/25 04:21 17:33 14:33 WBC 5.2 RBC 5.20 Hgb 16.3 Hct 49.2 MCV 94.6 MCH 31.3 MCHC 33.1 RDW 12.1 Plt Count 206 MPV 8.8 Immature Gran % (Auto) 0.4 Neut % (Auto) 69.1 Lymph % (Auto) 21.8 [place] % (Auto) 7.5 Eos % (Auto) 0.8 Baso % (Auto) 0.4 Lymph # (Auto) 1.14 [place] # (Auto) 0.4 Eos # (Auto) 0.0 Baso # (Auto) 0.0 Abs Immat Gran (auto) 0.02 Absolute Neuts (auto) 3.6 Absolute Nucleated RBC 0.000 Nucleated RBC % 0.0 Sodium 138 Potassium 4.0 Chloride 107 Carbon Dioxide 24 Anion Gap 7 BUN 15 D Creatinine 0.87 Estim Creat Clear Calc 85 Estimated GFR > 60 Glucose 98 Calcium 9.5 Troponin I < 0.012 < 0.012 Triglycerides 124 Cholesterol 238 H LDL Cholesterol Direct 145 HDL Direct 41 Discharge Plan Discharge Attending physician on discharge: Nii Gonsales Consulting providers: Shaina Pandey; Ramón Lynch Discharging Clinician: Nii Gonsales Patient Disposition: Home Activity: other - see discharge instructions Diet: heart healthy Discharge Instructions: No strenuous activity.Do not lift anything. Return to ED if any chest pain or shortness of breath or palpitation or diaphoresis. Advised to have low threshold for chest pain to return to ED. Check blood pressure 1 to 2 times a day. Record and bring into your doctor for review. Call your doctor if your blood pressure is greater than 180/110 or less than 90/45. Walk with cane or other assist device. Take precautions to avoid falls. Rise slowly from a lying or sitting position. Pause before standing or walking. Contact your doctor or call 911 and come to the Emergency Room if you have any type of trauma, lightheadedness with standing or other worrisome symptoms. Avoid NSAIDs (ibuprofen, naproxen, Aleve). Tylenol is safe to take. Follow-up with your primary care provider in 1-2 weeks. Please call for appointment. Follow-up with Cardiology in 2-4 weeks. Please call for an appointment. Thank you for using [facility] for your health care needs. Patient Instructions: Antibiotic Form, Isosorbide Mononitrate (By mouth), Atorvastatin (By mouth) Patient Language: Samoan Stand Alone Forms: General Discharge Information Follow-up/Referrals: Ramón Lynch DO [Physician] - (Within a week for chest pain follow-up) Cesar Allan MD [Primary Care Provider] - Discharge Medications: New atorvastatin 40 mg Tablet 40 mg PO DAILY Qty: 30 0RF isosorbide mononitrate 30 mg Tablet Extended Release 24 Hr 30 mg PO QAM Qty: 30 0RF Rx Instructions: Measure the blood pressure if less than 100/60 hold nitroglycerin [Nitrostat] 0.4 mg Tablet, Sublingual 0.4 mg sublingual Q5MIN PRN (Reason: Chest Pain) Qty: 30 0RF Continued chlorhexidine gluconate 0.12 % mouthwash 1 applic mucous membrane Q6H PRN (Reason: mouth pain) aspirin [Adult Low Dose Aspirin] 81 mg tablet,delayed release (DR/EC) 81 mg PO DAILY ascorbic acid (vitamin C) [C-1000] 1,000 mg tablet 1 g PO DAILY potassium 99 mg tablet 99 mg PO DAILY pyridoxine (vitamin B6) 500 mg tablet 500 mg PO DAILY cyclobenzaprine 10 mg tablet 10 mg PO TID PRN (Reason: muscle spasm) Rx Instructions: TAKE 1 TABLET THREE TIMES DAILY PRN; fluorouracil [Efudex] 5 % cream 1 applic topical BID PRN (Reason: basal cell) hydrocodone-acetaminophen 10-325 mg tablet 0.5 tablet PO Q6H PRN (Reason: pain) Qty: 30 0RF sulfasalazine 500 mg tablet See Rx Instructions .ROUTE .COMPLEX Qty: 270 1RF Dose Instruction: TAKE 1 TABLET BY MOUTH THREE TIMES A DAY TAKE WITH MEALS OR SNACKS Rx Instructions: TAKE 1 TABLET BY MOUTH THREE TIMES A DAY TAKE WITH MEALS OR SNACKS nebivolol 10 mg tablet 10 mg PO HS Qty: 90 1RF Rx Instructions: TAKE 1 TABLET DAILY ondansetron 4 mg tablet,disintegrating 4 mg PO Q6H PRN (Reason: nausea and vomiting) Qty: 20 0RF trazodone 100 mg tablet See Rx Instructions .ROUTE .COMPLEX Qty: 90 1RF Dose Instruction: TAKE 1 TABLET DAILY AT BEDTIME Rx Instructions: TAKE 1 TABLET DAILY AT BEDTIME esomeprazole magnesium [Nexium] 40 mg capsule,delayed release(DR/EC) 40 mg PO DAILY Qty: 90 1RF Held tadalafil 20 mg tablet 20 mg PO DAILY PRN (Reason: sexual activity) Hold Instructions: Resume on 06/03/25. Please discuss with Cardiology before continuing Rx Instructions: TAKE 1 TABLET DAILY PRN; Date of admission: 05/05/25 13:06 Primary Care Provider: Cesar Allan Admitting Provider: Chey Gacria Attending physician on admission: Chey Garcia Condition: Stable
--- NOTE | 2025-05-06 15:14 | ECHO_ITS ---
Patient Info Name: Miguel Kwok Age: 65 years : 1960 Gender: Male Ht: 74 in Wt: 205 lbs BSA: 2.21 m2 HR: 67 bpm BP: 134 / 80 mmHg Technical Quality: Fair Exam Date: 05/06/2025 9:47 AM Patient Status: I Admit Date: 05/05/2025 Exam Type: CA echo doppler color flow Complete two-dimensional, color flow and Doppler transthoracic echocardiogram is performed. Staff Referring Physician: Girish Ruiz MD Finish Patcher: Leah Sapp Attending Provider: Chey Garcia MD Summary 1. Complete two-dimensional, color flow and Doppler transthoracic echocardiogram is performed. 2. Left ventricular chamber dimension is normal. 3. Left ventricular systolic function is normal, estimated at 65-70. 4. There is moderate concentric increased left ventricular wall thickness. 5. The left ventricular diastolic function is grade I diastolic dysfunction. 6. E/e' 7 is not elevated. 7. No pulmonary hypertension, estimated pulmonary arterial systolic pressure is 15 mmHg. Left Ventricle Left ventricular chamber dimension is normal. Left ventricular systolic function is normal, estimated at 65-70. There is moderate concentric increased left ventricular wall thickness. The left ventricular diastolic function is grade I diastolic dysfunction. E/e' 7 is not elevated. Right Ventricle Right ventricular chamber dimension is normal. Right ventricular systolic function is normal and with normal TAPSE 2.2 cm. Left Atria Left atrial chamber dimension is normal. Right Atria Right atrial chamber dimension is normal. Aortic Valve The aortic valve is trileaflet. There is no aortic valve stenosis. There is no aortic valve regurgitation. Pulmonic Valve There is no pulmonic regurgitation. Mitral Valve There is no mitral valve stenosis. There is no mitral valve regurgitation. Tricuspid Valve There is no tricuspid valve regurgitation. No pulmonary hypertension, estimated pulmonary arterial systolic pressure is 15 mmHg. Pericardium/Pleural There is no pericardial effusion. Inferior Vena Cava Normal inferior vena cava with >50% collapse upon inspiration consistent with normal right atrial pressure, 5 mmHg. Aorta The aortic root size at the sinus of Valsalva is normal. Left Ventricular Outflow Tract Name Value Normal LVOT 2D LVOT Diameter 1.9 cm LVOT Doppler LVOT Peak Velocity 103 cm/s LVOT Peak Gradient 4 mmHg LVOT Mean Gradient 2 mmHg LVOT VTI 22 cm LVOT VTI/AV VTI Ratio 0.9 LVOT Stroke Volume 61 ml LVOT CO 12.3 l/min LVOT CI 5.6 l/min/m2 Pulmonic Valve Name Value Normal PV Doppler PV Peak Velocity 95 cm/s PV Peak Gradient 4 mmHg Mitral Valve Name Value Normal MV Diastolic Function MV E Peak Velocity 60 cm/s MV A Peak Velocity 84 cm/s MV E/A 0.7 MV Decel Time (PW) 279 ms MV Annular TDI MV E/e' (Septal) 8.3 MV E/e' (Lateral) 7.1 MV E/e' (Average) 7.7 Tricuspid Valve Name Value Normal TV Regurgitation Doppler TR Peak Velocity 161 cm/s TR Peak Gradient 8 mmHg Estimated PAP/RSVP RA Pressure 5 mmHg <=5 PA Systolic Pressure 15 mmHg <36 RV Systolic Pressure 15 mmHg <36 TV Annular TDI TV Lateral Elisa s' Velocity 12.9 cm/s >=9.5 Aorta Name Value Normal Ascending Aorta Ao Root Diameter (MM) 3.0 cm Ao Root Diam Index (MM) 1.3 cm/m2 Aortic Valve Name Value Normal AV Doppler AV Peak Velocity 115 cm/s AV Peak Gradient 5 mmHg AV Mean Gradient 3 mmHg AV VTI 23 cm AV Area (Cont Eq VTI) 2.6 cm2 >=3.0 AV Area (Cont Eq Mata) 2.5 cm2 AV DI (Mata) 0.89 AV Regurgitation 2D LVOT Area 2.8 cm2 Ventricles Name Value Normal LV Dimensions 2D/MM IVS Diastolic Thickness (2D) 1.5 cm 0.6-1.0 LVID Diastole (2D) 3.7 cm 4.2-5.8 LVIW Diastolic Thickness (2D) 1.2 cm 0.6-1.0 LVID Systole (2D) 2.8 cm 2.5-4.0 LVOT Diameter 1.9 cm LV Mass (2D Cubed) 179.95 g 88.00-224.00 LV Mass Index (2D Cubed) 81 g/m2 49-115 Relative Wall Thickness (2D) 0.67 <=0.42 LV Fractional Shortening/Ejection Fraction 2D/MM LV Fractional Shortening (2D) 25 % 25-43 LV EF (2D Teichholz) 50 % LV Diastolic Volume (4C MOD) 97 ml LV EF (4C MOD) 64 % LV Diastolic Volume (2C MOD) 84 ml LV EF (2C MOD) 71 % LV Diastolic Volume (BP MOD) 90 ml 62-150 LV Diastolic Volume Index (BP MOD) 40 ml/m2 34-74 LV Systolic Volume (BP MOD) 29 ml 21-61 LV Systolic Volume Index (BP MOD) 13 ml/m2 11-31 LV EF (BP MOD) 68 % 52-72 LV Diastolic Length (4C) 8.2 cm LV Systolic Length (4C) 6.7 cm LV Stroke Volume (4C MOD) 62 ml RV Dimensions 2D/MM RVID Diastole (2D) 3.5 cm 2.1-3.5 Atria Name Value Normal LA Dimensions LA Dimension (MM) 3.3 cm 3.0-4.0 LA Volume (4C A-L) 30 ml LA Volume (BP A-L) 41 ml RA Dimensions RA Systolic Major Rosepine Length (4C) 4.3 cm 2.1-2.7 RA Area (4C) 11.8 cm2 <=18.0 Report Signatures
== END 2025-05-06 14:50 | disposition home or self-care (01) ==
LOC: ANHED 13:29 → ANHIMU 16:08
PROVIDERS: Nurse Practitioner Gerontology; Admitting Provider Family Medicine; Emergency Provider Emergency Medicine; PCP Family Medicine; Visit Provider General Practice
DX: R07.9 Chest pain, unspecified (principal); I10 Essential (primary) hypertension; E78.5 Hyperlipidemia, unspecified; G89.29 Other chronic pain; K51.90 Ulcerative colitis, unspecified, without complications; Z79.82 Long term (current) use of aspirin; Z79.899 Other long term (current) drug therapy; Z87.891 Personal history of nicotine dependence; Z85.818 Personal history of malignant neoplasm of other sites of lip, oral cavity, and pharynx; Z85.828 Personal history of other malignant neoplasm of skin
CPT/HCPCS: 36415; 71046; 80048; 80053; 80061; 83690; 84484; 85025; 85610; 85730; 93005; 93017; 93306; 96374; 96375; 99285; A9270; G0378

== ENCOUNTER 2025-06-09 00:55 | Day surgery (SDC) | payer OTHER, SELFPAY ==
[2025-06-08 14:53] VITALS: BMI 26.1
[2025-06-09] VITALS (13 sets, daily range): BP systolic 101–124; BP diastolic 65–84; PULSE 58–79; RESP 14–17; TEMP 36.8; O2SAT 96–100; BMI 25.9
--- OUTSIDE RECORDS SUMMARY | 2025-06-09 00:58 | XMS_ITS | Referral Summary ---
Author Organization [facility] Main [facility] s Address [address] [place] [address] Care Team Providers Care Superintendent Container Terminal Name Role Phone Sergio Schrader MD Unavailable [phone] Satinder Romano MD Unavailable Deshawn Mandujano MD Unavailable Cesar Allan MD Primary Care Provider Encounters Date Type Department Care Team Description 05/25/2025 11:00 AM CDT Office Visit [facility] Department of Otolaryngology Head-Neck Division [address] [place] [address] Deshawn Mandujano MD Cancer of tonsil, palatine (HCC) (Primary Dx) 05/18/2025 Telephone [facility] Cardiology [address] [place] [address] Yariel Toscano MD 04/05/2025 12:58 PM CDT - 04/05/2025 11:59 PM CDT Hospital Encounter [facility] [address] [place], [place] [id number] Left shoulder pain, unspecified chronicity Discharge Disposition: Discharge to home or self care 04/05/2025 12:45 PM CDT Office Visit [facility] Orthopaedic Surgery [address] [place] [address] John Paul Roldan MD Left shoulder pain, unspecified chronicity (Primary Dx); Complete tear of left rotator cuff, unspecified whether traumatic 04/01/2025 5:12 PM CDT - 04/01/2025 11:59 PM CDT Hospital Encounter [facility] ([facility]) [address] [place] [address] Discharge Disposition: Discharge to home or self care 04/01/2025 5:11 PM CDT - 04/01/2025 11:59 PM CDT Hospital Encounter [facility] ([facility]) [address] [place] [address] Discharge Disposition: Discharge to home or self care from Last 3 Months Allergies Active Allergy Reactions Criticality Noted Date Comments Midazolam Other (See comments) Low Reaction: Violent Behavior, Morphine Unknown 12/10/2023 Medications oxyCODONE (ROXICODONE) 5 mg immediate release tabletIndication s:Pain Take 1 tablet (5 mg total) by mouth every 4 (four) hours as needed for pain 16 tablet 4 Active ascorbic acid (vitamin C) 1,000 mg tablet Administer per tube 1 tablet (1,000 mg total) every morning 4 Active aspirin 81 mg chewable tabletIndication s:prevention of thrombosis Administer per tube 1 tablet (81 mg total) every morning 4 Active folic acid 20 mg capsule Administer per tube 1 tablet every morning 4 Active potassium gluconate 595 mg (99 mg) tabletIndication s:hypokalemia prevention Administer per tube 1 tablet (595 [...] dysfunction 4 Active traZODone (DESYREL) 100 mg tabletIndication s:insomnia associated with depression Administer per tube 1 tablet (100 mg total) nightly 4 Active acetaminophen 500 mg capsule Administer per tube 1 capsule (500 mg total) as needed (pain) 4 Active cyclobenzaprine (FLEXERIL) 10 mg tablet Administer per tube 1 tablet (10 mg total) 3 (three) times a day as needed for muscle spasms 4 Active nebivoloL (BYSTOLIC) 10 mg tabletIndication s:hypertension Administer per tube 1 tablet (10 mg [...] capsule Take by mouth daily 4 Active HYDROcodone-acet aminophen (NORCO) 10-325 mg per tablet Take 1 tablet by mouth as needed 5 Active atorvastatin (LIPITOR) 40 mg tablet Take 1 tablet (40 mg total) by mouth daily 5 Active isosorbide mononitrate ER (IMDUR) 30 mg 24 hr tablet Take 1 tablet (30 mg total) by mouth daily 5 Active nitroglycerin (NITROSTAT) 0.4 mg SL tablet Take 1 tablet (0.4 mg total) by mouth every 5 (five) minutes as needed 5 Active Active Problems Problem [...] on file 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7 02/09/2025 9:42 AM CDT Plan of Treatment Not on file Procedures Procedure Name Priority Date/Time Associated Diagnosis Comments XR SHOULDER LEFT 2 OR MORE VIEWS Schedule Routine, Read Routine (OP Routine) 04/05/2025 1:04 PM CDT Left shoulder pain, unspecified chronicity K MR OUTSIDE REFERENCE Routine 04/01/2025 5:12 PM CDT K MR OUTSIDE REFERENCE Routine 04/01/2025 5:11 PM [...] Ben Torres D.O. John Paul Roldan MD IMG XR PROCEDURES Final Re sult * MSK MR Outside Reference (04/01/2025 5:12 PM CDT) Impressions [facility] - 04/01/2025 5:12 PM CDT These images are for Reference purposes only and have not been reviewed by [facility] Radiology. There will be no report generated by a [facility] Radiologist. Narrative [facility] - 04/01/2025 5:12 PM CDT EXAMINATION: Images For Reference Purposes Only John Paul Roldan MD IMG MRI PROCEDURES Final R esult Performing Organization Address [facility] Co de Phone Number [facility] * MSK MR Outside Reference (04/01/2025 5:11 PM CDT) Impressions [facility] - 04/01/2025 5:11 PM CDT These images are for Reference purposes only and have not been reviewed by [facility] Radiology. There will be no report generated by a [facility] Radiologist. Narrative [facility] - 04/01/2025 5:11 PM CDT EXAMINATION: Images For Reference Purposes Only John Paul Roldan MD IMG MRI PROCEDURES Final R esult Performing Organization Address [facility] Co de Phone Number [facility] from Last 3 Months Insurance [employer] PPO Member Subscriber Plan / Payer (Ef fective 2024-Present) Name:Miguel Kwok Relation to Subscriber:Self Name:Miguel Kwok Payer ID:[id number] (NAIC) Type:MEDICARE RISK OTHER Address: [address] [id number] [employer] PPO Member Subscriber Plan / Payer (Ef fective 2024-Present) Name:Miguel Kwok Relation to Subscriber:Self Name:Miguel Kwok Payer ID:[id number] (NAIC) Type:MEDICARE RISK OTHER Address: [place] [address] [id number] Advance Directives For more information, please contact: [phone] * Full Code (Latest Code Status on File) Date Activated Date Inactivated Comments 12/30/2023 2:42 PM 01/01/2024 10:34 PM Care Teams Superintendent Container Terminal Relationship Specialty Start Date End Date Cesar Allan MD [address] [place] [id number] PCP - General Family Medicine 04/02/24 Sergio Schrader MD [address] [facility] DIV MEDICAL ONCOLOGY, [facility] [address] [place] [address] Medical Oncologist/Engineering Professor Medical Oncology 12/12/23 Satinder Romano MD [address] [facility] MEDICAL ONCOLOGY, [facility] [address] [place] [address] Radiation Oncologist Radiation Oncology 12/12/23 Deshawn Mandujano MD [address] [facility] DEPT OTOLARYNGOLOGY, [address] [address] Consulting Physician Otolaryngology 12/12/23
--- OUTSIDE RECORDS SUMMARY | 2025-06-09 00:58 | XMS_ITS ---
Author Organization [facility] Main [facility] s Address [address] [place] [address] Care Team Providers Care Ship Rigger Apprentice Name Role Phone Sergio Schrader MD Unavailable [phone] Satinder Romano MD Unavailable Deshawn Mandujano MD Unavailable Cesar Allan MD Primary Care Provider [phone] Active Problems Problem Noted Date Diagnosed Date [...]
--- OUTSIDE RECORDS SUMMARY | 2025-06-09 00:59 | XMS_ITS | Encounter Summary ---
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 Gender Identity Not on file Sexual Orientation [...] on filedocumented in this encounter Care Teams Barber Apprentice Relationship Specialty Start Date End Date Cate Loving, REGISTRY NURSE PCP - General Family Medicine 12/05/23 04/01/24 Cesar Allan MD [address] [place] [address] [phone] PCP - General Family Medicine 04/02/24 Sergio Schrader MD [address] [facility] [address] MEDICAL ONCOLOGY, [facility] [address] [place] [address] Medical Oncologist/Cattle Trader Medical Oncology 12/12/23 Satinder Romano MD [address] [facility] DIV MEDICAL ONCOLOGY, [facility] [address] [place] [address] Radiation Oncologist Radiation Oncology 12/12/23 Deshawn Mandujano MD [address] [facility] DEPT OTOLARYNGOLOGY, [address] [address] Consulting Physician Otolaryngology 12/12/23 documented as of this encounter
--- OUTSIDE RECORDS SUMMARY | 2025-06-09 00:59 | XMS_ITS | Clinical Summary ---
Author Organization [facility] Address [address] [place] [address] Care Team Providers Care Linter Operator Name Role Phone Sergio Schrader MD Unavailable [phone] Satinder Romano MD Unavailable Deshawn Mandujano MD Unavailable [phone] Cesar Allan MD Primary Care Provider [phone] Allergies Active Allergy Reactions Criticality Noted Date [...] Description 05/25/2025 11:00 AM CDT Office Visit [facility] Department of Otolaryngology Head-Neck Division [address] [facility] Floor [address] [place] [address] Deshawn Mandujano MD Cancer of tonsil, palatine (HCC) (Primary Dx) 05/18/2025 Telephone [facility] Cardiology [address] [place] [address] Yariel Toscano MD 04/05/2025 12:58 PM CDT - 04/05/2025 11:59 PM CDT Hospital Encounter [facility]iology [facility] [address] [place] [address] Left shoulder pain, unspecified chronicity Discharge Disposition: Discharge to home or self care 04/05/2025 12:45 PM CDT Office Visit [facility] Orthopaedic Surgery [address] [facility] 2nd Floor [address] [place] [address] John Paul Roldan MD Left shoulder pain, unspecified chronicity (Primary Dx); Complete tear of left rotator cuff, unspecified whether traumatic 04/01/2025 5:12 PM CDT - 04/01/2025 11:59 PM CDT Hospital Encounter [facility] [address] [place] [address] Discharge Disposition: Discharge to home or self care 04/01/2025 5:11 PM CDT - 04/01/2025 11:59 PM CDT Hospital Encounter [facility] [address] [place] [address] Discharge Disposition: Discharge to home or self care from Last 3 Months Immunizations Immunization Administration Dates Next Due Influenza, Quadrivalent, Xuan l Culture-based MDCK, Preservative Free, Antibiotic Free, Intramuscular 09/24/2022 Influenza, Quadrivalent, Spl it, Intramuscular 09/23/2019 Influenza, Quadrivalent, Spl it, Preservative Free, Intramuscular 01/01/2024,08/09/2020,08/24/2018 Influenza, Trivalent, IM (MDV) 08/09/2021 Tdap 08/17/2023 ZOSTER Recombinant 08/28/2020,06/30/2020 Surgical History Surgery Date Site/Laterality Comments [place] APPENDECTOMY Appendectomy - (Added by TW Conv) [place] ARTHRP KNE CONDYLE&PLATU MEDIAL&LAT COMPARTMENTS Total Knee [...] on file 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 Gender Identity Not on file Sexual Orientation Not on file Obstetrics History Last Filed Vital Signs Vital Sign Reading Time Taken Comments Blood Pressure 144/77 01/01/2024 3:41 PM RESEARCH QUALITY ASSURANCE SPECIALIST Pulse 83 01/01/2024 3:41 PM RESEARCH QUALITY ASSURANCE SPECIALIST Temperature 36.6 C (97.9 F) 01/01/2024 3:41 PM RESEARCH QUALITY ASSURANCE SPECIALIST Respiratory Rate 17 01/01/2024 3:41 PM RESEARCH QUALITY ASSURANCE SPECIALIST Oxygen Saturation 99% 01/01/2024 3:41 PM RESEARCH QUALITY ASSURANCE SPECIALIST Inhaled Oxygen Concentration - - Weight 92 [...] Fall Risk Assessment 01/01/2025 01/01/2024 Influenza Vaccine (#1) 2025 , 09/24/2022, 08/09/2021, Additional history exists DTaP/Tdap/Td Vaccine [...] Outside Reference (04/01/2025 5:12 PM CDT) Impressions [facility] - 04/01/2025 5:12 PM CDT These images are for Reference purposes only and have not been reviewed by [facility] Radiology. There will be no report generated by a [facility] Radiologist. Narrative [facility] - 04/01/2025 5:12 PM CDT EXAMINATION: Images For Reference Purposes Only John Paul Roldan MD IMG MRI PROCEDURES Final R esult Performing Organization Address [facility] Co de Phone Number [facility] * MSK MR Outside Reference (04/01/2025 5:11 PM CDT) Impressions [facility] - 04/01/2025 5:11 PM CDT These images are for Reference purposes only and have not been reviewed by [facility] Radiology. There will be no report generated by a [facility] Radiologist. Narrative [facility] - 04/01/2025 5:11 PM CDT EXAMINATION: Images For Reference Purposes Only John Paul Roldan MD IMG MRI PROCEDURES Final R esult Performing Organization Address [facility] Co de Phone Number [facility] from Last 3 Months Insurance [employer] PPO [employer] P[employer] Advance Directives For more information, please contact: [phone] * Full Code (Latest Code Status on File) Date Activated Date Inactivated Comments 12/30/2023 2:42 PM 01/01/2024 10:34 PM Care Teams Linter Operator Relationship Specialty Start Date End Date Cesar Allan MD [address] [place] [address] PCP - General Family Medicine 04/02/24 Sergio Schrader MD [address] MEDICAL ONCOLOGY, [facility] [address] [place] [address] Medical Oncologist/Waste Baler Medical Oncology 12/12/23 Satinder Romano MD [address] DIV MEDICAL ONCOLOGY, [facility] [address] [place] [address] Radiation Oncologist Radiation Oncology 12/12/23 Deshawn Mandujano MD [address] [facility] DEPT OTOLARYNGOLOGY, [facility] [address] [place] [address] Consulting Physician Otolaryngology 12/12/23
--- OUTSIDE RECORDS SUMMARY | 2025-06-09 00:59 | XMS_ITS | Clinical Summary ---
Author Organization [facility] Address [address] [place] [address] Care Team Providers Care Account Analyst Name Role Phone Cesar Allan MD Primary Care Provider [phone] Allergies No known active allergies Medications nebivolol (BYSTOLIC) 10 MG tablet 07/23/2023 Active tadalafil (CIALIS) 20 MG tablet 07/06/2023 Active traZODone (DESYREL) 100 MG tablet 07/23/2023 Active sulfaSALAzine (AZULFIDINE) 500 MG tablet 08/12/2023 Active cyclobenzaprine (FLEXERIL) 10 MG tablet Take 1 tablet (10 mg total) by mouth 3 (three) times daily. 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 Gender Identity Not on file Sexual Orientation [...] 4:28 PM CDT Height 188 cm (6' 2) 08/17/2023 4:28 PM CDT Body Mass Index 25.68 08/17/2023 4:28 PM CDT Plan of Treatment Health Maintenance Due Date Last Done Comments Colorectal Cancer Screening Colonoscopy (10 Years) 1959 Hepatitis C 1977 Pneumococcal Vaccine: 50+ Years (1 of 1 - PCV) 2009 COVID-19 Vaccine ( - season) 2024 09/24/2022, 04/12/2022, 09/14/2021, Additional history exists DTaP, Tdap and Td [...] patient's age to complete this topic Insurance [facility] [address] Care Teams Account Analyst Relationship Specialty Start Date End Date Cesar Allan MD [address] [facility] [address] [address] [place] [address] PCP - General FAMILY PRACTICE 08/17/23
--- OUTSIDE RECORDS SUMMARY | 2025-06-09 00:59 | XMS_ITS | Clinical Summary ---
Author Organization [facility] Address [address] [place] [address] Care Team Providers Care Cnc Programmer Name Role Phone Cesar Allan MD Primary Care Provider [phone]- [phone] Source Comments [facility],non-owned Affiliates and Associated Physician Practices is amultiple site organization consisting of ambulatory clinics and hospital sitesin [place], [place], [place] and [place]. This disclosure is being madepursuant to the Care Everywhere program and may not contain all information available regarding this patient. Last updated 18.[facility] Allergies Active Allergy Reactions Criticality Noted Date [...] on file Legal Sex Male 6:02 PM BUSINESS PARTNER Gender Identity Not on file Sexual Orientation Not on file Last Filed Vital Signs Vital Sign Reading Time Taken Comments Blood Pressure 130/80 02/05/2016 2:14 PM BUSINESS PARTNER Pulse 77 02/05/2016 2:14 PM BUSINESS PARTNER Temperature 36.2 C (97.2 F) 02/05/2016 2:14 PM BUSINESS PARTNER Respiratory Rate 18 02/05/2016 2:14 PM BUSINESS PARTNER Oxygen Saturation - - Inhaled Oxygen Concentration - - Weight 101.2 kg (223 lb) 02/05/2016 2:14 PM BUSINESS PARTNER Height 187.3 cm (6' 1.75) 01/04/2016 9:42 AM CS T Body Mass Index 28.83 01/04/2016 9:42 AM BUSINESS PARTNER Plan of Treatment Health Maintenance Due Date Last Done Comments COLOGUARD (AGES 45-75) - COL ON CA SCREENING 1959 COLON MONITORING 1959 COLONOSCOPY - COLON CA SCREENING 1959 CT COLONOGRAPHY - COLON CA SCREENING 1959 Colorectal Cancer Screening 1959 FIT - COLON CA SCREENING 1959 FLEX SIG - COLON CA SCREENING 1959 LIPID TESTING 1959 DTAP/TDAP/TD VACCINES (1 - Tdap) 1978 PNEUMOCOCCAL [...] C ANTIBODY Routine 01/22/2016 8:15 AM BUSINESS PARTNER from Last 3 Months or Most Recently Relevant to Health Maintenance Results * HEPATITIS C ANTIBODY (01/22/2016 8:15 AM BUSINESS PARTNER) Hepatitis C Virus Antibody <0.1 0.0 - 0.9 s/co ratio [facility] ([facility]) Comment: Negative: < 0.8 Indeterminate: 0.8 - 0.9 Positive: > 0.9 The CDC recommends that a positive HCV antibody result be followed up with a HCV Nucleic Acid Amplification test (142146). Blood specimen (specimen) BLOOD SPECIMEN / Unknown 01/22/2016 8:15 AM BUSINESS PARTNER 01/22/2016 12:45 PM BUSINESS PARTNER Narrative [facility] ([facility]) - 01/25/2016 1:18 PM BUSINESS PARTNER Performed at: 02 - [facility] [address] [place], [place] [id number] Dental Hygienist: Tomasz Garland PhD, Phone: [phone] us John Seaman MD LAB - CHEMISTRY ORDERABLES Edite d Result - Final Performing Organization Address City/State/[facility] Co de Phone Number [facility] ([facility]) [address] [place] [address], [facility] from Last 3 Months or Most Recently Relevant to Health Maintenance Insurance Member Subscriber Plan / Payer (Ef fective for All Dates) Name:Josefina Fregoso Member ID:Not on file Relation to Subscriber:Not on file Name:JOSEFINA FREGOSO Subscriber ID:Not on file Address: [address] [address] Payer ID:Not on file Group ID:Not on file Type:Self Pay Address: [facility] Care Teams Cnc Programmer Relationship Specialty Start Date End Date Cesar Allan MD [address] [place] [phone] PCP - General 02/05/16
[2025-06-09 09:04] LABS: Hematocrit 50.2 % (42.0-52.0); Hemoglobin 16.7 g/dL (14.0-18.0); Immature Granulocyte Percent A 0.3 % (0-0.5); Lymphocytes Absolute Auto 1.34 K/mm3 (0.9-3.2); Mean Corpuscular HGB Conc 33.3 g/dl (32-36); Mean Corpuscular Hemoglobin 31.0 pg (26-34); Mean Corpuscular Volume 93.3 fl (80-100); Nucleated Red Blood Cells Absolute Auto 0.000 K/mm3 (0.0-0.012); Nucleated Red Blood Cells Perc 0.0 % (0.0-0.2); Platelet Count Result 242 k/mm3 (150-375); Red Blood Count 5.38 M/mm3 (4.6-6.20); White Blood Count 6.6 K/mm3 (4.5-10.0)
[2025-06-09 09:15] LABS: Anion Gap 9 mmol/L (4-12); Blood Urea Nitrogen 17 mg/dL (9-20); Calcium 9.9 mg/dL (8.4-10.2); Carbon Dioxide 25 mmol/L (22-30); Chloride 106 mmol/L (98-107); Estimated CRCL calculation 78 ml/min; Estimated Glomerular Filt Rate > 60; Glucose 100 mg/dL (65-110); Potassium 4.2 mmol/L (3.4-5.0); Sodium 140 mmol/L (137-145)
--- NOTE | 2025-06-09 09:20 | WPDHPUPDATE1 ---
History and Physical Update Update Date/Time: 06/09/25 09:20 History and Physical has been reviewed, including an updated exam of the patient. There are NO changes in the patient's condition. Risks, benefits, and alternatives have been discussed and questions answered. Patient agrees to proceed with procedure.
--- NOTE | 2025-06-09 09:20 | WPDMODSED ---
Moderate Sedation Note-Pt Data Patient Data Allergies Allergy/AdvReac Type Severity Reaction Status Date / Time cephalexin Allergy Mild Vomiting Verified 06/09/25 08:49 MARTINEZ Inhibitors Allergy Unknown cough Verified 06/09/25 08:49 midazolam Allergy Unknown COMBATIVE Verified 06/09/25 08:49 morphine Allergy Unknown Nausea and Verified 06/09/25 08:49 Vomiting MODERATE SEDATION Allergy Severe COMBATIVE, Uncoded 06/09/25 08:49 MEDICATIONS-?EGD FIGHTING STAFF, BIT EGD INSTRUMENTS Home Medications ?Medication ?Instructions ?Recorded ?Confirmed ?Type hydrocodone 10 mg-acetaminophen 0.5 tablet PO Q6H PRN pain #30 tabs 12/15/24 06/08/25 Rx 325 mg tablet ascorbic acid (vitamin C) 1,000 mg 1 g PO DAILY 01/21/25 06/08/25 History tablet (C-1000) aspirin 81 mg tablet,delayed 81 mg PO DAILY 01/21/25 06/08/25 History release (Adult Low Dose Aspirin) potassium 99 mg tablet 99 mg PO DAILY 01/21/25 06/08/25 History pyridoxine (vitamin B6) 500 mg 500 mg PO DAILY 01/21/25 06/08/25 History tablet nebivolol 10 mg tablet 10 mg PO HS #90 tabs 02/01/25 06/08/25 Rx sulfasalazine 500 mg tablet See Rx Instructions .Route 02/01/25 06/08/25 Rx .COMPLEX #270 tabs ondansetron 4 mg disintegrating 4 mg PO Q6H PRN nausea and 02/13/25 06/08/25 Rx tablet vomiting #20 tabs chlorhexidine gluconate 0.12 % 1 applic mucous membrane Q6H PRN 02/17/25 06/08/25 History mouthwash mouth pain esomeprazole magnesium 40 mg 40 mg PO DAILY #90 caps 04/29/25 06/08/25 Rx capsule,delayed release (Nexium) trazodone 100 mg tablet See Rx Instructions .Route 04/29/25 06/08/25 Rx .COMPLEX #90 tabs cyclobenzaprine 10 mg tablet 10 mg PO TID PRN muscle spasm 05/05/25 06/08/25 History fluorouracil 5 % topical cream 1 applic topical BID PRN basal cell 05/05/25 06/08/25 History (Efudex) tadalafil 20 mg tablet 20 mg PO DAILY PRN sexual activity 05/05/25 06/08/25 History nitroglycerin 0.4 mg sublingual 0.4 mg sublingual Q5MIN PRN Chest 05/06/25 06/08/25 Rx tablet (Nitrostat) Pain #30 tabs atorvastatin 40 mg tablet 40 mg PO DAILY #30 tabs 06/06/25 06/08/25 Rx isosorbide mononitrate 30 mg 30 mg PO QAM #30 tabs 06/06/25 06/08/25 Rx tablet,extended release 24 hr Current Medications: Active Medications Sodium Chloride (Normal Saline Iv) 500 mls @ 100 mls/hr IV CONT .Q5H ARCHIE Sedation/Anesthesia: No previous sedation/anesthesia problems (including family history). [facility] Past Medical History Medical History Primary tonsillar squamous cell carcinoma Granuloma annulare Dehydration Surgical History Surgical History History of carpal tunnel surgery of right wrist History of neck dissection Family History Family History Mother Seizure Father Head and neck cancer Social History Social History Smoking packs per day: 2 Smoking cigarettes per day: 40.0 Years smoked: 15 Smoking pack-years: 30.00 Smoking status: Former smoker Tobacco type: cigarettes Second hand tobacco smoke exposure: Yes Smoking end date: 12/01/88 Alcohol intake: never Substance use: current Substance use type: marijuana Other substance usage details: SMOKES 4-5 X DAY Last use: 01/21/25 Do You Feel Safe in your Home?: Yes Lack of Transportation: No Lack of Food: Never True Current Housing: I Have Housing Concerned About Future Housing: No Difficulty Paying Gas/Electric Bills: No Difficulty Paying for Meds: No Currently Unemployed: No Education: High School Diploma/GED Difficulty w/ Childcare or Family Care: No Living arrangements: with family Spiritual care concerns: No Mod Sed Physical Exam Physical Exam Pre Procedural Exam: Normal: Lungs, Heart Size, Heart Rate and Heart Rhythm Hours since solid foods: 12 Hours since liquid intake: 12 Mallampati Classification: class II Internal Medicine - PN: Obj Da Vital Signs Vital Signs: Vital Signs - 24 hr 06/09/25 08:51 Temperature 36.8 C Pulse Rate 79 Respiratory Rate 16 Blood Pressure 124/84 Pulse Oximetry 97 Oxygen Delivery Room Air Meds/Results Medications: Active Medications Generic Name Dose Route Start Last Admin Trade Name Freq PRN Reason Stop Dose Admin Sodium Chloride 500 mls @ 100 mls/hr 06/09/25 08:30 Normal Saline Iv IV CONT .Q5H ARCHIE Labs 06/09/25 08:57 06/09/25 08:57 Labs: Laboratory Results - last 24 hr 06/09/25 08:57 WBC 6.6 RBC 5.38 Hgb 16.7 Hct 50.2 MCV 93.3 MCH 31.0 MCHC 33.3 RDW 12.4 Plt Count 242 MPV 8.7 Immature Gran % (Auto) 0.3 Neut % (Auto) 71.2 Lymph % (Auto) 20.5 Mcnairy % (Auto) 6.9 Eos % (Auto) 0.6 Baso % (Auto) 0.5 Lymph # (Auto) 1.34 Mcnairy # (Auto) 0.5 Eos # (Auto) 0.0 Baso # (Auto) 0.0 Abs Immat Gran (auto) 0.02 Absolute Neuts (auto) 4.7 Absolute Nucleated RBC 0.000 Nucleated RBC % 0.0 Sodium 140 Potassium 4.2 Chloride 106 Carbon Dioxide 25 Anion Gap 9 BUN 17 Creatinine 0.95 Estim Creat Clear Calc 78 Estimated GFR > 60 Glucose 100 Calcium 9.9 ASA Classification/Sedation ASA Classification/Sedation ASA Class: III Emergent: No Risks: Risks, benefits and alternatives explained and patient/family accepted plan for sedation. Patient re-evaluated immediately prior to sedation.
--- NOTE | 2025-06-09 10:34 | P.PCNCC_ITS ---
Cardiac Cath Procedure Note Date of procedure:: 06/09/25 Performing physician:: CATHETERIZATION LABORATORY REPORT Procedure Date: 06/09/2025 Referring Physician: Dr. Lynch Anesthesia: Fentanyl were ordered and given in my presence at 1001, procedure ended at 1020. Supervision of nurse, Vandana Cottrell monitored moderate sedation with 200mcg Fentanyl was provided for 19 minutes. Pre-op Diagnosis: Abnormal stress test Post-op Diagnosis: Multivessel obstructive coronary artery disease Procedure(s): Left heart catheterization with coronary angiography Access Site: Right radial artery Brief History and Clinical Indications: 65-year-old man with hypertension hyperlipidemia with complaints of angina found to have abnormal treadmill exercise stress test is here to define his coronary anatomy with possible PCI. All risks, benefits and alternatives to left heart catheterization with or without percutaneous coronary intervention was discussed at length with the patient. Risk of complications including but not limited to bleeding, infection, arrhythmia, stroke, worsening kidney function, blood loss, groin hematoma, limb loss, emergency coronary artery bypass grafting, and even were discussed with the patient and all questions were answered. The patient understood and wished to proceed. Time out called, patient name, date of , medical record number, allergies, procedure performed, identify Electric Meter Tester Helper, patient and staff member concurred with accurate data, procedure carried on. Findings: LEFT HEART CATHETERIZATION FINDINGS: 1. Left main: The left main coronary artery has 10% ostial disease.. 2. Left anterior descending: The LAD provides 1 moderate size diagonal branch. The mid LAD has a moderately calcified 95-99% stenosis. The diagonal branch has a focal 50% stenosis. The remainder of the LAD has luminal irregularities. 3. Left circumflex: The left circumflex artery provides 5 OM branches. The left circumflex between the OM2 and OM4 branches has a long area of 90-95% stenosis. The remainder of the left circumflex has luminal irregularities. The OM branc hes have luminal irregularities. 4. Right coronary artery: The RCA is a large dominant vessel. The proximal to mid RCA has a long area of 90-95% stenosis. The remainder of the RCA provides the right PDA and right posterolateral branches and have luminal irregularities. 5. Left ventricle: A. End-diastolic pressure 29 mmHg. B. LV gram deferred. C. No significant gradient across aortic valve on catheter pullback. 6. Opening AO pressure 133/89 and closing AO pressure 130/79 Description of Procedure: Informed consent signed and placed in the chart. Patient transferred to equipment operator/laborer/supervisor room. Prepped and draped in usual sterile fashion. 2% lidocaine injected subcutaneously in right wrist area. 22-gauge venipuncture catheter used to access the right radial artery with the Seldinger technique. 6-FR slender sheath placed in right radial artery. Nitroglycerin 200mcg, Verapamil 2.5mg, and Heparin 5000U was given intraarterial through the sheath. J wire advanced under fluoroscopy 5F TIG diagnostic catheter engaged Left Main Coronary Artery; however it kept disengaging with each injection and was thus switched out for a JL3.5 diagnostic catheter. 5F JR4 diagnostic catheter engaged Right Coronary Artery Multiple orthogonal angiogram obtained and reviewed The 5F JR4 diagnostic catheter crossed aortic valve to obtain LVEDP, LV angiogram deferred. Hemostasis was achieved by application of TR band. Assessment: Triple-vessel obstructive coronary artery disease Post Operative Condition: Stable No significant blood loss Disposition: Home Plan: The patient will be monitored in the recovery area. The patient has triple-vessel obstructive coronary artery disease with excellent distal targets for surgical revascularization. Continue medical therapy and aggressive risk factor modification along with surgical referral for CABG. Yariel Toscano Interventional Cardiology
[2025-06-09] MEDS: SODIUM CHLORIDE 0.9% IV 500 ML 100 ML IV CONT (11:20)
--- NOTE | 2025-06-14 10:18 | PC.NURSE ---
patient stated he noticed some bruising at his wrist, I instructed patient to call Dr. Lynch to let him know about it. Patient stated he will keep an eye on it and call Dr. Lynch if it gets worse
== END 2025-06-09 13:30 | disposition home or self-care (01) ==
PROVIDERS: PCP Family Medicine; Visit Provider Internal Medicine
PROC: 4A023N7 Measurement of Cardiac Sampling and Pressure, Left Heart, Percutaneous Approach (ICD-10-PCS; CPT 93452; principal; 2025-06-09 10:00)
DX: I25.10 Atherosclerotic heart disease of native coronary artery without angina pectoris (principal); I10 Essential (primary) hypertension; E78.5 Hyperlipidemia, unspecified; L92.0 Granuloma annulare; F12.90 Cannabis use, unspecified, uncomplicated; Z79.891 Long term (current) use of opiate analgesic; Z79.82 Long term (current) use of aspirin; Z98.890 Other specified postprocedural states; Z98.1 Arthrodesis status; Z87.891 Personal history of nicotine dependence; Z85.818 Personal history of malignant neoplasm of other sites of lip, oral cavity, and pharynx; Z80.8 Family history of malignant neoplasm of other organs or systems
CPT/HCPCS: 36415; 80048; 85025; 93458; C1769; C1887; C1894; J1644; J2003; J2305; J2405; J3010; J7040

== ENCOUNTER 2025-07-15 11:17 | Outpatient (CLI) | payer OTHER, SELFPAY ==
--- OUTSIDE RECORDS SUMMARY | 2025-07-15 11:21 | XMS_ITS | Clinical Summary ---
Author Organization [facility] Address [address] [place] [address] Care Team Providers Care Power Regulator Name Role Phone Cesar Allan MD Primary Care Provider +1- [phone] Source Comments [facility],non-owned Affiliates and Associated Physician Practices is amultiple site organization consisting of ambulatory clinics and hospital sitesin [place], [place], [place] and [place]. This disclosure is being madepursuant to the Care Everywhere program and may not contain all information available regarding this patient. 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 Gender Identity Not on file Sexual Orientation Not on file Last Filed Vital Signs Vital Sign Reading Time Taken Comments Blood Pressure 130/80 02/05/2016 2:14 PM TOOL TENDER Pulse 77 02/05/2016 2:14 PM TOOL TENDER Temperature 36.2 C (97.2 F) 02/05/2016 2:14 PM TOOL TENDER Respiratory Rate 18 02/05/2016 2:14 PM TOOL TENDER Oxygen Saturation - - Inhaled Oxygen Concentration - - Weight 101.2 kg (223 lb) 02/05/2016 2:14 PM TOOL TENDER Height 187.3 cm (6' 1.75) 01/04/2016 9:42 AM CS T Body Mass Index 28.83 01/04/2016 9:42 AM TOOL TENDER Plan of Treatment Health Maintenance Due Date [...] season) 2024 DEPRESSION SCREENING 12/01/2024 INFLUENZA VACCINE (#1) 2025 Respiratory Syncytial Virus (RSV) Vaccine Pt: [...] HEPATITIS C ANTIBODY Routine 01/22/2016 8:15 AM TOOL TENDER from Last 3 Months or Most Recently Relevant to Health Maintenance Results * HEPATITIS C ANTIBODY (01/22/2016 8:15 AM TOOL TENDER) Hepatitis C Virus Antibody <0.1 0.0 - 0.9 s/co ratio [facility] ([facility]) Comment: Negative: < 0.8 Indeterminate: 0.8 - 0.9 Positive: > 0.9 The CDC recommends that a positive HCV antibody result be followed up with a HCV Nucleic Acid Amplification test (937905). Blood specimen (specimen) BLOOD SPECIMEN / Unknown 01/22/2016 8:15 AM TOOL TENDER 01/22/2016 12:45 PM TOOL TENDER Narrative [facility] ([facility]) - 01/25/2016 1:18 PM TOOL TENDER Performed at: 02 - [facility] [address] [place], [place] [id number] Demo Specialist: Tomasz Garland PhD, Phone: [phone] us John Seaman MD LAB - CHEMISTRY ORDERABLES Edite d Result - Final Performing Organization Address City/State/[facility] Co de Phone Number [facility] ([facility]) [address] [place] [address], [facility] from Last 3 Months or Most Recently Relevant to Health Maintenance Insurance Member Subscriber Plan / Payer (Ef fective for All Dates) Name:Josefina Fregoso Member ID:Not on file Relation to Subscriber:Not on file Name:JOSEFINA FREGOSO Subscriber ID:Not on file Address: [address] [address] Payer ID:Not on file Group ID:Not on file Type:Self Pay Address: [facility] Care Teams Power Regulator Relationship Specialty Start Date End Date Cesar Allan MD [address] [place] [phone] PCP - General 02/05/16
--- OUTSIDE RECORDS SUMMARY | 2025-07-15 11:21 | XMS_ITS | Encounter Summary ---
Author Organization [facility] Address [address] [place] [address] Phone Care Team Providers Care Machinist/Machine Builder Name Role Phone Cate Loving NP Primary Care Provider [phone] Sergio Schrader MD Unavailable [phone] Satinder Romano MD Unavailable [phone] Deshawn Mandujano MD Unavailable [phone] Cesar Allan MD Primary Care Provider [phone] Ji Fuentes MD Unavailable [phone] Bruce Mariscal MD Unavailable [phone] Encounter Details Date Type Department Care Team [...] on file 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 Gender Identity Not on file Sexual Orientation [...] on filedocumented in this encounter Care Teams Machinist/Machine Builder Relationship Specialty Start Date End Date Cate Loving NP PCP - General Family Medicine 12/05/23 04/01/24 Cesar Allan MD [address] [place] [id number] PCP - General Family Medicine 04/02/24 Sergio Schrader MD [address] [facility] MEDICAL ONCOLOGY, [facility] [address] [place] [address] Medical Oncologist/Hematologis t Medical Oncology 12/12/23 Satinder Romano MD [address] [facility] MEDICAL ONCOLOGY, [facility] [address] [place] [address] Radiation Oncologist Radiation Oncology 12/12/23 Deshawn Mandujano MD [address] [facility] DEPT OTOLARYNGOLOGY, [facility] [address] [place] [address] Consulting Physician Otolaryngology 12/12/23 [place] [address] [place] [address] Surgeon Cardiothoracic Surgery 07/13/25 Bruce Mariscal MD [facility] [address] [address] Consulting Physician Cardiology 07/13/25 documented as of this encounter
--- OUTSIDE RECORDS SUMMARY | 2025-07-15 11:21 | XMS_ITS ---
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
--- OUTSIDE RECORDS SUMMARY | 2025-07-15 11:21 | XMS_ITS | Clinical Summary ---
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
--- OUTSIDE RECORDS SUMMARY | 2025-07-15 11:21 | XMS_ITS | Clinical Summary ---
Author Organization [facility] Address [address] [place] [address] Care Team Providers Care Pantry Cook Name Role Phone Sergio Schrader MD Unavailable [phone] Satinder Romano MD Unavailable [phone] Deshawn Mandujano MD Unavailable Cesar Allan MD Primary Care Provider [phone] Ji Fuentes MD Unavailable [phone] Bruce Mariscal MD Unavailable [phone] Allergies Active Allergy Reactions Criticality Noted Date Comments Midazolam Other (See comments) Low Reaction: Violent Behavior, Morphine Agitation,Nausea & Vomiting Low 12/10/2023 Medications ascorbic acid (vitamin C) 1,000 mg tablet Administer per tube 1 tablet (1,000 mg total) every morning 01/01/20 24 Active aspirin 81 mg chewable tabletIndications :prevention of thrombosis Administer per tube 1 tablet (81 mg total) every morning 01/04/20 24 Active folic acid 20 mg capsule Administer per tube 1 tablet every morning 01/01/20 24 Active psyllium (METAMUCIL) powder Administer per tube 1 packet nightly 01/01/20 24 Active pyridoxine (VITAMIN B-6) 100 mg tablet Administer per tube 1 tablet (100 mg total) every morning 01/01/20 24 Active traZODone (DESYREL) 100 mg tabletIndications :insomnia associated with depression Administer per tube 1 tablet (100 mg total) nightly 01/01/20 24 Active cyclobenzaprine (FLEXERIL) 10 mg tablet Administer per tube 1 tablet (10 mg total) 3 (three) times a day as needed for muscle spasms 01/01/20 24 Active sulfaSALAzine (AZULFIDINE) 500 mg tablet Administer per tube 0.5 tablets (250 mg total) 2 (two) times a day for 14 days 14 tablet 1 01/01/20 24 Active Additional Information Patient taking differently: 500 mggastrostomy tube 2 times daily,Indications: Ulcerative Colitis, Reported on 07/08/[address] (NexIUM) 40 mg capsule Take 1 capsule (40 mg total) by mouth daily before breakfast 04/04/20 24 Active metoprolol tartrate (LOPRESSOR) 25 mg immediate release tablet Take 0.5 tablets (12.5 mg total) by mouth 2 (two) times a day 30 tablet 1 06/28/20 25 025 Active ondansetron ODT (ZOFRAN-ODT) 4 mg disintegrating tablet Take 1 tablet (4 mg total) by mouth every 8 (eight) hours as needed for nausea or vomiting Active oxyCODONE (ROXICODONE) 5 mg immediate release tabletIndications :Pain Take 1 tablet (5 mg total) by mouth every 4 (four) hours as needed for pain 21 tablet 07/13/20 25 Active acetaminophen 500 mg capsuleIndication s:Pain Take 2 capsules (1,000 mg total) by mouth every 6 (six) hours 07/13/20 25 Active amiodarone (PACERONE) 200 mg tablet Take 2 tablets (400 mg total) by mouth 3 (three) times a day for 6 days, THEN 2 tablets (400 mg total) daily. 96 tablet 07/13/20 25 025 Active clopidogreL (PLAVIX) 75 mg tablet Take 1 tablet (75 mg total) by mouth daily 30 tablet 1 07/14/20 25 025 Active gabapentin (NEURONTIN) 100 mg capsule Take 1 capsule (100 mg total) by mouth 3 (three) times a day 90 capsule 1 07/13/20 25 025 Active polyethylene glycol (MIRALAX) 17 gram/dose bulk powderIndications :constipation Take 17 g by mouth daily 07/13/20 Active rosuvastatin (CRESTOR) 10 mg tablet Take 1 tablet (10 mg total) by mouth nightly 30 tablet 1 07/13/20 Active oxyCODONE (ROXICODONE) 5 mg immediate release tabletIndications :Pain Take 1 tablet (5 mg total) by mouth every 4 (four) hours as needed for pain 16 tablet 12/31/19 24 025 Discontin ued(Thera py completed ) potassium gluconate 595 mg (99 mg) tabletIndications :hypokalemia prevention Administer per tube 1 tablet (595 mg total) every morning 01/01/20 24 025 Discontin ued(Stop Taking at Discharge ) tadalafiL (CIALIS) 20 mg tablet Administer per tube 1 tablet (20 mg total) daily as needed for erectile dysfunction 01/01/20 24 025 Discontin ued(Stop Taking at Discharge ) acetaminophen 500 mg capsule Administer per tube 1 capsule (500 mg total) as needed (pain) 01/01/20 24 025 Discontin ued(Stop Taking at Discharge ) nebivoloL (BYSTOLIC) 10 mg tabletIndications :hypertension Administer per tube 1 tablet (10 mg total) nightly 01/01/20 24 025 Discontin ued(Stop Taking at Discharge ) ibuprofen (ADVIL,MOTRIN) 400 mg tablet Administer per tube 1 tablet (400 mg total) every 6 (six) hours 01/01/20 025 Discontin ued(Stop Taking at Discharge ) chlorhexidine (PERIDEX) 0.12 % solution RINSE WITH 1/2 OZ AFTER BREAKFAST AND AT BEDTIME, DO NOT EAT/DRINK FOR 30 MINS AFTER, SPIT OUT 03/29/20 24 025 Discontin ued(Stop Taking at Discharge ) HYDROcodone-aceta minophen (NORCO) 10-325 mg per tablet Take 1 tablet by mouth as needed 12/15/19 025 Discontin ued(Stop Taking at Discharge ) atorvastatin (LIPITOR) 40 mg tablet Take 1 tablet (40 mg total) by mouth every morning 05/06/20 025 Discontin ued(Stop Taking at Discharge ) isosorbide mononitrate ER (IMDUR) 30 mg 24 hr tablet Take 1 tablet (30 mg total) by mouth daily 05/06/20 25 025 Discontin ued(Stop Taking at Discharge ) nitroglycerin (NITROSTAT) 0.4 mg SL tablet Take 1 tablet (0.4 mg total) by mouth every 5 (five) minutes as needed 05/06/20 25 025 Discontin ued(Stop Taking at Discharge ) amoxicillin-clavu lanate (AUGMENTIN) 875-125 mg per tabletIndications :sinus infection Take 1 tablet (875 mg of amoxicillin total) by mouth 2 (two) times a day for 9 doses 9 tablet 06/28/20 025 Active Problems Problem Noted Date Diagnosed Date [...] hypertension 01/04/2016 Ulcerative colitis without complications 016 Resolved Problems Problem Noted Date Diagnosed Date Resolved Date Cancer with unknown primary site 12/10/2023 01/06/2024 Encounters Date Type Department Care Team Description 07/11/2025 Telephone [facility] Cardiology [address] [facility] [address] [place] [phone] Violet Wong NP 07/08/2025 8:00 AM CDT - 07/08/2025 1:30 PM CDT Surgery [facility] Operating Room [id number] [place] [id number] Ji Fuentes MD CORONARY ARTERY BYPASS GRAFT X3 07/08/2025 7:56 AM CDT Anesthesia Event [facility] [address] [place] [id number] Stephen Jorgensen MD Eldin, Ali S., MD 07/08/2025 5:57 AM CDT - 07/13/2025 4:30 PM CDT Hospital Encounter [address] [id number] Ji Fuentes MD 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 (Primary Dx); Coronary artery disease (CAD) excluded Discharge Disposition: Discharge to home, home health skilled care 06/26/2025 4:27 PM CDT - 06/28/2025 1:58 PM CDT Hospital Encounter [address] [address] Jamal Mcdonald MD Burton, Jeffrey Ryan, DO Chest pain, unspecified type (Primary Dx); Coronary artery disease involving nome heart with refractory angina pectoris, unspecified vessel or lesion type Discharge Disposition: Discharge to home or self care 06/15/2025 Orders Only [facility] Health Information Management [address] [place] [id number] Scanning, Provider 05/25/2025 11:00 AM CDT Office Visit [facility] Department of Otolaryngology Head-Neck Division [address] [place] [phone] Deshawn Mandujano MD Cancer of tonsil, palatine (HCC) (Primary Dx) 05/18/2025 Telephone [facility] Cardiology [address] [place] [address] Yariel Toscano MD from Last 3 Months Immunizations Immunization Administration Dates Next Due Influenza, Quadrivalent, Xuan l Culture-based MDCK, Preservative Free, Antibiotic Free, Intramuscular 09/24/2022 Influenza, Quadrivalent, Spl it, Intramuscular 09/23/2019 Influenza, Quadrivalent, Spl it, Preservative Free, Intramuscular 01/01/2024,08/09/2020,08/24/2018 Influenza, Trivalent, IM (MDV) 08/09/2021 Tdap 08/17/2023 ZOSTER Recombinant 08/28/2020,06/30/2020 Surgical History Surgery Date Site/Laterality Comments UT APPENDECTOMY Appendectomy - (Added by ) UT ARTHRP KNE CONDYLE&PLATU MEDIAL&LAT COMPARTMENTS Total Knee Replacement Left - (Added by Conv) SHOULDER SURGERY Shoulder Surgery - (Added by Conv) ANKLE SURGERY Ankle Surgery - (Added by Conv) LUMBAR SPINE SURGERY COLONOSCOPY CORONARY ARTERY BYPASS GRAFT 07/08/2025 Chest/N/A Procedure: CORONARY ARTERY BYPASS GRAFT X3; Surgeon: Ji Fuentes MD; Location: OPERATING ROOM; Service: Cardiothoracic; Laterality: N/A; Medical History Medical History Date Comments Personal history of other di seases of the circulatory system History of hypertension - (A dded by ) PONV (postoperative nausea and vomiting) Hypertension GERD (gastroesophageal reflux disease) Ulcerative colitis Cancer (HCC) Osteoarthritis History of cancer tonsil 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) Headache Coronary artery disease of n ative heart with stable angina pectoris, unspecified vessel or lesion type Family History Medical History Relation Name Comments Bladder Cancer Father Cancer Father Family history of malignant neoplasm - (Added by Conv) Arthritis Mother Family history of arthritis - (Added by Conv) Hypertension Mother Family history of hypertension - (Added by ) Seizures Mother Breast cancer Paternal Grandmother Relation Name Status Comments Father Mother Paternal Grandmother Social History Tobacco Use Types Packs/Day Years Used Date Smoking Tobacco: Former Cigarettes Q uit: 1988 Passive Smoke Exposure: Past Smokeless Tobacco: Former Chew Social Connection and Isolation Panel Answer Date Recorded In a typical week, how many times do you talk on the phone with family, friends, or neighbors? More than three times a week 06/27/2025 How often do you get togethe r with friends or relatives? More than three times a week 06/27/2025 How often do you attend [facility] or worship services? Patient declined 06/27/2025 Do you belong to any clubs o r organizations such as congregational groups, unions, fraternal or athletic groups, or school groups? Patient declined 06/27/2025 How often do you attend meet ings of the clubs or organizations you belong to? Patient declined 06/27/2025 Are you , , di vorced, , never , or living with a partner? 06/27/2025 AUDIT-C Answer Date Recorded Q1: How often do you have a drink containing alcohol? Never 07/08/2025 Q2: How many drinks containi ng alcohol do you have on a typical day when you are drinking? Patient does not drink Q3: How often do you have si x or more drinks on one occasion? Never 07/08/2025 Overall Financial Resource Strain (CARDIA) Answe r Date Recorded How hard is it for you to pa y for the very basics like food, housing, medical care, and heating? Not very hard 06/27/2025 PRAPARE - Transportation Answer Date Re corded In the past 12 months, has l ack of transportation kept you from medical appointments or from getting medications? No 06/01 In the past 12 months, has l ack of transportation kept you from meetings, work, or from getting things needed for daily living? No 06/27/2025 Housing Stability Vital Sign Answer Dk e Recorded In the last 12 months, was t here a time when you were not able to pay the mortgage or rent on time? No 06/27/2025 In the past 12 months, how m any times have you moved where you were living? 0 06/27/2025 At any time in the past 12 m [facility], were you homeless or living in a care home (including now)? No 06/27/2025 Social Connection and Isolation Panel Answer Date Recorded In a typical week, how many times do you talk on the phone with family, friends, or neighbors? More than three times a week 07/11/2025 How often do you get togethe r with friends or relatives? More than three times a week 07/11/2025 How often do you attend chur ch or worship services? Never 07/11/2025 Do you belong to any clubs o r organizations such as congregational groups, unions, fraternal or athletic groups, or school groups? No 07/11/2025 How often do you attend meet ings of the clubs or organizations you belong to? Never 07/11/2025 Are you , , di vorced, , never , or living with a partner? 07/11/2025 Overall Financial Resource Strain (CARDIA) Answe r Date Recorded How hard is it for you to pa y for the very basics like food, housing, medical care, and heating? Not very hard 07/11/2025 Hunger Vital Sign Answer Date Recorded Within the past 12 months, y ou worried that your food would run out before you got the money to buy more. Never true 07/11/20 25 Within the past 12 months, t he food you bought just didn't last and you didn't have money to get more. Never true 07/11/2025 PRAPARE - Transportation Answer Date Re corded In the past 12 months, has l ack of transportation kept you from medical appointments or from getting medications? No 07/01 In the past 12 months, has l ack of transportation kept you from meetings, work, or from getting things needed for daily living? No 07/11/2025 Housing Stability Vital Sign Answer Dk e Recorded In the last 12 months, was t here a time when you were not able to pay the mortgage or rent on time? No 07/11/2025 In the past 12 months, how m any times have you moved where you were living? 0 07/11/2025 At any time in the past 12 m [facility], were you homeless or living in a care home (including now)? No 07/11/2025 [facility] Utilities Answer Date Recorded In the past 12 months has th e electric, gas, oil, or water company threatened to shut off services in your home? No 07/11/2025 Personal Safety Answer Date Recorded Have you ever been in or are you currently in a harmful physical or emotional relationship or is someone making you feel afraid or unsafe? 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 Gender Identity Not on file Sexual Orientation Not on file Obstetrics History Last Filed Vital Signs Vital Sign Reading Time Taken Comments Blood Pressure 129/75 07/13/2025 12:12 PM CDT Pulse 97 07/13/2025 12:00 PM CDT Temperature 36 C (96.8 F) 07/13/2025 12:12 PM CDT Respiratory Rate 18 07/13/2025 12:12 PM CDT Oxygen Saturation 100% 07/13/2025 12:12 PM CDT Inhaled Oxygen Concentration - - Weight 89.4 kg (197 lb 1.5 oz) 07/08/2025 2:22 P M CDT Height 188 cm (6' 2.02) 07/08/2025 3:28 PM CDT Body Mass Index 25.29 07/08/2025 2:22 PM CDT Plan of Treatment Health Maintenance [...] 09/14/2021, Additional history exists Influenza Vaccine (#1) 2025 , 09/24/2022, 08/09/2021, Additional history exists Fall Risk Assessment 07/13/2026 07/13/2025 DTaP/Tdap/Td Vaccine (2 - Td or Tdap) 08/17/2033 08/17/2023 Zoster Vaccine Completed 08/28/2020, 06/30/2020 Procedures Procedure Name Priority Date/Time Associated Diagnosis Comments XR CHEST 1 VIEW IP Routine 07/13/2025 10:50 AM CDT MAGNESIUM Add-On 07/13/2025 5:39 AM CDT EGFR Timed 07/13/2025 5:39 AM CDT BASIC METABOLIC PANEL Timed 07/13/2025 5:39 AM CDT PROTIME-INR Routine 07/13/2025 5:39 AM CDT CBC WITHOUT DIFFERENTIAL Routine 07/13/2025 5:39 AM CDT ECG 12-LEAD Routine 07/12/2025 7:39 AM CDT XR CHEST 1 VIEW IP Routine 07/12/2025 6:49 AM CDT EGFR Timed 07/12/2025 5:08 AM CDT BASIC METABOLIC PANEL Timed 07/12/2025 5:08 AM CDT APTT Routine 07/12/2025 5:08 AM CDT PROTIME-INR Routine 07/12/2025 5:08 AM CDT CBC WITHOUT DIFFERENTIAL Routine 07/12/2025 5:08 AM CDT POCT GLUCOSE DEVICE Routine 07/11/2025 8 :09 AM CDT XR CHEST 1 VIEW IP Routine 07/11/2025 5:33 AM CDT CBC WITHOUT DIFFERENTIAL Routine 07/11/2025 5:22 AM CDT EGFR Timed 07/11/2025 5:21 AM CDT BASIC METABOLIC PANEL Timed 07/11/2025 5:21 AM CDT MAGNESIUM Routine 07/11/2025 5:21 AM CDT POCT GLUCOSE DEVICE Routine 07/10/2025 9 :25 PM CDT POCT GLUCOSE DEVICE Routine 07/10/2025 5 :02 PM CDT POCT GLUCOSE DEVICE Routine 07/10/2025 1 2:42 PM CDT XR CHEST 1 VIEW IP Routine 07/10/2025 8:40 AM CDT POCT GLUCOSE DEVICE Routine 07/10/2025 7 :34 AM CDT CRITICAL CARE Routine 07/10/2025 7:27 AM CDT 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 EGFR Timed 07/10/2025 4:14 AM CDT OXYHEMOGLOBIN, CENTRAL VENOUS Timed 07/10/2025 4:14 AM CDT BASIC METABOLIC PANEL Timed 07/10/2025 4:14 AM CDT MAGNESIUM Routine 07/10/2025 4:14 AM CDT CBC WITHOUT DIFFERENTIAL Routine 07/10/2025 4:14 AM CDT POCT GLUCOSE DEVICE Routine 07/10/2025 4 :11 AM CDT POCT GLUCOSE DEVICE Routine 07/10/2025 1 2:06 AM CDT POCT GLUCOSE DEVICE Routine 07/09/2025 8 :23 PM CDT CRITICAL CARE Routine 07/09/2025 7:56 PM CDT 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 POCT GLUCOSE DEVICE Routine 07/09/2025 5 :32 PM CDT EGFR STAT 07/09/2025 2:42 PM CDT CALCIUM,IONIZED, WHOLE BLOOD STAT 07/09/2025 2:42 PM CDT MAGNESIUM STAT 07/09/2025 2:42 PM CDT BASIC METABOLIC PANEL STAT 07/09/2025 2:42 PM CDT CBC WITHOUT DIFFERENTIAL STAT 07/09/2025 2:42 PM CDT POCT GLUCOSE DEVICE Routine 07/09/2025 2 :16 PM CDT POCT GLUCOSE DEVICE Routine 07/09/2025 1 :01 PM CDT POCT GLUCOSE DEVICE Routine 07/09/2025 1 1:53 AM CDT POCT GLUCOSE DEVICE Routine 07/09/2025 1 0:49 AM CDT POCT GLUCOSE DEVICE Routine 07/09/2025 9 :50 AM CDT ECG 12-LEAD STAT 07/09/2025 9:24 AM CDT POCT GLUCOSE DEVICE Routine 07/09/2025 8 :42 AM CDT CRITICAL CARE Routine 07/09/2025 7:48 AM CDT 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 POCT GLUCOSE DEVICE Routine 07/09/2025 7 :28 AM CDT POCT GLUCOSE DEVICE Routine 07/09/2025 6 :41 AM CDT XR CHEST 1 VIEW IP Routine 07/09/2025 5:58 AM CDT POCT GLUCOSE DEVICE Routine 07/09/2025 5 :10 AM CDT POCT GLUCOSE DEVICE Routine 07/09/2025 4 :14 AM CDT EGFR Timed 07/09/2025 3:16 AM CDT OXYHEMOGLOBIN, CENTRAL VENOUS Timed 07/09/2025 3:16 AM CDT BASIC METABOLIC PANEL Timed 07/09/2025 3:16 AM CDT MAGNESIUM Routine 07/09/2025 3:16 AM CDT CBC WITHOUT DIFFERENTIAL Routine 07/09/2025 3:16 AM CDT POCT GLUCOSE DEVICE Routine 07/09/2025 3 :11 AM CDT POCT GLUCOSE DEVICE Routine 07/09/2025 2 :08 AM CDT POCT GLUCOSE DEVICE Routine 07/09/2025 1 :04 AM CDT POCT GLUCOSE DEVICE Routine 07/09/2025 1 2:06 AM CDT POCT GLUCOSE DEVICE Routine 07/08/2025 1 1:07 PM CDT POCT GLUCOSE DEVICE Routine 07/08/2025 1 0:10 PM CDT EGFR Timed 07/08/2025 9:35 PM CDT CALCIUM,IONIZED, WHOLE BLOOD Timed 07/08/2025 9:35 PM CDT BLOOD GAS, ARTERIAL Timed 07/08/2025 9 :35 PM CDT MAGNESIUM Timed 07/08/2025 9:35 PM CDT BASIC METABOLIC PANEL Timed 07/08/2025 9:35 PM CDT CBC WITHOUT DIFFERENTIAL Timed 07/08/2025 9:35 PM CDT POCT GLUCOSE DEVICE Routine 07/08/2025 9 :16 PM CDT CRITICAL CARE Routine 07/08/2025 8:01 PM CDT Coronary artery disease (CAD) excluded POCT GLUCOSE DEVICE Routine 07/08/2025 7 :55 PM CDT EXTUBATION Routine 07/08/2025 6:23 PM CDT DIFFERENTIAL AUTO STAT 07/08/2025 6:0 6 PM CDT CBC WITH AUTO DIFFERENTIAL STAT 07/08/2025 6:06 PM CDT EGFR STAT 07/08/2025 6:04 PM CDT BLOOD GAS, ARTERIAL STAT 07/08/2025 6 :04 PM CDT CALCIUM,IONIZED, WHOLE BLOOD STAT 07/08/2025 6:04 PM CDT PHOSPHORUS STAT 07/08/2025 6:04 PM CDT MAGNESIUM STAT 07/08/2025 6:04 PM CDT BASIC METABOLIC PANEL STAT 07/08/2025 6:04 PM CDT POCT GLUCOSE DEVICE Routine 07/08/2025 6 :03 PM CDT BLOOD GAS, ARTERIAL STAT 07/08/2025 5 :30 PM CDT POCT GLUCOSE DEVICE Routine 07/08/2025 4 :03 PM CDT CRITICAL CARE Routine 07/08/2025 3:12 PM CDT 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 XR KUB ED Urgent/IP Urgent 07/08/2025 2:46 PM CDT XR CHEST 1 VIEW ED Urgent/IP Urgent 07/08/2025 2:38 PM CDT EGFR STAT 07/08/2025 2:30 PM CDT APTT STAT 07/08/2025 2:30 PM CDT PROTIME-INR STAT 07/08/2025 2:30 PM CDT CBC WITHOUT DIFFERENTIAL STAT 07/08/2025 2:30 PM CDT BLOOD GAS, ARTERIAL STAT 07/08/2025 2 :30 PM CDT CALCIUM,IONIZED, WHOLE BLOOD STAT 07/08/2025 2:30 PM CDT MAGNESIUM STAT 07/08/2025 2:30 PM CDT BASIC METABOLIC PANEL STAT 07/08/2025 2:30 PM CDT POCT GLUCOSE DEVICE Routine 07/08/2025 2 :29 PM CDT POCT ACTIVATED CLOTTING TIME, HIGH RANGE Routine 07/08/2025 2:02 PM CDT POC BLOOD GAS AND CHEMISTRIES, ARTERIAL Routine 07/08/2025 1:50 PM CDT POCT ACTIVATED CLOTTING TIME, HIGH RANGE Routine 07/08/2025 1:48 PM CDT POC BLOOD GAS AND CHEMISTRIES, ARTERIAL Routine 07/08/2025 12:47 PM CDT POCT ACTIVATED CLOTTING TIME, HIGH RANGE Routine 07/08/2025 12:45 PM CDT POC BLOOD GAS AND CHEMISTRIES, ARTERIAL Routine 07/08/2025 12:15 PM CDT POCT ACTIVATED CLOTTING TIME, HIGH RANGE Routine 07/08/2025 12:13 PM CDT PLATELET COUNT STAT 07/08/2025 12:03 PM CDT POC BLOOD GAS AND CHEMISTRIES, ARTERIAL Routine 07/08/2025 12:00 PM CDT POC BLOOD GAS AND CHEMISTRIES, ARTERIAL Routine 07/08/2025 11:21 AM CDT POCT ACTIVATED CLOTTING TIME, HIGH RANGE Routine 07/08/2025 11:19 AM CDT POC BLOOD GAS AND CHEMISTRIES, ARTERIAL Routine 07/08/2025 10:34 AM CDT POCT ACTIVATED CLOTTING TIME, HIGH RANGE Routine 07/08/2025 10:34 AM CDT POCT ACTIVATED CLOTTING TIME, HIGH RANGE Routine 07/08/2025 9:56 AM CDT UT AN CENTRAL LINE MULTI LUMEN Routine 07/08/2025 8:41 AM CDT ANESTHESIA CENTRAL VENOUS LINE PLACEMENT Routine 07/08/2025 8:41 AM CDT POC BLOOD GAS AND CHEMISTRIES, ARTERIAL Routine 07/08/2025 8:38 AM CDT POCT ACTIVATED CLOTTING TIME, HIGH RANGE Routine 07/08/2025 8:36 AM CDT UT AN ELECTIVE ENDOTRACHEAL AIRWAY Routine 07/08/2025 8:05 AM CDT ANESTHESIA ARTERIAL LINE PLACEMENT Routine 07/08/2025 8:03 AM CDT CORONARY ARTERY BYPASS GRAFT. 07/08/2025 7:55 AM CDT Coronary artery disease of nome heart with stable angina pectoris, unspecified vessel or lesion type TYPE AND SCREEN Timed 07/08/2025 6:44 AM CDT PREPARE RBC STAT 07/08/2025 6:08 AM CDT TYPE AND SCREEN Timed 06/28/2025 9:[address] HEAD WO CONTRAST IP Routine 06/28/2025 8 :18 AM CDT EGFR Routine 06/28/2025 5:52 AM CDT LIPID PANEL Routine 06/28/2025 5:52 AM CDT TSH Routine 06/28/2025 5:52 AM CDT BASIC METABOLIC PANEL Routine 06/28/2025 5:52 AM CDT CBC WITHOUT DIFFERENTIAL Routine 06/28/2025 5:52 AM CDT URINALYSIS AND REFLEX TO MICROSCOPIC AND CULTURE Routine 06/27/2025 6:[address] CHEST WO CONTRAST IP Routine 06/27/2025 2:08 PM CDT HEMOGLOBIN A1C STAT 06/27/2025 9:30 AM CDT EGFR Routine 06/27/2025 4:29 AM CDT BASIC METABOLIC PANEL Routine 06/27/2025 4:29 AM CDT CBC WITHOUT DIFFERENTIAL Routine 06/27/2025 4:29 AM CDT UT CRITICAL CARE ILL/INJURED PATIENT INIT 30-74 MIN Routine 06/26/2025 9:41 PM CDT TROPONIN T HIGH-SENSITIVITY 4-HR Timed 06/26/2025 8:35 PM CDT TROPONIN T HIGH-SENSITIVITY 2-HOUR Timed 06/26/2025 6:46 PM CDT XR CHEST 1 VIEW ED 06/26/2025 5:07 PM CDT EGFR STAT 06/26/2025 4:56 PM CDT DIFFERENTIAL AUTO STAT 06/26/2025 4:5 6 PM CDT TROPONIN T HIGH-SENSITIVITY SERIES (BASELINE, 2HR, 4HR, 6HR) STAT 06/26/2025 4:56 PM CDT COMPREHENSIVE METABOLIC PANEL STAT 06/26/2025 4:56 PM CDT CBC WITH AUTO DIFFERENTIAL STAT 06/26/2025 4:56 PM CDT ECG 12-LEAD STAT 06/26/2025 3:39 PM CDT SCAN - LABS 06/15/2025 9:28 PM CDT from Last 3 Months Results * XR Chest 1 View (07/13/2025 10:50 AM CDT) Anatomical Region Laterality Modality Body, Chest N/A Computed Radiogr aphy 07/13/2025 10:5 6 AM CDT Impressions 07/13/2025 10:56 AM CDT Right IJ central venous catheter terminates in the superior cavoatrial junction. Poststernotomy changes noted. Cardiomediastinal silhouette within normal limits. No consolidation. No pneumothorax or pleural effusion. Electronically signed by: Den Gil II, D.O. Narrative 07/13/2025 10:56 AM CDT EXAMINATION: XR CHEST 1 VIEW DATE: 07/13/2025 10:45 AM INDICATION: Coronary artery bypass graft. COMPARISON: 07/12/2025. Procedure Note Den Gil II, DO - 07/13/2025 EXAMINATION: XR CHEST 1 VIEW DATE: 07/13/2025 10:45 AM INDICATION: Coronary artery bypass graft. COMPARISON: 07/12/2025. IMPRESSION: Right IJ central venous catheter terminates in the superior cavoatrial junction. Poststernotomy changes noted. Cardiomediastinal silhouette within normal limits. No consolidation. No pneumothorax or pleural effusion. Electronically signed by: Den Gil II, D.O. [facility] XR PROCEDURES Final Re sult * eGFR (07/13/2025 5:39 AM CDT) eGFR >90 >=60 mL/min/1. 73 m2 Comment: Interpretive Data Reference Interval Normal >/= 90 mL/min/1.73m2 Mildly decreased* 60 - 89 mL/min/1.73m2 Mildly to moderately decreased 45 - 59 mL/min/1.73m2 Moderately to severely decreased 30 - 44 mL/min/1.73m2 Severely decreased 15 - 29 mL/min/1.73m2 Kidney Failure < 15 mL/min/1.73m2 *Relative to young adult level Estimated glomerular filtration rate is determined by the 2020 CKD-EPI equation recommended by the National Kidney Foundation (A Unifying Approach to GFR Estimation: Recommendations of the NKF-ASK Task Force on Reassessing the Inclusion of Race in Diagnosing Kidney Disease, JASN 2020). The CKD-EPI equation should not be used for patients with unstable renal function and has not been validated in children and those over 70. Current interpretive data was last reviewed 2021. Blood 07/13/2025 5:39 AM CDT 07/13/2025 5:45 AM CDT us Ji Fuentes MD LAB BLOOD ORDERABLES Final R esult Performing Organization Address [facility] Co de Phone Number AMBIKA STANLEY [address] [place] [address] * (ABNORMAL) Protime-INR (07/13/2025 5:39 AM CDT) PT 13.8(H) 10.2 - 13.5 sec INR 1.23(H) 0.90 - 1.20 AMBIKA Comment: Interpretive data Oral anticoagulant therapeutic ranges: Venous thromboembolism prophylaxis or treatment: 2.0-3.0 CARDIOLOGY Standard range: 2.0-3.0 High-intensity range: 2.5-3.5 Refer to indication-specific guidelines for appropriate target ranges for prosthetic heart valve replacement. Current interpretive data was last revised on 2019. Blood 07/13/2025 5:39 AM CDT 07/13/2025 5:45 AM CDT us Hernandez Roblero NP LAB BLOOD ORDERABLES Final Result Performing Organization Address [facility] Co de Phone Number AMBIKA [address] [place] [place] [address] * (ABNORMAL) CBC without differential (07/13/2025 5:39 AM CDT) WBC 7.48 3.80 - 9.90 K/cumm Hgb 10.6(L) 13.0 - 17.5 g/dL [facility] Hct 31.8(L) 38.9 - 50.3 % [facility] Plt 209 150 - 400 K/cumm [facility] MPV 8.8(L) 9.1 - 12.3 fL [facility] RBC 3.47(L) 4.30 - 5.80 M/cumm [facility] MCV 91.6 81.3 - 96.4 fL [facility] MCH 30.5 27.1 - 33.3 pg [facility] MCHC 33.3 32.3 - 35.7 g/dL [facility] RDW CV 11.9 11.1 - 14.9 % [facility] RDW SD 39.8 35.7 - 48.1 fL [facility] CH NRBC abs 0.00 0.00 - 0.01 K/cumm [facility] CH Blood 07/13/2025 5:39 AM CDT 07/13/2025 5:45 AM CDT us Ji Fuentes MD LAB BLOOD ORDERABLES Final R esult Performing Organization Address City/[facility] Co de Phone Number AMBIKA ANGEL [address] [employer] [place], [place] [id number] * Magnesium (07/13/2025 5:39 AM CDT) [facility] Magnesium 1.8 1.4 - 2.5 mg/dL Blood 07/13/2025 5:39 AM CDT 07/13/2025 8:41 AM CDT Trina Hagen NP LAB BLOOD ORDERABLES Final Result Performing Organization Address City/[facility]/ZIP Co de Phone Number AMBIKA ANGEL [address] [employer] [place], [place] [id number] * Basic metabolic panel (07/13/2025 5:39 AM CDT) Pathologist [facility] Sodium 139 135 - 145 mmol/L Potassium, pl 3.8 3.3 - 4.9 mmol/L [facility] Chloride 100 97 - 110 mmol/L [facility] CO2 27 22 - 32 mmol/L [facility] Anion gap 12 2 - 15 mmol/L [facility] BUN 15 6 - 25 mg/dL [facility] Creatinine 0.87 0.80 - 1.30 mg/dL [facility] Glucose 101 70 - 199 mg/dL [facility] Comment: Interpretive Data Fasting glucose >/= 126 mg/dl is diagnostic for diabetes. Fasting is defined as no caloric intake for at least 8 hours. Fasting glucose between 100 mg/dl to 125 mg/dl is diagnostic of prediabetes. In a patient with classic symptoms of hyperglycemia or hyperglycemic crisis, a random glucose >/= 200 mg/dl is diagnostic for diabetes. In the absence of unequivocal hyperglycemia, results should be confirmed by repeat testing. The classification and Diagnosis of Diabetes Diabetes Care 2021; 46: S19-S40. Current interpretive data was last revised 2022. Calcium 8.9 8.5 - 10.3 mg/dL [facility] Blood 07/13/2025 5:39 AM CDT 07/13/2025 5:45 AM CDT us Ji Fuentes MD LAB BLOOD ORDERABLES Final R esult AMBIKA [address] [place] [address] * ECG 12 lead (07/12/2025 7:39 AM CDT) 07/12/2025 7:39 AM CDT Narrative [facility] - 07/12/2025 8:06 AM CDT Vent Rate: 133 bpm RR Interval: 450 msec UT Interval: 136 msec QRS Duration: 132 msec QT Interval: 347 msec QTC Interval: 425 msec P-R-T [place]: 93 - 34 - 12 degrees IMPRESSION: SINUS TACHYCARDIA INDETERMINATE AXIS RIGHT BUNDLE BRANCH BLOCK [120+ ms QRS DURATION, UPRIGHT V1, 40+ ms S IN I/aVL/V4/V5/V6] ABNORMAL ECG Compared to prior EKG right bundle branch block is new Electronically Signed By: Juventino Davies MD [facility] us Trina Hagen [facility] ECG ORDERABLES Final Resu lt [facility] * XR Chest 1 View (07/12/2025 6:49 AM CDT) Anatomical Region Laterality Modality Body, Chest N/A Computed Radiogr aphy 07/12/2025 9:15 AM CDT Impressions 07/12/2025 9:15 AM CDT Platelike opacity in the left lower lobe appears unchanged from prior. There is mild pulmonary vascular congestion. No pneumoperitoneum. Right IJ central venous catheter terminates in the superior cavoatrial junction. Poststernotomy changes noted. Electronically signed by: Den Gil II, D.O. Narrative 07/12/2025 9:15 AM CDT EXAMINATION: XR CHEST 1 VIEW DATE: 07/12/2025 5:40 AM INDICATION: Coronary artery bypass graft. COMPARISON: 07/11/2025. Procedure Note Den Gil II, DO - 07/12/2025 EXAMINATION: XR CHEST 1 VIEW DATE: 07/12/2025 5:40 AM INDICATION: Coronary artery bypass graft. COMPARISON: 07/11/2025. IMPRESSION: Platelike opacity in the left lower lobe appears unchanged from prior. There is mild pulmonary vascular congestion. No pneumoperitoneum. Right IJ central venous catheter terminates in the superior cavoatrial junction. Poststernotomy changes noted. Electronically signed by: Den Gil II, D.O. us Ji Fuentes MD IMG XR PROCEDURES Final Resu lt * eGFR (07/12/2025 5:08 AM CDT) eGFR >90 >=60 mL/min/1. 73 m2 Comment: Interpretive Data Reference Interval Normal >/= 90 mL/min/1.73m2 Mildly decreased* 60 - 89 mL/min/1.73m2 Mildly to moderately decreased 45 - 59 mL/min/1.73m2 Moderately to severely decreased 30 - 44 mL/min/1.73m2 Severely decreased 15 - 29 mL/min/1.73m2 Kidney Failure < 15 mL/min/1.73m2 *Relative to young adult level Estimated glomerular filtration rate is determined by the 2020 CKD-EPI equation recommended by the National Kidney Foundation (A Unifying Approach to GFR Estimation: Recommendations of the NKF-ASK Task Force on Reassessing the Inclusion of Race in Diagnosing Kidney Disease, JASN 2020). The CKD-EPI equation should not be used for patients with unstable renal function and has not been validated in children and those over 70. Current interpretive data was last reviewed 2021. Blood 07/12/2025 5:08 AM CDT 07/12/2025 5:13 AM CDT Ji Fuentes MD LAB BLOOD ORDERABLES Final R esult Performing Organization Address [facility]/ZIP Co de Phone Number AMBIKA ANGEL [address] [place] [address] * aPTT (07/12/2025 5:08 AM CDT) aPTT 31 26 - 38 sec Comment: Interpretive Data Heparin therapeutic range: 66.0 - 100.0 seconds. Range based on correlation with therapeutic heparin activity range of 0.3 - 0.7 Units/mL. Current interpretive data was last revised on 2023. Blood 07/12/2025 5:08 AM CDT 07/12/2025 5:13 AM CDT us Hernandez Roblero NP LAB BLOOD ORDERABLES Final Result Performing Organization Address City/[facility]/ZIP Co de Phone Number AMBIKA ANGEL [address] [employer] [place], [place] [phone] * (ABNORMAL) Protime-INR (07/12/2025 5:08 AM CDT) PT 14.7(H) 10.2 - 13.5 sec INR 1.31(H) 0.90 - 1.20 AMBIKA ANGEL Comment: Interpretive data Oral anticoagulant therapeutic ranges: Venous thromboembolism prophylaxis or treatment: 2.0-3.0 CARDIOLOGY Standard range: 2.0-3.0 High-intensity range: 2.5-3.5 Refer to indication-specific guidelines for appropriate target ranges for prosthetic heart valve replacement. Current interpretive data was last revised on 2019. Blood 07/12/2025 5:08 AM CDT 07/12/2025 5:13 AM CDT us Hernandez Roblero NP LAB BLOOD ORDERABLES Final Result Performing Organization Address City/[facility]/ZIP Co de Phone Number AMBIKA ANGEL [address] [place] [address] * (ABNORMAL) CBC without differential (07/12/2025 5:08 AM CDT) WBC 9.90 3.80 - 9.90 K/cumm Hgb 11.4(L) 13.0 - 17.5 g/dL [facility] Hct 33.5(L) 38.9 - 50.3 % [facility] Plt 200 150 - 400 K/cumm [facility] MPV 9.1 9.1 - 12.3 fL [facility] RBC 3.66(L) 4.30 - 5.80 M/cumm [facility] MCV 91.5 81.3 - 96.4 fL [facility] MCH 31.1 27.1 - 33.3 pg [facility] MCHC 34.0 32.3 - 35.7 g/dL [facility] RDW CV 11.9 11.1 - 14.9 % [facility] RDW SD 39.9 35.7 - 48.1 fL [facility] NRBC abs 0.00 0.00 - 0.01 K/cumm [facility] Blood 07/12/2025 5:08 AM CDT 07/12/2025 5:13 AM CDT us iJ Fuentes MD LAB BLOOD ORDERABLES Final R esult Performing Organization Address City/[facility]/ZIP Co de Phone Number AMBIKA ANGEL [address] [place] [address] * Basic metabolic panel (07/12/2025 5:08 AM CDT) Sodium 137 135 - 145 mmol/L Potassium, pl 3.7 3.3 - 4.9 mmol/L [facility] Chloride 97 97 - 110 mmol/L [facility] CO2 29 22 - 32 mmol/L [facility] Anion gap 11 2 - 15 mmol/L [facility] BUN 15 6 - 25 mg/dL [facility] Creatinine 0.89 0.80 - 1.30 mg/dL [facility] Glucose 106 70 - 199 mg/dL [facility] Comment: Interpretive Data Fasting glucose >/= 126 mg/dl is diagnostic for diabetes. Fasting is defined as no caloric intake for at least 8 hours. Fasting glucose between 100 mg/dl to 125 mg/dl is diagnostic of prediabetes. In a patient with classic symptoms of hyperglycemia or hyperglycemic crisis, a random glucose >/= 200 mg/dl is diagnostic for diabetes. In the absence of unequivocal hyperglycemia, results should be confirmed by repeat testing. The classification and Diagnosis of Diabetes Diabetes Care 2021; 46: S19-S40. Current interpretive data was last revised 2022. Calcium 9.1 8.5 - 10.3 mg/dL [facility] Blood 07/12/2025 5:08 AM CDT 07/12/2025 5:13 AM CDT us Ji Fuentes MD LAB BLOOD ORDERABLES Final R esult Performing Organization Address City/[facility]/ZIP Co de Phone Number AMBIKA [address] [place] [address] * POCT glucose (07/11/2025 8:09 AM CDT) Glucose, POC 108 70 - 199 mg/dL Blood 07/11/2025 8:09 AM CDT 07/11/2025 8:09 AM CDT Ji Fuentes MD LAB POCT ORDERABLES - DEVICE Final Result Performing Organization Address City/[facility]/ZIP Co de Phone Number AMBIKA [address] [place] [address] * XR Chest 1 View (07/11/2025 5:33 AM CDT) Anatomical Region Laterality Modality Body, Chest N/A Computed Radiogr aphy 07/11/2025 8:10 AM CDT Impressions 07/11/2025 8:10 AM CDT No failure. Electronically signed by: Tami Jane M.D. Narrative 07/11/2025 8:10 AM CDT EXAMINATION: XR CHEST 1 VIEW HISTORY: The patient is a 65-year-old male who has had bypass surgery. Comparison made with the previous study dated 07/10/2025. TECHNIQUE: AP portable view of the chest. FINDINGS: Since the last exam There has been interval removal of the thoracostomy tubes and mediastinal drain. The distal tip of the retracted Winton-Duncan catheter is in the superior vena cava. Lungs clear. Cardiovascular structures unremarkable. Procedure Note Tami Jane MD - 07/11/2025 EXAMINATION: XR CHEST 1 VIEW HISTORY: The patient is a 65-year-old male who has had bypass surgery. Comparison made with the previous study dated 07/10/2025. TECHNIQUE: AP portable view of the chest. FINDINGS: Since the last exam There has been interval removal of the thoracostomy tubes and mediastinal drain. The distal tip of the retracted Winton-Duncan catheter is in the superior vena cava. Lungs clear. Cardiovascular structures unremarkable. IMPRESSION: No failure. Electronically signed by: Tami Jane M.D. Ji Fuentes MD IMG XR PROCEDURES Final Resu lt * (ABNORMAL) CBC without differential (07/11/2025 5:22 AM CDT) WBC 10.11(H) 3.80 - 9.90 K/cumm Hgb 11.2(L) 13.0 - 17.5 g/dL [facility] Hct 33.7(L) 38.9 - 50.3 % [facility] Plt 142(L) 150 - 400 K/cumm [facility] MPV 9.2 9.1 - 12.3 fL [facility] RBC 3.60(L) 4.30 - 5.80 M/cumm [facility] MCV 93.6 81.3 - 96.4 fL [facility] MCH 31.1 27.1 - 33.3 pg [facility] MCHC 33.2 32.3 - 35.7 g/dL [facility] RDW CV 11.9 11.1 - 14.9 % [facility] RDW SD 40.9 35.7 - 48.1 fL [facility] NRBC abs 0.00 0.00 - 0.01 K/cumm [facility] Blood 07/11/2025 5:22 AM CDT 07/11/2025 5:22 AM CDT us Ji Fuentes MD LAB BLOOD ORDERABLES Final R esult [facility] [address] [place] [address] * eGFR (07/11/2025 5:21 AM CDT) eGFR >90 >=60 mL/min/1. 73 m2 Comment: Interpretive Data Reference Interval Normal >/= 90 mL/min/1.73m2 Mildly decreased* 60 - 89 mL/min/1.73m2 Mildly to moderately decreased 45 - 59 mL/min/1.73m2 Moderately to severely decreased 30 - 44 mL/min/1.73m2 Severely decreased 15 - 29 mL/min/1.73m2 Kidney Failure < 15 mL/min/1.73m2 *Relative to young adult level Estimated glomerular filtration rate is determined by the 2020 CKD-EPI equation recommended by the National Kidney Foundation (A Unifying Approach to GFR Estimation: Recommendations of the NKF-ASK Task Force on Reassessing the Inclusion of Race in Diagnosing Kidney Disease, JASN 202). The CKD-EPI equation should not be used for patients with unstable renal function and has not been validated in children and those over 70. Current interpretive data was last reviewed 2021. Blood 07/11/2025 5:21 AM CDT 07/11/2025 5:21 AM CDT Ji Fuentes MD LAB BLOOD ORDERABLES Final R esult Performing Organization Address City/[facility]/ZIP Co de Phone Number AMBIKA ANGEL [address] [facility] [place] [address] * Magnesium (07/11/2025 5:21 AM CDT) Magnesium 1.9 1.4 - 2.5 mg/dL Blood 07/11/2025 5:21 AM CDT 07/11/2025 5:21 AM CDT Ji Fuentes MD LAB BLOOD ORDERABLES Final R esult Performing Organization Address [facility] de Phone Number AMBIKA ANGEL [address] [place] [address] * Basic metabolic panel (07/11/2025 5:21 AM CDT) Sodium 136 135 - 145 mmol/L Potassium, pl 3.9 3.3 - 4.9 mmol/L [facility] Chloride 98 97 - 110 mmol/L [facility] CO2 29 22 - 32 mmol/L [facility] Anion gap 9 2 - 15 mmol/L [facility] BUN 14 6 - 25 mg/dL [facility] Creatinine 0.82 0.80 - 1.30 mg/dL [facility] Glucose 102 70 - 199 mg/dL [facility] Comment: Interpretive Data Fasting glucose >/= 126 mg/dl is diagnostic for diabetes. Fasting is defined as no caloric intake for at least 8 hours. Fasting glucose between 100 mg/dl to 125 mg/dl is diagnostic of prediabetes. In a patient with classic symptoms of hyperglycemia or hyperglycemic crisis, a random glucose >/= 200 mg/dl is diagnostic for diabetes. In the absence of unequivocal hyperglycemia, results should be confirmed by repeat testing. The classification and Diagnosis of Diabetes Diabetes Care 2021; 46: S19-S40. Current interpretive data was last revised 2022. Calcium 8.9 8.5 - 10.3 mg/dL [facility] Blood 07/11/2025 5:21 AM CDT 07/11/2025 5:21 AM CDT us Ji Fuentes MD LAB BLOOD ORDERABLES Final R esult Performing Organization Address [facility] Co de Phone Number AMBIKA ANGEL [address] [facility] [place] [place] [address] * POCT glucose (07/10/2025 9:25 PM CDT) Glucose, POC 127 70 - 199 mg/dL Blood 07/10/2025 9:25 PM CDT 07/10/2025 9:25 PM CDT us Ji Fuentes MD LAB POCT ORDERABLES - DEVICE Final Result Performing Organization Address [facility] de Phone Number ANDILUCAS ANGEL [address] [facility] [place] [place] [address] * POCT glucose (07/10/2025 5:02 PM CDT) Glucose, POC 107 70 - 199 mg/dL Blood 07/10/2025 5:02 PM CDT 07/10/2025 5:02 PM CDT us Ji Fuentes MD LAB POCT ORDERABLES - DEVICE Final Result Performing Organization Address [facility] de Phone Number ANDILUCAS ANGEL [address] [place] [address] * POCT glucose (07/10/2025 12:42 PM CDT) Glucose, POC 87 70 - 199 mg/dL Blood 07/10/2025 12:4 2 PM CDT 07/10/2025 12:42 PM CDT us Ji Fuentes MD LAB POCT ORDERABLES - DEVICE Final Result Performing Organization Address [facility] Co de Phone Number AMBIKA [address] [place] [address] * XR Chest 1 View (07/10/2025 8:40 AM CDT) Anatomical Region Laterality Modality Body, Chest N/A Computed Radiogr aphy 07/10/2025 9:32 AM CDT Impressions 07/10/2025 9:32 AM CDT FINDINGS/IMPRESSION: Bilateral thoracostomy tubes and mediastinal drain remain present. Right internal jugular approach pulmonary artery catheter remains present with tip projecting over the right pulmonary artery. Median sternotomy wires are unchanged. Epicardial pacing wires are present. Mild left basilar atelectasis. No visible pleural effusion or pneumothorax. The cardiomediastinal silhouette is unchanged. Electronically signed by: Marely Joshi DO Narrative 07/10/2025 9:32 AM CDT EXAM: XR CHEST 1 VIEW, 07/10/2025 8:40 AM HISTORY: s/p CABG COMPARISON: Chest radiograph dated 07/09/2025 Procedure Note Marely Issa DO - 07/10/2025 EXAM: XR CHEST 1 VIEW, 07/10/2025 8:40 AM HISTORY: s/p CABG COMPARISON: Chest radiograph dated 07/09/2025 IMPRESSION: FINDINGS/IMPRESSION: Bilateral thoracostomy tubes and mediastinal drain remain present. Right internal jugular approach pulmonary artery catheter remains present with tip projecting over the right pulmonary artery. Median sternotomy wires are unchanged. Epicardial pacing wires are present. Mild left basilar atelectasis. No visible pleural effusion or pneumothorax. The cardiomediastinal silhouette is unchanged. Electronically signed by: Marely Joshi DO Ji Fuentes MD IMG XR PROCEDURES Final Resu lt * POCT glucose (07/10/2025 7:34 AM CDT) Glucose, POC 116 70 - 199 mg/dL Blood 07/10/2025 7:34 AM CDT 07/10/2025 7:34 AM CDT us Ji Fuentes MD LAB POCT ORDERABLES - DEVICE Final Result Performing Organization Address [facility] Co de Phone Number AMBIKA ANGEL [address] [place] [address] * Critical Care (07/10/2025 7:27 AM CDT) Narrative Lance Oneil MD - 07/10/2025 7:27 AM CDT Lance Oneil MD 07/10/2025 11:40 AM Critical Care Performed by: Jess Goetz NP Authorized by: Jess Goetz NP CRITICAL CARE: Team: YISEL Shift: AM Level of Billing: Subsequent Hospital Visit Level 3 My time spent with this patient was 35 minutes: Critical Provider Statement: I have seen and examined the patient on this day of service. I have reviewed and confirmed the history, physical exam, laboratory, and radiographic data as documented in the ICU note. I have reviewed and discussed my treatment plan with the patient's team and other medical/center consultant staff. This time was in addition to and separate from care provided by other practitioners on this day of service. I spent time reviewing and interpreting data from bedside monitors, laboratory results, and imaging, I spent time discussing the management of this critically ill patient with consultants and the medical staff and I spent time documenting in the medical record Jess Goetz [facility]/BEDSIDE ORDERABLES Final Result * Oxyhemoglobin, central venous (07/10/2025 4:14 AM CDT) Oxyhemoglobin, CV 57.0 % Comment: Interpretive Data No reference range established. Current interpretive data was last revised 2020. Blood 07/10/2025 4:14 AM CDT 07/10/2025 4:23 AM CDT Ji Fuentes MD LAB BLOOD ORDERABLES Final R esult Performing Organization Address [facility] Co de Phone Number AMBIKA ANGEL [address] [place] [address] * eGFR (07/10/2025 4:14 AM CDT) eGFR >90 >=60 mL/min/1. 73 m2 Comment: Interpretive Data Reference Interval Normal >/= 90 mL/min/1.73m2 Mildly decreased* 60 - 89 mL/min/1.73m2 Mildly to moderately decreased 45 - 59 mL/min/1.73m2 Moderately to severely decreased 30 - 44 mL/min/1.73m2 Severely decreased 15 - 29 mL/min/1.73m2 Kidney Failure < 15 mL/min/1.73m2 *Relative to young adult level Estimated glomerular filtration rate is determined by the 2020 CKD-EPI equation recommended by the National Kidney Foundation (A Unifying Approach to GFR Estimation: Recommendations of the NKF-ASK Task Force on Reassessing the Inclusion of Race in Diagnosing Kidney Disease, JASN 2020). The CKD-EPI equation should not be used for patients with unstable renal function and has not been validated in children and those over 70. Current interpretive data was last reviewed 2021. Blood 07/10/2025 4:14 AM CDT 07/10/2025 4:23 AM CDT us Ji Fuentes MD LAB BLOOD ORDERABLES Final R esult AMBIKA ANGEL [address] [place] [address] * (ABNORMAL) CBC without differential (07/10/2025 4:14 AM CDT) Pathologist [facility] WBC 12.70(H) 3.80 - 9.90 K/cumm Hgb 11.2(L) 13.0 - 17.5 g/dL [facility] Hct 33.5(L) 38.9 - 50.3 % [facility] Plt 124(L) 150 - 400 K/cumm [facility] MPV 9.1 9.1 - 12.3 fL [facility] RBC 3.62(L) 4.30 - 5.80 M/cumm [facility] MCV 92.5 81.3 - 96.4 fL [facility] MCH 30.9 27.1 - 33.3 pg [facility] MCHC 33.4 32.3 - 35.7 g/dL [facility] RDW CV 12.1 11.1 - 14.9 % [facility] RDW SD 41.4 35.7 - 48.1 fL [facility] NRBC abs 0.00 0.00 - 0.01 K/cumm [facility] Blood 07/10/2025 4:14 AM CDT 07/10/2025 4:24 AM CDT Ji Fuentes MD LAB BLOOD ORDERABLES Final R esult AMBIKA ANGEL [address] [place] [address] * Magnesium (07/10/2025 4:14 AM CDT) Pathologist [facility] Magnesium 1.9 1.4 - 2.5 mg/dL Blood 07/10/2025 4:14 AM CDT 07/10/2025 4:23 AM CDT Ji Fuentes MD LAB BLOOD ORDERABLES Final R esult Performing Organization Address City/[facility] Co de Phone Number AMBIKA ANGEL [address] [place] [address] * (ABNORMAL) Basic metabolic panel (07/10/2025 4:14 AM CDT) Sodium 137 135 - 145 mmol/L Potassium, pl 4.1 3.3 - 4.9 mmol/L [facility] Chloride 101 97 - 110 mmol/L [facility] CO2 27 22 - 32 mmol/L [facility] Anion gap 9 2 - 15 mmol/L [facility] BUN 13 6 - 25 mg/dL [facility] Creatinine 0.74(L) 0.80 - 1.30 mg/dL [facility] Glucose 127 70 - 199 mg/dL [facility] Comment: Interpretive Data Fasting glucose >/= 126 mg/dl is diagnostic for diabetes. Fasting is defined as no caloric intake for at least 8 hours. Fasting glucose between 100 mg/dl to 125 mg/dl is diagnostic of prediabetes. In a patient with classic symptoms of hyperglycemia or hyperglycemic crisis, a random glucose >/= 200 mg/dl is diagnostic for diabetes. In the absence of unequivocal hyperglycemia, results should be confirmed by repeat testing. The classification and Diagnosis of Diabetes Diabetes Care 2021; 46: S19-S40. Current interpretive data was last revised 2022. Calcium 8.2(L) 8.5 - 10.3 mg/dL [facility] Blood 07/10/2025 4:14 AM CDT 07/10/2025 4:23 AM CDT Ji Fuentes MD LAB BLOOD ORDERABLES Final R esult Performing Organization Address [facility] Co de Phone Number ANDILUCAS [address] [place] [address] * POCT glucose (07/10/2025 4:11 AM CDT) Glucose, POC 127 70 - 199 mg/dL Blood 07/10/2025 4:11 AM CDT 07/10/2025 4:11 AM CDT Ji Fuentes MD LAB POCT ORDERABLES - DEVICE Final Result Performing Organization Address [facility] Co de Phone Number ANDILUCAS [address] [place] [place] [address] * POCT glucose (07/10/2025 12:06 AM CDT) Glucose, POC 132 70 - 199 mg/dL Blood 07/10/2025 12:0 6 AM CDT 07/10/2025 12:06 AM CDT Ji Fuentes MD LAB POCT ORDERABLES - DEVICE Final Result Performing Organization Address [facility] de Phone Number ANDILUCAS [address] [place] [address] * POCT glucose (07/09/2025 8:23 PM CDT) Glucose, POC 142 70 - 199 mg/dL Blood 07/09/2025 8:23 PM CDT 07/09/2025 8:23 PM CDT us Ji Fuentes MD LAB POCT ORDERABLES - DEVICE Final Result Performing Organization Address City/State/[facility] mn Phone Number AMBIKA [address] [facility] [place] [address] * Critical Care (07/09/2025 7:56 PM CDT) Narrative Vic Palacios MD - 07/09/2025 7:56 PM CDT Vic Palacios MD 07/11/2025 12:31 AM Critical Care Performed by: Manisha Mary NP Authorized by: Manisha Mary NP CRITICAL CARE: Team: YISEL Shift: PM Level of Billing: Critical Care My time spent with this patient was 45 minutes: Critical Provider Statement: I have seen and examined the patient on this day of service. I have reviewed and confirmed the history, physical exam, laboratory and radiologic data as documented in the signed ICU note. I have reviewed and discussed my treatment plan with the ICU team and other medical/center consultant staff, making frequent assessments and decisions regarding this patient's complex medical care. Critical Care time was exclusive of time spent performing separately billed procedures, treating other patients, and teaching. This time was in addition to and separate from critical care provided by other practitioners in my group on this day of service. Critical Care was necessary to treat or prevent imminent or life-threatening deterioration of the following conditions: I spent time reviewing and interpreting data from bedside monitors, laboratory results, and imaging, I spent time discussing the management of this critically ill patient with consultants and the medical staff and I spent time documenting in the medical record us Manisha Mary [facility]/B[facility] ORDERA BLES Final Result * POCT glucose (07/09/2025 5:32 PM CDT) Glucose, POC 122 70 - 199 mg/dL Blood 07/09/2025 5:32 PM CDT 07/09/2025 5:32 PM CDT Ji Fuentes MD LAB POCT ORDERABLES - DEVICE Final Result Performing Organization Address [facility] de Phone Number AMBIKA ANGEL [address] [place] [address] * (ABNORMAL) Calcium, ionized, whole blood (07/09/2025 2:42 PM CDT) Ca, ionized, bld 4.42(L) 4.50 - 5.10 mg/dL Blood 07/09/2025 2:4 2 PM CDT 07/09/2025 2:49 PM CDT Ji Fuentes MD LAB BLOOD ORDERABLES Final R esult Performing Organization Address [facility] de Phone Number AMBIKA ANGEL [address] [place] [address] * eGFR (07/09/2025 2:42 PM CDT) eGFR >90 >=60 mL/min/1. 73 m2 Comment: Interpretive Data Reference Interval Normal >/= 90 mL/min/1.73m2 Mildly decreased* 60 - 89 mL/min/1.73m2 Mildly to moderately decreased 45 - 59 mL/min/1.73m2 Moderately to severely decreased 30 - 44 mL/min/1.73m2 Severely decreased 15 - 29 mL/min/1.73m2 Kidney Failure < 15 mL/min/1.73m2 *Relative to young adult level Estimated glomerular filtration rate is determined by the 2020 CKD-EPI equation recommended by the National Kidney Foundation (A Unifying Approach to GFR Estimation: Recommendations of the NKF-ASK Task Force on Reassessing the Inclusion of Race in Diagnosing Kidney Disease, JASN 2020). The CKD-EPI equation should not be used for patients with unstable renal function and has not been validated in children and those over 70. Current interpretive data was last reviewed 2021. Testing performed by: [facility], [address], [place] [address] Blood 07/09/2025 2:42 PM CDT 07/09/2025 2:49 PM CDT Ji Fuentes MD LAB BLOOD ORDERABLES Final R esult AMBIKA ANGEL [address] [place] [address] * (ABNORMAL) CBC without differential (07/09/2025 2:42 PM CDT) WBC 17.22(H) 3.80 - 9.90 K/cumm Hgb 12.5(L) 13.0 - 17.5 g/dL [facility] Hct 36.5(L) 38.9 - 50.3 % [facility] Plt 160 150 - 400 K/cumm [facility] MPV 9.1 9.1 - 12.3 fL [facility] RBC 4.00(L) 4.30 - 5.80 M/cumm [facility] MCV 91.3 81.3 - 96.4 fL [facility] MCH 31.3 27.1 - 33.3 pg [facility] MCHC 34.2 32.3 - 35.7 g/dL [facility] RDW CV 12.1 11.1 - 14.9 % [facility] RDW SD 40.6 35.7 - 48.1 fL [facility] NRBC abs 0.00 0.00 - 0.01 K/cumm [facility] Blood 07/09/2025 2:42 PM CDT 07/09/2025 2:49 PM CDT Ji Fuentes MD LAB BLOOD ORDERABLES Final R esult AMBIKA ANGEL [address] [place] [address] * Magnesium (07/09/2025 2:42 PM CDT) Magnesium 2.1 1.4 - 2.5 mg/dL Comment:[facility] [place] [address] Blood 07/09/2025 2:42 PM CDT 07/09/2025 2:49 PM CDT Ji Fuentes MD LAB BLOOD ORDERABLES Final R esult [facility] [address] Department [place] [address] * (ABNORMAL) Basic metabolic panel (07/09/2025 2:42 PM CDT) Sodium 134(L) 135 - 145 mmol/L Comment:Testing performed [facility] : [facility] [address], [place] [address] Potassium, pl 3.5 3.3 - 4.9 mmol/L [facility] Comment:Testing performed by : [facility] [address], [place] [address] Chloride 100 97 - 110 mmol/L [facility] Comment:Testing performed by : [facility] [address], [place] [address] CO2 21(L) 22 - 32 mmol/L [facility] Comment:Testing performed by : [facility] [address], [place] [address] Anion gap 13 2 - 15 mmol/L [facility] Comment:Testing performed by : [facility] [address], [place] [address] BUN 14 6 - 25 mg/dL [facility] Comment:Testing performed by : [facility] [address], [place] [address] Creatinine 0.79(L) 0.80 - 1.30 mg/dL [facility] Comment:Testing performed by : [facility] [address], [place] [address] Glucose 132 70 - 199 mg/dL [facility] Comment: Interpretive Data Fasting glucose >/= 126 mg/dl is diagnostic for diabetes. Fasting is defined as no caloric intake for at least 8 hours. Fasting glucose between 100 mg/dl to 125 mg/dl is diagnostic of prediabetes. In a patient with classic symptoms of hyperglycemia or hyperglycemic crisis, a random glucose >/= 200 mg/dl is diagnostic for diabetes. In the absence of unequivocal hyperglycemia, results should be confirmed by repeat testing. The classification and Diagnosis of Diabetes Diabetes Care 202; 46: S19-S40. Current interpretive data was last revised 2022. Testing performed by: [facility], [address], [place] [address] Calcium 8.5 8.5 - 10.3 mg/dL AMBIKA ANGEL Comment:Testing performed by : [facility], [address], [place] [address] Blood 07/09/2025 2:42 PM CDT 07/09/2025 2:49 PM CDT Ji Fuentes MD LAB BLOOD ORDERABLES Final R esult Performing Organization Address City/[facility] de Phone Number AMBIKA [address] [facility] [place] [address] * POCT glucose (07/09/2025 2:16 PM CDT) Glucose, POC 133 70 - 199 mg/dL Blood 07/09/2025 2:16 PM CDT 07/09/2025 2:16 PM CDT Ji Fuentes MD LAB POCT ORDERABLES - DEVICE Final Result Performing Organization Address [facility] de Phone Number [facility] [address] [place] [address] * POCT glucose (07/09/2025 1:01 PM CDT) Glucose, POC 119 70 - 199 mg/dL Blood 07/09/2025 1:01 PM CDT 07/09/2025 1:01 PM CDT Ji Fuentes MD LAB POCT ORDERABLES - DEVICE Final Result Performing Organization Address [facility] de Phone Number [facility] [address] [place] [address] * POCT glucose (07/09/2025 11:53 AM CDT) Glucose, POC 102 70 - 199 mg/dL Blood 07/09/2025 11:5 3 AM CDT 07/09/2025 11:53 AM CDT Ji Fuentes MD LAB POCT ORDERABLES - DEVICE Final Result Performing Organization Address [facility] de Phone Number AMBIKA ANGEL [address] [facility] [place] [address] * POCT glucose (07/09/2025 10:49 AM CDT) Glucose, POC 120 70 - 199 mg/dL Blood 07/09/2025 10:4 9 AM CDT 07/09/2025 10:49 AM CDT Ji Fuentes MD LAB POCT ORDERABLES - DEVICE Final Result Performing Organization Address [facility] de Phone Number ANDILUCAS [address] [facility] [place] [address] * POCT glucose (07/09/2025 9:50 AM CDT) Glucose, POC 98 70 - 199 mg/dL Blood 07/09/2025 9:50 AM CDT 07/09/2025 9:50 AM CDT Ji Fuentes MD LAB POCT ORDERABLES - DEVICE Final Result Performing Organization Address [facility] de Phone Number ANDILUCAS [address] [facility] [place] [place] [address] * ECG 12 lead (07/09/2025 9:24 AM CDT) 07/09/2025 9:24 AM CDT Narrative [facility] - 07/09/2025 3:30 PM CDT Vent Rate: 103 bpm RR Interval: 581 msec UT Interval: 128 msec QRS Duration: 85 msec QT Interval: 377 msec QTC Interval: 436 msec P-R-T [place]: 30 - 6 - -9 degrees IMPRESSION: SINUS TACHYCARDIA WITH OCCASIONAL VENTRICULAR PREMATURE COMPLEXES INFERIOR MYOCARDIAL INFARCTION, FOR INDETERMINATE AGE ABNORMAL ECG SINUS TACHYCARDIA IS NEW PVC NEW Electronically Signed By: Melinda Guadarrama MD us Ji Fuentes MD ECG ORDERABLES Final Result Performing Organization Address City/[facility] de Phone Number [facility] * POCT glucose (07/09/2025 8:42 AM CDT) Glucose, POC 103 70 - 199 mg/dL Blood 07/09/2025 8:42 AM CDT 07/09/2025 8:42 AM CDT us Ji Fuentes MD LAB POCT ORDERABLES - DEVICE Final Result Performing Organization Address [facility] de Phone Number [facility] [address] [facility] [place] [address] * Critical Care (07/09/2025 7:48 AM CDT) Narrative Lance Oneil MD - 07/09/2025 7:48 AM CDT Lance Oneil MD 07/09/2025 6:02 PM Critical Care Performed by: Jess Goetz NP Authorized by: Jess Goetz NP CRITICAL CARE: Team: YISEL Shift: AM Level of Billing: Critical Care My time spent with this patient was 70 minutes: Critical Provider Statement: I have seen and examined the patient on this day of service. I have reviewed and confirmed the history, physical exam, laboratory and radiologic data as documented in the signed ICU note. I have reviewed and discussed my treatment plan with the ICU team and other medical/center consultant staff, making frequent assessments and decisions regarding this patient's complex medical care. Critical Care time was exclusive of time spent performing separately billed procedures, treating other patients, and teaching. This time was in addition to and separate from critical care provided by other practitioners in my group on this day of service. Critical Care was necessary to treat or prevent imminent or life-threatening deterioration of the following conditions: I spent time reviewing and interpreting data from bedside monitors, laboratory results, and imaging, I spent time discussing the management of this critically ill patient with consultants and the medical staff and I spent time documenting in the medical record Jess Goetz [facility]/B[facility] ORDERABLES Final Result * POCT glucose (07/09/2025 7:28 AM CDT) Glucose, POC 99 70 - 199 mg/dL Blood 07/09/2025 7:28 AM CDT 07/09/2025 7:28 AM CDT Result [facility] Ji Fuentes MD LAB POCT ORDERABLES - DEVICE Final Result Performing Organization Address [facility] de Phone Number AMBIKA [address] [place] [address] * POCT glucose (07/09/2025 6:41 AM CDT) Glucose, POC 95 70 - 199 mg/dL Blood 07/09/2025 6:41 AM CDT 07/09/2025 6:41 AM CDT Result [facility] Ji Fuentes MD LAB POCT ORDERABLES - DEVICE Final Result Performing Organization Address [facility] [place] [address] [address] [place] [address] * XR Chest 1 View - in AM (07/09/2025 5:58 AM CDT) Anatomical Region Laterality Modality Body, Chest N/A Computed Radiogr aphy 07/09/2025 6:51 AM CDT Impressions 07/09/2025 6:51 AM CDT FINDINGS/IMPRESSION: Right costophrenic angle is excluded from the field of view. Postsurgical changes are present from recent cardiac surgery with median sternotomy wires and cardiac ostial markers noted. Mediastinal and bilateral pleural chest tubes are present. Endotracheal tube has been removed. Enteric tube has been removed. A right internal jugular approach pulmonary artery catheter is present with tip projecting over the right pulmonary artery. Epicardial pacing wires are present. Mild left basilar atelectasis. No visible pleural effusion or pneumothorax. The cardiac silhouette is normal in size. Electronically signed by: Marely Joshi DO Narrative 07/09/2025 6:51 AM CDT EXAM: XR CHEST 1 VIEW, 07/09/2025 5:35 AM HISTORY: postoperative care COMPARISON: Chest radiograph dated 07/08/2025 Procedure Note Marely Issa DO - 07/09/2025 EXAM: XR CHEST 1 VIEW, 07/09/2025 5:35 AM HISTORY: postoperative care COMPARISON: Chest radiograph dated 07/08/2025 IMPRESSION: FINDINGS/IMPRESSION: Right costophrenic angle is excluded from the field of view. Postsurgical changes are present from recent cardiac surgery with median sternotomy wires and cardiac ostial markers noted. Mediastinal and bilateral pleural chest tubes are present. Endotracheal tube has been removed. Enteric tube has been removed. A right internal jugular approach pulmonary artery catheter is present with tip projecting over the right pulmonary artery. Epicardial pacing wires are present. Mild left basilar atelectasis. No visible pleural effusion or pneumothorax. The cardiac silhouette is normal in size. Electronically signed by: Marely Joshi DO us Ji Fuentes MD IMG XR PROCEDURES Final Resu lt * POCT glucose (07/09/2025 5:10 AM CDT) Glucose, POC 104 70 - 199 mg/dL Blood 07/09/2025 5:10 AM CDT 07/09/2025 5:10 AM CDT us Ji Fuentes MD LAB POCT ORDERABLES - DEVICE Final Result AMBIKA [address] [place] [address] * POCT glucose (07/09/2025 4:14 AM CDT) Glucose, POC 98 70 - 199 mg/dL Blood 07/09/2025 4:14 AM CDT 07/09/2025 4:14 AM CDT Ji Fuentes MD LAB POCT ORDERABLES - DEVICE Final Result Performing Organization Address [facility] de Phone Number AMBIKA ANGEL [address] [place] [address] * Oxyhemoglobin, central venous (07/09/2025 3:16 AM CDT) Oxyhemoglobin, CV 71.1 % Comment: Interpretive Data No reference range established. Current interpretive data was last revised 2020. Blood 07/09/2025 3:16 AM CDT 07/09/2025 3:21 AM CDT Ji Fuentes MD LAB BLOOD ORDERABLES Final R esult Performing Organization Address [facility] de Phone Number AMBIKA ANGEL [address] [place] [address] * eGFR (07/09/2025 3:16 AM CDT) eGFR >90 >=60 mL/min/1. 73 m2 Comment: Interpretive Data Reference Interval Normal >/= 90 mL/min/1.73m2 Mildly decreased* 60 - 89 mL/min/1.73m2 Mildly to moderately decreased 45 - 59 mL/min/1.73m2 Moderately to severely decreased 30 - 44 mL/min/1.73m2 Severely decreased 15 - 29 mL/min/1.73m2 Kidney Failure < 15 mL/min/1.73m2 *Relative to young adult level Estimated glomerular filtration rate is determined by the 2020 CKD-EPI equation recommended by the National Kidney Foundation (A Unifying Approach to GFR Estimation: Recommendations of the NKF-ASK Task Force on Reassessing the Inclusion of Race in Diagnosing Kidney Disease, JASN 2020). The CKD-EPI equation should not be used for patients with unstable renal function and has not been validated in children and those over 70. Current interpretive data was last reviewed 2021. Blood 07/09/2025 3:16 AM CDT 07/09/2025 3:21 AM CDT Ji Fuentes MD LAB BLOOD ORDERABLES Final R esult Performing Organization Address City/[facility]/ZIP Co de Phone Number AMBIKA ANGEL [address] [place] [address] * (ABNORMAL) CBC without differential (07/09/2025 3:16 AM CDT) WBC 13.04(H) 3.80 - 9.90 K/cumm Hgb 12.8(L) 13.0 - 17.5 g/dL [facility] Hct 37.1(L) 38.9 - 50.3 % [facility] Plt 154 150 - 400 K/cumm [facility] MPV 9.0(L) 9.1 - 12.3 fL [facility] RBC 4.04(L) 4.30 - 5.80 M/cumm [facility] MCV 91.8 81.3 - 96.4 fL [facility] MCH 31.7 27.1 - 33.3 pg [facility] MCHC 34.5 32.3 - 35.7 g/dL [facility] RDW CV 12.0 11.1 - 14.9 % [facility] RDW SD 40.6 35.7 - 48.1 fL [facility] NRBC abs 0.00 0.00 - 0.01 K/cumm [facility] Blood 07/09/2025 3:16 AM CDT 07/09/2025 3:22 AM CDT Ji Fuentes MD LAB BLOOD ORDERABLES Final R esult AMBIKA ANGEL [address] [employer] [place], [place] [address] * Magnesium (07/09/2025 3:16 AM CDT) Magnesium 2.4 1.4 - 2.5 mg/dL Blood 07/09/2025 3:16 AM CDT 07/09/2025 3:21 AM CDT us Ji Fuentes MD LAB BLOOD ORDERABLES Final R esult [facility] [address] [place] [address] * (ABNORMAL) Basic metabolic panel (07/09/2025 3:16 AM CDT) Pathologist [facility] Sodium 140 135 - 145 mmol/L Potassium, pl 3.8 3.3 - 4.9 mmol/L [facility] Chloride 106 97 - 110 mmol/L [facility] CO2 25 22 - 32 mmol/L [facility] Anion gap 9 2 - 15 mmol/L [facility] BUN 14 6 - 25 mg/dL [facility] Creatinine 0.78(L) 0.80 - 1.30 mg/dL [facility] Glucose 115 70 - 199 mg/dL [facility] Comment: Interpretive Data Fasting glucose >/= 126 mg/dl is diagnostic for diabetes. Fasting is defined as no caloric intake for at least 8 hours. Fasting glucose between 100 mg/dl to 125 mg/dl is diagnostic of prediabetes. In a patient with classic symptoms of hyperglycemia or hyperglycemic crisis, a random glucose >/= 200 mg/dl is diagnostic for diabetes. In the absence of unequivocal hyperglycemia, results should be confirmed by repeat testing. The classification and Diagnosis of Diabetes Diabetes Care 202; 46: S19-S40. Current interpretive data was last revised 2022. Calcium 8.5 8.5 - 10.3 mg/dL [facility] Blood 07/09/2025 3:16 AM CDT 07/09/2025 3:21 AM CDT us Ji Fuentes MD LAB BLOOD ORDERABLES Final R esult [facility] [address] [place] [address] * POCT glucose (07/09/2025 3:11 AM CDT) Glucose, POC 112 70 - 199 mg/dL Blood 07/09/2025 3:11 AM CDT 07/09/2025 3:11 AM CDT Ji Fuentes MD LAB POCT ORDERABLES - DEVICE Final Result Performing Organization Address City/[facility]/ZIP Co de Phone Number AMBIKA ANGEL [address] [facility] [place] [address] * POCT glucose (07/09/2025 2:08 AM CDT) Glucose, POC 105 70 - 199 mg/dL Blood 07/09/2025 2:08 AM CDT 07/09/2025 2:08 AM CDT Ji Fuentes MD LAB POCT ORDERABLES - DEVICE Final Result Performing Organization Address [facility] de Phone Number AMBIKA [address] [facility] [place] [place] [address] * POCT glucose (07/09/2025 1:04 AM CDT) Glucose, POC 109 70 - 199 mg/dL Blood 07/09/2025 1:04 AM CDT 07/09/2025 1:04 AM CDT Ji Fuentes MD LAB POCT ORDERABLES - DEVICE Final Result Performing Organization Address City/[facility] de Phone Number ANDILUCAS [address] [facility] [place] [address] * POCT glucose (07/09/2025 12:06 AM CDT) Glucose, POC 120 70 - 199 mg/dL Blood 07/09/2025 12:0 6 AM CDT 07/09/2025 12:06 AM CDT Ji Fuentes MD LAB POCT ORDERABLES - DEVICE Final Result Performing Organization Address [facility] de Phone Number AMBIKA ANGEL [address] [facility] [place] [address] * POCT glucose (07/08/2025 11:07 PM CDT) Glucose, POC 116 70 - 199 mg/dL Blood 07/08/2025 11:0 7 PM CDT 07/08/2025 11:07 PM CDT Ji Fuentes MD LAB POCT ORDERABLES - DEVICE Final Result Performing Organization Address [facility] de Phone Number ANDILUCAS ANGEL [address] [facility] [place] [address] * POCT glucose (07/08/2025 10:10 PM CDT) Glucose, POC 136 70 - 199 mg/dL Blood 07/08/2025 10:1 0 PM CDT 07/08/2025 10:10 PM CDT Ji Fuentes MD LAB POCT ORDERABLES - DEVICE Final Result Performing Organization Address [facility] de Phone Number AMBIKA STANLEY [address] [facility] [place] [address] * Calcium, ionized, whole blood (07/08/2025 9:35 PM CDT) Ca, ionized, bld 4.75 4.50 - 5.10 mg/dL Blood 07/08/2025 9:35 PM CDT 07/08/2025 9:40 PM CDT Ji Fuentes MD LAB BLOOD ORDERABLES Final R esult Performing Organization Address [facility] de Phone Number ANDILUCAS ANGEL [address] [place] [address] * eGFR (07/08/2025 9:35 PM CDT) eGFR >90 >=60 mL/min/1. 73 m2 Comment: Interpretive Data Reference Interval Normal >/= 90 mL/min/1.73m2 Mildly decreased* 60 - 89 mL/min/1.73m2 Mildly to moderately decreased 45 - 59 mL/min/1.73m2 Moderately to severely decreased 30 - 44 mL/min/1.73m2 Severely decreased 15 - 29 mL/min/1.73m2 Kidney Failure < 15 mL/min/1.73m2 *Relative to young adult level Estimated glomerular filtration rate is determined by the 2020 CKD-EPI equation recommended by the National Kidney Foundation (A Unifying Approach to GFR Estimation: Recommendations of the NKF-ASK Task Force on Reassessing the Inclusion of Race in Diagnosing Kidney Disease, JASN 2020). The CKD-EPI equation should not be used for patients with unstable renal function and has not been validated in children and those over 70. Current interpretive data was last reviewed 2021. Blood 07/08/2025 9:35 PM CDT 07/08/2025 9:47 PM CDT Ji Fuentes MD LAB BLOOD ORDERABLES Final R esult AMBIKA ANGEL [address] [place] [address] * (ABNORMAL) CBC without differential (07/08/2025 9:35 PM CDT) WBC 15.08(H) 3.80 - 9.90 K/cumm Hgb 13.0 13.0 - 17.5 g/dL [facility] Hct 38.3(L) 38.9 - 50.3 % [facility] Plt 162 150 - 400 K/cumm [facility] MPV 8.7(L) 9.1 - 12.3 fL [facility] RBC 4.18(L) 4.30 - 5.80 M/cumm [facility] MCV 91.6 81.3 - 96.4 fL [facility] MCH 31.1 27.1 - 33.3 pg [facility] MCHC 33.9 32.3 - 35.7 g/dL [facility] RDW CV 12.0 11.1 - 14.9 % [facility] RDW SD 40.1 35.7 - 48.1 fL [facility] NRBC abs 0.00 0.00 - 0.01 K/cumm [facility] Blood 07/08/2025 9:35 PM CDT 07/08/2025 9:40 PM CDT Ji Fuentes MD LAB BLOOD ORDERABLES Final R esult AMBIKA ANGEL [address] [place] [address] * Magnesium (07/08/2025 9:35 PM CDT) Pathologist [facility] Magnesium 2.0 1.4 - 2.5 mg/dL Blood 07/08/2025 9:35 PM CDT 07/08/2025 9:40 PM CDT Ji Fuentes MD LAB BLOOD ORDERABLES Final R esult Performing Organization Address City/[facility] de Phone Number AMBIKA ANGEL [address] [place] [address] * (ABNORMAL) Blood gas, arterial (07/08/2025 9:35 PM CDT) pH, Art 7.40 7.35 - 7.45 PCO2, Arterial 39 35 - 45 mmHg [facility] PO2, Arterial 92 83 - 108 mmHg [facility] HCO3 Art (Calculated) 24 20 - 30 mmol/L [facility] BE, art 0 mmol/L [facility] Comment: Interpretive Data No Reference Range Established Current Interpretive Data was last revised on 2017 O2 Sat Art (Measured) 97(H) 90 - 95 % [facility] Blood 07/08/2025 9:35 PM CDT 07/08/2025 9:39 PM CDT Ji Fuentes MD LAB BLOOD ORDERABLES Final R esult AMBIKA ANGEL [address] [place] [address] * (ABNORMAL) Basic metabolic panel (07/08/2025 9:35 PM CDT) Sodium 140 135 - 145 mmol/L Potassium, pl 3.8 3.3 - 4.9 mmol/L [facility] Chloride 106 97 - 110 mmol/L [facility] CH CO2 23 22 - 32 mmol/L [facility] CH Anion gap 11 2 - 15 mmol/L [facility] CH BUN 13 6 - 25 mg/dL [facility] Creatinine 0.75(L) 0.80 - 1.30 mg/dL [facility] Glucose 157 70 - 199 mg/dL [facility] Comment: Interpretive Data Fasting glucose >/= 126 mg/dl is diagnostic for diabetes. Fasting is defined as no caloric intake for at least 8 hours. Fasting glucose between 100 mg/dl to 125 mg/dl is diagnostic of prediabetes. In a patient with classic symptoms of hyperglycemia or hyperglycemic crisis, a random glucose >/= 200 mg/dl is diagnostic for diabetes. In the absence of unequivocal hyperglycemia, results should be confirmed by repeat testing. The classification and Diagnosis of Diabetes Diabetes Care 202; 46: S19-S40. Current interpretive data was last revised 2022. Calcium 8.6 8.5 - 10.3 mg/dL [facility] Blood 07/08/2025 9:35 PM CDT 07/08/2025 9:40 PM CDT us Ji Fuentes MD LAB BLOOD ORDERABLES Final R esult AMBIKA ANGEL [address] Department [place] [address] * POCT glucose (07/08/2025 9:16 PM CDT) Glucose, POC 144 70 - 199 mg/dL Blood 07/08/2025 9:16 PM CDT 07/08/2025 9:16 PM CDT us Ji Fuentes MD LAB POCT ORDERABLES - DEVICE Final Result AMBIKA [address] [facility] Department [place] [address] * Critical Care (07/08/2025 8:01 PM CDT) Narrative Vic Palacios MD - 07/08/2025 8:01 PM CDT Vic Palacios MD 07/09/2025 6:31 AM Critical Care Performed by: Manisha Mary NP Authorized by: Manisha Mary NP CRITICAL CARE: Team: YISEL Shift: PM Level of Billing: Critical Care My time spent with this patient was 75 minutes: Critical Provider Statement: I have seen and examined the patient on this day of service. I have reviewed and confirmed the history, physical exam, laboratory and radiologic data as documented in the signed ICU note. I have reviewed and discussed my treatment plan with the ICU team and other medical/center consultant staff, making frequent assessments and decisions regarding this patient's complex medical care. Critical Care time was exclusive of time spent performing separately billed procedures, treating other patients, and teaching. This time was in addition to and separate from critical care provided by other practitioners in my group on this day of service. Critical Care was necessary to treat or prevent imminent or life-threatening deterioration of the following conditions: I spent time reviewing and interpreting data from bedside monitors, laboratory results, and imaging, I spent time discussing the management of this critically ill patient with consultants and the medical staff and I spent time documenting in the medical record us Manisha Mary [facility] IN CLINIC/BEDSIDE ORDERA BLES Final Result * POCT glucose (07/08/2025 7:55 PM CDT) Glucose, POC 156 70 - 199 mg/dL Blood 07/08/2025 7:55 PM CDT 07/08/2025 7:55 PM CDT us Ji Fuentes MD LAB POCT ORDERABLES - DEVICE Final Result [facility] [address] Department [place] [address] * (ABNORMAL) Differential, auto (07/08/2025 6:06 PM CDT) Neutrophil abs 13.82(H) 1.50 - 6.50 K/cumm Imm gran abs 0.09 0.00 - 0.10 K/cumm [facility] Lymphocyte abs 0.42(L) 0.80 - 3.30 K/cumm [facility] Monocyte abs 1.44(H) 0.20 - 0.80 K/cumm [facility] Eosinophil abs 0.01 0.00 - 0.50 K/cumm [facility] Basophil abs 0.03 0.00 - 0.10 K/cumm [facility] Neutrophil pct 87.3 % [facility] Comment: Interpretive Data Percent cell count reference ranges are not reported, since discordance with absolute values may lead to misinterpretation of CBC data. Current Interpretive Data was last revised on 2018. Imm gran pct 0.6 % [facility] Comment: Interpretive Data Percent cell count reference ranges are not reported, since discordance with absolute values may lead to misinterpretation of CBC data. Current Interpretive Data was last revised on 2018. Lymphocyte pct 2.7 % [facility] Comment: Interpretive Data Percent cell count reference ranges are not reported, since discordance with absolute values may lead to misinterpretation of CBC data. Current Interpretive Data was last revised on 2018. Monocyte pct 9.1 % [facility] Comment: Interpretive Data Percent cell count reference ranges are not reported, since discordance with absolute values may lead to misinterpretation of CBC data. Current Interpretive Data was last revised on 2018. Eosinophil pct 0.1 % [facility] Comment: Interpretive Data Percent cell count reference ranges are not reported, since discordance with absolute values may lead to misinterpretation of CBC data. Current Interpretive Data was last revised on 2018. Basophil pct 0.2 % [facility] Comment: Interpretive Data Percent cell count reference ranges are not reported, since discordance with absolute values may lead to misinterpretation of CBC data. Current Interpretive Data was last revised on 2018. Blood 07/08/2025 6:06 PM CDT 07/08/2025 6:13 PM CDT Ji Fuentes MD LAB BLOOD ORDERABLES Final R esult Performing Organization Address City/[facility]/ZIP Co de Phone Number AMBIKA ANGEL [address] [place] [address] * (ABNORMAL) CBC with auto differential (07/08/2025 6:06 PM CDT) WBC 15.81(H) 3.80 - 9.90 K/cumm Hgb 13.0 13.0 - 17.5 g/dL [facility] Hct 37.3(L) 38.9 - 50.3 % [facility] Plt 179 150 - 400 K/cumm [facility] MPV 8.7(L) 9.1 - 12.3 fL [facility] RBC 4.08(L) 4.30 - 5.80 M/cumm [facility] MCV 91.4 81.3 - 96.4 fL [facility] MCH 31.9 27.1 - 33.3 pg [facility] MCHC 34.9 32.3 - 35.7 g/dL [facility] RDW CV 11.9 11.1 - 14.9 % [facility] RDW SD 40.2 35.7 - 48.1 fL [facility] NRBC abs 0.00 0.00 - 0.01 K/cumm [facility] Blood 07/08/2025 6:06 PM CDT 07/08/2025 6:13 PM CDT Ji Fuentes MD LAB BLOOD ORDERABLES Final R esult Performing Organization Address City/[facility]/ZIP Co de Phone Number AMBIKA ANGEL [address] [place] [address] * Calcium, ionized, whole blood (07/08/2025 6:04 PM CDT) Pathologist [facility] Ca, ionized, bld 4.72 4.50 - 5.10 mg/dL Blood 07/08/2025 6:04 PM CDT 07/08/2025 6:12 PM CDT Ji Fuentes MD LAB BLOOD ORDERABLES Final R esult AMBIKA ANGEL [address] [place], [place] [id number] * eGFR (07/08/2025 6:04 PM CDT) [facility] eGFR >90 >=60 mL/min/1. 73 m2 Comment: Interpretive Data Reference Interval Normal >/= 90 mL/min/1.73m2 Mildly decreased* 60 - 89 mL/min/1.73m2 Mildly to moderately decreased 45 - 59 mL/min/1.73m2 Moderately to severely decreased 30 - 44 mL/min/1.73m2 Severely decreased 15 - 29 mL/min/1.73m2 Kidney Failure < 15 mL/min/1.73m2 *Relative to young adult level Estimated glomerular filtration rate is determined by the 2020 CKD-EPI equation recommended by the National Kidney Foundation (A Unifying Approach to GFR Estimation: Recommendations of the NKF-ASK Task Force on Reassessing the Inclusion of Race in Diagnosing Kidney Disease, JASN 2020). The CKD-EPI equation should not be used for patients with unstable renal function and has not been validated in children and those over 70. Current interpretive data was last reviewed 2021. Blood 07/08/2025 6:04 PM CDT 07/08/2025 6:15 PM CDT Ji Fuentes MD LAB BLOOD ORDERABLES Final R esult AMBIKA ANGEL [address] Department [employer] [place], [place] [id number] * Phosphorus (07/08/2025 6:04 PM CDT) Pathologist [facility] Phosphorus, pl 3.1 2.3 - 4.5 mg/dL Blood 07/08/2025 6:04 PM CDT 07/08/2025 6:12 PM CDT Ji Fuentes MD LAB BLOOD ORDERABLES Final R esult Performing Organization Address City/[facility]/ZIP Co de Phone Number AMBIKA ANGEL [address] [facility] [place] [address] * Magnesium (07/08/2025 6:04 PM CDT) [facility] Magnesium 2.2 1.4 - 2.5 mg/dL Blood 07/08/2025 6:04 PM CDT 07/08/2025 6:12 PM CDT Ji Fuentes MD LAB BLOOD ORDERABLES Final R esult Performing Organization Address [facility] de Phone Number AMBIKA STANLEY [address] [place] [address] * (ABNORMAL) Blood gas, arterial (07/08/2025 6:04 PM CDT) [facility] pH, Art 7.38 7.35 - 7.45 PCO2, Arterial 40 35 - 45 mmHg [facility] CH PO2, Arterial 131(H) 83 - 108 mmHg [facility] CH HCO3 Art (Calculated) 23 20 - 30 mmol/L [facility] BE, art -2 mmol/L [facility] Comment: Interpretive Data No Reference Range Established Current Interpretive Data was last revised on 2017 O2 Sat Art (Measured) 98(H) 90 - 95 % [facility] Blood 07/08/2025 6:04 PM CDT 07/08/2025 6:12 PM CDT Ji Fuentes MD LAB BLOOD ORDERABLES Final R esult Performing Organization Address [facility] Co de Phone Number AMBIKA ANGEL [address] [place] [address] * (ABNORMAL) Basic metabolic panel (07/08/2025 6:04 PM CDT) Sodium 139 135 - 145 mmol/L Potassium, pl 4.0 3.3 - 4.9 mmol/L [facility] Chloride 106 97 - 110 mmol/L [facility] CO2 21(L) 22 - 32 mmol/L [facility] CH Anion gap 12 2 - 15 mmol/L [facility] CH BUN 14 6 - 25 mg/dL [facility] Creatinine 0.78(L) 0.80 - 1.30 mg/dL [facility] Comment:Icteric sample, test results may be affected. Glucose 164 70 - 199 mg/dL [facility] Comment: Interpretive Data Fasting glucose >/= 126 mg/dl is diagnostic for diabetes. Fasting is defined as no caloric intake for at least 8 hours. Fasting glucose between 100 mg/dl to 125 mg/dl is diagnostic of prediabetes. In a patient with classic symptoms of hyperglycemia or hyperglycemic crisis, a random glucose >/= 200 mg/dl is diagnostic for diabetes. In the absence of unequivocal hyperglycemia, results should be confirmed by repeat testing. The classification and Diagnosis of Diabetes Diabetes Care 202; 46: S19-S40. Current interpretive data was last revised 2022. Calcium 9.1 8.5 - 10.3 mg/dL [facility] Blood 07/08/2025 6:04 PM CDT 07/08/2025 6:12 PM CDT Ji Fuentes MD LAB BLOOD ORDERABLES Final R esult AMBIKA [address] Department [place] [address] * POCT glucose (07/08/2025 6:03 PM CDT) Glucose, POC 162 70 - 199 mg/dL Blood 07/08/2025 6:03 PM CDT 07/08/2025 6:03 PM CDT Ji Fuentes MD LAB POCT ORDERABLES - DEVICE Final Result Performing Organization Address [facility] Co de Phone Number AMBIKA ANGEL [address] [place] [address] * (ABNORMAL) Blood gas, arterial (07/08/2025 5:30 PM CDT) pH, Art 7.37 7.35 - 7.45 PCO2, Arterial 40 35 - 45 mmHg [facility] CH PO2, Arterial 151(H) 83 - 108 mmHg [facility] CH HCO3 Art (Calculated) 23 20 - 30 mmol/L [facility] BE, art -2 mmol/L [facility] Comment: Interpretive Data No Reference Range Established Current Interpretive Data was last revised on 2017 O2 Sat Art (Measured) 99(H) 90 - 95 % [facility] Blood 07/08/2025 5:30 PM CDT 07/08/2025 5:35 PM CDT Ji Fuentes MD LAB BLOOD ORDERABLES Final R esult Performing Organization Address [facility] Co de Phone Number AMBIKA ANGEL [address] [place] [address] * POCT glucose (07/08/2025 4:03 PM CDT) Glucose, POC 130 70 - 199 mg/dL Blood 07/08/2025 4:03 PM CDT 07/08/2025 4:03 PM CDT Ji Fuentes MD LAB POCT ORDERABLES - DEVICE Final Result Performing Organization Address [facility] Co de Phone Number AMBIKA ANGEL [address] [place] [address] * Critical Care (07/08/2025 3:12 PM CDT) Narrative Sebastian Ibarra MD - 07/08/2025 3:12 PM CDT Sebastian Ibarra MD 07/08/2025 6:04 PM Critical Care Performed by: SofyJess schmidt NP Authorized by: Jess Goetz NP CRITICAL CARE: Team: YISEL Shift: AM Level of Billing: Critical Care My time spent with this patient was 75 minutes: Critical Provider Statement: I have seen and examined the patient on this day of service. I have reviewed and confirmed the history, physical exam, laboratory and radiologic data as documented in the signed ICU note. I have reviewed and discussed my treatment plan with the ICU team and other medical/center consultant staff, making frequent assessments and decisions regarding this patient's complex medical care. Critical Care time was exclusive of time spent performing separately billed procedures, treating other patients, and teaching. This time was in addition to and separate from critical care provided by other practitioners in my group on this day of service. Critical Care was necessary to treat or prevent imminent or life-threatening deterioration of the following conditions: I spent time reviewing and interpreting data from bedside monitors, laboratory results, and imaging, I spent time discussing the management of this critically ill patient with consultants and the medical staff and I spent time documenting in the medical record Jess Goetz NP IN CLINIC/BEDSIDE ORDERABLES Final Result * XR Kub (07/08/2025 2:46 PM CDT) Anatomical Region Laterality Modality Body, Abdomen N/A Computed Radiogr aphy 07/08/2025 4:16 PM CDT Impressions 07/08/2025 4:16 PM CDT FINDINGS/IMPRESSION: Enteric tube loops in the stomach. Partially visualized chest tubes. Partially visualized pulmonary artery catheter in the chest. Epicardial pacer wires are present. Lumbar spinal fusion hardware is present. Median sternotomy wires are partially visualized in the chest. Nonobstructive bowel gas pattern. Electronically signed by: Marely Joshi DO Narrative 07/08/2025 4:16 PM CDT EXAM: XR KUB, 07/08/2025 2:40 PM HISTORY: Ogt COMPARISON: 12/30/2023 Procedure Note Marely Issa DO - 07/08/2025 EXAM: XR KUB, 07/08/2025 2:40 PM HISTORY: Ogt COMPARISON: 12/30/2023 IMPRESSION: FINDINGS/IMPRESSION: Enteric tube loops in the stomach. Partially visualized chest tubes. Partially visualized pulmonary artery catheter in the chest. Epicardial pacer wires are present. Lumbar spinal fusion hardware is present. Median sternotomy wires are partially visualized in the chest. Nonobstructive bowel gas pattern. Electronically signed by: Marely Joshi DO Jaylyn BELLAMY IMG XR PROCEDURES Maria Elena l Result * XR Chest 1 View (07/08/2025 2:38 PM CDT) Anatomical Region Laterality Modality Body, Chest N/A Computed Radiogr aphy 07/08/2025 4:14 PM CDT Impressions 07/08/2025 4:14 PM CDT FINDINGS/IMPRESSION: Postsurgical changes are present from recent cardiac surgery with median sternotomy wires and cardiac ostial markers noted. Mediastinal and bilateral pleural chest tubes are present. Endotracheal tube tip projects over the distal thoracic trachea. Enteric tube courses below the diaphragm with tip projecting over the left upper quadrant of the abdomen. A right internal jugular approach pulmonary artery catheter is present with tip projecting over the right pulmonary artery. Epicardial pacing wires are present. Left retrocardiac opacification likely represents a combination of a trace left pleural effusion and atelectasis. Suspected trace left apical pneumothorax with chest tube in place. The cardiac silhouette is normal in size. Electronically signed by: Marely Joshi DO Narrative 07/08/2025 4:14 PM CDT EXAM: XR CHEST 1 VIEW, 07/08/2025 2:25 PM HISTORY: postoperative care COMPARISON: Chest radiograph dated 06/26/2025 Procedure Note Marely Issa DO - 07/08/2025 EXAM: XR CHEST 1 VIEW, 07/08/2025 2:25 PM HISTORY: postoperative care COMPARISON: Chest radiograph dated 06/26/2025 IMPRESSION: FINDINGS/IMPRESSION: Postsurgical changes are present from recent cardiac surgery with median sternotomy wires and cardiac ostial markers noted. Mediastinal and bilateral pleural chest tubes are present. Endotracheal tube tip projects over the distal thoracic trachea. Enteric tube courses below the diaphragm with tip projecting over the left upper quadrant of the abdomen. A right internal jugular approach pulmonary artery catheter is present with tip projecting over the right pulmonary artery. Epicardial pacing wires are present. Left retrocardiac opacification likely represents a combination of a trace left pleural effusion and atelectasis. Suspected trace left apical pneumothorax with chest tube in place. The cardiac silhouette is normal in size. Electronically signed by: Marely Joshi DO Ji Fuentes MD IMG XR PROCEDURES Final Resu lt * (ABNORMAL) Calcium, ionized, whole blood (07/08/2025 2:30 PM CDT) Ca, ionized, bld 4.44(L) 4.50 - 5.10 mg/dL Blood 07/08/2025 2:30 PM CDT 07/08/2025 2:42 PM CDT Ji Fuentes MD LAB BLOOD ORDERABLES Final R esult AMBIKA [address] Department [place] [address] * eGFR (07/08/2025 2:30 PM CDT) eGFR >90 >=60 mL/min/1. 73 m2 Comment: Interpretive Data Reference Interval Normal >/= 90 mL/min/1.73m2 Mildly decreased* 60 - 89 mL/min/1.73m2 Mildly to moderately decreased 45 - 59 mL/min/1.73m2 Moderately to severely decreased 30 - 44 mL/min/1.73m2 Severely decreased 15 - 29 mL/min/1.73m2 Kidney Failure < 15 mL/min/1.73m2 *Relative to young adult level Estimated glomerular filtration rate is determined by the 2020 CKD-EPI equation recommended by the National Kidney Foundation (A Unifying Approach to GFR Estimation: Recommendations of the NKF-ASK Task Force on Reassessing the Inclusion of Race in Diagnosing Kidney Disease, JASN 2020). The CKD-EPI equation should not be used for patients with unstable renal function and has not been validated in children and those over 70. Current interpretive data was last reviewed 2021. Blood 07/08/2025 2:30 PM CDT 07/08/2025 2:36 PM CDT Ji Fuentse MD LAB BLOOD ORDERABLES Final R esult Performing Organization Address [facility] Co de Phone Number AMBIKA [address] [facility] [place] [place] [address] * aPTT (07/08/2025 2:30 PM CDT) aPTT 32 26 - 38 sec Comment: Interpretive Data Heparin therapeutic range: 66.0 - 100.0 seconds. Range based on correlation with therapeutic heparin activity range of 0.3 - 0.7 Units/mL. Current interpretive data was last revised on 2023. Blood 07/08/2025 2:30 PM CDT 07/08/2025 2:36 PM CDT Ji Fuentes MD LAB BLOOD ORDERABLES Final R esult Performing Organization Address [facility] de Phone Number [facility] [address] [facility] [place] [place] [address] * (ABNORMAL) Protime-INR (07/08/2025 2:30 PM CDT) PT 16.9(H) 10.2 - 13.5 sec INR 1.51(H) 0.90 - 1.20 [facility] Comment: Interpretive data Oral anticoagulant therapeutic ranges: Venous thromboembolism prophylaxis or treatment: 2.0-3.0 CARDIOLOGY Standard range: 2.0-3.0 High-intensity range: 2.5-3.5 Refer to indication-specific guidelines for appropriate target ranges for prosthetic heart valve replacement. Current interpretive data was last revised on 2019. Blood 07/08/2025 2:30 PM CDT 07/08/2025 2:36 PM CDT Ji Fuentes MD LAB BLOOD ORDERABLES Final R esult Performing Organization Address [facility] Co de Phone Number AMBIKA ANGEL [address] [facility] [place] [place] [address] * (ABNORMAL) CBC without differential (07/08/2025 2:30 PM CDT) WBC 16.16(H) 3.80 - 9.90 K/cumm Hgb 13.3 13.0 - 17.5 g/dL [facility] Hct 38.2(L) 38.9 - 50.3 % [facility] Plt 135(L) 150 - 400 K/cumm [facility] MPV 8.7(L) 9.1 - 12.3 fL [facility] RBC 4.18(L) 4.30 - 5.80 M/cumm [facility] MCV 91.4 81.3 - 96.4 fL [facility] MCH 31.8 27.1 - 33.3 pg [facility] MCHC 34.8 32.3 - 35.7 g/dL [facility] RDW CV 11.9 11.1 - 14.9 % [facility] RDW SD 39.8 35.7 - 48.1 fL [facility] NRBC abs 0.00 0.00 - 0.01 K/cumm [facility] Blood 07/08/2025 2:30 PM CDT 07/08/2025 2:36 PM CDT us Ji Fuentes MD LAB BLOOD ORDERABLES Final R esult Performing Organization Address [facility] Co de Phone Number AMBIKA ANGEL [address] [place] [address] * Magnesium (07/08/2025 2:30 PM CDT) Magnesium 2.5 1.4 - 2.5 mg/dL Blood 07/08/2025 2:30 PM CDT 07/08/2025 2:36 PM CDT Ji Fuentes MD LAB BLOOD ORDERABLES Final R esult Performing Organization Address [facility]/State/[place] Co de Phone Number AMBIKA ANGEL [address] [place] [address] * (ABNORMAL) Blood gas, arterial (07/08/2025 2:30 PM CDT) pH, Art 7.36 7.35 - 7.45 PCO2, Arterial 44 35 - 45 mmHg [facility] PO2, Arterial 269(H) 83 - 108 mmHg [facility] HCO3 Art (Calculated) 24 20 - 30 mmol/L [facility] CH BE, art -1 mmol/L [facility] Comment: Interpretive Data No Reference Range Established Current Interpretive Data was last revised on 2017 O2 Sat Art (Measured) 99(H) 90 - 95 % [facility] Blood 07/08/2025 2:30 PM CDT 07/08/2025 2:43 PM CDT Ji Fuentes MD LAB BLOOD ORDERABLES Final R esult Performing Organization Address City/State/[place] Co de Phone Number AMBIKA ANGEL [address] [place] [address] * (ABNORMAL) Basic metabolic panel (07/08/2025 2:30 PM CDT) Pathologist [facility] Sodium 140 135 - 145 mmol/L Potassium, pl 4.1 3.3 - 4.9 mmol/L [facility] Chloride 108 97 - 110 mmol/L [facility] CO2 23 22 - 32 mmol/L [facility] Anion gap 9 2 - 15 mmol/L [facility] BUN 14 6 - 25 mg/dL [facility] Creatinine 0.82 0.80 - 1.30 mg/dL [facility] Glucose 126 70 - 199 mg/dL [facility] Comment: Interpretive Data Fasting glucose >/= 126 mg/dl is diagnostic for diabetes. Fasting is defined as no caloric intake for at least 8 hours. Fasting glucose between 100 mg/dl to 125 mg/dl is diagnostic of prediabetes. In a patient with classic symptoms of hyperglycemia or hyperglycemic crisis, a random glucose >/= 200 mg/dl is diagnostic for diabetes. In the absence of unequivocal hyperglycemia, results should be confirmed by repeat testing. The classification and Diagnosis of Diabetes Diabetes Care 202; 46: S19-S40. Current interpretive data was last revised 2022. Calcium 7.7(L) 8.5 - 10.3 mg/dL [facility] Blood 07/08/2025 2:30 PM CDT 07/08/2025 2:36 PM CDT Ji Fuentes MD LAB BLOOD ORDERABLES Final R esult Performing Organization Address City/[facility]/[place] Co de Phone Number [facility] [address] [place] [address] * POCT glucose (07/08/2025 2:29 PM CDT) Glucose, POC 108 70 - 199 mg/dL Blood 07/08/2025 2:29 PM CDT 07/08/2025 2:29 PM CDT Ji Fuentes MD LAB POCT ORDERABLES - DEVICE Final Result Performing Organization Address [facility] de Phone Number [facility] [address] [place] [address] * POC Activated Clotting Time, High Range (07/08/2025 2:02 PM CDT) ACT 118 87 - 138 sec Blood 07/08/2025 2:02 PM CDT 07/08/2025 2:02 PM CDT Ji Fuentes MD LAB BLOOD ORDERABLES Final R esult Performing Organization Address [facility] Co de Phone Number [facility] [address] [facility] [place] [place] [address] * (ABNORMAL) POC Blood Gas and Chemistries, Arterial - (07/08/2025 1:50 PM CDT) pH, Art POC 7.37 7.35 - 7.45 pCO2, Art POC 43 35 - 45 mmHg [facility] pO2, Art POC 276(H) 83 - 108 mmHg [facility] Na, POC 136 135 - 145 mmol/L [facility] K POC 3.8 3.3 - 4.9 mmol/L [facility] Comment: Interpretive Data This method is not able to assess for hemolysis, which may falsely increase potassium concentrations. If further testing is needed to evaluate this result, consider in-laboratory plasma potassium. Current Interpretive Data was last revised on 2022. Ionized Ca, POC 4.45(L) 4.50 - 5.10 mg/dL [facility] Glucose, POC 112 70 - 199 mg/dL [facility] Lactate POC 0.7 0.7 - 2.0 mmol/L [facility] O2Hb, Art POC 98.2(H) 90.0 - 95.0 % [facility] SO2 (prakash) arterial 100(H) 90 - 95 % [facility] Total CO2, Art POC 26 21 - 30 mmol/L [facility] BE, art, POC -1 mmol/L [facility] Hct, POC 38.0(L) 38.9 - 50.3 % [facility] Total Hb, POC 12.7(L) 13.0 - 17.5 g/dL [facility] Blood 07/08/2025 1:50 PM CDT 07/08/2025 1:50 PM CDT Ji Fuentes MD LAB POCT ORDERABLES - DEVICE Final Result Performing Organization Address [facility] Co de Phone Number AMBIKA ANGEL [address] [employer] [place], [place] [id number] * (ABNORMAL) POC Activated Clotting Time, High Range (07/08/2025 1:48 PM CDT) ACT 145(H) 87 - 138 sec Blood 07/08/2025 1:48 PM CDT 07/08/2025 1:48 PM CDT Ji Fuentes MD LAB BLOOD ORDERABLES Final R esult Performing Organization Address [facility] Co de Phone Number AMBIKA STANLEY [address] Department [place] [address] * (ABNORMAL) POC Blood Gas and Chemistries, Arterial - (07/08/2025 12:47 PM CDT) pH, Art POC 7.38 7.35 - 7.45 pCO2, Art POC 40 35 - 45 mmHg [facility] pO2, Art POC 224(H) 83 - 108 mmHg [facility] Na, POC 135 135 - 145 mmol/L [facility] K POC 4.3 3.3 - 4.9 mmol/L [facility] Comment: Interpretive Data This method is not able to assess for hemolysis, which may falsely increase potassium concentrations. If further testing is needed to evaluate this result, consider in-laboratory plasma potassium. Current Interpretive Data was last revised on 2022. Ionized Ca, POC 4.26(L) 4.50 - 5.10 mg/dL [facility] Glucose, POC 147 70 - 199 mg/dL [facility] Lactate POC 1.4 0.7 - 2.0 mmol/L [facility] O2Hb, Art POC 97.5(H) 90.0 - 95.0 % [facility] SO2 (prakash) arterial 99(H) 90 - 95 % [facility] Total CO2, Art POC 25 21 - 30 mmol/L [facility] BE, art, POC -1 mmol/L [facility] Hct, POC 34.0(L) 38.9 - 50.3 % [facility] Total Hb, POC 11.3(L) 13.0 - 17.5 g/dL [facility] Blood 07/08/2025 12:4 7 PM CDT 07/08/2025 12:47 PM CDT us Ji Fuentes MD LAB POCT ORDERABLES - DEVICE Final Result AMBIKA ANGEL [address] Department [place] [address] * (ABNORMAL) POC Activated Clotting Time, High Range (07/08/2025 12:45 PM CDT) Pathologist [facility] ACT 162(H) 87 - 138 sec Blood 07/08/2025 12:4 5 PM CDT 07/08/2025 12:45 PM CDT Ji Fuentes MD LAB BLOOD ORDERABLES Final R esult Performing Organization Address City/State/[place] [address] [address] Department [place] [address] * (ABNORMAL) POC Blood Gas and Chemistries, Arterial - (07/08/2025 12:15 PM CDT) pH, Art POC 7.41 7.35 - 7.45 pCO2, Art POC 41 35 - 45 mmHg [facility] pO2, Art POC 207(H) 83 - 108 mmHg [facility] Na, POC 134(L) 135 - 145 mmol/L [facility] K POC 5.2(H) 3.3 - 4.9 mmol/L [facility] Comment: Interpretive Data This method is not able to assess for hemolysis, which may falsely increase potassium concentrations. If further testing is needed to evaluate this result, consider in-laboratory plasma potassium. Current Interpretive Data was last revised on 2022. Ionized Ca, POC 4.24(L) 4.50 - 5.10 mg/dL [facility] Glucose, POC 152 70 - 199 mg/dL [facility] Lactate POC 1.3 0.7 - 2.0 mmol/L [facility] O2Hb, Art POC 98.4(H) 90.0 - 95.0 % [facility] SO2 (prakash) arterial 100(H) 90 - 95 % [facility] Total CO2, Art POC 27 21 - 30 mmol/L [facility] BE, art, POC 1 mmol/L [facility] Hct, POC 33.0(L) 38.9 - 50.3 % [facility] Total Hb, POC 10.9(L) 13.0 - 17.5 g/dL [facility] Blood 07/08/2025 12:1 5 PM CDT 07/08/2025 12:15 PM CDT Ji Fuentes MD LAB POCT ORDERABLES - DEVICE Final Result Performing Organization Address City/[facility]/ZIP Co de Phone Number AMBIKA ANGEL [address] [facility] [place] [address] * (ABNORMAL) POC Activated Clotting Time, High Range (07/08/2025 12:13 PM CDT) ACT 542(H) 87 - 138 sec Blood 07/08/2025 12:1 3 PM CDT 07/08/2025 12:13 PM CDT Ji Fuentes MD LAB BLOOD ORDERABLES Final R esult Performing Organization Address [facility] Co de Phone Number AMBIKA ANGEL [address] [facility] [place] [address] * Platelet count (07/08/2025 12:03 PM CDT) Plt 208 150 - 400 K/cumm Blood 07/08/2025 12:0 3 PM CDT 07/08/2025 12:09 PM CDT Narrative AMBIKA Choi 07/08/2025 12:17 PM CDT Please call results to ext. [phone]. Thanks. Ji Fuentes MD LAB BLOOD ORDERABLES Final R esult Performing Organization Address [facility] Co de Phone Number ANDILUCAS ANGEL [address] [place] [address] * POC Blood Gas and Chemistries, Arterial - (07/08/2025 12:00 PM CDT) Glucose, POC 164 70 - 199 mg/dL Blood 07/08/2025 12:0 0 PM CDT 07/08/2025 12:00 PM CDT Ji Fuentes MD LAB POCT ORDERABLES - DEVICE Final Result Performing Organization Address [facility] Co de Phone Number ANDILUCAS ANGEL [address] [place] [address] * (ABNORMAL) POC Blood Gas and Chemistries, Arterial - (07/08/2025 11:21 AM CDT) pH, Art POC 7.40 7.35 - 7.45 pCO2, Art POC 38 35 - 45 mmHg [facility] pO2, Art POC 257(H) 83 - 108 mmHg [facility] Na, POC 132(L) 135 - 145 mmol/L [facility] K POC 5.0(H) 3.3 - 4.9 mmol/L [facility] Comment: Interpretive Data This method is not able to assess for hemolysis, which may falsely increase potassium concentrations. If further testing is needed to evaluate this result, consider in-laboratory plasma potassium. Current Interpretive Data was last revised on 2022. Ionized Ca, POC 4.27(L) 4.50 - 5.10 mg/dL [facility] Glucose, POC 150 70 - 199 mg/dL [facility] Lactate POC 1.0 0.7 - 2.0 mmol/L [facility] O2Hb, Art POC 98.0(H) 90.0 - 95.0 % [facility] SO2 (prakash) arterial 100(H) 90 - 95 % [facility] Total CO2, Art POC 25 21 - 30 mmol/L [facility] BE, art, POC -1 mmol/L [facility] Hct, POC 33.0(L) 38.9 - 50.3 % [facility] Total Hb, POC 11.1(L) 13.0 - 17.5 g/dL [facility] Blood 07/08/2025 11:2 1 AM CDT 07/08/2025 11:21 AM CDT us Ji Fuentes MD LAB POCT ORDERABLES - DEVICE Final Result AMBIKA ANGEL [address] [place] [address] * (ABNORMAL) POC Activated Clotting Time, High Range (07/08/2025 11:19 AM CDT) ACT 625(H) 87 - 138 sec Blood 07/08/2025 11:1 9 AM CDT 07/08/2025 11:19 AM CDT Ji Fuentes MD LAB BLOOD ORDERABLES Final R esult AMBIKA ANGEL [address] [facility] [place] [address] * (ABNORMAL) POC Activated Clotting Time, High Range (07/08/2025 10:34 AM CDT) ACT 929(H) 87 - 138 sec Blood 07/08/2025 10:3 4 AM CDT 07/08/2025 10:34 AM CDT Ji Fuentes MD LAB BLOOD ORDERABLES Final R [facility] Performing Organization Address [facility] Co de Phone Number AMBIKA ANGEL [address] [place] [address] * (ABNORMAL) POC Blood Gas and Chemistries, Arterial - (07/08/2025 10:34 AM CDT) pH, Art POC 7.33(L) 7.35 - 7.45 pCO2, Art POC 45 35 - 45 mmHg [facility] pO2, Art POC 281(H) 83 - 108 mmHg [facility] Na, POC 132(L) 135 - 145 mmol/L [facility] K POC 5.4(H) 3.3 - 4.9 mmol/L [facility] Comment: Interpretive Data This method is not able to assess for hemolysis, which may falsely increase potassium concentrations. If further testing is needed to evaluate this result, consider in-laboratory plasma potassium. Current Interpretive Data was last revised on 2022. Ionized Ca, POC 4.12(L) 4.50 - 5.10 mg/dL [facility] Glucose, POC 104 70 - 199 mg/dL [facility] Lactate POC 0.5(L) 0.7 - 2.0 mmol/L [facility] O2Hb, Art POC 96.8(H) 90.0 - 95.0 % [facility] SO2 (prakash) arterial 100(H) 90 - 95 % [facility] Total CO2, Art POC 25 21 - 30 mmol/L [facility] BE, art, POC -2 mmol/L [facility] Hct, POC 33.0(L) 38.9 - 50.3 % [facility] Total Hb, POC 11.1(L) 13.0 - 17.5 g/dL [facility] Blood 07/08/2025 10:3 4 AM CDT 07/08/2025 10:34 AM CDT us Ji Fuentes MD LAB POCT ORDERABLES - DEVICE Final Result Performing Organization Address [facility]/ZIP Co de Phone Number AMBIKA ANGEL [address] [employer] [place], [place] [id number] * (ABNORMAL) POC Activated Clotting Time, High Range (07/08/2025 9:56 AM CDT) ACT 715(H) 87 - 138 sec Blood 07/08/2025 9:56 AM CDT 07/08/2025 9:56 AM CDT us Ji Fuentes MD LAB BLOOD ORDERABLES Final R esult Performing Organization Address [facility] Co de Phone Number AMBIKA ANGEL [address] [employer] [place], [place] [id number] * PULMONARY ARTERY CATH, UT AN CENTRAL LINE MULTI LUMEN (07/08/2025 8:41 AM CDT) Narrative Neal Rivera AA - 07/08/2025 8:41 AM CDT Neal Rivera AA 07/08/2025 8:42 AM Central Venous Line Patient location: OR Start time: 07/08/2025 8:21 AM Indication: central venous access and CVP monitoring Staff: Supervising provider: Stephen Jorgensen MD Placed by: AA: Neal Rivera AA Procedure prep: Patient position: Trendelenburg. PPE: provider hat/mask, sterile gloves, sterile gown, provider hand hygiene and full body drape. Prep solution: chlorhexadine/alcohol was applied to area. Ultrasound Evaluation: Ultrasound was used prior to prep and prepped into field. Ultrasound image(s) saved to archive. Prior to the procedure, the cannulated vein was evaluated by ultrasound and deemed suitably patent for access.This vessel was accessed using real-time ultrasound guidance and an image was placed in the patient's medical record Central line: Laterality: right Site: internal jugular Catheter type: multi-lumen access catheter (MAC) Oximetric catheter: yes Catheter size: 9 Fr. Catheter length: 11.5 cm Additional catheter placed through introducer: double lumen infusion catheter (DLIC) Catheter length at skin: 12 cm Technique: anatomy identified with ultrasound, vein located with finder needle, Seldinger technique, wire threaded easily and wire removed intact Venous verification: pressure transduced Post insertion: all ports aspirated, all ports flushed easily, line sutured in place and occlusive dressing applied Chlorhexidine patch applied: yes Number of attempts: 1 PA catheter placement: PA catheter type: oximetric PA catheter size: 8 Fr PA catheter laterality: right PA catheter site: internal jugular Placement guided by: pressure tracing changes and verified by MCKENZIE PA catheter depth 48 cmNo Assessment: Events: patient tolerated procedure well with no complications Additional comments: Placed by MEGAN Farias under direct supervision of Dr. Jorgensen & José Miguel Rivera. Pt tolerated well. us Stephen Jorgensen MD ANESTHESIA ORDERABLES Final Re sult * (ABNORMAL) POC Blood Gas and Chemistries, Arterial - (07/08/2025 8:38 AM CDT) pH, Art POC 7.40 7.35 - 7.45 pCO2, Art POC 43 35 - 45 mmHg [facility] pO2, Art POC 448(H) 83 - 108 mmHg [facility] Na, POC 134(L) 135 - 145 mmol/L [facility] K POC 4.0 3.3 - 4.9 mmol/L [facility] Comment: Interpretive Data This method is not able to assess for hemolysis, which may falsely increase potassium concentrations. If further testing is needed to evaluate this result, consider in-laboratory plasma potassium. Current Interpretive Data was last revised on 2022. Ionized Ca, POC 4.91 4.50 - 5.10 mg/dL [facility] Glucose, POC 104 70 - 199 mg/dL [facility] Lactate POC 0.5(L) 0.7 - 2.0 mmol/L [facility] O2Hb, Art POC 97.7(H) 90.0 - 95.0 % [facility] SO2 (prakash) arterial 99(H) 90 - 95 % [facility] Total CO2, Art POC 28 21 - 30 mmol/L [facility] BE, art, POC 1 mmol/L [facility] Hct, POC 47.0 38.9 - 50.3 % [facility] Total Hb, POC 15.7 13.0 - 17.5 g/dL [facility] Blood 07/08/2025 8:38 AM CDT 07/08/2025 8:38 AM CDT Ji Fuentes MD LAB POCT ORDERABLES - DEVICE Final Result Performing Organization Address [facility] de Phone Number AMBIKA ANGEL [address] [place] [address] * POC Activated Clotting Time, High Range (07/08/2025 8:36 AM CDT) ACT 131 87 - 138 sec Blood 07/08/2025 8:36 AM CDT 07/08/2025 8:36 AM CDT Ji Fuentes MD LAB BLOOD ORDERABLES Final R esult Performing Organization Address [facility] de Phone Number AMBIKA STANLEY [address] [place] [place] [address] * UT AN ELECTIVE ENDOTRACHEAL AIRWAY (07/08/2025 8:05 AM CDT) Narrative Neal Rivera AA - 07/08/2025 8:05 AM CDT Neal Rivera AA 07/08/2025 8:05 AM Airway Patient location: OR Urgency: elective Date/time: 07/08/2025 8:05 AM Indications for airway management: anesthesia Difficult airway: no Staff: Placed by: Anesthesiologist: Stephen Jorgensen MD Emergent airway documentation: Risks and benefits discussed: yes Consent obtained: yes Consent given by: patient Airway prep: Preoxygenated: yes Patient position: sniffing Mask difficulty assessment: 3 - difficult mask (inadequate, unstable or two providers) Spontaneous ventilation during airway: absent Sedation level during airway: GA Final airway details: Final airway type: endotracheal airway Tube type: ETT ETT size: 8.0 mm Cuffed: yes Technique used for successful ETT placement: direct laryngoscopy Devices/Methods used in placement: stylet Insertion site: oral Blade type: Dany Blade size: 4 Cormack-Lehane (direct): grade I - full view of glottis Cuff inflated with: air ETT to lips: 23 cm Placement verified by: auscultation and CO2 detection Airway secured with: silk tape Number of attempts: 1 Additional comments: Atraumatic. Teeth as before. Stephen Jorgensen MD ANESTHESIA ORDERABLES Final Re sult * Arterial Line (07/08/2025 8:03 AM CDT) Narrative Neal Rivera AA - 07/08/2025 8:03 AM CDT Neal Rivera AA 07/08/2025 8:05 AM Arterial Line Patient location: pre-op holding Indication: continuous blood pressure monitoring and blood sampling needed Staff: Supervising provider: Stephen Jorgensen MD Placed by: AA: Neal Rivera AA Procedure prep: Prep solution: chlorhexadine/alcohol Prep: provider hat/mask and sterile gloves Skin infiltrated with lidocaine 1%: yes Arterial line: Catheter size: 20 gauge Catheter length: 1 and 3/4 inch Catheter type: wire-guided catheter Seldinger technique: yes Laterality: right Site: radial artery Line secured: Tegaderm and tape Results: good waveform and good blood return Number of attempts: 1 Assessment: Events: patient tolerated procedure well with no complications us Stephen Jorgensen MD ANESTHESIA ORDERABLES Final Re sult * Type and screen (07/08/2025 6:44 AM CDT) ABO Rh O Positive Marquez, indirect Negative [facility] Blood 07/08/2025 6:44 AM CDT 07/08/2025 6:47 AM CDT Narrative [facility] - 07/08/2025 7:26 AM CDT Has the patient had Daratumumab or Isatuximab in the past 6 months?->Unknown Hernandez Roblero NP LAB BLOOD BANK TEST ORDERAB LES Final Result Performing Organization Address [facility]/ZIP Co de Phone Number AMBIKA ANGEL [address] [place] [place] [address] * Prepare RBC: 4 Units (07/08/2025 6:08 AM CDT) Product code [id number] [facility] Unit Number [id number] 6-8 [facility] Product Blood Type OPOS [facility] Dispense Status RETURNED [facility] Product code [id number] [facility] Unit Number [id number] 9-4 [facility] Product Blood Type OPOS [facility] Dispense Status RETURNED [facility] Product code [id number] Unit Number [id number] 4-C [facility] Product Blood Type OPOS C[facility]ER CH Dispense Status RETURNED [facility] Product code [id number] [facility] Unit Number [id number] 8-2 [facility] Product Blood Type OPOS [facility] CH Dispense Status RETURNED [facility] Blood 07/08/2025 6:08 AM CDT Narrative [facility]ER [facility] - 07/12/2025 12:19 AM CDT Specify Procedure:->CABG Are special requirements needed? (All products are leukoreduced and CMV- safe)- >No Date required:-[id number] LRRBC # of [id number] Reasons:-Hold for procedure (specify procedure)} Hernandez Roblero NP BLOOD BANK PRODUCT ORDERABL ES Final Result Performing Organization Address [facility]/ZIP Co de Phone Number AMBIKA ANGEL [address] [facility] [place] [employer] [place] [address] * Type and screen (06/28/2025 9:41 AM CDT) Marquez, indirect Negative ABO Rh O Positive [facility] Blood 06/28/2025 9:41 AM CDT 06/28/2025 10:07 AM CDT Narrative AMBIKA ANGEL - 06/28/2025 10:47 AM CDT Has the patient had Daratumumab or Isatuximab in the past 6 months?->Unknown us Hernandez Roblero NP LAB BLOOD BANK TEST ORDERAB LES Final Result AMBIKA [address] [place] [address] * CT Head WO Contrast (06/28/2025 8:18 AM CDT) Anatomical Region Laterality Modality Head and Neck N/A Computed Tomogra phy 06/28/2025 8:34 AM CDT Impressions 06/28/2025 8:34 AM CDT No acute intracranial abnormality. Acute sinusitis as noted. Electronically signed by: Brooks Ramos M.D. Narrative 06/28/2025 8:34 AM CDT EXAMINATION: CT head without contrast HISTORY: Headache, increasing frequency or severity TECHNIQUE: Noncontrast CT of the brain was performed with images acquired from skull base to vertex. COMPARISON: None available. FINDINGS: There is no acute intracranial hemorrhage. Ventricles are of normal size and morphology. No mass effect or midline shift is present. The thomason-white matter differentiation is normal. The visualized portions of the orbits are without acute abnormality. The visualized portions of the mastoids are normal. There is patchy infiltrate and/or fluid in the inferior aspect of each frontal sinus and bilateral ethmoidal sinuses with mucosal thickening in the sphenoid sinuses.. No fractures are identified. Procedure Note Brooks Ramos MD - 06/28/2025 EXAMINATION: CT head without contrast HISTORY: Headache, increasing frequency or severity TECHNIQUE: Noncontrast CT of the brain was performed with images acquired from skull base to vertex. COMPARISON: None available. FINDINGS: There is no acute intracranial hemorrhage. Ventricles are of normal size and morphology. No mass effect or midline shift is present. The thomason-white matter differentiation is normal. The visualized portions of the orbits are without acute abnormality. The visualized portions of the mastoids are normal. There is patchy infiltrate and/or fluid in the inferior aspect of each frontal sinus and bilateral ethmoidal sinuses with mucosal thickening in the sphenoid sinuses.. No fractures are identified. IMPRESSION: No acute intracranial abnormality. Acute sinusitis as noted. Electronically signed by: Brooks Ramso M.D. Alfredo Deshawn Mon DO IMG CT PROCEDURES Final R esult * eGFR (06/28/2025 5:52 AM CDT) eGFR >90 >=60 mL/min/1. 73 m2 Comment: Interpretive Data Reference Interval Normal >/= 90 mL/min/1.73m2 Mildly decreased* 60 - 89 mL/min/1.73m2 Mildly to moderately decreased 45 - 59 mL/min/1.73m2 Moderately to severely decreased 30 - 44 mL/min/1.73m2 Severely decreased 15 - 29 mL/min/1.73m2 Kidney Failure < 15 mL/min/1.73m2 *Relative to young adult level Estimated glomerular filtration rate is determined by the 2020 CKD-EPI equation recommended by the National Kidney Foundation (A Unifying Approach to GFR Estimation: Recommendations of the NKF-ASK Task Force on Reassessing the Inclusion of Race in Diagnosing Kidney Disease, JASN 2020). The CKD-EPI equation should not be used for patients with unstable renal function and has not been validated in children and those over 70. Current interpretive data was last reviewed 2021. Blood 06/28/2025 5:5 2 AM CDT 06/28/2025 6:14 AM CDT Nisha Stinson MD LAB BLOOD ORDERABLES Final Re sult AMBIKA [address] [place] [address] * (ABNORMAL) CBC without differential (06/28/2025 5:52 AM CDT) WBC 4.73 3.80 - 9.90 K/cumm Hgb 15.8 13.0 - 17.5 g/dL AMBIKA ANGEL Hct 47.1 38.9 - 50.3 % [facility] Plt 195 150 - 400 K/cumm [facility] MPV 8.7(L) 9.1 - 12.3 fL [facility] RBC 5.02 4.30 - 5.80 M/cumm [facility] MCV 93.8 81.3 - 96.4 fL [facility] MCH 31.5 27.1 - 33.3 pg [facility] MCHC 33.5 32.3 - 35.7 g/dL [facility] RDW CV 11.9 11.1 - 14.9 % [facility] RDW SD 41.9 35.7 - 48.1 fL [facility] CH NRBC abs 0.00 0.00 - 0.01 K/cumm [facility] CH Blood 06/28/2025 5:52 AM CDT 06/28/2025 6:10 AM CDT Nisha Stinson MD LAB BLOOD ORDERABLES Final Re sult Performing Organization Address [facility] Co de Phone Number AMBIKA [address] [place] [place] [address] * TSH (06/28/2025 5:52 AM CDT) Thyroid Stimulating Hormone 1.41 0.30 - 4.20 mcIUnit/mL Blood 06/28/2025 5:52 AM CDT 06/28/2025 6:14 AM CDT Alfredo Mon DO LAB BLOOD ORDERABLES Maria Elena l Result Performing Organization Address [facility] Co de Phone Number [facility] [address] [place] [place] [address] * (ABNORMAL) Lipid panel (06/28/2025 5:52 AM CDT) Cholesterol 130 30 - 199 mg/dL Comment: Interpretive Data Ages < or = 19 years Acceptable: <170 mg/dL Borderline high: 170-199 mg/dL High: >or= 200 mg/dL Ages > or = 20 years Desirable: <200 mg/dL Borderline high: 200-239 mg/dL High: >or= 240 mg/dL Literature References: 1. Expert Panel on Integrated Guidelines for Cardiovascular Health and Risk Reduction in Children and Adolescents. Pediatrics 2011;128:S213 2. NCEP Expert Panel. Circulation 2004;110:227 Current Interpretive Data was last revised on 2018. Triglycerides 125 <=149 mg/dL AMBIKA Comment: Interpretive Data Ages < or = 9 years Acceptable: <75 mg/dL Borderline high: 75-99 mg/dL High: >or= 100 mg/dL Ages 10 to 20 years Acceptable: <90 mg/dL Borderline high: 90-129 mg/dL High: >or= 130 mg/dL Ages > or = 20 years Desirable: <150 mg/dL Borderline high: 150-199 mg/dL High: 200-499 mg/dL Very high: >or= 499 mg/dL Literature References: 1. Expert Panel on Integrated Guidelines for Cardiovascular Health and Risk Reduction in Children and Adolescents. Pediatrics 2011;128:S213 2. NCEP Expert Panel. Circulation 2004;110:227 Current Interpretive Data was last revised on 2018. HDL 35(L) >=40 mg/dL AMBIKA Comment: Interpretive Data Ages < or = 19 years Acceptable: >45 mg/dL Borderline low: 40-45 mg/dL Low: <40 mg/dL Ages > or = 20 years Desirable: >or= 60 mg/dL Low: <40 mg/dL Literature References: 1. Expert Panel on Integrated Guidelines for Cardiovascular Health and Risk Reduction in Children and Adolescents. Pediatrics 2011;128:S213 2. NCEP Expert Panel. Circulation 2004;110:227 Current Interpretive Data was last revised on 2018. LDL, calculated 72 <=129 mg/dL AMBIKA Comment: Interpretive Data Ages < or = 19 years Acceptable: <110 mg/dL Borderline high: 110-129 mg/dL High: >or= 130 mg/dL Ages > or = 20 years Optimal: <100 mg/dL Near optimal: 100-129 mg/dL Borderline high: 130-159 mg/dL High: >160 mg/dL Calculated using the Dailey LDL-C estimating equation. This equation was implemented on 2024. Prior to this date LDL-C was estimated using the Friedewald equation. Literature References: 1. Expert Panel on Integrated Guidelines for Cardiovascular Health and Risk Reduction in Children and Adolescents. Pediatrics 2011;128:S213 2. NCEP Expert Panel. Circulation 2004;110:227 3. Asim Mancini et al. KENNEDY Cardiol. 2020 March 31;5(5):540-548. doi: 10.1001/[email or web address] Current Interpretive Data was last revised on 2024. Non-HDL Cholesterol 95 mg/dL [facility] Comment: Interpretive Data Ages < or = 19 years Acceptable: <120 mg/dL Borderline high: 120-144 mg/dL High: >145 mg/dL Ages > or = 20 years When triglycerides are >200 mg/dL, Non-HDL cholesterol is a secondary target of therapy with treatment goals that are 30 mg/dL greater than the LDL cholesterol target. Literature References: 1. Expert Panel on Integrated Guidelines for Cardiovascular Health and Risk Reduction in Children and Adolescents. Pediatrics 2011;128:S213 2. NCEP Expert Panel. Circulation 2004;110:227 Current Interpretive Data was last revised on 2018. Chol/HDL ratio 4 [facility] Blood 06/28/2025 5:52 AM CDT 06/28/2025 6:14 AM CDT Alfredo Mon DO LAB BLOOD ORDERABLES Maria Elena l Result AMBIKA [address] [place] [address] * Basic metabolic panel (06/28/2025 5:52 AM CDT) Sodium 141 135 - 145 mmol/L Potassium, pl 4.1 3.3 - 4.9 mmol/L CERNER Chloride 105 97 - 110 mmol/L [facility] CH CO2 25 22 - 32 mmol/L [facility] CH Anion gap 11 2 - 15 mmol/L [facility] BUN 11 6 - 25 mg/dL [facility] CH Creatinine 0.90 0.80 - 1.30 mg/dL [facility] CH Glucose 95 70 - 199 mg/dL [facility] Comment: Interpretive Data Fasting glucose >/= 126 mg/dl is diagnostic for diabetes. Fasting is defined as no caloric intake for at least 8 hours. Fasting glucose between 100 mg/dl to 125 mg/dl is diagnostic of prediabetes. In a patient with classic symptoms of hyperglycemia or hyperglycemic crisis, a random glucose >/= 200 mg/dl is diagnostic for diabetes. In the absence of unequivocal hyperglycemia, results should be confirmed by repeat testing. The classification and Diagnosis of Diabetes Diabetes Care 2021; 46: S19-S40. Current interpretive data was last revised 2022. Calcium 9.3 8.5 - 10.3 mg/dL [facility] CH Blood 06/28/2025 5:52 AM CDT 06/28/2025 6:14 AM CDT us Nsiha Stinson MD LAB BLOOD ORDERABLES Final Re sult AMBIKA [address] Department [place] [address] * Urinalysis reflex to microscopic and culture Urine, clean voided (06/27/2025 6:00 PM CDT) Color, ur Yellow Yellow Clarity, ur Clear Clear [facility] Specific gravity, ur 1.020 1.003 - 1.030 [facility] CH pH, urine 6.5 [facility] CH Comment: Interpretive Data U rine pH is affected by diet, medications, systemic acid-base disturbances, and renal tubular function. pH may affect urinary stone formation. For example, urine pH below 6.0 may help reduce the tendency for calcium phosphate stones and pH greater than 6.0 may reduce the tendency for uric acid stone formation. Source: [facility] [employer] Current Interpretive Data was last revised on 2017 Protein, ur ql Negative Negative [facility] CH Glucose, ur ql Negative Negative [facility] CH Ketones, ur Negative Negative [facility] CH Bilirubin, ur Negative Negative [facility] CH Blood, ur Negative Negative [facility] CH Urobilinogen, ur <2.0 <2.0 mg/dL [facility] CH Nitrite, ur Negative Negative [facility] CH Leukocyte esterase, ur Negative Negative [facility] CH UA reflex comment Reflex conditions for microscopic UA and culture not met. [facility] CH Urine, clean voided 06/27/2025 6:00 PM CDT 06/27/2025 6:10 PM CDT us Hernandez Roblero NP LAB MICROBIOLOGY - GENERAL ORDERABLES Final Result [facility] ANGEL [address] Department [place] [address] * CT Chest WO Contrast (06/27/2025 2:08 PM CDT) Anatomical Region Laterality Modality Body N/A Computed Tomogra phy 06/27/2025 2:55 PM CDT Impressions 06/27/2025 2:55 PM CDT 1. No significant calcified atherosclerosis of the thoracic aorta. 2. Nonspecific sub-5 mm pulmonary nodules in the right upper lobe and the left lower lobe. Recommend continued attention on follow-up imaging. Electronically signed by: Néstor Dang M.D. Narrative 06/27/2025 2:55 PM CDT EXAMINATION: Computed tomography of the chest without intravenous contrast HISTORY: 65-year-old man with coronary artery disease, assess for aortic calcifications prior to coronary artery bypass grafting. TECHNIQUE: Transaxial computed tomographic images of the chest were obtained without intravenous contrast according to the standard protocol. COMPARISON: PET/CT dated 07/20/2024. FINDINGS: Small amounts of mucus are noted within the trachea and left mainstem bronchus. No pneumonia, pulmonary edema, pleural effusion, or pneumothorax. Old granulomatous disease in the left lower lobe. Unchanged 4 mm right apical pulmonary nodule (series 2 image 27). 4 mm pulmonary nodule in the left lower lobe (series 2 image 101). 4 mm triangular, wedge-shaped subpleural pulmonary nodule in the left upper lobe (series 2 image 73), which most likely represents a subpleural pulmonary nodule. No supraclavicular, axillary, mediastinal, or hilar lymphadenopathy. Mild bilateral gynecomastia. Normal heart size. No pericardial effusion or pericardial thickening. Multivessel calcified atherosclerosis of the coronary arteries. A significant calcified atherosclerosis of the thoracic aorta. Common origin of the right brachiocephalic and left common carotid arteries is noted, normal variant. Normal caliber and pulmonary artery. Limited examination of the upper abdomen demonstrates small hiatal hernia with mild distal esophageal wall thickening. Acute abnormality identified in the imaged portion of the upper abdomen. Multilevel degenerative changes of the spine. No suspicious lytic or blastic osseous lesion. Procedure Note Néstor Dang MD - 06/27/2025 EXAMINATION: Computed tomography of the chest without intravenous contrast HISTORY: 65-year-old man with coronary artery disease, assess for aortic calcifications prior to coronary artery bypass grafting. TECHNIQUE: Transaxial computed tomographic images of the chest were obtained without intravenous contrast according to the standard protocol. COMPARISON: PET/CT dated 07/20/2024. FINDINGS: Small amounts of mucus are noted within the trachea and left mainstem bronchus. No pneumonia, pulmonary edema, pleural effusion, or pneumothorax. Old granulomatous disease in the left lower lobe. Unchanged 4 mm right apical pulmonary nodule (series 2 image 27). 4 mm pulmonary nodule in the left lower lobe (series 2 image 101). 4 mm triangular, wedge-shaped subpleural pulmonary nodule in the left upper lobe (series 2 image 73), which most likely represents a subpleural pulmonary nodule. No supraclavicular, axillary, mediastinal, or hilar lymphadenopathy. Mild bilateral gynecomastia. Normal heart size. No pericardial effusion or pericardial thickening. Multivessel calcified atherosclerosis of the coronary arteries. A significant calcified atherosclerosis of the thoracic aorta. Common origin of the right brachiocephalic and left common carotid arteries is noted, normal variant. Normal caliber and pulmonary artery. Limited examination of the upper abdomen demonstrates small hiatal hernia with mild distal esophageal wall thickening. Acute abnormality identified in the imaged portion of the upper abdomen. Multilevel degenerative changes of the spine. No suspicious lytic or blastic osseous lesion. IMPRESSION: 1. No significant calcified atherosclerosis of the thoracic aorta. 2. Nonspecific sub-5 mm pulmonary nodules in the right upper lobe and the left lower lobe. Recommend continued attention on follow-up imaging. Electronically signed by: Néstor Dang M.D. us Hernandez Roblero NP IMG CT PROCEDURES Final Res ult * Hemoglobin A1c (06/27/2025 9:30 AM CDT) Hgb A1C 5.2 4.0 - 5.6 % Estimated Average Glucose 103 mg/dL AMBIKA ANEGL Comment: The ADA recommends reporting an estimated Average Glucose (eAG) with all Hemoglobin A1c results using the equation derived from a study of 507 normal and diabetic adults. Minority populations were underrepresented and children were not included. (Diabetes Care 31:3214-1512, 2008). The eAG is not equivalent to a fasting glucose. Blood 06/27/2025 9:30 AM CDT 06/27/2025 9:37 AM CDT us Hernandez Roblero NP LAB BLOOD ORDERABLES Final Result Performing Organization Address [facility]/ZIP Co de Phone Number AMBIKA ANGEL [address] [place] [address] * eGFR (06/27/2025 4:29 AM CDT) eGFR >90 >=60 mL/min/1. 73 m2 Comment: Interpretive Data Reference Interval Normal >/= 90 mL/min/1.73m2 Mildly decreased* 60 - 89 mL/min/1.73m2 Mildly to moderately decreased 45 - 59 mL/min/1.73m2 Moderately to severely decreased 30 - 44 mL/min/1.73m2 Severely decreased 15 - 29 mL/min/1.73m2 Kidney Failure < 15 mL/min/1.73m2 *Relative to young adult level Estimated glomerular filtration rate is determined by the 2020 CKD-EPI equation recommended by the National Kidney Foundation (A Unifying Approach to GFR Estimation: Recommendations of the NKF-ASK Task Force on Reassessing the Inclusion of Race in Diagnosing Kidney Disease, JASN 2020). The CKD-EPI equation should not be used for patients with unstable renal function and has not been validated in children and those over 70. Current interpretive data was last reviewed 2021. Blood 06/27/2025 4:29 AM CDT 06/27/2025 4:32 AM CDT us Nisha Stinson MD LAB BLOOD ORDERABLES Final Re sult Performing Organization Address City/[facility]/ZIP Co de Phone Number AMBIKA ANGEL [address] [place] [address] * (ABNORMAL) CBC without differential (06/27/2025 4:29 AM CDT) Pathologist [facility] WBC 5.66 3.80 - 9.90 K/cumm Hgb 14.3 13.0 - 17.5 g/dL [facility] Hct 43.7 38.9 - 50.3 % [facility] Plt 173 150 - 400 K/cumm [facility] MPV 8.8(L) 9.1 - 12.3 fL [facility] RBC 4.56 4.30 - 5.80 M/cumm C[facility] CH MCV 95.8 81.3 - 96.4 fL [facility] MCH 31.4 27.1 - 33.3 pg [facility] MCHC 32.7 32.3 - 35.7 g/dL [facility] RDW CV 11.9 11.1 - 14.9 % [facility] CH RDW SD 42.0 35.7 - 48.1 fL [facility] NRBC abs 0.00 0.00 - 0.01 K/cumm [facility] Blood 06/27/2025 4:29 AM CDT 06/27/2025 4:32 AM CDT us Nisha Stinson MD LAB BLOOD ORDERABLES Final Re sult [facility] [address] Department [place] [address] * (ABNORMAL) Basic metabolic panel (06/27/2025 4:29 AM CDT) [facility] Sodium 137 135 - 145 mmol/L Potassium, pl 3.8 3.3 - 4.9 mmol/L [facility] Chloride 105 97 - 110 mmol/L [facility] CO2 22 22 - 32 mmol/L [facility] Anion gap 10 2 - 15 mmol/L [facility] BUN 15 6 - 25 mg/dL [facility] Creatinine 0.74(L) 0.80 - 1.30 mg/dL [facility] Glucose 105 70 - 199 mg/dL [facility] Comment: Interpretive Data Fasting glucose >/= 126 mg/dl is diagnostic for diabetes. Fasting is defined as no caloric intake for at least 8 hours. Fasting glucose between 100 mg/dl to 125 mg/dl is diagnostic of prediabetes. In a patient with classic symptoms of hyperglycemia or hyperglycemic crisis, a random glucose >/= 200 mg/dl is diagnostic for diabetes. In the absence of unequivocal hyperglycemia, results should be confirmed by repeat testing. The classification and Diagnosis of Diabetes Diabetes Care 2021; 46: S19-S40. Current interpretive data was last revised 2022. Calcium 8.7 8.5 - 10.3 mg/dL [facility] ANGEL Blood 06/27/2025 4:29 AM CDT 06/27/2025 4:32 AM CDT us Nisha Stinson MD LAB BLOOD ORDERABLES Final Re sult AM[facility]KA ANGEL [address] Department [place] [address] * UT CRITICAL CARE ILL/INJURED PATIENT INIT 30-74 MIN (06/26/2025 9:41 PM CDT) Narrative Jamal Mcdonald MD - 06/26/2025 9:41 PM CDT Jamal Mcdonald MD 06/26/2025 9:42 PM Critical Care Performed by: Jamal Mcdonald MD Authorized by: Jamal Mcdonald MD Critical care provider statement: As reflected in the history, physical exam, orders, notes, and/or MDM, I was personally present while the patient was critically ill and provided critical care services for 31 minutes, excluding time involved in separately billable procedures. Critical care was necessary to treat or prevent imminent or life-threatening deterioration of the following condition(s): unstable angina/acute coronary syndrome Critical care was time spent by me providing the following: continuous telemetry, continuous pulse oximetry, interpretation of bedside monitors, imaging, and arterial/venous lab draws, serial bedside patient exams and serial laboratory checks Nitroglycerin I provided emergent necessary critical care medicine services to this patient. I spent time discussing the management of this critically ill patient with consultants and the medical staff. I ordered and reviewed test results and/or imaging studies. I spent time documenting in the medical record. I spent time discussing the management and therapeutic options for this critically ill patient with the patient themselves or with the appropriate designated surrogate decision-maker. I admitted this patient to a continuous cardiac monitored bed. Jamal Mcdonald MD IN CLINIC/BEDSIDE ORDERABLES Final Result * Troponin T high-sensitivity 4-hour (06/26/2025 8:35 PM CDT) Trop T hs 7 <=22 ng/L Comment: Interpretive Data For further hscTnT resources including the diagnostic algorithm and an aid in interpretation, copy and paste this link: [email or web address]://[email or web address]/show/[email or web address] Current Interpretive Data last revised 2020. Trop T hs delta -1 ng/L [facility] CH Trop T hs interp Insignificant [facility] CH Blood 06/26/2025 8:35 PM CDT 06/26/2025 8:41 PM CDT Johnathon Turner MD LAB BLOOD ORDERABLES Fin al Result Performing Organization Address [facility] Co de Phone Number [facility] [address] [place] [address] * Troponin T high-sensitivity 2-hour (06/26/2025 6:46 PM CDT) Trop T hs 9 <=22 ng/L Comment: Interpretive Data For further hscTnT resources including the diagnostic algorithm and an aid in interpretation, copy and paste this link: [email or web address]/[email or web address] Current Interpretive Data last revised 2020. Trop T hs delta 1 ng/L C[facility]ER Trop T hs interp Insignificant [facility] CH Blood 06/26/2025 6:46 PM CDT 06/26/2025 6:51 PM CDT Johnathon Turner MD LAB BLOOD ORDERABLES Fin al Result Performing Organization Address City/[facility]/ZIP Co de Phone Number [facility] [address] [place] [address] * XR Chest 1 Vw Portable (If patient hemodynamically UNstable or UNable to ambulate) (06/26/2025 5:07PM CDT) Anatomical Region Laterality Modality Body, Chest N/A Computed Radiogr aphy 06/26/2025 10:1 5 PM CDT Impressions 06/26/2025 10:15 PM CDT No active disease. Electronically signed by: Tami Jane M.D. Narrative 06/26/2025 10:15 PM CDT EXAMINATION: XR CHEST 1 VIEW HISTORY: The patient is a 65-year-old male who presents with chest pain. TECHNIQUE: AP portable view of the chest. FINDINGS: Lungs clear. Cardiovascular structures unremarkable. Procedure Note Tami Jane MD - 06/26/2025 EXAMINATION: XR CHEST 1 VIEW HISTORY: The patient is a 65-year-old male who presents with chest pain. TECHNIQUE: AP portable view of the chest. FINDINGS: Lungs clear. Cardiovascular structures unremarkable. IMPRESSION: No active disease. Electronically signed by: Tami Jane M.D. Jamal Mcdonald MD IMG XR PROCEDURES Final Resul t * Troponin T high-sensitivity series (baseline, 2hr, 4hr, 6hr) (06/26/2025 4:56 PM CDT) Pathologist [facility] Trop T hs 8 <=22 ng/L Comment: Interpretive Data For further hscTnT resources including the diagnostic algorithm and an aid in interpretation, copy and paste this link: https://nrl.testcatalog.org/show/[email or web address] Current Interpretive Data last revised 2020. Blood 06/26/2025 4:56 PM CDT 06/26/2025 4:56 PM CDT Jamal Mcdonald MD LAB BLOOD ORDERABLES Final Re sult [facility] ANGEL [address] Department [place] [address] * eGFR (06/26/2025 4:56 PM CDT) [facility] eGFR >90 >=60 mL/min/1. 73 m2 Comment: Interpretive Data Reference Interval Normal >/= 90 mL/min/1.73m2 Mildly decreased* 60 - 89 mL/min/1.73m2 Mildly to moderately decreased 45 - 59 mL/min/1.73m2 Moderately to severely decreased 30 - 44 mL/min/1.73m2 Severely decreased 15 - 29 mL/min/1.73m2 Kidney Failure < 15 mL/min/1.73m2 *Relative to young adult level Estimated glomerular filtration rate is determined by the 2020 CKD-EPI equation recommended by the National Kidney Foundation (A Unifying Approach to GFR Estimation: Recommendations of the NKF-ASK Task Force on Reassessing the Inclusion of Race in Diagnosing Kidney Disease, JASN 2020). The CKD-EPI equation should not be used for patients with unstable renal function and has not been validated in children and those over 70. Current interpretive data was last reviewed 2021. Blood 06/26/2025 4:56 PM CDT 06/26/2025 4:56 PM CDT us Jamal Mcdonald MD LAB BLOOD ORDERABLES Final Re sult [facility] [address] [place] [address] * (ABNORMAL) Differential, auto (06/26/2025 4:56 PM CDT) Pathologist [facility] Neutrophil abs 5.09 1.50 - 6.50 K/cumm Imm gran abs 0.03 0.00 - 0.10 K/cumm [facility] Lymphocyte abs 0.65(L) 0.80 - 3.30 K/cumm [facility] Monocyte abs 0.36 0.20 - 0.80 K/cumm [facility] Eosinophil abs 0.01 0.00 - 0.50 K/cumm [facility] Basophil abs 0.04 0.00 - 0.10 K/cumm [facility] Neutrophil pct 82.4 % [facility] Comment: Interpretive Data Percent cell count reference ranges are not reported, since discordance with absolute values may lead to misinterpretation of CBC data. Current Interpretive Data was last revised on 2018. Imm gran pct 0.5 % [facility] Comment: Interpretive Data Percent cell count reference ranges are not reported, since discordance with absolute values may lead to misinterpretation of CBC data. Current Interpretive Data was last revised on 2018. Lymphocyte pct 10.5 % [facility] Comment: Interpretive Data Percent cell count reference ranges are not reported, since discordance with absolute values may lead to misinterpretation of CBC data. Current Interpretive Data was last revised on 2018. Monocyte pct 5.8 % [facility] Comment: Interpretive Data Percent cell count reference ranges are not reported, since discordance with absolute values may lead to misinterpretation of CBC data. Current Interpretive Data was last revised on 2018. Eosinophil pct 0.2 % [facility] Comment: Interpretive Data Percent cell count reference ranges are not reported, since discordance with absolute values may lead to misinterpretation of CBC data. Current Interpretive Data was last revised on 2018. Basophil pct 0.6 % [facility] Comment: Interpretive Data Percent cell count reference ranges are not reported, since discordance with absolute values may lead to misinterpretation of CBC data. Current Interpretive Data was last revised on 2018. Blood 06/26/2025 4:56 PM CDT 06/26/2025 4:56 PM CDT us Jamal Mcdonald MD LAB BLOOD ORDERABLES Final Re sult [facility] [address] Department [place] [address] * (ABNORMAL) CBC with auto differential (06/26/2025 4:56 PM CDT) WBC 6.18 3.80 - 9.90 K/cumm Hgb 14.9 13.0 - 17.5 g/dL [facility] Hct 45.1 38.9 - 50.3 % [facility] Plt 209 150 - 400 K/cumm [facility] MPV 8.7(L) 9.1 - 12.3 fL [facility] RBC 4.89 4.30 - 5.80 M/cumm [facility] CH MCV 92.2 81.3 - 96.4 fL [facility] CH MCH 30.5 27.1 - 33.3 pg [facility] CH MCHC 33.0 32.3 - 35.7 g/dL [facility] CH RDW CV 11.9 11.1 - 14.9 % [facility] CH RDW SD 40.3 35.7 - 48.1 fL [facility] NRBC abs 0.00 0.00 - 0.01 K/cumm [facility] CH Blood Venous blood specimen / Unknown 06/26/2025 4:56 PM CDT 06/26/2025 4:56 PM CDT us Jamal Mcdonald MD LAB BLOOD ORDERAB[place] [address] [place] [address] * (ABNORMAL) Comprehensive metabolic panel (06/26/2025 4:56 PM CDT) Sodium 139 135 - 145 mmol/L Potassium, pl 4.0 3.3 - 4.9 mmol/L [facility] Chloride 103 97 - 110 mmol/L [facility] CO2 24 22 - 32 mmol/L [facility] Anion gap 12 2 - 15 mmol/L [facility] BUN 14 6 - 25 mg/dL [facility] Creatinine 0.85 0.80 - 1.30 mg/dL [facility] Glucose 121 70 - 199 mg/dL [facility] Comment: Interpretive Data Fasting glucose >/= 126 mg/dl is diagnostic for diabetes. Fasting is defined as no caloric intake for at least 8 hours. Fasting glucose between 100 mg/dl to 125 mg/dl is diagnostic of prediabetes. In a patient with classic symptoms of hyperglycemia or hyperglycemic crisis, a random glucose >/= 200 mg/dl is diagnostic for diabetes. In the absence of unequivocal hyperglycemia, results should be confirmed by repeat testing. The classification and Diagnosis of Diabetes Diabetes Care 2021; 46: S19-S40. Current interpretive data was last revised 2022. Calcium 9.2 8.5 - 10.3 mg/dL [facility] Bilirubin, total 0.3 0.1 - 1.2 mg/dL [facility] CH Protein, pl 6.3(L) 6.5 - 8.5 g/dL [facility] Albumin 4.1 3.5 - 5.0 g/dL [facility] Alk phos 96 40 - 130 Units/L [facility] ALT 23 7 - 55 Units/L [facility] AST 29 10 - 50 Units/L [facility] Blood 06/26/2025 4:56 PM CDT 06/26/2025 4:56 PM CDT Jamal Mcdonald MD LAB BLOOD ORDERABLES Final Re sult Performing Organization Address [facility] Co de Phone Number [facility] [address] [place] [address] * ECG 12 lead (06/26/2025 3:39 PM CDT) 06/26/2025 3:39 PM CDT Narrative [facility] - 06/26/2025 8:31 PM CDT Vent Rate: 81 bpm RR Interval: 735 msec UT Interval: 140 msec QRS Duration: 92 msec QT Interval: 377 msec QTC Interval: 414 msec P-R-T [place]: 28 - -5 - -14 degrees IMPRESSION: SINUS RHYTHM INFERIOR MYOCARDIAL INFARCTION , OF INDETERMINATE AGE [40+ ms Q WAVE AND/OR ST/T ABNORMALITY IN II/aVF] ABNORMAL ECG Electronically Signed By: Cesar Marley MD Jamal Mcdonald MD ECG ORDERABLES Final Result Performing Organization Address [facility] Co de Phone Number [facility] [employer] [facility] * SCAN - LABS (06/15/2025 9:28 PM CDT) Provider Scanning Final Result from Last 3 Months Insurance [employer] PPO [employer] P[employer] Advance Directives For more information, please contact: [phone] * Full Code (Latest Code Status on File) Date Activated Date Inactivated Comments 07/08/2025 2:22 PM 07/13/2025 8:35 PM * Full Code Date Activated Date Inactivated Comments 06/26/2025 8:08 PM 06/28/2025 6:04 PM * Full Code Date Activated Date Inactivated Comments 12/30/2023 2:42 PM 01/01/2024 10:34 PM Care Teams Pant[employer] Relationship Specialty Start Date End Date Cesar Allan MD [address] [place] [address] [address] [place] [address] PCP - General Family Medicine 04/02/24 Sergio Schrdaer MD [address] [facility] IM MEDICAL ONCOLOGY, [address] [place] [address] Medical Oncologist/Hematologis t Medical Oncology 12/12/23 Satinder Romano MD [address] [facility] IM MEDICAL ONCOLOGY, [address] [place] [address] Radiation Oncologist Radiation Oncology 12/12/23 Deshawn Mandujano MD [address] [facility] DEPT OTOLARYNGOLOGY, [address] [place] [address] Consulting Physician Otolaryngology 12/12/23 [place] [address] [place] [address] Surgeon Cardiothoracic Surgery 07/13/25 Burce Mariscal MD [address] [facility] [address], [place] [address] Consulting Physician Cardiology 07/13/25
[2025-07-15 12:53] LABS: Hematocrit 35.2 % (42.0-52.0); Hemoglobin 11.7 g/dL (14.0-18.0); Mean Corpuscular HGB Conc 33.2 g/dl (32-36); Mean Corpuscular Hemoglobin 31.3 pg (26-34); Mean Corpuscular Volume 94.1 fl (80-100); Platelet Count Result 427 k/mm3 (150-375); Red Blood Count 3.74 M/mm3 (4.6-6.20); White Blood Count 10.8 K/mm3 (4.5-10.0)
[2025-07-15 13:27] LABS: Alanine Aminotransferase 22 U/L (6-50); Albumin Level 3.9 g/dL (3.5-5.1); Alkaline Phosphatase 91 U/L (38-126); Anion Gap 7 mmol/L (4-12); Aspartate Amino Transferase 99 U/L (17-59); Bilirubin,Total 0.4 mg/dL (0.2-1.3); Blood Urea Nitrogen 18 mg/dL (9-20); Calcium 9.4 mg/dL (8.4-10.2); Carbon Dioxide 31 mmol/L (22-30); Chloride 97 mmol/L (98-107); Estimated Glomerular Filt Rate > 60; Glucose 110 mg/dL (65-110); Potassium 3.5 mmol/L (3.4-5.0); Sodium 135 mmol/L (137-145); Total Protein 6.8 g/dL (6.3-8.2)
== END 2025-07-15 11:18 | disposition home or self-care (01) ==
LOC: ANHGOSHLAB 11:19
PROVIDERS: PCP Family Medicine; Visit Provider Family Medicine
DX: M27.3 Alveolitis of jaws (principal); T81.49XA Infection following a procedure, other surgical site, initial encounter
CPT/HCPCS: 36415; 80053; 85027